=== PATIENT | male | born 1995 | race American Indian/Alaskan Native ===

== ENCOUNTER 2021-02-26 10:16 | Emergency (ER) | payer MEDICAID, SELFPAY ==
[2021-02-26 10:37] VITALS: BP 157/97; PULSE 88; RESP 18; TEMP 37; O2SAT 97; BMI 26.6
--- NOTE | 2021-02-26 11:53 | ED.PSYCH ---
HPI - Psych General Chief Complaint: ETOH/Substance Use <Isha Reid NP - Last Filed: 02/26/21 17:36> Stated Complaint: DETOX <Isha Reid NP - Last Filed: 02/26/21 17:36> Time Seen by Provider: 02/26/21 11:38 <Isha Reid NP - Last Filed: 02/26/21 17:36> Source: patient <Isha Reid NP - Last Filed: 02/26/21 17:36> Mode of arrival: ambulatory <BEV Moreno Last Filed: 02/26/21 17:36> Limitations: no limitations <BEV Moreno Last Filed: 02/26/21 17:36> History of Present Illness HPI Narrative: 26-year-old male here with complaints of depression. Patient tells me 2 days ago his . He told me he made a promise to her that if she passed he would stop using drugs. He has been using heroin daily for more than 3 years. He started to wean himself off of heroin last week and is currently on 73 mg of methadone daily. His last doses morning. He denies any suicidal thoughts but does admit to depression. Tells me he has history of depression and bipolar disease but has been off all his medications for more than 3 months. He denies any additional substance use. No physical complaints <BEV Moreno Last Filed: 02/26/21 17:36> Related Data Home Medications: Home Medications Medication Instructions Recorded Confirmed methadone 10 mg tablet 70 mg PO DAILY 02/26/21 02/27/21 <Isha Reid NP - Last Filed: 02/26/21 17:36> Allergies/Adverse Reactions: Allergies Allergy/AdvReac Type Severity Reaction Status Date / Time From [facility] Allergy Unknown UNKNOWN Uncoded 01/15/20 16:16 <BEV Moreno Last Filed: 02/26/21 17:36> Review of Systems Review of Systems: Yes all other systems are reviewed and are negative <BEV Moreno Last Filed: 02/26/21 17:36> Constitutional: Constitutional: Reports no additional constitutional complaints, Denies body ache(s), Denies chills, Denies fever(s), Denies headache(s) and Denies weakness <Isha Reid BONING ROOM WORKER - Last Filed: 02/26/21 17:36> Eyes: Eyes: Reports no additional eye complaints and Denies change in vision <Isha Reid BONING ROOM WORKER - Last Filed: 02/26/21 17:36> ENT: Reports system reviewed and no additional complaints, except as documented, Denies dizziness, Denies headache(s), Denies nasal congestion, Denies nasal discharge and Denies neck pain <Isha Reid BONING ROOM WORKER - Last Filed: 02/26/21 17:36> Cardiovascular: Cardiovascular: Reports no additional cardiovascular complaints, Denies chest pain, Denies leg edema and Denies dyspnea <Isha Reid BONING ROOM WORKER - Last Filed: 02/26/21 17:36> Respiratory: Respiratory: Reports no additional respiratory complaints, Denies cough and Denies dyspnea <Isha Reid BONING ROOM WORKER - Last Filed: 02/26/21 17:36> Gastrointestinal: Gastrointestinal: Reports no additional gastrointestinal complaints, Denies abdominal pain, Denies diarrhea, Denies nausea and Denies vomiting <Isha Reid BONING ROOM WORKER - Last Filed: 02/26/21 17:36> Genitourinary: Genitourinary: Denies urinary incontinence <Isha Reid BONING ROOM WORKER - Last Filed: 02/26/21 17:36> Musculoskeletal: Musculoskeletal: Reports no additional musculoskeletal complaints, Denies back pain, Denies arthralgias, Denies joint swelling, Denies neck pain, Denies numbness and Denies tingling <Isha Reid BONING ROOM WORKER - Last Filed: 02/26/21 17:36> Integumentary/Breasts: Skin/Breast: Reports system reviewed and no additional complaints, except as docu and Denies rash <Isha Reid BONING ROOM WORKER - Last Filed: 02/26/21 17:36> Neurologic: Reports system reviewed and no additional complaints, except as documented, Denies Abnormal speech present, Denies dizziness, Denies headache(s), Denies numbness, Denies tingling and Denies weakness <Isha Reid NP - Last Filed: 02/26/21 17:36> Psychiatric: Psychiatric: Denies anxiety, Reports depression, Denies homicidal ideation and Denies suicidal ideation <Isha Reid NP - Last Filed: 02/26/21 17:36> [facility] Past Medical History Attestation statement: The following information was validated with the patient. <Isha Reid NP - Last Filed: 02/26/21 17:36> Source: old records reviewed and nursing notes reviewed <Isha Reid NP - Last Filed: 02/26/21 17:36> Medical History: Medical History Substance abuse <Isha Reid NP - Last Filed: 02/26/21 17:36> Social History Social History: Social History Advance Directives: No Advance Directives Information Provided: Yes Healthcare Proxy: No Guardian: No <Isha Reid NP - Last Filed: 02/26/21 17:36> Physical Exam Vital Signs: Vital Signs: Last Vital Signs Temp 98.5 F 02/26/21 14:14 Pulse 85 02/27/21 07:54 Resp 17 02/27/21 07:54 BP 134/90 H 02/27/21 07:54 Pulse Ox 97 02/27/21 05:37 Body Mass Index 26.6 <Isha Reid NP - Last Filed: 02/26/21 17:36> Vital Signs: Last Vital Signs Temp 98.5 F 02/26/21 14:14 Pulse 85 02/27/21 07:54 Resp 17 02/27/21 07:54 BP 134/90 H 02/27/21 07:54 Pulse Ox 97 02/27/21 05:37 Body Mass Index 26.6 <Dev Salcedo MD - Last Filed: 02/27/21 10:02> Const: General: cooperative, healthy appearing, comfortable and no acute distress <Isha Reid NP - Last Filed: 02/26/21 17:36> Orientation/consciousness: patient oriented x3 <Isha Reid NP - Last Filed: 02/26/21 17:36> Limitations: no limitations <Isha Reid NP - Last Filed: 02/26/21 17:36> HENMT: Head: Yes normal to inspection <Isha Reid NP - Last Filed: 02/26/21 17:36> Ears: hearing grossly normal bilaterally <Isha Reid NP - Last Filed: 02/26/21 17:36> General nose exam: Normal external nose present <Isha Reid NP - Last Filed: 02/26/21 17:36> Face and sinus: Yes normal facial exam <Isha Reid NP - Last Filed: 02/26/21 17:36> Mouth: Normal oral and palatal mucosa present <Isha Reid NP - Last Filed: 02/26/21 17:36> Throat: Yes posterior oropharynx normal <Isha Reid NP - Last Filed: 02/26/21 17:36> Eyes: General: appearance normal, both eyes and all related structures <Isha Reid NP - Last Filed: 02/26/21 17:36> Pupils: Equal, round and reactive pupils present <Isha Reid NP - Last Filed: 02/26/21 17:36> Neck: Neck: Yes normal visual inspection <Isha Reid NP - Last Filed: 02/26/21 17:36> Chest: Chest palpation & inspection: normal inspection of the chest <Isha Reid NP - Last Filed: 02/26/21 17:36> Resp: Effort & Inspection: normal respiratory effort <Isha Reid NP - Last Filed: 02/26/21 17:36> Auscultation: clear to auscultation bilaterally <Isha Reid NP - Last Filed: 02/26/21 17:36> Cardio: Rate: regular rate <Isha Reid NP - Last Filed: 02/26/21 17:36> Rhythm: regular rhythm <Isha Reid NP - Last Filed: 02/26/21 17:36> Peripheral pulses: Peripheral pulses 2+ throughout <Isha Reid NP - Last Filed: 02/26/21 17:36> GI: Inspection: Yes normal to inspection <Isha Reid NP - Last Filed: 02/26/21 17:36> Palpation (GI): Soft to palpation and nontender <Isha Reid NP - Last Filed: 02/26/21 17:36> Auscultation: normal bowel sounds <Isha Reid NP - Last Filed: 02/26/21 17:36> Back/Spine/Pelvis: Thoracic/Lumbar Spine: thoracic and lumbar spine normal to inspection <Isha Reid NP - Last Filed: 02/26/21 17:36> Skin: General skin exam: no rashes or lesions noted <Isha Reid NP - Last Filed: 02/26/21 17:36> Neuro: General: patient oriented x3, no focal motor deficits and normal sensation to monofilament <Isha Reid NP - Last Filed: 02/26/21 17:36> Cranial nerves: Yes CN's II-XII intact bilaterally and Yes Equal, round and reactive pupils present <Isha Reid NP - Last Filed: 02/26/21 17:36> Cognition (Neuro): normal cognition <Isha Reid NP - Last Filed: 02/26/21 17:36> Speech: No Abnormal speech present <Isha Reid NP - Last Filed: 02/26/21 17:36> Gait exam (Neuro): Normal gait present <Isha Reid NP - Last Filed: 02/26/21 17:36> Motor exam (neuro): 5/5 motor strength present throughout <Isha Reid NP - Last Filed: 02/26/21 17:36> Extrem: General: Yes normal to inspection <Isha Reid NP - Last Filed: 02/26/21 17:36> Course Course Course Narrative: 26-year-old male with history of bipolar disease, depression, substance abuse here with complaints of feeling depressed seeking help. Patient denies SI. Recent loss of his . He is currently on methadone and feels like this is helping but he is concerned that he may relapse, he is unclear why he is here. He tells me he would like to address his mental health but also be placed in a program to help with his sobriety. 1730-Seen by care team. Plan for eats bed search. gymnastics coach or instructor involve <Isha Reid NP - Last Filed: 02/26/21 17:36> Reevaluation(s) Reevaluation #1: physician observation continued, methadone 70 confirmed by nurse, supposedly has a bed at 9am for pickup <Dev Salcedo MD - Last Filed: 02/27/21 10:02> Time: 07:22 <Dev Salcedo MD - Last Filed: 02/27/21 10:02> Reevaluation #2: end of physician observation, patient being transferred to a psych facility <Dev Salcedo MD - Last Filed: 02/27/21 10:02> Time: 10:02 <Dev Salcedo MD - Last Filed: 02/27/21 10:02> MDM - Psych Medical Records Attestation: I reviewed the patient's medical records. <Isha Reid NP - Last Filed: 02/26/21 17:36> Lab Data Attestation: I reviewed the patient's lab results. <Isha Reid NP - Last Filed: 02/26/21 17:36> Labs: Lab Results 02/26/21 02/26/21 Range/Units 11:57 11:57 Urine Opiates Screen POSITIVE H (Not Detect) Urine Fentanyl Screen POSITIVE H (Not Detect) Ur Barbiturates Screen Not Detected (Not Detect) Ur Phencyclidine Scrn Not Detected (Not Detect) Ur Amphetamines Screen Not Detected (Not Detect) U Benzodiazepines Scrn Not Detected (Not Detect) Urine Cocaine Screen POSITIVE H (Not Detect) U Marijuana (THC) Screen POSITIVE H (Not Detect) COVID-19 (COBY) Negative (Negative) COVID-19 Clin Com See Note <Isha Reid NP - Last Filed: 02/26/21 17:36> Lab Results 02/26/21 02/26/21 Range/Units 11:57 11:57 Urine Opiates Screen POSITIVE H (Not Detect) Urine Fentanyl Screen POSITIVE H (Not Detect) Ur Barbiturates Screen Not Detected (Not Detect) Ur Phencyclidine Scrn Not Detected (Not Detect) Ur Amphetamines Screen Not Detected (Not Detect) U Benzodiazepines Scrn Not Detected (Not Detect) Urine Cocaine Screen POSITIVE H (Not Detect) U Marijuana (THC) Screen POSITIVE H (Not Detect) COVID-19 (COBY) Negative (Negative) COVID-19 Clin Com See Note <Dev Salcedo MD - Last Filed: 02/27/21 10:02> Discharge Plan Discharge Clinical Impression: Depression, Cocaine use, Opiate use <Isha Reid NP - Last Filed: 02/26/21 17:36> Patient Disposition: Xfer Psychiatric Hosp <Isha Reid NP - Last Filed: 02/26/21 17:36> Prescriptions: No Action methadone 10 mg Tablet 70 mg PO DAILY RF: 0 <Isha Reid NP - Last Filed: 02/26/21 17:36>
[2021-02-26 12:21] LABS: COVID-19 Test Negative (Negative)
[2021-02-26 12:29] LABS: Amphetamine Screen Urine Not Detected (Not Detect); Barbiturates, Urine Not Detected (Not Detect); Benzodiazepines Screen Urine Not Detected (Not Detect); Cannabinoid Screen Urine POSITIVE (Not Detect); Cocaine Screen Urine POSITIVE (Not Detect); Fentanyl, urine POSITIVE (Not Detect); Opiate Screen Urine POSITIVE (Not Detect); Phencyclidine Screen Urine Not Detected (Not Detect)
--- NOTE | 2021-02-26 13:33 | MHC.CARE ---
Pt is a 26 y/o, , Armenian speaking, male who is previously unknown to the CARE Team.? Today, pt self-presented to the [facility] with complaints of depression.? Patient stated that his 2 days ago and he made a promise to her that he would stop using drugs.? He has been a daily heroin user for approximately 3 years.? In the past week he has begun to wean himself off heroin with the help of methadone.? He states he has come to this facility seeking help with his heroin addiction.? Pt has been medically cleared and is being assessed by the CARE Team to screen for crisis prior to Recovery team seeing him. Pt has history of depression and bipolar d/o and has been off all his medications for more than 3 months.? He has one prior attempt at suicide approximately 5 years ago in which he attempted to complete suicide via hanging.? He describes this as a traumatic incident that he has no desire to repeat. Pt is alert and oriented x4 and is seen in his bed in the main Emergency Department of [facility].? He is dressed in hospital attire and appears his stated age.? His eye contact is within normal limits as is his speech.? He describes his mood as sad and depressed telling CARE Team that he had to take his off life support a few days ago.? His affect is congruent with his mood.? He denies AVH, HI, , and SI.? He does state that he has been having thoughts of self harm, but has no intent to act upon them as he had found his last attempt at completing suicide traumatic.? He cites that he had made a promise to his that he would get clean, and this is a major determining factor in his staying safe.? His insight, memory, concentration, and impulse control do not appear compromised.? He does not appear delusional nor does he appear to be experiencing symptoms of psychosis. Due to this patient being off his medication for 3 months, a past significant attempt at completing suicide, and his experiencing thoughts of suicide CARE Team recommends a full crisis assessment be conducted.? ED will refer pt to [facility].? CARE Team will see the pt if [facility] is unable to respond.? Recovery Team and AYLEEN charge have been advised.
[2021-02-26 14:14] VITALS: BP 148/90; PULSE 61; RESP 14; TEMP 36.9; O2SAT 98
--- NOTE | 2021-02-26 14:23 | PC.NURSE ---
pt awaiting [facility]/CARE team eval. he is cooperative. changed into attire.
--- NOTE | 2021-02-26 15:46 | PC.NURSE ---
pt to be seen by CARE team
--- NOTE | 2021-02-26 17:04 | MHC.RECOVSUP ---
? Reason for consult:Recovery support o?? Current location ED6? o?? Identified substance use concern ?Heroine ?? Withdrawal ?? Seeking ATS (detox) ?? Support ? Intervention: o?? ATS bed search started/completed/in process o?? Community resources provided o?? Harm reduction discussion ? Plan: o?? Bed search in progress to o?? Follow up tomorrow? o?? Patient awaiting crisis evaluation o?? Patient to follow up with [facility] after discharge ? Additional information: ?Pt. is here for detox Pt. has been depressed for a couple days.Lost his to a overdose.Spoke to with Care team about his situation. Care team will seek a dual diagnosis program for Pt.
--- NOTE | 2021-02-26 17:34 | MHC.RECOVSUP ---
Recovery Support note: Patient is a 26 year old Luxembourger speaking male who present to [facility] reporting depression and seeking treatment for his substance use. Patient was evaluated by the CARE Team. CARE Team recommends EATS level of care for this patient. This film writer conducted an EATS bedsearch and faxed patient information to [facility] (phone [phone], fax: [phone]) for review. CARE Team will be contacted when patient information has been reviewed. Discussed case with CARE Team.
[2021-02-26 20:21] VITALS: BP 148/78; PULSE 54; RESP 18; O2SAT 99
--- NOTE | 2021-02-26 23:47 | PC.NURSE ---
Patient in bed calm and quiet, asymptomatic withdrawal, denied at this time but agreed to notify staff for any signs of withdrawal, contracted for the safety, sitter ay bedside, patient reported he is on methadone 70 mg daily from [facility], patient assured it will be taken care of in the morning, VSS, will continue to monitor.
[2021-02-27 05:30] VITALS: PULSE 67
[2021-02-27 05:37] VITALS: BP 164/108; PULSE 62; RESP 16; O2SAT 97
[2021-02-27] MEDS: LORazepam 1 MG TABLET PO (05:50)
--- NOTE | 2021-02-27 06:15 | PC.NURSE ---
Patient scored 9 on COWS, provider notified/ordered Ativan 1 mg/administered as ordered/pending effect. Methadone 70 mg daily dose verified through [facility],. med rec updated/faxed to pharmacy, pending EMAR update, patient disposition is discharge to [facility] in [place] via ambulance, transfer documents all ready, ambulance will be picked up at 0900, patient made aware, will continue to monitor.
--- NOTE | 2021-02-27 07:16 | PC.NURSE ---
Report recieved from Angelo RN, pt currently sleeping, plan for transfer to [facility] later this morning.
[2021-02-27 07:54] VITALS: BP 134/90; PULSE 85; RESP 17
[2021-02-27] MEDS: methADONE HCl 20 MG/2 ML ORAL.CONC 70 MG PO (08:00)
--- NOTE | 2021-02-27 08:18 | MHC.RECOVSUP ---
Recovery Support note: Last dose letter faxed to [facility] and also provided to patient.
== END 2021-02-27 10:00 ==
PROVIDERS: Nurse Practitioner Family; Emergency Provider Emergency Medicine
DX: F33.1 Major depressive disorder, recurrent, moderate (principal); F11.10 Opioid abuse, uncomplicated; F14.10 Cocaine abuse, uncomplicated; Z20.822 Contact with and (suspected) exposure to COVID-19; Z79.899 Other long term (current) drug therapy; Z71.51 Drug abuse counseling and surveillance of drug abuser
CPT/HCPCS: 36415; 80307; 87635; 99285

== ENCOUNTER 2021-03-19 14:35 | Emergency (ER) | payer MEDICAID, SELFPAY ==
[2021-03-19 14:43] VITALS: BP 164/86; PULSE 107; RESP 18; TEMP 37.3; O2SAT 96; BMI 25.8
--- NOTE | 2021-03-19 16:14 | PC.NURSE ---
t/w interviewed patient, reports he just was released from a dual detox and mental health program yesterday. patient recently had and is a methadone maintenance patient he reports at [facility] last dosed today.,patient has not been vaccinated lives w mom SI w no plan
--- NOTE | 2021-03-19 17:03 | ED.PSYCH ---
HPI - Psych General Chief Complaint: Psychiatric Symptoms <ELMER Paulino - Last Filed: 03/19/21 20:11> Stated Complaint: crisis & seeking detox <ELMER Paulino - Last Filed: 03/19/21 20:11> Time Seen by Provider: 03/19/21 16:57 <ELMER Paulino Last Filed: 03/19/21 20:11> Source: patient <ELMER Paulino Last Filed: 03/19/21 20:11> Mode of arrival: ambulatory <ELMER Paulino Last Filed: 03/19/21 20:11> Limitations: no limitations <ELMER Paulino Last Filed: 03/19/21 20:11> History of Present Illness HPI Narrative: 26-year-old male past medical history significant for major depressive disorder presents to the emerge department with worsening depression x1 day. He states he was discharged from the [facility] in [place] a dual programs yesterday. He states that since he got discharged he feels as though his suicidal thoughts are coming back in his depression has been worsening. He states that his 2 weeks ago, and he promised her that if she ever dies he would become sober. He states he lives at home with his grandmother. He admits to cocaine and heroin use, he last used today, he snorts both of these drugs. He is also a current daily smoker, he smokes 2 packs per day and has been smoking for 3 years. He tells me he is a recovering alcoholic and has been clean from alcohol for 8 years. He tells me that this moment he is not suicidal however, he has intermittent suicidal ideation without a plan. He tells me that he had a suicide attempt 4 years ago where he tried to hang himself, but he was found by his . He reports no visual auditory or tactile hallucinations. He denies any medication changes. He states he feels as though he needs to go back into a facility. He has no medical complaints at this time. He denies fevers, chills, nausea, vomiting, diarrhea, chest pain, shortness of breath, cough. He also denies recent sick contacts. <ELMER Paulino Last Filed: 03/19/21 20:11> MD complaint: suicidal ideation, feels depressed and substance abuse <ELMER Paulino - Last Filed: 03/19/21 20:11> Onset (ago): day(s) (1) <ELMER Paulino - Last Filed: 03/19/21 20:11> Duration: constant <ELMER Paulino - Last Filed: 03/19/21 20:11> History of same: Yes <ELMER Paulino - Last Filed: 03/19/21 20:11> Relieving factors: none <ELMER Paulino - Last Filed: 03/19/21 20:11> Exacerbating factors: none <ELMER Paulino - Last Filed: 03/19/21 20:11> Context: recent drug abuse and significant life stressor ( 2 weeks ago ) <ELMER Paulino - Last Filed: 03/19/21 20:11> Associated psychiatric symptoms: depression and suicidal ideation <ELMER Paulino - Last Filed: 03/19/21 20:11> Associated symptoms: denies other symptoms <ELMER Paulino - Last Filed: 03/19/21 20:11> Treatments prior to arrival: none <ELMER Paulino - Last Filed: 03/19/21 20:11> If self harm: admits thoughts of self harm (intermittent thoughts of SI, not currently SI ) <ELMER Paulino - Last Filed: 03/19/21 20:11> Related Data Home Medications: Home Medications Medication Instructions Recorded Confirmed methadone 10 mg tablet 70 mg PO DAILY 02/26/21 02/27/21 albuterol sulfate 90 mcg/actuation 1 inh INHALATION QID 03/19/21 03/19/21 aerosol inhaler (ProAir HFA) diphenhydramine HCl 50 mg capsule 1 cap PO BEDTIME 03/19/21 03/19/21 (Banophen) fluoxetine 20 mg capsule 1 cap PO DAILY 03/19/21 03/19/21 melatonin 3 mg tablet 3 mg PO BEDTIME 03/19/21 03/19/21 <ELMER Paulino - Last Filed: 03/19/21 20:11> Allergies/Adverse Reactions: Allergies Allergy/AdvReac Type Severity Reaction Status Date / Time From [facility] Allergy Unknown UNKNOWN Uncoded 01/15/20 16:16 <ELMER Paulino - Last Filed: 03/19/21 20:11> Review of Systems Review of Systems: Constitutional : No Fever, No Chills ENT/Mouth : No Ear Pain, No Nasal Congestion, No sore throat Eyes: No Eye Pain, No Swelling, No Redness Cardiovascular : No Chest Pain, No SOB Respiratory : No Cough, No Sputum, No Dyspnea Gastrointestinal : No Nausea, No Vomiting, No Diarrhea, No Hematochezia, No Melena Genitourinary : No Dysuria, No Urinary Frequency, No Hematuria Musculoskeletal : No Myalgias Skin : No Skin Lesions, No rash Neuro : No Weakness, No Numbness, No Paresthesias, No Dizziness, No Headache Psych : No Anxiety, positive Depression, positive SI/HI All other systems reviewed and are negative <ELMER Paulino - Last Filed: 03/19/21 20:11> PMF Past Medical History Attestation statement: The following information was validated with the patient. <ELMER Paulino - Last Filed: 03/19/21 20:11> Source: old records reviewed and nursing notes reviewed <ELMER Paulino Last Filed: 03/19/21 20:11> Medical History: Medical History Substance abuse <ELMER Paulino - Last Filed: 03/19/21 20:11> Social History Social History: Social History Advance Directives: No Advance Directives Information Provided: No Healthcare Proxy: No Guardian: No <ELMER Paulino Last Filed: 03/19/21 20:11> Physical Exam Vital Signs: Vital Signs: Last Vital Signs Temp 97.7 F 03/19/21 17:41 Pulse 73 03/19/21 17:41 Resp 18 03/19/21 17:41 BP 130/63 03/19/21 17:41 Pulse Ox 96 03/19/21 17:41 Body Mass Index 25.8 Upon physical exam vitals noted to be significant for hypertension, tachycardia. <ELMER Paulino - Last Filed: 03/19/21 20:11> Vital Signs: Last Vital Signs Temp 97.7 F 03/19/21 17:41 Pulse 73 03/19/21 17:41 Resp 18 03/19/21 17:41 BP 130/63 03/19/21 17:41 Pulse Ox 96 03/19/21 17:41 Body Mass Index 25.8 <ELMER Sarmiento - Last Filed: 03/19/21 21:02> Vital Signs: Last Vital Signs Temp 97.7 F 03/19/21 17:41 Pulse 73 03/19/21 17:41 Resp 18 03/19/21 17:41 BP 130/63 03/19/21 17:41 Pulse Ox 96 03/19/21 17:41 Body Mass Index 25.8 <Kwesi Ochoa MD - Last Filed: 03/19/21 22:07> Appearance: Alert.? Oriented X3.? No acute distress.?Patient appears anxious, nervous, and withdrawn. Head: Normocephalic, atraumatic, no step-offs or deformities Eyes: Pupils equal, round and reactive to light.?EOMI no nystagmus ENT: Pharynx normal.? Neck: Normal inspection.? Neck supple.? CVS: Normal heart rate and rhythm.? Pulses normal.? Respiratory: No respiratory distress.? Breath sounds normal.? Abdomen: Soft and nontender.? Skin: Skin warm and dry.? Normal skin color.? Normal skin turgor.?No track combs, No self inflicted wounds Extremities: No lower extremity edema.? No calf ttp. 5/5 strength to bilateral upper and lower extremities Back: No midline tenderness, no C-spine tenderness, full range of motion, no CVA tenderness bilaterally Neuro: Oriented X 3.? No motor deficit.? No sensory deficit. CN 2-12 intact <ELMER Paulino - Last Filed: 03/19/21 20:11> Course Course Course Narrative: patient seen and examined - agree wtih plan <ELMER Sarmiento - Last Filed: 03/19/21 21:02> Reevaluation(s) Reevaluation #1: CBC shows no signs of infection, no anemia. Chemistry shows no acute electrolyte abnormalities, transaminases are noted to be elevated in a 2-1 ratio, likely secondary to previous alcohol abuse. Patient is COVID negative. Patient's urinary tox screen positive for opiates, fentanyl, cocaine and marijuana. At this time patient's vital signs have normalized. At this time 1903 patient will be placed in physician observation to allow more time for N to evaluate the patient, for possible inpatient admission. At the time that observation was started vital signs were stable. Patient is calm cooperative, in no acute distress. RRR, lungs clear, no focal neuro deficits. <ELMER Paulino - Last Filed: 03/19/21 20:11> Time: 19:03 <ELMER Paulino - Last Filed: 03/19/21 20:11> MDM - Psych MDM Narrative Medical decision making narrative: [id number] 26-year-old male past medical history significant for major depressive disorder, and suicidal ideation with previous attempt last 1 was 4 years ago when patient tried to hang himself presenting to the emergency department with worsening depression, and intermittent thoughts of suicidal ideation without a plan x1 day. Patient was discharged yesterday from the [facility] in [place]. Patient reports a significant life stressor, 2 weeks ago. Patient admits to cocaine, marijuana, heroin use. Patient is a current daily smoker 2 packs per day. Denies alcohol use. Would like to get help. Denies visual, auditory and tactile hallucinations at this time. Upon physical examination patient appears well-groomed, in no acute distress, he appears a bit anxious, and withdrawn. Lungs are clear to auscultation. S1-S2 appreciated free of murmurs. Abdomen soft nontender nondistended. Pupils equal round reactive to light bilaterally. Extraocular movements intact free of nystagmus. Head is normocephalic, atraumatic no step-offs or deformities. 5/5 strength upper and lower extremities. No self-inflicted wounds noted. Cranial nerves 2-12 intact. No focal neuro deficits. Plan at this time is to obtain basic labs, EtOH, drug tox, BPH on consult. Due to patient's suicidal ideation he will be on close observation, with safety checks every 15 minutes. <ELMER Paulino - Last Filed: 03/19/21 20:11> Lab Data Result diagrams: : 03/19/21 17:51 03/19/21 17:51 <ELMER Paulino - Last Filed: 03/19/21 20:11> Labs: Lab Results 03/19/21 03/19/21 03/19/21 Range/Units 17:24 17:24 17:51 WBC 8.3 (4.8-10.8) X10*3/uL RBC 5.03 (4.60-5.80) X10*6/uL Hgb 14.2 (14.0-18.0) g/dl Hct 45.3 (42.0-52.0) % MCV 90.1 (80.0-98.0) fL MCH 28.2 (27.0-33.0) pg MCHC 31.3 (31.0-36.0) g/dl RDW 11.8 (11.0-16.0) % Plt Count 288 (160-400) X10*3/uL MPV 9.6 (9.4-12.4) fL Immature Gran % (Auto) 0.1 (0.0-0.4) % Neut % (Auto) 48.6 (45-73) % Lymph % (Auto) 39.0 (20-40) % Moore % (Auto) 8.8 (2-11) % Eos % (Auto) 3.1 (0-4) % Baso % (Auto) 0.4 (0-2) % Lymph # (Auto) 3.2 (1.2-4.9) X10*3/uL Moore # (Auto) 0.7 (0.1-1.2) X10*3/uL Eos # (Auto) 0.3 (0.0-0.4) X10*3/uL Baso # (Auto) 0.0 (0.0-0.2) X10*3/uL Abs Immat Gran (auto) 0.01 (0.00-0.03) X10*3/uL Absolute Neuts (auto) 4.0 (2.0-8.3) x10*3/uL Absolute Nucleated RBC 0.000 (0.0-0.012) X10*3/uL Nucleated RBC % (auto) 0.0 (0.0-0.2) /100WBC Sodium (135-145) mmol/L Potassium (3.3-5.1) mmol/L Chloride (96-108) mmol/L Carbon Dioxide (22-29) mmol/L Anion Gap (12-20) BUN (9-16) mg/dL Creatinine (0.5-1.4) mg/dL Estim Creat Clear Calc Estimated GFR Random Glucose (60-115) mg/dL Calcium (8.4-10.2) mg/dL Total Bilirubin (0.0-1.0) mg/dL AST (5-37) U/L ALT (0-40) U/L Alkaline Phosphatase (39-117) U/L Total Protein (6.5-8.0) g/dL Albumin (3.5-5.0) g/dL Urine Opiates Screen POSITIVE H (Not Detect) Urine Fentanyl Screen POSITIVE H (Not Detect) Ur Barbiturates Screen Not Detected (Not Detect) Ur Phencyclidine Scrn Not Detected (Not Detect) Ur Amphetamines Screen Not Detected (Not Detect) U Benzodiazepines Scrn Not Detected (Not Detect) Urine Cocaine Screen POSITIVE H (Not Detect) U Marijuana (THC) Screen POSITIVE H (Not Detect) Ethyl Alcohol mg/dL COVID-19 ([facility]) Negative (Negative) COVID-19 Clin Com See Note 03/19/21 03/19/21 Range/Units 17:51 17:51 WBC (4.8-10.8) X10*3/uL RBC (4.60-5.80) X10*6/uL Hgb (14.0-18.0) g/dl Hct (42.0-52.0) % MCV (80.0-98.0) fL MCH (27.0-33.0) pg MCHC (31.0-36.0) g/dl RDW (11.0-16.0) % Plt Count (160-400) X10*3/uL MPV (9.4-12.4) fL Immature Gran % (Auto) (0.0-0.4) % Neut % (Auto) (45-73) % Lymph % (Auto) (20-40) % Moore % (Auto) (2-11) % Eos % (Auto) (0-4) % Baso % (Auto) (0-2) % Lymph # (Auto) (1.2-4.9) X10*3/uL Moore # (Auto) (0.1-1.2) X10*3/uL Eos # (Auto) (0.0-0.4) X10*3/uL Baso # (Auto) (0.0-0.2) X10*3/uL Abs Immat Gran (auto) (0.00-0.03) X10*3/uL Absolute Neuts (auto) (2.0-8.3) x10*3/uL Absolute Nucleated RBC (0.0-0.012) X10*3/uL Nucleated RBC % (auto) (0.0-0.2) /100WBC Sodium 142 (135-145) mmol/L Potassium 3.7 (3.3-5.1) mmol/L Chloride 104 (96-108) mmol/L Carbon Dioxide 29 (22-29) mmol/L Anion Gap 13 (12-20) BUN 7 L (9-16) mg/dL Creatinine 0.94 (0.5-1.4) mg/dL Estim Creat Clear Calc 106.5 Estimated GFR > 60 Random Glucose 121 H (60-115) mg/dL Calcium 9.4 (8.4-10.2) mg/dL Total Bilirubin 0.7 (0.0-1.0) mg/dL AST 50 H (5-37) U/L ALT 131 H (0-40) U/L Alkaline Phosphatase 76 (39-117) U/L Total Protein 6.8 (6.5-8.0) g/dL Albumin 4.4 (3.5-5.0) g/dL Urine Opiates Screen (Not Detect) Urine Fentanyl Screen (Not Detect) Ur Barbiturates Screen (Not Detect) Ur Phencyclidine Scrn (Not Detect) Ur Amphetamines Screen (Not Detect) U Benzodiazepines Scrn (Not Detect) Urine Cocaine Screen (Not Detect) U Marijuana (THC) Screen (Not Detect) Ethyl Alcohol < 10 mg/dL COVID-19 ([facility]) (Negative) COVID-19 Clin Com <Susanita Baker, PA - Last Filed: 03/19/21 20:11> Lab Results 03/19/21 03/19/21 03/19/21 Range/Units 17:24 17:24 17:51 WBC 8.3 (4.8-10.8) X10*3/uL RBC 5.03 (4.60-5.80) X10*6/uL Hgb 14.2 (14.0-18.0) g/dl Hct 45.3 (42.0-52.0) % MCV 90.1 (80.0-98.0) fL MCH 28.2 (27.0-33.0) pg MCHC 31.3 (31.0-36.0) g/dl RDW 11.8 (11.0-16.0) % Plt Count 288 (160-400) X10*3/uL MPV 9.6 (9.4-12.4) fL Immature Gran % (Auto) 0.1 (0.0-0.4) % Neut % (Auto) 48.6 (45-73) % Lymph % (Auto) 39.0 (20-40) % Moore % (Auto) 8.8 (2-11) % Eos % (Auto) 3.1 (0-4) % Baso % (Auto) 0.4 (0-2) % Lymph # (Auto) 3.2 (1.2-4.9) X10*3/uL Moore # (Auto) 0.7 (0.1-1.2) X10*3/uL Eos # (Auto) 0.3 (0.0-0.4) X10*3/uL Baso # (Auto) 0.0 (0.0-0.2) X10*3/uL Abs Immat Gran (auto) 0.01 (0.00-0.03) X10*3/uL Absolute Neuts (auto) 4.0 (2.0-8.3) x10*3/uL Absolute Nucleated RBC 0.000 (0.0-0.012) X10*3/uL Nucleated RBC % (auto) 0.0 (0.0-0.2) /100WBC Sodium (135-145) mmol/L Potassium (3.3-5.1) mmol/L Chloride (96-108) mmol/L Carbon Dioxide (22-29) mmol/L Anion Gap (12-20) BUN (9-16) mg/dL Creatinine (0.5-1.4) mg/dL Estim Creat Clear Calc Estimated GFR Random Glucose (60-115) mg/dL Calcium (8.4-10.2) mg/dL Total Bilirubin (0.0-1.0) mg/dL AST (5-37) U/L ALT (0-40) U/L Alkaline Phosphatase (39-117) U/L Total Protein (6.5-8.0) g/dL Albumin (3.5-5.0) g/dL Urine Opiates Screen POSITIVE H (Not Detect) Urine Fentanyl Screen POSITIVE H (Not Detect) Ur Barbiturates Screen Not Detected (Not Detect) Ur Phencyclidine Scrn Not Detected (Not Detect) Ur Amphetamines Screen Not Detected (Not Detect) U Benzodiazepines Scrn Not Detected (Not Detect) Urine Cocaine Screen POSITIVE H (Not Detect) U Marijuana (THC) Screen POSITIVE H (Not Detect) Ethyl Alcohol mg/dL COVID-19 ([facility]BY) Negative (Negative) COVID-19 Clin Com See Note 03/19/21 03/19/21 Range/Units 17:51 17:51 WBC (4.8-10.8) X10*3/uL RBC (4.60-5.80) X10*6/uL Hgb (14.0-18.0) g/dl Hct (42.0-52.0) % MCV (80.0-98.0) fL MCH (27.0-33.0) pg MCHC (31.0-36.0) g/dl RDW (11.0-16.0) % Plt Count (160-400) X10*3/uL MPV (9.4-12.4) fL Immature Gran % (Auto) (0.0-0.4) % Neut % (Auto) (45-73) % Lymph % (Auto) (20-40) % Moore % (Auto) (2-11) % Eos % (Auto) (0-4) % Baso % (Auto) (0-2) % Lymph # (Auto) (1.2-4.9) X10*3/uL Moore # (Auto) (0.1-1.2) X10*3/uL Eos # (Auto) (0.0-0.4) X10*3/uL Baso # (Auto) (0.0-0.2) X10*3/uL Abs Immat Gran (auto) (0.00-0.03) X10*3/uL Absolute Neuts (auto) (2.0-8.3) x10*3/uL Absolute Nucleated RBC (0.0-0.012) X10*3/uL Nucleated RBC % (auto) (0.0-0.2) /100WBC Sodium 142 (135-145) mmol/L Potassium 3.7 (3.3-5.1) mmol/L Chloride 104 (96-108) mmol/L Carbon Dioxide 29 (22-29) mmol/L Anion Gap 13 (12-20) BUN 7 L (9-16) mg/dL Creatinine 0.94 (0.5-1.4) mg/dL Estim Creat Clear Calc 106.5 Estimated GFR > 60 Random Glucose 121 H (60-115) mg/dL Calcium 9.4 (8.4-10.2) mg/dL Total Bilirubin 0.7 (0.0-1.0) mg/dL AST 50 H (5-37) U/L ALT 131 H (0-40) U/L Alkaline Phosphatase 76 (39-117) U/L Total Protein 6.8 (6.5-8.0) g/dL Albumin 4.4 (3.5-5.0) g/dL Urine Opiates Screen (Not Detect) Urine Fentanyl Screen (Not Detect) Ur Barbiturates Screen (Not Detect) Ur Phencyclidine Scrn (Not Detect) Ur Amphetamines Screen (Not Detect) U Benzodiazepines Scrn (Not Detect) Urine Cocaine Screen (Not Detect) U Marijuana (THC) Screen (Not Detect) Ethyl Alcohol < 10 mg/dL COVID-19 ([facility]) (Negative) COVID-19 Clin Com <ELMER Sarmiento - Last Filed: 03/19/21 21:02> Lab Results 03/19/21 03/19/21 03/19/21 Range/Units 17:24 17:24 17:51 WBC 8.3 (4.8-10.8) X10*3/uL RBC 5.03 (4.60-5.80) X10*6/uL Hgb 14.2 (14.0-18.0) g/dl Hct 45.3 (42.0-52.0) % MCV 90.1 (80.0-98.0) fL MCH 28.2 (27.0-33.0) pg MCHC 31.3 (31.0-36.0) g/dl RDW 11.8 (11.0-16.0) % Plt Count 288 (160-400) X10*3/uL MPV 9.6 (9.4-12.4) fL Immature Gran % (Auto) 0.1 (0.0-0.4) % Neut % (Auto) 48.6 (45-73) % Lymph % (Auto) 39.0 (20-40) % Moore % (Auto) 8.8 (2-11) % Eos % (Auto) 3.1 (0-4) % Baso % (Auto) 0.4 (0-2) % Lymph # (Auto) 3.2 (1.2-4.9) X10*3/uL Moore # (Auto) 0.7 (0.1-1.2) X10*3/uL Eos # (Auto) 0.3 (0.0-0.4) X10*3/uL Baso # (Auto) 0.0 (0.0-0.2) X10*3/uL Abs Immat Gran (auto) 0.01 (0.00-0.03) X10*3/uL Absolute Neuts (auto) 4.0 (2.0-8.3) x10*3/uL Absolute Nucleated RBC 0.000 (0.0-0.012) X10*3/uL Nucleated RBC % (auto) 0.0 (0.0-0.2) /100WBC Sodium (135-145) mmol/L Potassium (3.3-5.1) mmol/L Chloride (96-108) mmol/L Carbon Dioxide (22-29) mmol/L Anion Gap (12-20) BUN (9-16) mg/dL Creatinine (0.5-1.4) mg/dL Estim Creat Clear Calc Estimated GFR Random Glucose (60-115) mg/dL Calcium (8.4-10.2) mg/dL Total Bilirubin (0.0-1.0) mg/dL AST (5-37) U/L ALT (0-40) U/L Alkaline Phosphatase (39-117) U/L Total Protein (6.5-8.0) g/dL Albumin (3.5-5.0) g/dL Urine Opiates Screen POSITIVE H (Not Detect) Urine Fentanyl Screen POSITIVE H (Not Detect) Ur Barbiturates Screen Not Detected (Not Detect) Ur Phencyclidine Scrn Not Detected (Not Detect) Ur Amphetamines Screen Not Detected (Not Detect) U Benzodiazepines Scrn Not Detected (Not Detect) Urine Cocaine Screen POSITIVE H (Not Detect) U Marijuana (THC) Screen POSITIVE H (Not Detect) Ethyl Alcohol mg/dL COVID-19 ([facility]BY) Negative (Negative) COVID-19 Clin Com See Note 03/19/21 03/19/21 Range/Units 17:51 17:51 WBC (4.8-10.8) X10*3/uL RBC (4.60-5.80) X10*6/uL Hgb (14.0-18.0) g/dl Hct (42.0-52.0) % MCV (80.0-98.0) fL MCH (27.0-33.0) pg MCHC (31.0-36.0) g/dl RDW (11.0-16.0) % Plt Count (160-400) X10*3/uL MPV (9.4-12.4) fL Immature Gran % (Auto) (0.0-0.4) % Neut % (Auto) (45-73) % Lymph % (Auto) (20-40) % Moore % (Auto) (2-11) % Eos % (Auto) (0-4) % Baso % (Auto) (0-2) % Lymph # (Auto) (1.2-4.9) X10*3/uL Moore # (Auto) (0.1-1.2) X10*3/uL Eos # (Auto) (0.0-0.4) X10*3/uL Baso # (Auto) (0.0-0.2) X10*3/uL Abs Immat Gran (auto) (0.00-0.03) X10*3/uL Absolute Neuts (auto) (2.0-8.3) x10*3/uL Absolute Nucleated RBC (0.0-0.012) X10*3/uL Nucleated RBC % (auto) (0.0-0.2) /100WBC Sodium 142 (135-145) mmol/L Potassium 3.7 (3.3-5.1) mmol/L Chloride 104 (96-108) mmol/L Carbon Dioxide 29 (22-29) mmol/L Anion Gap 13 (12-20) BUN 7 L (9-16) mg/dL Creatinine 0.94 (0.5-1.4) mg/dL Estim Creat Clear Calc 106.5 Estimated GFR > 60 Random Glucose 121 H (60-115) mg/dL Calcium 9.4 (8.4-10.2) mg/dL Total Bilirubin 0.7 (0.0-1.0) mg/dL AST 50 H (5-37) U/L ALT 131 H (0-40) U/L Alkaline Phosphatase 76 (39-117) U/L Total Protein 6.8 (6.5-8.0) g/dL Albumin 4.4 (3.5-5.0) g/dL Urine Opiates Screen (Not Detect) Urine Fentanyl Screen (Not Detect) Ur Barbiturates Screen (Not Detect) Ur Phencyclidine Scrn (Not Detect) Ur Amphetamines Screen (Not Detect) U Benzodiazepines Scrn (Not Detect) Urine Cocaine Screen (Not Detect) U Marijuana (THC) Screen (Not Detect) Ethyl Alcohol < 10 mg/dL COVID-19 ([facility]) (Negative) COVID-19 Clin Com <Kwesi Ochoa MD - Last Filed: 03/19/21 22:07> Critical Care Time Critical Care Time Critical Care Time: No <ELMER Paulino - Last Filed: 03/19/21 20:11> Discharge Plan Discharge Clinical Impression: Depression, Suicidal ideation <ELMER Paulino - Last Filed: 03/19/21 20:11> Patient Disposition: Still a Patient <ELMER Paulino - Last Filed: 11/20/21 20:11> Prescriptions: No Action diphenhydramine HCl [Banophen] 50 mg capsule 1 cap PO BEDTIME RF: 0 melatonin 3 mg tablet 3 mg PO BEDTIME RF: 0 albuterol sulfate [ProAir HFA] 90 mcg/actuation HFA aerosol inhaler 1 inh inhalation QID RF: 0 fluoxetine 20 mg capsule 1 cap PO DAILY RF: 0 methadone 10 mg Tablet 70 mg PO DAILY RF: 0 <ELMER Paulino - Last Filed: 03/19/21 20:11>
[2021-03-19 17:41] VITALS: BP 130/63; PULSE 73; RESP 18; TEMP 36.5; O2SAT 96
[2021-03-19 17:43] LABS: Amphetamine Screen Urine Not Detected (Not Detect); Barbiturates, Urine Not Detected (Not Detect); Benzodiazepines Screen Urine Not Detected (Not Detect); Cannabinoid Screen Urine POSITIVE (Not Detect); Cocaine Screen Urine POSITIVE (Not Detect); Fentanyl, urine POSITIVE (Not Detect); Opiate Screen Urine POSITIVE (Not Detect); Phencyclidine Screen Urine Not Detected (Not Detect)
[2021-03-19 17:48] LABS: COVID-19 Test Negative (Negative)
[2021-03-19 17:55] LABS: MANUAL DIFF FLAG NO
[2021-03-19 17:57] LABS: Basophils Percent Auto 0.4 % (0-2); Eosinophils Absolute Auto 0.3 X10*3/uL (0.0-0.4); Eosinophils Percent Auto 3.1 % (0-4); Hematocrit 45.3 % (42.0-52.0); Hemoglobin 14.2 g/dl (14.0-18.0); Imm Gran Abs Auto 0.01 X10*3/uL (0.00-0.03); Imm Gran Pct Auto 0.1 % (0.0-0.4); Lymphocytes Absolute Auto 3.2 X10*3/uL (1.2-4.9); Mean Corpuscular HGB Conc 31.3 g/dl (31.0-36.0); Mean Corpuscular Hemoglobin 28.2 pg (27.0-33.0); Mean Corpuscular Volume 90.1 fL (80.0-98.0); Mean Platelet Volume 9.6 fL (9.4-12.4); Monocytes Absolute Auto 0.7 X10*3/uL (0.1-1.2); Monocytes Percent Auto 8.8 % (2-11); Neutrophils Percent Auto 48.6 % (45-73); Platelet Count 288 X10*3/uL (160-400); Red Blood Count 5.03 X10*6/uL (4.60-5.80); Red Cell Distribution Width 11.8 % (11.0-16.0); White Blood Count 8.3 X10*3/uL (4.8-10.8)
[2021-03-19 18:14] LABS: Ethanol < 10 mg/dL
[2021-03-19 18:23] LABS: Alanine Aminotransferase 131 U/L (0-40); Albumin Level 4.4 g/dL (3.5-5.0); Alkaline Phosphatase 76 U/L (39-117); Anion Gap 13 (12-20); Aspartate Amino Transferase 50 U/L (5-37); Bilirubin Total 0.7 mg/dL (0.0-1.0); Blood Urea Nitrogen 7 mg/dL (9-16); Calcium 9.4 mg/dL (8.4-10.2); Carbon Dioxide 29 mmol/L (22-29); Chloride 104 mmol/L (96-108); Creatinine Clr Calc Pharmacy 106.5; Estimated Glomerular Filt Rate > 60; Glucose Random 121 mg/dL (60-115); Potassium 3.7 mmol/L (3.3-5.1); Sodium 142 mmol/L (135-145); Total Protein 6.8 g/dL (6.5-8.0)
--- NOTE | 2021-03-19 21:11 | MHC.CARE ---
JENNIFER unable to send a clinician this evening to evaluate pt. CARE team assumed responsibility of care. This assembly instructions writer met with pt for assessment, disposition is for inpt dual diagnosis admission, LE PAYNE is in agreement with plan of care. Pt is agreeable for admission. Sect 12a signed by this assembly instructions writer and placed in pt's chart for safety and containment and pending facility transfer.
--- NOTE | 2021-03-20 05:39 | PC.NURSE ---
Patient slept through the night, no distress observed/reported, disposition per care team is section 12 inpatient bed search, behavior appropriate, will continue to monitor.
[2021-03-20 05:54] VITALS: BP 120/66; PULSE 50; RESP 18; TEMP 36.1; O2SAT 98
--- NOTE | 2021-03-20 06:13 | PC.NURSE ---
Methadone dose verified/med rec updated/copy faxed to pharmacy/pending providers approval
--- NOTE | 2021-03-20 07:25 | PC.NURSE ---
patient appears to remain asleep at present, respirations are even and unlabored, patient appears in no distress
--- NOTE | 2021-03-20 09:00 | MHC.RECOVSUP ---
Recovery Support note: This customs entry writer conducted a dual diagnosis bedsearch for patient. Juan reports no beds at this time. Message left for [facility] intake team and this customs entry writer awaits a response. [facility] reports no beds however planned discharged for tomorrow on the voluntary unit. Patient information faxed for review.
--- NOTE | 2021-03-20 10:45 | MHC.RECOVSUP ---
Recovery Support note: Patient has been accepted to [facility] dual diagnosis unit for 03/21/21. Address: [address] [place] [address] Admission time scheduled for 1300 on 03/21/21 and patient can go by ambulance on a section 12 or by private car. CARE Team will obtain authorization.
[2021-03-20] MEDS: methADONE HCl 20 MG/2 ML ORAL.CONC 70 MG PO (13:20)
[2021-03-21 00:49] VITALS: BP 135/90; PULSE 57; RESP 17; TEMP 36.3; O2SAT 98
--- NOTE | 2021-03-21 05:22 | PC.NURSE ---
Patient slept through the night, no distress observed/reported, behavior quiet and isolated, patient is accepted to [facility] with ETA 1300, will continue to monitor.
--- NOTE | 2021-03-21 07:42 | PC.NURSE ---
patient appears to remain asleep at present respriations are even and unlabored, patient appears in no distress
[2021-03-21] MEDS: methADONE HCl 20 MG/2 ML ORAL.CONC 70 MG PO (10:23)
== END 2021-03-21 11:05 ==
PROVIDERS: Physician Assistant; Emergency Provider Emergency Medicine
DX: F33.9 Major depressive disorder, recurrent, unspecified (principal); R45.851 Suicidal ideations; F11.20 Opioid dependence, uncomplicated; F17.200 Nicotine dependence, unspecified, uncomplicated; Z91.51 Personal history of suicidal behavior; Z20.822 Contact with and (suspected) exposure to COVID-19
CPT/HCPCS: 36415; 80053; 80307; 82077; 85025; 87635; 99285

== ENCOUNTER 2021-04-13 20:47 | Emergency (ER) | payer MEDICAID, SELFPAY ==
[2021-04-13 21:16] VITALS: BP 167/67; PULSE 86; RESP 18; TEMP 36.6; O2SAT 97; BMI 25.8
== END 2021-04-14 02:27 | disposition left against medical advice (07) ==
PROVIDERS: Emergency Provider Emergency Medicine
DX: F14.90 Cocaine use, unspecified, uncomplicated (principal); F11.90 Opioid use, unspecified, uncomplicated
CPT/HCPCS: 99281; 99282

== ENCOUNTER 2021-04-18 18:33 | Emergency (ER) | payer MEDICAID, SELFPAY ==
[2021-04-18 19:21] VITALS: BP 152/88; PULSE 89; RESP 18; TEMP 36.8; O2SAT 97; BMI 27.4
--- NOTE | 2021-04-18 19:46 | ED.PSYCH ---
HPI - Psych General Chief Complaint: ETOH/Substance Use Stated Complaint: looking for help for detox Time Seen by Provider: 04/18/21 19:33 Source: patient Mode of arrival: ambulatory Limitations: no limitations History of Present Illness HPI Narrative: 26-year-old male past medical history significant for major depressive disorder presents to the emerge department with worsening depression and seeking detox from opiates and cocaine x2 day. Patient tells me that he is really been struggling since his a few months ago. He tells me that he is also homeless at this time, and he has been having a tough time finding places to sleep. He reports increasing anxiety and depression. He tells me that he has been using heroin and cocaine often, the last time he used was around noon today. He tells me that he snorts both of these. He is a current daily smoker and smokes about half a pack per day. He tells me he has not used alcohol in over 8 years. He denies suicidal ideation and homicidal ideation. He denies visual, auditory and tactile hallucinations. He denies any medical complaints at this time. MD complaint: feels depressed and anxiety Onset (ago): day(s) (2) Duration: constant History of same: Yes Relieving factors: none Exacerbating factors: none Context: recent drug abuse (cocaine and heroin ) and significant life stressor ( a few months ago ) Associated psychiatric symptoms: depression Associated symptoms: denies other symptoms Treatments prior to arrival: none Related Data Home Medications Medication Instructions Recorded Confirmed albuterol sulfate 90 mcg/actuation 1 inh INHALATION QID 03/19/21 04/18/21 aerosol inhaler (ProAir HFA) fluoxetine 20 mg capsule 1 cap PO DAILY 03/19/21 04/18/21 melatonin 3 mg tablet 3 mg PO BEDTIME 03/19/21 04/18/21 trazodone 50 mg tablet 1 tab PO BEDTIME 04/18/21 04/18/21 Allergies Allergy/AdvReac Type Severity Reaction Status Date / Time From [facility] Allergy Unknown UNKNOWN Uncoded 01/15/20 16:16 Review of Systems Review of Systems: Constitutional : No Fever, No Chills ENT/Mouth : No sore throat, No Rhinorrhea Eyes: No Eye Pain, No Swelling, No Redness Cardiovascular : No Chest Pain, No SOB Respiratory : No Cough, No Sputum Gastrointestinal : No Nausea, No Vomiting, No Diarrhea, No abdominal Pain Genitourinary : No Dysuria, No Hematuria Musculoskeletal : No joint pain, No Myalgias, No Joint Swelling Skin : No Skin Lesions, No rash Neuro : No Weakness, No Numbness Psych : + Anxiety, + Depression, No SI/HI/AH/VH Heme/Lymph: No Bruising, No Bleeding Endocrine : No Polyuria, No Polydipsia All other systems reviewed and are negative Yes all other systems are reviewed and are negative [facility] Past Medical History Attestation statement: The following information was validated with the patient. Source: old records reviewed and nursing notes reviewed Medical History Substance abuse Social History Social History Advance Directives: No Advance Directives Information Provided: No Physical Exam Vital Signs: Vital Signs: Last Vital Signs Temp 98.2 F 04/18/21 19:21 Pulse 89 04/18/21 19:21 Resp 18 04/18/21 19:21 BP 152/88 H 04/18/21 19:21 Pulse Ox 97 04/18/21 19:21 BMI result Body Mass Index 27.4 VSS noted to be slightly hypertensive likely secondary to anxiety Appearance: Alert.? Oriented X3.? No acute distress.?Mild anxiety noted Head: Normocephalic, atraumatic, no step-offs or deformities Eyes: Pupils equal, round and reactive to light.? ENT: Pharynx normal.? Neck: Normal inspection.? Neck supple.? CVS: Normal heart rate and rhythm.? Pulses normal.? Respiratory: No respiratory distress.? Breath sounds normal.? Abdomen: Soft and nontender.? Skin: Skin warm and dry.? Normal skin color.? Normal skin turgor.? Extremities: No lower extremity edema.? 5/5 strength to bilateral upper and lower extremities Back: No midline tenderness, no C-spine tenderness, full range of motion, no CVA tenderness bilaterally Neuro: Oriented X 3.? No motor deficit.? No sensory deficit. CN 2-12 intact Course Reevaluation(s) Reevaluation #1: [facility] team spoke to patient and has found placement at [facility] in [place]. Will wait for COVID test and WOOD. Then will medically clear patient. Time: 19:59 Reevaluation #2: COVID negative, positive for opiates, fentanyl, cocaine, marijuana. Comfortable with DC to [facility] in [place]. Time: 20:18 MDM - Psych MDM Narrative Medical decision making narrative: 1953 26-year-old male past medical history significant for major depression, presents to the emergency department with a few days of worsening depression, he is requesting detox from cocaine and heroin. Patient has been taking all psych meds. Denies visual, auditory and tactile hallucinations. Denies suicidal ideation homicidal ideation. Upon reviewing patient's chart it appears as though he has had multiple visits for something similar. He has been placed in multiple dual programs, and has had multiple inpatient psych admissions. Physical examination benign, patient noted to be slightly anxious, slightly hypertensive likely secondary to anxiety. Lungs are clear, regular rate and rhythm. Abdomen soft nontender nondistended. No focal neuro deficits. Cranial nerves 2-12 intact. Plan at this time is to obtain urine tox, COVID test. 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 Medical Records Attestation: I reviewed the patient's medical records. Lab Data Attestation: I reviewed the patient's lab results. Labs: Lab Results 04/18/21 04/18/21 Range/Units 19:41 19:41 Urine Opiates Screen POSITIVE H (Not Detect) Urine Fentanyl Screen POSITIVE H (Not Detect) Ur Barbiturates Screen Not Detected (Not Detect) Ur Phencyclidine Scrn Not Detected (Not Detect) Ur Amphetamines Screen Not Detected (Not Detect) U Benzodiazepines Scrn Not Detected (Not Detect) Urine Cocaine Screen POSITIVE H (Not Detect) U Marijuana (THC) Screen POSITIVE H (Not Detect) COVID-19 (COBY) Negative (Negative) COVID-19 Clin Com See Note Critical Care Time Critical Care Time Critical Care Time: No Discharge Plan Discharge Clinical Impression: Depression, Anxiety Patient Disposition: Xfer Other Transfer Details: Transfer to [facility] in [place] Instructions: Depression (ED), Anxiety (ED) Additional Instructions: Take your medications as prescribed. If you were prescribed antibiotics today, it is important that you take your medication to their entirety, do not skip any doses, do not finish them early. Follow-up with your primary care provider this week. Return to the emergency department with new or worsening symptoms. In case of emergency call 911 Prescriptions: No Action melatonin 3 mg tablet 3 mg PO BEDTIME RF: 0 albuterol sulfate [ProAir HFA] 90 mcg/actuation HFA aerosol inhaler 1 inh inhalation QID RF: 0 fluoxetine 20 mg capsule 1 cap PO DAILY RF: 0 trazodone 50 mg tablet 1 tab PO BEDTIME RF: 0 Referrals: Physician,None [Primary Care Provider] - 2 days
--- NOTE | 2021-04-18 19:57 | MHC.RECOVSUP ---
? Reason for consult:Detox o?? Current location ?[facility] o?? Identified substance use concern ?Heroin /Cocaine ?? Withdrawal ?? Seeking ATS (detox) ?? Support ? Intervention: o?? ATS bed search started/completed/in process o?? Community resources provided o?? Harm reduction discussion ? Plan: o?? Bed search in progress to [facility] o?? Patient awaiting crisis evaluation o?? Patient to follow up with [facility] after discharge ? Additional information: Met with Pt. Pt. is seeking a bed for detox Was able to get a bed in [facility] Pt. will be discharge after he is medically clear.?
[2021-04-18 20:03] LABS: COVID-19 Test Negative (Negative)
[2021-04-18 20:13] LABS: Amphetamine Screen Urine Not Detected (Not Detect); Barbiturates, Urine Not Detected (Not Detect); Benzodiazepines Screen Urine Not Detected (Not Detect); Cannabinoid Screen Urine POSITIVE (Not Detect); Cocaine Screen Urine POSITIVE (Not Detect); Fentanyl, urine POSITIVE (Not Detect); Opiate Screen Urine POSITIVE (Not Detect); Phencyclidine Screen Urine Not Detected (Not Detect)
--- NOTE | 2021-04-18 20:13 | PHA.MEDREC ---
Pharmacy Consult ? Medication Reconciliation Pharmacy has completed the medication reconciliation.
== END 2021-04-18 20:34 | disposition home or self-care (01) ==
PROVIDERS: Emergency Provider Emergency Medicine
DX: F32.9 Major depressive disorder, single episode, unspecified (principal); F41.9 Anxiety disorder, unspecified; Z20.822 Contact with and (suspected) exposure to COVID-19; F14.10 Cocaine abuse, uncomplicated; F11.10 Opioid abuse, uncomplicated; Z72.89 Other problems related to lifestyle; Z63.4 Disappearance and death of family member; Z59.00 Homelessness unspecified; F17.200 Nicotine dependence, unspecified, uncomplicated
CPT/HCPCS: 36415; 80307; 87635; 99283; 99284

== ENCOUNTER 2021-05-05 14:51 | Emergency (ER) | payer MEDICAID, SELFPAY ==
--- NOTE | ~2021-05-05 | XR_ITS ---
EXAMINATION: XR LUMBOSACRAL SPINE CLINICAL INFORMATION: Lower back pain. COMPARISON: None TECHNIQUE: Three views of the lumbosacral spine. FINDINGS: The vertebral bodies and posterior elements are normal. The disc spaces are preserved and the vertebral alignment is normal. The paraspinal soft tissues are normal. XR/XR lumbar spine 2-3V IMPRESSION: Unremarkable examination.
[2021-05-05 15:42] VITALS: BP 139/82; PULSE 79; RESP 18; TEMP 36.9; O2SAT 98; BMI 29.2
--- NOTE | 2021-05-05 17:28 | ED.BACK ---
HPI - Back Pain/Injury General Chief Complaint: Back Pain/Injury Stated Complaint: back/ knee pain headache Time Seen by Provider: 05/05/21 16:38 Source: patient Mode of arrival: ambulatory Limitations: no limitations History of Present Illness HPI Narrative: 26-year-old male presents with 6 days of lower back pain, bilateral knee pain, and headache. He is 14 days sober, did not endorse IV drug use, stated that he smoked and snorted. He denied fevers, chills, and any other concerning symptoms. MD elicited complaint: back pain Onset (ago): day(s) Timing: constant Severity: severe Pain scale (0-10): 10 Similar Symptoms Previously: Yes Quality: aching and throbbing Location: lumbar spine Radiation: none Exacerbating factors: movement Relieving factors: none Context: unknown Associated symptoms: other (Headache) Treatments prior to arrival: cold therapy, heat therapy and acetaminophen Work related injury: No Related Data Home Medications Medication Instructions Recorded Confirmed albuterol sulfate 90 mcg/actuation 1 inh INHALATION QID 03/19/21 04/18/21 aerosol inhaler (ProAir HFA) fluoxetine 20 mg capsule 1 cap PO DAILY 03/19/21 04/18/21 melatonin 3 mg tablet 3 mg PO BEDTIME 03/19/21 04/18/21 trazodone 50 mg tablet 1 tab PO BEDTIME 04/18/21 04/18/21 Allergies Allergy/AdvReac Type Severity Reaction Status Date / Time From [facility] Allergy Unknown UNKNOWN Uncoded 05/05/21 15:42 Review of Systems Review of Systems: Constitutional: No Fever, No Chills ENT/Mouth: No Ear Pain, No Hoarseness, No sore throat Eyes: No Eye Pain, No Swelling, No Redness, No Foreign Body Cardiovascular: No Chest Pain, No SOB Respiratory: No Cough, No Dyspnea Gastrointestinal: No Nausea, No Vomiting, No Diarrhea, No abdominal Pain Genitourinary: No Dysuria, No Hematuria Musculoskeletal: positive low back and bilateral knee pain, No Myalgias, No Joint Swelling Skin: No Skin lacerations, No rash Neuro: No Weakness, No Numbness, No Paresthesias, No Loss of Consciousness, No Dizziness, positive Headache Psych: No Anxiety/Panic, No Depression Heme/Lymph: no easy bruising, no Lymphadenopathy Endocrine: No Polyuria, No Polydipsia Yes all other systems are reviewed and are negative [facility] Past Medical History Attestation statement: The following information was validated with the patient. Source: old records reviewed Medical History Substance abuse Social History Social History Advance Directives: No Advance Directives Information Provided: No Physical Exam Vital Signs: Vital Signs: Last Vital Signs Temp 98.4 F 05/05/21 15:42 Pulse 79 05/05/21 15:42 Resp 18 05/05/21 15:42 BP 139/82 05/05/21 15:42 Pulse Ox 98 05/05/21 15:42 BMI result Body Mass Index 29.2 Appearance: Alert. Oriented X3. No acute distress. Eyes: Pupils equal, round and reactive to light. EOMI. Sclera nonicteric. ENT: Pharynx normal. Moist mucous membranes. No cervical lymphadenopathy. Neck: Normal inspection. Neck supple. No nuchal rigidity. No vertebral tenderness or step-offs noted. CVS: Normal heart rate and rhythm. Pulses normal. Respiratory: No respiratory distress. Breath sounds normal. Abdomen: Soft and nontender. No CVA tenderness. Skin: Skin warm and dry. Normal skin color. Normal skin turgor. Extremities: No lower extremity edema. Bilateral latissimus dorsi tenderness to palpation. Gait well-balanced well coordinated. Neuro: No motor deficit. No sensory deficit. Cranial nerves 2-12 intact. Course Course Course Narrative: 26-year-old male presents with 10/10 lower back pain, bilateral knee pain, and headache for approximately 6 days. Is 14 days sober from heroin and cocaine. No history of IV drug use. Physical exam indicates tenderness to latissimus dorsi bilaterally, no evidence of cauda equina. Patient has not described any fevers, chills, chest pain or pressure, palpitations, difficulty breathing, shortness of breath, pain on inspiration, no nuchal rigidity, no indication of meningitis or sepsis at this time. Vital signs are stable and within normal limits, afebrile, alert oriented x4. 6:59 p.m. blood and chemistry lab values are unremarkable. Patient is positive for COVID-19. Lumbar x-ray is unremarkable. Plan of care to discharge home with supportive measures for COVID-19. Patient verbalized understanding of and agrees to care discharge MDM - Back Pain/Injury MDM Narrative Medical decision making narrative: Viral syndrome, COVID-19 Differential Diagnosis Differential diagnosis: Likely lumbar radiculopathy, sciatica and strain of lumbar region Medical Records Attestation: I reviewed the patient's medical records. Lab Data Attestation: I reviewed the patient's lab results. Result diagrams: 05/05/21 18:16 05/05/21 18:16 Labs: Lab Results 05/05/21 05/05/21 05/05/21 Range/Units 18:16 18:16 18:16 WBC 5.3 (4.8-10.8) X10*3/uL RBC 4.87 (4.60-5.80) X10*6/uL Hgb 13.8 L (14.0-18.0) g/dl Hct 43.0 (42.0-52.0) % MCV 88.3 (80.0-98.0) fL MCH 28.3 (27.0-33.0) pg MCHC 32.1 (31.0-36.0) g/dl RDW 11.9 (11.0-16.0) % Plt Count 268 (160-400) X10*3/uL MPV 9.9 (9.4-12.4) fL Immature Gran % (Auto) 0.4 (0.0-0.4) % Neut % (Auto) 38.5 L (45-73) % Lymph % (Auto) 42.1 H (20-40) % Lawrence % (Auto) 17.8 H (2-11) % Eos % (Auto) 0.8 (0-4) % Baso % (Auto) 0.4 (0-2) % Lymph # (Auto) 2.2 (1.2-4.9) X10*3/uL Lawrence # (Auto) 0.9 (0.1-1.2) X10*3/uL Eos # (Auto) 0.0 (0.0-0.4) X10*3/uL Baso # (Auto) 0.0 (0.0-0.2) X10*3/uL Abs Immat Gran (auto) 0.02 (0.00-0.03) X10*3/uL Absolute Neuts (auto) 2.0 (2.0-8.3) x10*3/uL Absolute Nucleated RBC 0.000 (0.0-0.012) X10*3/uL Nucleated RBC % (auto) 0.0 (0.0-0.2) /100WBC Sodium 143 (135-145) mmol/L Potassium 4.2 (3.3-5.1) mmol/L Chloride 108 (96-108) mmol/L Carbon Dioxide 27 (22-29) mmol/L Anion Gap 12 (12-20) BUN 11 (9-16) mg/dL Creatinine 0.79 (0.5-1.4) mg/dL Estim Creat Clear Calc 131.8 Estimated GFR > 60 Random Glucose 109 (60-115) mg/dL Calcium 8.9 (8.4-10.2) mg/dL Urine Color Urine Appearance Urine pH (5.0-8.0) Ur Specific [place] (1.005-1.025) Urine Protein (NEG-TRACE) MG/DL Urine Glucose (UA) (NEG) MG/DL Urine Ketones (NEG) MG/DL Urine Blood (NEG) Urine Nitrite (NEG) Ur Leukocyte Esterase (NEG) Urine RBC (0) /HPF Urine WBC (0-4) /HPF Ur Squamous Epith Cells /LPF Urine Bacteria /LPF COVID-19 (COBY) Positive A (Negative) COVID-19 Clin Com See Note 05/05/21 Range/Units 18:56 WBC (4.8-10.8) X10*3/uL RBC (4.60-5.80) X10*6/uL Hgb (14.0-18.0) g/dl Hct (42.0-52.0) % MCV (80.0-98.0) fL MCH (27.0-33.0) pg MCHC (31.0-36.0) g/dl RDW (11.0-16.0) % Plt Count (160-400) X10*3/uL MPV (9.4-12.4) fL Immature Gran % (Auto) (0.0-0.4) % Neut % (Auto) (45-73) % Lymph % (Auto) (20-40) % Lawrence % (Auto) (2-11) % Eos % (Auto) (0-4) % Baso % (Auto) (0-2) % Lymph # (Auto) (1.2-4.9) X10*3/uL Lawrence # (Auto) (0.1-1.2) X10*3/uL Eos # (Auto) (0.0-0.4) X10*3/uL Baso # (Auto) (0.0-0.2) X10*3/uL Abs Immat Gran (auto) (0.00-0.03) X10*3/uL Absolute Neuts (auto) (2.0-8.3) x10*3/uL Absolute Nucleated RBC (0.0-0.012) X10*3/uL Nucleated RBC % (auto) (0.0-0.2) /100WBC Sodium (135-145) mmol/L Potassium (3.3-5.1) mmol/L Chloride (96-108) mmol/L Carbon Dioxide (22-29) mmol/L Anion Gap (12-20) BUN (9-16) mg/dL Creatinine (0.5-1.4) mg/dL Estim Creat Clear Calc Estimated GFR Random Glucose (60-115) mg/dL Calcium (8.4-10.2) mg/dL Urine Color YELLOW Urine Appearance CLEAR Urine pH 5.5 (5.0-8.0) Ur Specific [place] >= 1.030 H (1.005-1.025) Urine Protein TRACE (NEG-TRACE) MG/DL Urine Glucose (UA) NEG (NEG) MG/DL Urine Ketones NEG (NEG) MG/DL Urine Blood TRACE (NEG) Urine Nitrite NEG (NEG) Ur Leukocyte Esterase NEG (NEG) Urine RBC 0-2 (0) /HPF Urine WBC 0 (0-4) /HPF Ur Squamous Epith Cells TRACE /LPF Urine Bacteria NONE /LPF COVID-19 (COBY) (Negative) COVID-19 Clin Com Imaging Data Lumbar spine x-ray: Attestation: I personally reviewed and interpreted this imaging study as follows: Radiologist's impression: EXAMINATION: XR LUMBOSACRAL SPINE CLINICAL INFORMATION: Lower back pain. COMPARISON: None TECHNIQUE: Three views of the lumbosacral spine. FINDINGS: The vertebral bodies and posterior elements are normal. The disc spaces are preserved and the vertebral alignment is normal. The paraspinal soft tissues are normal. XR/XR lumbar spine 2-3V IMPRESSION: Unremarkable examination. Discharge Plan Discharge Clinical Impression: COVID-19, Myalgia Back pain Qualifiers: Back pain location: low back pain Chronicity: unspecified Back pain laterality: bilateral Sciatica presence: without sciatica Qualified Code(s): M54.50 - Low back pain, unspecified Patient Disposition: Home, Self-Care Instructions: Covid-19 Viral Syndrome and Novel Coronavirus (ED) Hey/Ath, Acute Low Back Pain (ED), Musculoskeletal Pain (ED), COVID-19 (Coronavirus Disease 2019) (ED) Additional Instructions: You evaluated for multiple complaints. You tested positive for COVID-19. Please obtain social isolation for state and Federal guidelines. Alternate Tylenol 650 mg every 6 hours and Motrin 600 mg every 6 hours as needed for pain and management. Please write down what time you take these medications to prevent accidental overdose. Drink plenty of fluids. Urinalysis is negative for bacteria or blood. Follow-up with primary care physician as needed. Thank you for choosing this emergency department for evaluation. Please follow-up with primary care physician as needed. Return to the emergency department for any new, concerning, or worsening symptoms. Prescriptions: No Action melatonin 3 mg tablet 3 mg PO BEDTIME RF: 0 albuterol sulfate [ProAir HFA] 90 mcg/actuation HFA aerosol inhaler 1 inh inhalation QID RF: 0 fluoxetine 20 mg capsule 1 cap PO DAILY RF: 0 trazodone 50 mg tablet 1 tab PO BEDTIME RF: 0 Stand Alone Forms: Work/School Release Interventions: ED Discharge Assessment Last Done: 05/05/21 19:34 Discharge Date/Time: 05/05/21 19:36
[2021-05-05 18:29] LABS: MANUAL DIFF FLAG NO
[2021-05-05 18:35] LABS: Basophils Percent Auto 0.4 % (0-2); Eosinophils Percent Auto 0.8 % (0-4); Hemoglobin 13.8 g/dl (14.0-18.0); Imm Gran Abs Auto 0.02 X10*3/uL (0.00-0.03); Imm Gran Pct Auto 0.4 % (0.0-0.4); Lymphocytes Absolute Auto 2.2 X10*3/uL (1.2-4.9); Lymphocytes Percent Auto 42.1 % (20-40); Mean Corpuscular HGB Conc 32.1 g/dl (31.0-36.0); Mean Corpuscular Hemoglobin 28.3 pg (27.0-33.0); Mean Corpuscular Volume 88.3 fL (80.0-98.0); Mean Platelet Volume 9.9 fL (9.4-12.4); Monocytes Absolute Auto 0.9 X10*3/uL (0.1-1.2); Monocytes Percent Auto 17.8 % (2-11); Neutrophils Percent Auto 38.5 % (45-73); Platelet Count 268 X10*3/uL (160-400); Red Blood Count 4.87 X10*6/uL (4.60-5.80); Red Cell Distribution Width 11.9 % (11.0-16.0); White Blood Count 5.3 X10*3/uL (4.8-10.8)
[2021-05-05 18:45] LABS: COVID-19 Test Positive (Negative)
[2021-05-05 18:48] LABS: Anion Gap 12 (12-20); Blood Urea Nitrogen 11 mg/dL (9-16); Calcium 8.9 mg/dL (8.4-10.2); Carbon Dioxide 27 mmol/L (22-29); Chloride 108 mmol/L (96-108); Creatinine Clr Calc Pharmacy 131.8; Estimated Glomerular Filt Rate > 60; Glucose Random 109 mg/dL (60-115); Potassium 4.2 mmol/L (3.3-5.1); Sodium 143 mmol/L (135-145)
[2021-05-05 19:06] LABS: Appearance Urine CLEAR; Color Urine YELLOW; Glucose Urine UA NEG (NEG); Leukocyte Esterase Urine NEG (NEG); Nitrite Urine NEG (NEG); PH 5.5 (5.0-8.0); Specific Gravity - Urine >= 1.030 (1.005-1.025); UACC Culture Trigger NO; Urine Blood TRACE (NEG); Urine Ketones NEG (NEG); Urine Protein TRACE MG/DL (NEG-TRACE)
[2021-05-05] MEDS: Ketorolac Tromethamine 60 MG/2 ML VIAL IM (19:27)
[2021-05-05 19:34] LABS: RBC Urine 0-2 /HPF (0); Squamous Epithelial Cell Urine TRACE /LPF; WBC Urine 0 /HPF (0-4)
== END 2021-05-05 19:36 | disposition home or self-care (01) ==
PROVIDERS: Nurse Practitioner Family; Emergency Provider Emergency Medicine
DX: U07.1 COVID-19 (principal); M54.42 Lumbago with sciatica, left side; M54.41 Lumbago with sciatica, right side; F19.10 Other psychoactive substance abuse, uncomplicated
CPT/HCPCS: 72100; 80048; 81001; 85025; 87635; 96372; 99284; J1885

== ENCOUNTER 2021-05-20 13:19 | Emergency (ER) | payer MEDICAID, SELFPAY ==
[2021-05-20 13:20] VITALS: BP 145/75; PULSE 104; RESP 18; TEMP 37.1; O2SAT 100
[2021-05-20 13:46] LABS: MANUAL DIFF FLAG NO
[2021-05-20 13:49] LABS: Basophils Percent Auto 0.3 % (0-2); Eosinophils Absolute Auto 0.1 X10*3/uL (0.0-0.4); Eosinophils Percent Auto 0.7 % (0-4); Hematocrit 49.7 % (42.0-52.0); Imm Gran Abs Auto 0.02 X10*3/uL (0.00-0.03); Imm Gran Pct Auto 0.2 % (0.0-0.4); Lymphocytes Percent Auto 34.8 % (20-40); Mean Corpuscular HGB Conc 32.2 g/dl (31.0-36.0); Mean Platelet Volume 10.6 fL (9.4-12.4); Monocytes Percent Auto 8.5 % (2-11); Neutrophils Absolute Auto 6.3 x10*3/uL (2.0-8.3); Neutrophils Percent Auto 55.5 % (45-73); Platelet Count 258 X10*3/uL (160-400); Red Blood Count 5.52 X10*6/uL (4.60-5.80); Red Cell Distribution Width 13.4 % (11.0-16.0); White Blood Count 11.4 X10*3/uL (4.8-10.8)
[2021-05-20 14:01] LABS: Ethanol 198 mg/dL
[2021-05-20 14:02] LABS: COVID-19 Test Negative (Negative)
[2021-05-20 14:05] LABS: Alanine Aminotransferase 566 U/L (0-40); Albumin Level 4.7 g/dL (3.5-5.0); Alkaline Phosphatase 96 U/L (39-117); Anion Gap 18 (12-20); Aspartate Amino Transferase 68 U/L (5-37); Bilirubin Total 0.9 mg/dL (0.0-1.0); Blood Urea Nitrogen 10 mg/dL (9-16); Calcium 9.5 mg/dL (8.4-10.2); Carbon Dioxide 20 mmol/L (22-29); Chloride 109 mmol/L (96-108); Creatinine Clr Calc Pharmacy 140.7; Estimated Glomerular Filt Rate > 60; Glucose Random 118 mg/dL (60-115); Potassium 3.9 mmol/L (3.3-5.1); Sodium 143 mmol/L (135-145); Total Protein 8.2 g/dL (6.5-8.0)
--- NOTE | 2021-05-20 14:09 | PC.NURSE ---
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
--- NOTE | 2021-05-20 14:12 | ED_ITS ---
HPI - Psych General Chief Complaint: Psychiatric Symptoms Stated Complaint: crisis Time Seen by Provider: 05/20/21 13:48 Source: patient Mode of arrival: ambulatory Limitations: no limitations History of Present Illness HPI Narrative: 26-year-old male with a history of heroin abuse now sober times 35 days, active alcohol abuse who presents to the ER with increased alcohol intake in the setting of worsening depression due to the of his 2 months ago. He reports his from an overdose and he has been having a really hard time managing. He went to detox and has been cold turkey sober from opiates for 35 days. Over the last 2 weeks he has been increasing his alcohol intake, been drinking large amounts object annulus every single day. He reports he was at a hospital in [place] recently and when he did have alcohol he started having the shakes and not feeling well. He denies admission for alcohol withdrawal. He denies history of alcohol withdrawal seizures. He was in the process of getting a therapist but does not have one. He reports a history of suicide attempt 4 years ago by hanging and does not know how he survived. He has no specific plan but reports having increased suicidal thoughts the last couple of weeks. MD complaint: suicidal ideation and feels depressed Onset (ago): week(s) (1) Duration: constant and getting worse Relieving factors: none Exacerbating factors: alcohol Context: recent alcohol abuse Associated psychiatric symptoms: depression and suicidal ideation Associated symptoms: denies other symptoms Treatments prior to arrival: none If self harm: admits thoughts of self harm Related Data Home Medications Medication Instructions Recorded Confirmed albuterol sulfate 90 mcg/actuation 1 inh INHALATION QID 03/19/21 04/18/21 aerosol inhaler (ProAir HFA) fluoxetine 20 mg capsule 1 cap PO DAILY 03/19/21 04/18/21 melatonin 3 mg tablet 3 mg PO BEDTIME 03/19/21 04/18/21 trazodone 50 mg tablet 1 tab PO BEDTIME 04/18/21 04/18/21 Allergies Allergy/AdvReac Type Severity Reaction Status Date / Time From [facility] Allergy Unknown UNKNOWN Uncoded 05/05/21 15:42 Review of Systems Review of Systems: Constitutional: No Fever, No Chills ENT/Mouth: No sore throat, No Rhinorrhea Cardiovascular: No Chest Pain, No SOB Respiratory: No Cough, No Sputum, No Wheezing, No dyspnea Gastrointestinal: + Nausea, No Vomiting, No Diarrhea, No abdominal Pain, No Hematochezia, No Melena Genitourinary: No Dysuria, No Urinary Frequency, No Hematuria Musculoskeletal: No joint pain, No Myalgias Skin: No Skin Lesions, No rash Neuro: No Weakness, No Numbness, No Dizziness, + Headache Psych: No Anxiety/Panic, + Depression, SI, No AH, No AH, No VH. Heme/Lymph: No Bruising PMFSH Past Medical History Medical History Substance abuse Social History Social History Advance Directives: No Advance Directives Information Provided: No Physical Exam Vital Signs: Vital Signs: Last Vital Signs Temp 98.7 F 05/20/21 13:20 Pulse 104 H 05/20/21 13:20 Resp 18 05/20/21 13:20 BP 145/75 H 05/20/21 13:20 Pulse Ox 100 05/20/21 13:20 BMI result Body Mass Index 30.0 Appearance: Alert. Oriented X3. No acute distress. Eyes: Pupils equal, round and reactive to light. ENT: Pharynx normal. Neck: Normal inspection. Neck supple. CVS: Normal heart rate and rhythm. Pulses normal. Respiratory: No respiratory distress. Breath sounds normal. Abdomen: Soft and nontender. +BS x4 Skin: Skin warm and dry. Normal skin color. Normal skin turgor. No rashes. Extremities: No lower extremity edema. No evidence of track combs. Neuro: Oriented X 3. No motor deficit. No sensory deficit. Slightly delay in speech with very minimal slurred speech. Nonfocal. Smells of alcohol. Course Course Course Narrative: 26-year-old male with a history of opiate use disorder (used to snort heroin), now 35 days sober who presents to the ER with increased ETOH abuse and increased depression and suicidal thoughts. Recently lost his . Appears intoxicated but he is calm, cooperative and forthcoming. He wants to get help. Emil get ETOH level, basic labs and monitor closely in the behavioral pod. Will have N evaluate him once sober. Reevaluation(s) Reevaluation #1: ETOH level 198. LFTs are elevated AST 68, ALT 566 with normal bilirubin and ALP. He has had elevated LFTs in the past but not this high. Likely ETOH contributing to mild alcoholic hepatitis. He also has history of hepatitis C. No RUQ tenderness on exam. No need for imaging at this time. Will place patient into physician observation at this time. Physician observation started at 2:22pm. Patient placed in physician observation because patient is awaiting sober evaluation by [facility] for the possible need of inpatient psych admission. At the time observation was started patient's vital signs were stable. Patient is alert and oriented. Neuro exam is non-focal. CV: RRR and lungs are clear. Will continue to monitor. [facility] - Psych Lab Data Result diagrams: 05/20/21 13:38 05/20/21 13:38 Labs: Lab Results 05/20/21 05/20/21 05/20/21 Range/Units 13:38 13:38 13:38 WBC 11.4 H (4.8-10.8) X10*3/uL RBC 5.52 (4.60-5.80) X10*6/uL Hgb 16.0 (14.0-18.0) g/dl Hct 49.7 (42.0-52.0) % MCV 90.0 (80.0-98.0) fL MCH 29.0 (27.0-33.0) pg MCHC 32.2 (31.0-36.0) g/dl RDW 13.4 (11.0-16.0) % Plt Count 258 (160-400) X10*3/uL MPV 10.6 (9.4-12.4) fL Immature Gran % (Auto) 0.2 (0.0-0.4) % Neut % (Auto) 55.5 (45-73) % Lymph % (Auto) 34.8 (20-40) % [place] % (Auto) 8.5 (2-11) % Eos % (Auto) 0.7 (0-4) % Baso % (Auto) 0.3 (0-2) % Lymph # (Auto) 4.0 (1.2-4.9) X10*3/uL [place] # (Auto) 1.0 (0.1-1.2) X10*3/uL Eos # (Auto) 0.1 (0.0-0.4) X10*3/uL Baso # (Auto) 0.0 (0.0-0.2) X10*3/uL Abs Immat Gran (auto) 0.02 (0.00-0.03) X10*3/uL Absolute Neuts (auto) 6.3 (2.0-8.3) x10*3/uL Absolute Nucleated RBC 0.000 (0.0-0.012) X10*3/uL Nucleated RBC % (auto) 0.0 (0.0-0.2) /100WBC Sodium 143 (135-145) mmol/L Potassium 3.9 (3.3-5.1) mmol/L Chloride 109 H (96-108) mmol/L Carbon Dioxide 20 L (22-29) mmol/L Anion Gap 18 (12-20) BUN 10 (9-16) mg/dL Creatinine 0.75 (0.5-1.4) mg/dL Estim Creat Clear Calc 140.7 Estimated GFR > 60 Random Glucose 118 H (60-115) mg/dL Calcium 9.5 D (8.4-10.2) mg/dL Total Bilirubin 0.9 (0.0-1.0) mg/dL AST 68 H (5-37) U/L ALT 566 H (0-40) U/L Alkaline Phosphatase 96 D (39-117) U/L Total Protein 8.2 H D (6.5-8.0) g/dL Albumin 4.7 (3.5-5.0) g/dL Ethyl Alcohol mg/dL COVID-19 (COBY) Negative (Negative) COVID-19 Clin Com See Note 05/20/21 Range/Units 13:38 WBC (4.8-10.8) X10*3/uL RBC (4.60-5.80) X10*6/uL Hgb (14.0-18.0) g/dl Hct (42.0-52.0) % MCV (80.0-98.0) fL MCH (27.0-33.0) pg MCHC (31.0-36.0) g/dl RDW (11.0-16.0) % Plt Count (160-400) X10*3/uL MPV (9.4-12.4) fL Immature Gran % (Auto) (0.0-0.4) % Neut % (Auto) (45-73) % Lymph % (Auto) (20-40) % [place] % (Auto) (2-11) % Eos % (Auto) (0-4) % Baso % (Auto) (0-2) % Lymph # (Auto) (1.2-4.9) X10*3/uL [place] # (Auto) (0.1-1.2) X10*3/uL Eos # (Auto) (0.0-0.4) X10*3/uL Baso # (Auto) (0.0-0.2) X10*3/uL Abs Immat Gran (auto) (0.00-0.03) X10*3/uL Absolute Neuts (auto) (2.0-8.3) x10*3/uL Absolute Nucleated RBC (0.0-0.012) X10*3/uL Nucleated RBC % (auto) (0.0-0.2) /100WBC Sodium (135-145) mmol/L Potassium (3.3-5.1) mmol/L Chloride (96-108) mmol/L Carbon Dioxide (22-29) mmol/L Anion Gap (12-20) BUN (9-16) mg/dL Creatinine (0.5-1.4) mg/dL Estim Creat Clear Calc Estimated GFR Random Glucose (60-115) mg/dL Calcium (8.4-10.2) mg/dL Total Bilirubin (0.0-1.0) mg/dL AST (5-37) U/L ALT (0-40) U/L Alkaline Phosphatase (39-117) U/L Total Protein (6.5-8.0) g/dL Albumin (3.5-5.0) g/dL Ethyl Alcohol 198 mg/dL COVID-19 (COBY) (Negative) COVID-19 Clin Com Discharge Plan Discharge Clinical Impression: Suicidal ideation Alcohol intoxication Qualifiers: Complication of substance-induced condition: uncomplicated Qualified Code(s): F10.920 - Alcohol use, unspecified with intoxication, uncomplicated Depression Qualifiers: Depression Type: unspecified Qualified Code(s): F32.A - Depression, unspecified Patient Disposition: Still a Patient Prescriptions: No Action melatonin 3 mg tablet 3 mg PO BEDTIME RF: 0 albuterol sulfate [ProAir HFA] 90 mcg/actuation HFA aerosol inhaler 1 inh inhalation QID RF: 0 fluoxetine 20 mg capsule 1 cap PO DAILY RF: 0 trazodone 50 mg tablet 1 tab PO BEDTIME RF: 0
--- NOTE | 2021-05-20 17:23 | PC.NURSE ---
Patient alert and oriented x 4 able to ambulate independently is aware of plan to be evaluated by n. N referral sent.
--- NOTE | 2021-05-20 18:23 | PC.NURSE ---
Patient being evaluated by N at this time
[2021-05-20 19:54] VITALS: BP 164/83; PULSE 106; RESP 20; TEMP 37; O2SAT 96
[2021-05-20] MEDS: LORazepam 1 MG TABLET 2 MG PO (20:20)
--- NOTE | 2021-05-20 22:17 | PC.NURSE ---
Patient scored 13 on CIWA @ 2109, provider notified/administered Ativan 2 mg w/ + effect. [facility]N assessed the patient disposition is voluntary inpatient bed search, will continue to monitor.
[2021-05-21 04:39] VITALS: BP 136/75; PULSE 85; RESP 17; TEMP 37.1; O2SAT 100
[2021-05-21] MEDS: LORazepam 1 MG TABLET 2 MG PO (07:14)
--- NOTE | 2021-05-21 07:16 | PC.NURSE ---
Patient slept through the night, no distress observed/reported, medication compliant, behavior appropriate, disposition per [facility] voluntary inpatient bed search, CIWA score was 9 at 0716, Ativan 2 mg administered, pending effect, VSS, will continue to monitor.
[2021-05-21 08:44] LABS: Amphetamine Screen Urine Not Detected (Not Detect); Barbiturates, Urine Not Detected (Not Detect); Benzodiazepines Screen Urine Not Detected (Not Detect); Cannabinoid Screen Urine POSITIVE (Not Detect); Cocaine Screen Urine Not Detected (Not Detect); Fentanyl, urine POSITIVE (Not Detect); Opiate Screen Urine Not Detected (Not Detect); Phencyclidine Screen Urine Not Detected (Not Detect)
[2021-05-21 09:52] VITALS: BP 140/88; PULSE 80; TEMP 37.1; O2SAT 98
--- NOTE | 2021-05-21 09:59 | MHC.RECOVSUP ---
Recovery Support note: Patient is a 26 year old Moroccan speaking male who presented to [facility] ED due to vague SI and alcohol use. Patient is known to this movie writer from previous consultations. Discussed recovery supports with patient. Patient reports he has supports through apps and meetings on his phone. Discussed in person meetings and [facility]. Patient accepted information on this resource. Patient reports he was previously on methadone however stopped cold turkey and reports he hasn't used opiates since. Informed patient that he had fentanyl in his system and discussed the risk of overdose with fentanyl. Patient understood and reports he believes the fentanyl was in his cannabis that he bought off the street. Encouraged patient to avoid buying drugs off the street and patient acknowledged, stating he would only be buying cannabis at dispensaries. Discussed AA and provided patient with a copy of [facility].
--- NOTE | 2021-05-21 10:01 | MHC.CARE ---
CARE Team spoke with [facility] toilet and laundry soap supervisor Chely- she reported he frequently presents with substance use then subsequently request to leave. Pt is voluntary and appropriate to be discharged. Pt continues to deny current SI/HI/VH/AH. Pt verbalizes safety and understanding how to utilize N crisis. CARE Team discussed with ELMER Mendoza who is agreement with plan. Pt is placed on alert with [facility].
== END 2021-05-21 10:29 | disposition home or self-care (01) ==
PROVIDERS: Physician Assistant; Emergency Provider Emergency Medicine Emergency Medical Services
DX: F10.120 Alcohol abuse with intoxication, uncomplicated (principal); Y90.6 Blood alcohol level of 120-199 mg/100 ml; F32.A Depression, unspecified; R45.851 Suicidal ideations; Z20.822 Contact with and (suspected) exposure to COVID-19; F12.90 Cannabis use, unspecified, uncomplicated; Z72.89 Other problems related to lifestyle; Z63.4 Disappearance and death of family member; B19.20 Unspecified viral hepatitis C without hepatic coma; Z79.899 Other long term (current) drug therapy
CPT/HCPCS: 80053; 80307; 82077; 85025; 87635; 99284; 99285

== ENCOUNTER 2021-10-13 14:25 | Outpatient (REF) | payer MEDICAID, SELFPAY ==
[2021-10-13 15:08] LABS: COVID-19 Test Negative (Negative)
== END 2021-10-13 14:26 | disposition home or self-care (01) ==
LOC: HO.LAB 14:25
PROVIDERS: Visit Provider Internal Medicine
DX: Z20.822 Contact with and (suspected) exposure to COVID-19 (principal)
CPT/HCPCS: 87635; C9803

== ENCOUNTER 2022-06-10 10:46 | Emergency (ER) | payer MEDICAID, SELFPAY ==
--- NOTE | ~2022-06-10 | CT_ITS ---
EXAMINATION: CT FACIAL BONES WITHOUT CONTRAST CLINICAL INFORMATION: Right eye injury. Wood splinter went into right eye. Bleeding from eye. COMPARISON: None TECHNIQUE: CT of the orbit was performed without contrast. Multiplanar reformats were rendered and reviewed. This CT examination was performed using dose optimization techniques as appropriate, variously including the following: *Automated exposure control *Adjustment of mA and/or kV according to patient size (this includes techniques or standardized protocols for targeted exams where dose is matched to indication/reason for exam; i.e. extremities or head) *Use of iterative reconstruction technique DLP: 344 mGy-cm FINDINGS: There is no preseptal soft tissue swelling. The globes appear normal. No definite foreign body is seen. The globe volumes appear preserved and symmetric. The lacrimal glands are normal in size. No proptosis. The extraocular muscles are normal in appearance and symmetric bilaterally. No intraorbital mass or hematoma. There is no reticulation or infiltration of the retrobulbar fat. The optic nerve sheath complexes are normal and symmetric bilaterally. There is no fracture. The superior ophthalmic veins are normal in size. The cavernous sinuses demonstrate normal and symmetric enhancement. There is mild paranasal sinus mucosal thickening without fluid levels. The imaged intracranial contents appear normal. There is periapical disease about the left second maxillary molar. Caries are also noted in the dentition. CT/CT facial bones wo IV con IMPRESSION: 1. No acute abnormality identified. Specifically, no evidence of orbital foreign body. The globes appear normal. 2. Incidentally noted periapical disease about the left second maxillary molar. Caries are also noted in the dentition.
[2022-06-10 11:26] VITALS: BP 149/89; PULSE 69; RESP 18; TEMP 36.4; O2SAT 97; BMI 27.4
--- NOTE | 2022-06-10 11:27 | ED.EYEPROB ---
HPI - Eye Problem General Chief complaint: Eye Problems <ELMER Morales - Last Filed: 06/10/22 11:31> Stated complaint: hit in eye with a nail <ELMER Morales Last Filed: 06/10/22 11:31> Time Seen by Provider: 06/10/22 11:32 <ELMER Morales - Last Filed: 06/10/22 11:31> Source: patient <ELMER Sullivan Last Filed: 06/10/22 19:11> Mode of arrival: ambulatory <ELMER Sullivan Last Filed: 06/10/22 19:11> Limitations: no limitations <ELMER Sullivan Last Filed: 06/10/22 19:11> History of Present Illness HPI Narrative: Patient is a 27 year old assigned male at with no reported medical history presenting to the emergency department today with a right eye injury. Patient states that he bent over and accidentally hit his face on a board that had a nail in it. Patient states that the nail hit his eye but didn't stick in his eye. Patient is unsure of his last tetanus shot. Patient states that he can no longer see out of his right peripheral vision field and the rest of his vision is blurry. Patient states that he can't look down and it is painful to look any other direction. Patient states that he had blood coming from his eye on his hands. Patient denies any dizziness, lightheadedness, abdominal pain, nausea, vomiting, fever, chills, blurry vision, double vision, loss of vision, chest pain, difficulty breathing, shortness of breath, back pain, night sweats, pain with urination, increased urinary frequency, increased urinary urgency, blood in his urine or stool, syncope or a near syncopal episode, bowel incontinence, bladder incontinence, bowel retention, bladder retention, or any other complaints at this time. <ELMER Sullivan Last Filed: 06/10/22 19:11> MD chief complaint: eye pain, eye redness and eye injury <ELMER Sullivan Last Filed: 06/10/22 19:11> Onset (ago): day(s) (1) <ELMER Sullivan Last Filed: 06/10/22 19:11> Onset description: sudden <ELMER Sullivan - Last Filed: 06/10/22 19:11> Duration: constant <ELMER Sullivan - Last Filed: 06/10/22 19:11> Location: right eye <ELMER Sullivan - Last Filed: 06/10/22 19:11> Eye Symptoms: redness, pain, discharge, decreased vision and blurry vision <ELMER Sullivan - Last Filed: 06/10/22 19:11> Place: work <ELMER Sullivan - Last Filed: 06/10/22 19:11> Mechanism: direct trauma <ELMER Sullivan - Last Filed: 06/10/22 19:11> Severity: severe <ELMER Sullivan - Last Filed: 06/10/22 19:11> If Pain, Quality: sharp <ELMER Sullivan - Last Filed: 06/10/22 19:11> Associated symptoms: none <ELMER Sullivan - Last Filed: 06/10/22 19:11> Treatments Prior to Arrival: none <ELMER Sullivan - Last Filed: 06/10/22 19:11> Related Data Patient tetanus UTD: No <ELMER Sullivan - Last Filed: 06/10/22 19:11> Home medications: Home Medications Medication Instructions Recorded Confirmed fluoxetine 20 mg capsule 1 cap PO DAILY 05/20/21 05/20/21 trazodone 50 mg tablet 1 tab PO BEDTIME 05/20/21 05/20/21 <ELMER Morales - Last Filed: 06/10/22 11:31> Allergies/adverse reactions: Allergies Allergy/AdvReac Type Severity Reaction Status Date / Time From [facility] Allergy Unknown UNKNOWN Uncoded 05/05/21 15:42 <ELMER Morales - Last Filed: 06/10/22 11:31> Review of Systems Constitutional: Constitutional: Reports no additional constitutional complaints, Denies chills, Denies fever(s) and Denies night sweats <ELMER Sullivan - Last Filed: 06/10/22 19:11> Eyes: Eyes: Reports blurry vision, Reports change in vision, Reports eye discharge, Reports loss of vision and Reports eye pain <ELMER Sullivan - Last Filed: 06/10/22 19:11> ENT: Denies dizziness <ELMER Sullivan - Last Filed: 06/10/22 19:11> Cardiovascular: Cardiovascular: Reports no additional cardiovascular complaints, Denies chest pain, Denies lightheadedness, Denies Loss of Consciousness and Denies dyspnea <ELMER Sullivan Last Filed: 06/10/22 19:11> Respiratory: Respiratory: Reports no additional respiratory complaints and Denies dyspnea <ELMER Sullivan - Last Filed: 06/10/22 19:11> Gastrointestinal: Gastrointestinal: Reports no additional gastrointestinal complaints, Denies abdominal pain, Denies melena, Denies hematochezia, Denies change in bowel habits and Denies change in stool character <ELMER Sullivan Last Filed: 06/10/22 19:11> Genitourinary: Genitourinary: Reports no additional male genitourinary complaints, Denies hematuria, Denies oliguria, Denies difficulty urinating, Denies dysuria, Denies urinary frequency, Denies urinary hesitancy, Denies urinary incontinence and Denies urinary urgency <ELMER Sullivan Last Filed: 06/10/22 19:11> Musculoskeletal: Musculoskeletal: Reports no additional musculoskeletal complaints, Denies numbness and Denies tingling <ELMER Sullivan Last Filed: 06/10/22 19:11> Neurologic: Denies dizziness, Reports loss of vision, Denies numbness and Denies tingling <ELMER Sullivan Last Filed: 06/10/22 19:11> Psychiatric: Psychiatric: Reports no additional psychiatric complaints <ELMER Sullivan Last Filed: 06/10/22 19:11> Endocrine: Endocrine: Reports no additional endocrine complaints <ELMER Sullivan - Last Filed: 06/10/22 19:11> Hematologic/Lymphatic: Hematologic/Lymphatic: Reports no additional hematologic/lymphatic complaints <ELMER Sullivan Last Filed: 06/10/22 19:11> Allergic/Immunologic: Allergic/Immunologic: Reports no additional allergic/immunologic complaints <ELMER Sullivan Last Filed: 06/10/22 19:11> PMFSH Past Medical History Attestation statement: The following information was validated with the patient. <ELMER Sullivan - Last Filed: 06/10/22 19:11> Source: old records reviewed and nursing notes reviewed <ELMER Sullivan - Last Filed: 06/10/22 19:11> Medical History: Medical History Substance abuse <ELMER Morales - Last Filed: 06/10/22 11:31> Social History Social History: Social History Advance Directives: No Advance Directives Information Provided: No <ELMER Morales - Last Filed: 06/10/22 11:31> Physical Exam Vital Signs: Vital Signs: Last Vital Signs Temp 97.6 F 06/10/22 11:26 Pulse 69 06/10/22 11:26 Resp 18 06/10/22 11:26 BP 149/89 H 06/10/22 11:26 Pulse Ox 97 06/10/22 11:26 O2 Del Method 06/10/22 11:26 BMI result Body Mass Index 27.4 <ELMER Morales - Last Filed: 06/10/22 11:31> Vital Signs: Last Vital Signs Temp 97.6 F 06/10/22 11:26 Pulse 69 06/10/22 11:26 Resp 18 06/10/22 11:26 BP 149/89 H 06/10/22 11:26 Pulse Ox 97 06/10/22 11:26 O2 Del Method 06/10/22 11:26 BMI result Body Mass Index 27.4 <ELMER Sullivan - Last Filed: 06/10/22 19:11> Const: General: cooperative, no acute distress, alert and awake <ELMER Sullivan - Last Filed: 06/10/22 19:11> Nutritional Appearance: well nourished <ELMER Sullivan - Last Filed: 06/10/22 19:11> Orientation/consciousness: patient oriented x3 <ELMER Sullivan - Last Filed: 06/10/22 19:11> Limitations: no limitations <ELMER Sullivan - Last Filed: 06/10/22 19:11> HEENT: Head: Yes normal to inspection and Yes atraumatic <Mckayla Borges [facility] Last Filed: 06/10/22 19:11> Ears: hearing grossly normal bilaterally and external ears normal <Mckayla Borges [facility] Last Filed: 06/10/22 19:11> General nose exam: Normal external nose present, no nasal discharge noted and no epistaxis <Mckayla Borges [facility] Last Filed: 06/10/22 19:11> Face and sinus: Yes normal facial exam, No abrasion and No laceration <Mckayla Borges [facility] Last Filed: 06/10/22 19:11> Mouth: Normal oral and palatal mucosa present, no drooling and no muffled voice <Mckayla Borges [place] - Last Filed: 06/10/22 19:11> Eyes: Periorbital: periorbital findings normal <Mckayla Borges [facility] Last Filed: 06/10/22 19:11> Eyelids: Yes eyelids normal <Mckayla Borges [facility] Last Filed: 06/10/22 19:11> Sclerae: scleral abnormal right hemorrhage and scleral injection other (inferior) <Mckayla Borges [facility] Last Filed: 06/10/22 19:11> Corneas: corneas abnormal on the right other (erythema) <Mckayla Borges [place] - Last Filed: 06/10/22 19:11> Pupils: Equal, round and reactive pupils present <Mckayla Borges [facility] Last Filed: 06/10/22 19:11> EOM: EOM abnormal (pain with EOM, unable to look downward) <Mckayla Borges [place] - Last Filed: 06/10/22 19:11> Neck: Neck: Yes normal visual inspection, Yes full ROM and Yes no lymphadenopathy <Mckayla Borges [facility] Last Filed: 06/10/22 19:11> Chest: Chest palpation & inspection: normal inspection of the chest <ELMER Sullivan Last Filed: 06/10/22 19:11> Resp: Effort & Inspection: normal respiratory effort and able to speak in complete sentences <Mckayla Borges [facility] Last Filed: 06/10/22 19:11> Cardio: Rate: regular rate <Mckayla Borges [place] - Last Filed: 06/10/22 19:11> Rhythm: regular rhythm <Mckayla Borges PA - Last Filed: 06/10/22 19:11> GI: Inspection: Yes normal to inspection <Mckayla WilsonELMER faustin - Last Filed: 06/10/22 19:11> Neuro: General: patient oriented x3 and moves all extremities <Mckayla Borges PA - Last Filed: 06/10/22 19:11> Cranial nerves: Yes Equal, round and reactive pupils present <Mckayla Wilsonramin PA - Last Filed: 06/10/22 19:11> Cognition (Neuro): normal cognition <Mckayla Wilsonramin PA - Last Filed: 06/10/22 19:11> Motor exam (neuro): 5/5 motor strength present throughout <Mckayla Wilsonramin PA - Last Filed: 06/10/22 19:11> Sensory Exam: Normal double simultaneous stimulation for sensation <Mckayla Wilsonramin PA - Last Filed: 06/10/22 19:11> Coordination: [id number] test normal <Mckaylatrenton Wilsonramin PA - Last Filed: 06/10/22 19:11> Extrem: General: Yes normal to inspection, Yes full ROM and Yes capillary refill normal <Mckayla Wilsonramin PA - Last Filed: 06/10/22 19:11> Psych: Appearance: grossly normal <Mckayla WilsonELMER faustin - Last Filed: 06/10/22 19:11> Mental Status: mental status grossly normal <Mckayla WilsonELMER faustin - Last Filed: 06/10/22 19:11> Affect: normal affect <Mckayla BorgesELMER faustin - Last Filed: 06/10/22 19:11> Attitude: cooperative <Mckaylatrenton Wilsonramin PA - Last Filed: 06/10/22 19:11> Thought process: Normal thought process present <ELMER Sullivan - Last Filed: 06/10/22 19:11> Thought content: Normal thought content present <Mckayla ELMER Borges - Last Filed: 06/10/22 19:11> Insight: Good insight present (Psych) <Mckayla ELMER Borges - Last Filed: 06/10/22 19:11> Course Course Course Narrative: DANIKA-11:30am 27yoM presenting to the ER with complaints of right eye injury/blurry vision since yesterday after he was helping a friend now doing some work and he bent over and his safety glasses came off and a nail that was sticking out of some wood poked him in the eye. The nail did not get stuck in the eye. Since then he has been having this pain and blurry vision. He reports he is unsure if he is up-to-date on tetanus. Plan: Patient sent to Emergency minor care and I ordered a tetanus, fluorescein strip and tetracaine along with ketorolac drops <ELMER Morales - Last Filed: 06/10/22 11:31> Consultations Consultation #1: Spoke to [facility] ED Attending Dr. Arango who agreed to transfer. Recommended placing eye patch over the right eye and getting the patient his first dose of a fluroquinolone antibiotic. <ELMER Sullivan - Last Filed: 06/10/22 19:11> Time: 12:37 <ELMER Sullivan - Last Filed: 06/10/22 19:11> Medications Administered Discontinued Medications Generic Name Dose Route Start Last Admin Trade Name Freq PRN Reason Stop Dose Admin Diphtheria/Tetanus/Acell Pertussis 0.5 ml 06/10/22 11:29 06/10/22 13:01 Diphth,Pertus(Acell),Tet Adult 0.5 Ml Syringe IM 06/10/22 11:30 0.5 ml .ONCE ONE Administration Levofloxacin 750 mg 06/10/22 12:47 06/10/22 13:00 Levofloxacin 750 Mg Tablet PO 06/10/22 12:48 750 mg ONCE ONE Administration <ELMER Morales - Last Filed: 06/10/22 11:31> Medications Administered Discontinued Medications Generic Name Dose Route Start Last Admin Trade Name Freq PRN Reason Stop Dose Admin Diphtheria/Tetanus/Acell Pertussis 0.5 ml 06/10/22 11:29 06/10/22 13:01 Diphth,Pertus(Acell),Tet Adult 0.5 Ml Syringe IM 06/10/22 11:30 0.5 ml .ONCE ONE Administration Levofloxacin 750 mg 06/10/22 12:47 06/10/22 13:00 Levofloxacin 750 Mg Tablet PO 06/10/22 12:48 750 mg ONCE ONE Administration <ELMER Sullivan - Last Filed: 06/10/22 19:11> Medical Decision Making Medical Decision Making [facility] Narrative: Patient is a 27 year old assigned male at with no reported medical history presenting to the emergency department today with right eye pain. Patient's physical exam showed significant irritation of the right eye with decreased inferior EOM and painful remaining EOMs, as well as loss of right peripheral vision and blurry central vision. Additionally, bed side ultrasound of the right eye was concerning for possible right globe rupture. Patient's blood work showed elevated LFTs which seem to be chronic for the patient. Patient's facial CT showed no acute process. I explained my physical exam findings as well as all test results to the patient and the patient's mother. I answered all questions asked by the patient and the patient's mother. My attending physician examined the patient and recommended transfer to a trauma facility with ophthalmology. I called and spoke to [facility] who agreed to an ED to ED transfer. Patient and his mother verbalized agreement and understanding with this treatment plan and transfer. Patient was given an oral dose of levofloxacin prior to transfer. Patient's clinical presentation was most consistent with rupture globe vs. traumatic iritis and not sepsis. <ELMER Sullivan - Last Filed: 06/10/22 19:11> Differential Diagnosis Differential Diagnoses: The differential diagnosis associated with the presentation includes <ELMER Sullivan - Last Filed: 06/10/22 19:11> rupture right globe, traumatic iritis of the right eye <ELMER Sullivan - Last Filed: 06/10/22 19:11> Consult Healthcare Provider Management of the patient was discussed with: Admissions Specialist (spoke to the [facility] ED attending physician who agreed to transfer. ) <ELMER Sullivan - Last Filed: 06/10/22 19:11> Lab Data [facility] Lab Attestation statement: I reviewed the patient's lab results. <ELMER Sullivan - Last Filed: 06/10/22 19:11> Result Diagrams: 06/10/22 12:25 06/10/22 12:25 <ELMER Morales - Last Filed: 06/10/22 11:31> Labs: Lab Results 06/10/22 06/10/22 Range/Units 12:25 12:25 WBC 10.0 (4.8-10.8) X10*3/uL RBC 5.21 (4.60-5.80) X10*6/uL Hgb 15.3 (14.0-18.0) g/dl Hct 46.6 (42.0-52.0) % MCV 89.4 (80.0-98.0) fL MCH 29.4 (27.0-33.0) pg MCHC 32.8 (31.0-36.0) g/dl RDW 11.9 (11.0-16.0) % Plt Count 274 (160-400) X10*3/uL MPV 10.0 (9.4-12.4) fL Immature Gran % (Auto) 0.2 (0.0-0.4) % Neut % (Auto) 64.5 (45-73) % Lymph % (Auto) 23.9 (20-40) % Wilkes % (Auto) 8.7 (2-11) % Eos % (Auto) 2.4 (0-4) % Baso % (Auto) 0.3 (0-2) % Lymph # (Auto) 2.4 (1.2-4.9) X10*3/uL Wilkes # (Auto) 0.9 (0.1-1.2) X10*3/uL Eos # (Auto) 0.2 (0.0-0.4) X10*3/uL Baso # (Auto) 0.0 (0.0-0.2) X10*3/uL Abs Immat Gran (auto) 0.02 (0.00-0.03) X10*3/uL Absolute Neuts (auto) 6.5 (2.0-8.3) x10*3/uL Absolute Nucleated RBC 0.000 (0.0-0.012) X10*3/uL Nucleated RBC % (auto) 0.0 (0.0-0.2) /100WBC Sodium 140 (135-145) mmol/L Potassium 4.4 (3.3-5.1) mmol/L Chloride 106 (96-108) mmol/L Carbon Dioxide 25 (22-29) mmol/L Anion Gap 13 (12-20) BUN 11 (9-16) mg/dL Creatinine 0.75 (0.5-1.4) mg/dL Estim Creat Clear Calc 133.8 Estimated GFR > 60 Random Glucose 93 (60-115) mg/dL Calcium 9.4 (8.4-10.2) mg/dL Total Bilirubin 2.0 H (0.0-1.0) mg/dL AST 616 H (5-37) U/L ALT 455 H (0-40) U/L Alkaline Phosphatase 106 (39-117) U/L Total Protein 7.4 (6.5-8.0) g/dL Albumin 4.7 (3.5-5.0) g/dL <ELMER Morales - Last Filed: 06/10/22 11:31> Lab Results 06/10/22 06/10/22 Range/Units 12:25 12:25 WBC 10.0 (4.8-10.8) X10*3/uL RBC 5.21 (4.60-5.80) X10*6/uL Hgb 15.3 (14.0-18.0) g/dl Hct 46.6 (42.0-52.0) % MCV 89.4 (80.0-98.0) fL MCH 29.4 (27.0-33.0) pg MCHC 32.8 (31.0-36.0) g/dl RDW 11.9 (11.0-16.0) % Plt Count 274 (160-400) X10*3/uL MPV 10.0 (9.4-12.4) fL Immature Gran % (Auto) 0.2 (0.0-0.4) % Neut % (Auto) 64.5 (45-73) % Lymph % (Auto) 23.9 (20-40) % Wilkes % (Auto) 8.7 (2-11) % Eos % (Auto) 2.4 (0-4) % Baso % (Auto) 0.3 (0-2) % Lymph # (Auto) 2.4 (1.2-4.9) X10*3/uL Wilkes # (Auto) 0.9 (0.1-1.2) X10*3/uL Eos # (Auto) 0.2 (0.0-0.4) X10*3/uL Baso # (Auto) 0.0 (0.0-0.2) X10*3/uL Abs Immat Gran (auto) 0.02 (0.00-0.03) X10*3/uL Absolute Neuts (auto) 6.5 (2.0-8.3) x10*3/uL Absolute Nucleated RBC 0.000 (0.0-0.012) X10*3/uL Nucleated RBC % (auto) 0.0 (0.0-0.2) /100WBC Sodium 140 (135-145) mmol/L Potassium 4.4 (3.3-5.1) mmol/L Chloride 106 (96-108) mmol/L Carbon Dioxide 25 (22-29) mmol/L Anion Gap 13 (12-20) BUN 11 (9-16) mg/dL Creatinine 0.75 (0.5-1.4) mg/dL Estim Creat Clear Calc 133.8 Estimated GFR > 60 Random Glucose 93 (60-115) mg/dL Calcium 9.4 (8.4-10.2) mg/dL Total Bilirubin 2.0 H (0.0-1.0) mg/dL AST 616 H (5-37) U/L ALT 455 H (0-40) U/L Alkaline Phosphatase 106 (39-117) U/L Total Protein 7.4 (6.5-8.0) g/dL Albumin 4.7 (3.5-5.0) g/dL <ELMER Sullivan - Last Filed: 06/10/22 19:11> Radiology Impression Radiologist Impression: My interpretation is in agreement with the radiologist's impression of this imaging study. EXAMINATION: CT FACIAL BONES WITHOUT CONTRAST CLINICAL INFORMATION: Right eye injury. Wood splinter went into right eye. Bleeding from eye. ? COMPARISON: None? TECHNIQUE: CT of the orbit was performed without contrast. Multiplanar reformats were rendered and reviewed.? This CT examination was performed using dose optimization techniques as appropriate, variously including the following: *Automated exposure control *Adjustment of mA and/or kV according to patient size (this includes techniques or standardized protocols for targeted exams where dose is matched to indication/reason for exam; i.e. extremities or head) *Use of iterative reconstruction technique DLP: 344 mGy-cm FINDINGS: There is no preseptal soft tissue swelling. The globes appear normal. No definite foreign body is seen. The globe volumes appear preserved and symmetric. The lacrimal glands are normal in size. No proptosis. The extraocular muscles are normal in appearance and symmetric bilaterally. No intraorbital mass or hematoma. There is no reticulation or infiltration of the retrobulbar fat. The optic nerve sheath complexes are normal and symmetric bilaterally. There is no fracture. The superior ophthalmic veins are normal in size. The cavernous sinuses demonstrate normal and symmetric enhancement. There is mild paranasal sinus mucosal thickening without fluid levels. The imaged intracranial contents appear normal. There is periapical disease about the left second maxillary molar. Caries are also noted in the dentition. CT/CT facial bones wo IV con IMPRESSION: 1.? No acute abnormality identified. Specifically, no evidence of orbital foreign body. The globes appear normal. 2.? Incidentally noted periapical disease about the left second maxillary molar. Caries are also noted in the dentition. Dictated By: GENESIS SHEARER MD Signed By: Electronically signed by GENESIS SHEARER MD 06/10/22 1290 <ELMER Sullivan - Last Filed: 06/10/22 19:11> Independent Historian Clinical information obtained from an independent historian. History obtained from or confirmed by: Parent (patient's mother) <ELMER Sullivan - Last Filed: 06/10/22 19:11> Critical Care Time Critical Care Time Critical Care Time: Yes <ELMER Sullivan - Last Filed: 06/10/22 19:11> Total Critical Care Time: 35 <ELMER Sullivan - Last Filed: 06/10/22 19:11> Attestation: I spent 35 minutes of Critical Care Time with this patient. This does not include time spent on separately reported billable procedures. <ELMER Sullivan - Last Filed: 06/10/22 19:11> Discharge Plan Discharge Clinical Impression: Rupture of globe, Iritis <ELMER Morales - Last Filed: 06/10/22 11:31> [facility] <ELMER Morales - Last Filed: 06/10/22 11:31> Transfer Details: [facility] ED. <ELMER Morales - Last Filed: 06/10/22 11:31> [facility] ED. <ELMER Sullivan - Last Filed: 06/10/22 19:11> Prescriptions: No Action trazodone 50 mg tablet 1 tab PO BEDTIME fluoxetine 20 mg capsule 1 cap PO DAILY <ELMER Morales - Last Filed: 06/10/22 11:31> Interventions: Acute Care Transfer Worksheet (ED) Last Done: 06/10/22 13:38 <ELMER Morales - Last Filed: 06/10/22 11:31> Discharge Date/Time: 06/10/22 13:40 <ELMER Morales - Last Filed: 06/10/22 11:31> Print Language: Polish <ELMER Morales - Last Filed: 06/10/22 11:31>
[2022-06-10 12:31] LABS: Basophils Percent Auto 0.3 % (0-2); Eosinophils Absolute Auto 0.2 X10*3/uL (0.0-0.4); Eosinophils Percent Auto 2.4 % (0-4); Hematocrit 46.6 % (42.0-52.0); Hemoglobin 15.3 g/dl (14.0-18.0); Imm Gran Abs Auto 0.02 X10*3/uL (0.00-0.03); Imm Gran Pct Auto 0.2 % (0.0-0.4); Lymphocytes Absolute Auto 2.4 X10*3/uL (1.2-4.9); Lymphocytes Percent Auto 23.9 % (20-40); MANUAL DIFF FLAG NO; Mean Corpuscular HGB Conc 32.8 g/dl (31.0-36.0); Mean Corpuscular Hemoglobin 29.4 pg (27.0-33.0); Mean Corpuscular Volume 89.4 fL (80.0-98.0); Monocytes Absolute Auto 0.9 X10*3/uL (0.1-1.2); Monocytes Percent Auto 8.7 % (2-11); Neutrophils Absolute Auto 6.5 x10*3/uL (2.0-8.3); Neutrophils Percent Auto 64.5 % (45-73); Platelet Count 274 X10*3/uL (160-400); Red Blood Count 5.21 X10*6/uL (4.60-5.80); Red Cell Distribution Width 11.9 % (11.0-16.0)
[2022-06-10 12:45] LABS: Alanine Aminotransferase 455 U/L (0-40); Albumin Level 4.7 g/dL (3.5-5.0); Alkaline Phosphatase 106 U/L (39-117); Anion Gap 13 (12-20); Aspartate Amino Transferase 616 U/L (5-37); Blood Urea Nitrogen 11 mg/dL (9-16); Calcium 9.4 mg/dL (8.4-10.2); Carbon Dioxide 25 mmol/L (22-29); Chloride 106 mmol/L (96-108); Creatinine Clr Calc Pharmacy 133.8; Estimated Glomerular Filt Rate > 60; Glucose Random 93 mg/dL (60-115); Potassium 4.4 mmol/L (3.3-5.1); Sodium 140 mmol/L (135-145); Total Protein 7.4 g/dL (6.5-8.0)
[2022-06-10] MEDS: levoFLOXacin 750 MG TABLET PO (13:00)
[2022-06-10] MEDS: Diphth,Pertus(ACell),Tet Adult 0.5 ML SYRINGE IM (13:01)
--- NOTE | 2022-06-10 13:33 | PC.NURSE ---
nurse to nurse report called in to [facility] ED, RN joel pt transferrred via gab[facility] BLS, pt alert oriened, right eye protected with eye patch for safety
== END 2022-06-10 13:40 | disposition short-term general hospital (02) ==
PROVIDERS: Physician Assistant Medical; Emergency Provider Student in an Organized Health Care Education/Training Program
DX: S05.31XA Ocular laceration without prolapse or loss of intraocular tissue, right eye, initial encounter (principal); W20.8XXA Other cause of strike by thrown, projected or falling object, initial encounter; H20.9 Unspecified iridocyclitis; Y93.9 Activity, unspecified; Y92.9 Unspecified place or not applicable; Y99.9 Unspecified external cause status
CPT/HCPCS: 36415; 70486; 80053; 85025; 90471; 90715; 99284; 99285

== ENCOUNTER 2022-10-02 08:48 | Emergency (ER) | payer MEDICAID, SELFPAY ==
--- NOTE | ~2022-10-02 | XR_ITS ---
EXAMINATION: XR FINGER, LEFT CLINICAL INFORMATION: Pain in the left ring finger COMPARISON: None available. TECHNIQUE: 4 views of the left fourth finger is a single view of the left hand. FINDINGS: The bones and soft tissues are normal. No fracture. Alignment is anatomic. Joint spaces are maintained. XR/XR finger LT min 2V IMPRESSION: Normal finger radiographs.
[2022-10-02 08:54] VITALS: BP 136/80; PULSE 55; RESP 16; TEMP 36.4; O2SAT 98; BMI 28.4
--- OUTSIDE RECORDS SUMMARY | 2022-10-02 09:46 | XMS_ITS | Continuity of Care Document ---
Author Name Unknown Organization [facility] ter Address [address] [place] [address]- Care Team Providers Care Education Program Coordinator Name Role Phone Mallory EVANS, David Jacobsen Primary Care Physician Encounter [facility] [place] Date(s): 10/31/21 - 10/31/[address] [address]- Encounter Diagnosis Altered mental state(Final) - 10/31/21 Alcohol intoxication(Final) - 10/31/21 Discharge Disposition: A-D/C Home Attending Physician: Aristeo Nickerson MD Admitting Physician: Aristeo Nickerson MD Referring Physician: Not on Staff, Referring MD Allergies, Adverse Reactions, Alerts Substance Reaction Severity Status Wellbutrin Active Concerta Active Medications Augmentin 875 mg-125 mg oral tablet 1 tablet, By Mouth, Every 12 hours, # 20 tablet, 0 Refills, Maintenance, 03/29/16 14:03:00, Tablet Start Date: 03/29/16 Stop Date: 04/08/16 Status: Ordered cetirizine 10 mg oral tablet 1 tablet = 10 mg, By Mouth, Daily, PRN allergy symptoms, # 14 tablet, 0 Refills, Maintenance, 08/01/21 15:49:00 EDT, Tablet, [id number], Partial fill upon patient request if the prescription is for a schedule II opioid drug., 164, cm, 05/20/21... Start Date: 08/01/21 Status: Ordered [place] 0.65% nasal spray 2 sprays, Nares, Both, 4 times a day, # 1 each, 0 Refills, Maintenance, 08/01/21 15:49:00 EDT, [id number], Partial fill upon patient request if the prescription is for a schedule II opioid drug., 2 sprays Nares, Both 4 times a day, 164, cm, 01... Start Date: 08/01/21 Status: Ordered traZODone 50 mg oral tablet 1 tablet = 50 mg, By Mouth, Daily at bedtime, PRN Insomnia, # 30 tablet, 0 Refills, Maintenance, 04/21/15 7:58:02, Tablet, 1 tablet By Mouth Daily at bedtime,PRN:Insomnia Start Date: 04/21/15 Status: Ordered Problem List Condition Effective Dates Status Health Status Inform ant alcohol syndrome(Confirmed) Active Vital Signs Most recent to oldest [Reference Range]: 1 2 3 Oxygen Saturation [94-100 %] 98 % (10/31/21 2:45 PM) 95 % (10/31/21 11:09 AM) 95 % (10/31/21:22 AM) Pulse Rate [55-90 bpm] 78 bpm (10/31/21 2:45 PM) 72 bpm (10/31/21 11:09 AM) 79 bpm (10/31/21 9:22 AM) Blood Pressure [90-138/55-84 mm Hg] 115/61mm Hg (10/31/21 11:09 AM) 132/67mm Hg (10/31/21 9:22 AM) Respiratory Rate [16-30 br/min] 18 br/min (10/31/21 2:45 PM) 12 br/min *L* (10/31/21 11:09 AM) 16 br/min (10/31/21 9:22 AM) Temperature [96.8-100.4 DegF] 97.6 DegF (10/31/21 2:45 PM) 97.5 DegF (10/31/21 9:22 AM) Mode of Delivery (Oxygen) Room air (10/31/21 2:45 PM) Room air (10/31/21 11:09 AM) Room air (10/31/21 9:22 AM) Blood pressure sites Arm, left (10/31/21 11:09 AM) Arm, right (10/31/21 9:22 AM) Temperature Route Oral (10/31/21 2:45 PM) Oral (10/31/21 9:22 AM)
--- OUTSIDE RECORDS SUMMARY | 2022-10-02 09:46 | XMS_ITS | Continuity of Care Document ---
Author Name Unknown Organization [facility] ter Address [address] [place] [address]- Care Team Providers Care Cigarette Roller Name Role Phone Mallory EVANS, David Jacobsen Primary Care Physician [phone] Encounter [facility] [place] Date(s): 10/16/21 - 10/16/[address] [address]- Encounter Diagnosis Alcohol intoxication(Final) - 10/16/21 Discharge Disposition: A-D/C Home Attending Physician: Tavon Martinez MD Admitting Physician: Tavon Martinez MD Referring Physician: Not on Staff, Referring [...] cm, 05/20/21... Start Date: 08/01/21 Status: Ordered [place] 0.65% nasal spray 2 sprays, Nares, Both, 4 times a day, # 1 each, 0 Refills, Maintenance, 08/01/21 15:49:00 EDT, [id number], Partial fill upon patient request if the prescription is for a schedule II opioid drug., 2 sprays Nares, Both 4 times a day, 164, cm, ... Start Date: 08/01/21 Status: Ordered traZODone 50 mg oral tablet 1 tablet = 50 mg, By Mouth, Daily at bedtime, PRN Insomnia, # 30 tablet, 0 Refills, Maintenance, 04/21/15 7:58:02, Tablet, 1 tablet By Mouth Daily at bedtime,PRN:Insomnia Start Date: 04/21/15 Status: Ordered Problem List Condition Effective Dates Status Health Status Inform ant alcohol syndrome(Confirmed) Active Results Radiology Reports * Exam Date Time Procedure Performing Provider Status 10/16/21 6:29 AM Wrist Comp Min 3 Views Left Jana Pittman; Auth (Verified) Notes: (Wrist Comp Min 3 Views Left) Reason For Exam: with Pain;Trauma RESULT: Wrist Comp Min 3 Views Left Left wrist 4 views INDICATION small laceration to left wrist. COMPARISON: None. FINDINGS: No fracture or dislocation. No arthritic change. Normal carpal configuration. Intact radial and ulnar styloid processes. Normal soft tissues. IMPRESSION: Normal. WSN: [id number] Ordering Physician: Lisa Danielle Dictated By: Kwabena Canchola MD Dictated Date/Time: 10/16/21 8:31 am Reviewed By: Kwabena Canchola MD Signed By: Kwabena Canchola MD Signed Date/Time: 10/16/21 8:31 am Transcribed By: AMALIA Transcribed Date/Time: 10/16/21 8:31 am * Exam Date Time Procedure Performing Provider Status 10/16/21 6:29 AM Chest Portable Jana Pittman; Auth (Verified) Notes: (Chest Portable) Reason For Exam: Pain;Other: RESULT: Chest Portable Chest Portable INDICATION: Pain; Clinical Question(s): Other:; Fracture, pneumothorax, pulmonary contusion COMPARISON: 04/13/2015 FINDINGS: LINES AND TUBES: None. LUNGS AND PLEURA: Clear lungs. Normal pulmonary vascularity. No pleural effusion. No pneumothorax. HEART, MEDIASTINUM AND MELISSA: Heart is normal in size. Normal upper mediastinal and hilar contour. BONES AND SOFT TISSUES: Normal. IMPRESSION: Normal. WSN: [id number] Ordering Physician: Lisa Danielle Dictated By: Kwabena Canchola MD Dictated Date/Time: 10/16/21 8:31 am Reviewed By: Kwabena Canchola MD Signed By: Kwabena Canchola MD Signed Date/Time: 10/16/21 8:31 am Transcribed By: AMALIA Transcribed Date/Time: 10/16/21 8:29 am Vital Signs Most recent to oldest [Reference Range]: 1 2 Oxygen Saturation [94-100 %] 98 % (10/16/21 6:11 AM) 97 % (10/16/21 3:03 AM) Pulse Rate [55-90 bpm] 59 bpm (10/16/21 6:11 AM) 76 bpm (10/16/21 3:03 AM) Blood Pressure [90-138/55-84 mm Hg] 122/ 67mm Hg (10/16/21 6:11 AM) 128/82mm Hg (10/16/21 3:03 AM) Respiratory Rate [16-30 br/min] 20 br/mi n (10/16/21 6:11 AM) Temperature [96.8-100.4 DegF] 97.5 DegF (10/16/21 6:11 AM) 98.7 DegF (10/16/21 3:03 AM) Mode of Delivery (Oxygen) Room air (10/16/21 6:11 AM) Room air (10/16/21 3:03 AM) Temperature Route Oral (10/16/21 6:11 AM) Oral (10/16/21 3:03 AM)
--- OUTSIDE RECORDS SUMMARY | 2022-10-02 09:46 | XMS_ITS | Continuity of Care Document ---
Author Name Unknown Organization [facility] ter Address [address] [place] [address]- Care Team Providers Care Rn Home Health Name Role Phone Mallory EVANS, David Jacobsen Primary Care Physician Encounter [facility] [place] Date(s): 05/19/21 - 05/20/[address] [address]- Discharge Disposition: A-D/C Home Attending Physician: Carlo Vicente MD Admitting Physician: Carlo Vicente MD Referring Physician: Not on Staff, Referring MD Allergies, Adverse Reactions, Alerts Substance Reaction Severity Status Wellbutrin Active Concerta Active Medications Augmentin 875 mg-125 mg oral tablet 1 tablet, By Mouth, Every 12 hours, # 20 tablet, 0 Refills, Maintenance, 03/29/16 14:03:00, Tablet Start Date: 03/29/16 Stop Date: 04/08/16 Status: Ordered traZODone 50 mg oral tablet [...] to oldest [Reference Range]: 1 2 3 Height 164 cm (05/20/21 6:36 AM) 164 cm (05/19/21 7:13 PM) Weight 74 kg (05/20/21 6:36 AM) 74 kg (05/19/21 7:13 PM) Oxygen Saturation [94-100 %] 100 % (05/20/21 6:36 AM) 98 % (05/19/21 7:13 PM) 99 % (05/19/21 7:08 PM) Pulse Rate [55-90 bpm] 101 bpm *H* (05/20/21 6:36 AM) 106 bpm *H* (05/19/21 7:13 PM) 82 bpm (05/19/21 7:08 PM) Body Mass Index [18.5-24.99] 27.51 *H* (05/20/21 6:36 AM) Blood Pressure [90-138/55-84 mm Hg] 130/84mm Hg (05/20/21 6:36 AM) 139/89mm Hg *H* (05/19/21 7:13 PM) Respiratory Rate [16-30 br/min] 16 br/min (05/20/21 6:36 AM) 18 br/min (05/19/21 7:13 PM) Temperature [96.8-100.4 DegF] 98.3 DegF (05/20/21 6:36 AM) 98.5 DegF (05/19/21 7:13 PM) Mode of Delivery (Oxygen) Room air (05/20/21 6:36 AM) Room air (05/19/21 7:13 PM) Room air (05/19/21 7:08 PM) Blood pressure sites Arm, right (05/20/21 6:36 AM) Arm, left (05/19/21 7:13 PM) Temperature Route Oral (05/20/21 6:36 AM) Oral (05/19/21 7:13 PM) Dry Weight 74 kg (05/20/21 6:36 AM) 74 kg (05/19/21 7:13 PM)
--- OUTSIDE RECORDS SUMMARY | 2022-10-02 09:46 | XMS_ITS | Continuity of Care Document ---
Author Name Unknown Organization [facility] ter Address [address] [place] [address]- Care Team Providers Care It Program Manager Name Role Phone Not on Staff, PCP Primary Care Physician Unavail able [place] [facility] Date(s): 06/10/22 - 06/10/[address] [address]- Encounter Diagnosis Traumatic iritis(Final) - 06/10/22 Discharge Disposition: A-D/C Home Attending Physician: Santino Saleem MD Admitting Physician: Santino Saleem MD Referring Physician: Not on Staff, Referring [...] cm, 05/20/21... Start Date: 08/01/21 Status: Ordered [place] 0.65% nasal spray 2 sprays, Nares, Both, 4 times a day, # 1 each, 0 Refills, Maintenance, 08/01/21 15:49:00 EDT, [id number], Partial fill upon patient request if the prescription is for a schedule II opioid drug., 2 sprays Nares, Both 4 times a day, 164, cm, ... Start Date: 08/01/21 Status: Ordered Tobradex 0.1%-0.3% suspension 1 drops, Eye, Right, 4 times a day, for 10 days, # 10 mL, 0 Refills, Acute 06/20/22 15:23:00 EST, 06/10/22 15:23:00 EST, Ophth Suspension, [id number], Partial fill upon patient request if theprescription is for a schedule II opioid drug., 1 d... Start Date: 06/10/22 Stop Date: 06/20/22 Status: Ordered traZODone 50 mg oral tablet 1 tablet = 50 mg, By Mouth, Daily at bedtime, PRN Insomnia, # 30 tablet, 0 Refills, Maintenance, 04/21/15 7:58:02, Tablet, 1 tablet By Mouth Daily at bedtime,PRN:Insomnia Start Date: 04/21/15 Status: Ordered Problem List Condition Confirmation Course Effective Dates Status Health St atus Informant alcohol syndrome Confirmed Active Vital Signs Most recent to oldest [Reference Range]: 1 Height 163 cm (06/10/22 2:20 PM) Weight 77.2 kg (06/10/22 2:20 PM) Oxygen Saturation [94-100 %] 97 % (06/10/22 2:20 PM) Pulse Rate [55-90 bpm] 65 bpm (06/10/22 2:20 PM) Blood Pressure [90-138/55-84 mm Hg] 148/ 78mm Hg *H* (06/10/22 2:20 PM) Respiratory Rate [16-30 br/min] 16 br/mi n (06/10/22 2:20 PM) Temperature [96.8-100.4 DegF] 98.6 DegF (06/10/22 2:20 PM) Mode of Delivery (Oxygen) Room air (06/10/22 2:20 PM) Temperature Route Oral (06/10/22 2:20 PM) Dry Weight 77.2 kg (06/10/22 2:20 PM) Note * Dev Nieves DO: PERFORM Event Display: Patient Education Leaflets Authored Date: [id number] Iritis ?? [id number] Iritis The iris is the colored part of the eye that controls the size of the pupil. Iritis is an inflammation of the iris. It can be caused by injury to the eye or disease elsewhere in the body. Diseases linked to iritis include Lyme disease, inflammatory bowel disease, and rheumatoid arthritis. Often, nocause is found. Iritis usually develops suddenly in one eye. Symptoms include redness, pain in the eye or brow area, sensitivity to light, and blurred vision. Iritis is treated with eye drops to dilate the pupil and reduce pain. This will cause your vision to be blurred from a few hours up to a week, depending on the medicine used. Steroid drops??are also prescribed to reduce pain from inflammation. Iritis from eye injury usually resolves in 1 to 2 weeks. Iritis from other causes may take several weeks to months to resolve. Home care ??? Use eye drops as prescribed. ??? Wear sunglasses to decrease light sensitivity and discomfort. ??? If your eye is dilated or if you have been given an eye patch, your driving ability will be affected. Don't drive until the blurred vision wears off and you no longer need an eye patch. ??? You may use acetaminophen or ibuprofen to control pain, unless another medicine was prescribed. Talk with your healthcare provider before taking these medicines if you have chronic liver or kidneydisease, or if you have ever had a stomach ulcer or digestive bleeding. ?? Follow-up care Follow up with your healthcare provider, or as advised. ?? When to get medical advice Contact your healthcare provider right away if any of the following occur: ??? Symptoms don???t start to improve after 1 week ??? Iritis from eye injury causes symptoms for more than 2 weeks ??? Painincreases ??? You lose some or all of your vision ?? Last Reviewed Date: 2022 ?? [id number] The [employer]. All rights reserved. This information is not intended as a substitute for professional medical care. Always follow your healthcare professional's instructions. ?? Patient Care team information Care Team Personnel Name: Not on Staff, PCP Position: [facility] Physician (General Medicine) Member Role: PCP Name: Issac Sanchez RN Position: [facility] ED RN W/OE and Tasks Member Role: Patient Care Provider Name: Santino Saleem MD Position: [facility] ED Medicine MD Member Role: Admitting Physician Address: Address: [address] [place] [address] Department of Emergency Medicine [address] Name: Dev Nieves DO Position: [facility] Resident Member Role: ED Resident Address: Address: [address] [place] [address] [place], [place] [address] Name: Israel Guerra Position: [facility] ED TA [facility] Member Role: Patient Care Provider Care Team Related Persons Name: YULIYA NEWMAN Address: home [address] [place] [address] Name: YULIYA HOLLINGSWORTH Address: home [address] [place] [address]
--- OUTSIDE RECORDS SUMMARY | 2022-10-02 09:46 | XMS_ITS | Continuity of Care Document ---
Author Name Unknown Organization [facility] Address [address] [place] [address]- Care Team Providers Care Railroad Brake Repairer Name Role Phone Mallory EVANS, David Jacobsen Primary Care Physician Encounter [facility] [place] Date(s): 08/01/21 - 08/31/21 [facility] [address] [place] [address]- Attending Physician: Catalino Staton Admitting Physician: Admtr, Pa8 Referring Physician: Admtr, Ar8 Allergies, Adverse Reactions, Alerts Substance Reaction Severity [...] cm, 05/20/21... Start Date: 08/01/21 Status: Ordered [place] 0.65% nasal spray 2 sprays, Nares, Both, [...]
--- OUTSIDE RECORDS SUMMARY | 2022-10-02 09:46 | XMS_ITS | Continuity of Care Document ---
Author Name Unknown Organization [facility] Address [address] [place] [address]- Care Team Providers Care Physician Credentialing Specialist Name Role Phone David Tejada MD Primary Care Physician Encounter [facility] [place] Date(s): 08/01/21 - 08/08/21 [facility] [address] [place] [address]- Encounter Diagnosis Viral URI with cough(Discharge Diagnosis) - 08/01/21 Attending Physician: Anton Chase DO Referring Physician: David Tejada MD Allergies, Adverse Reactions, Alerts Substance Reaction [...] cm, 05/20/21... Start Date: 08/01/21 Status: Ordered [place] 0.65% nasal spray 2 sprays, Nares, Both, [...] Health Status Inform ant alcohol syndrome(Confirmed) Active Diagnosis Diagnosis Type Effective Dates Health Status Cl inical Service Informant Viral URI with cough Discharge Diagnosis 08/01/21
--- OUTSIDE RECORDS SUMMARY | 2022-10-02 09:46 | XMS_ITS | Continuity of Care Document ---
Author Name Unknown Organization [facility] ter Address [address] [place] [id number] Care Team Providers Care Soaker Helper Name Role Phone Not on Staff, PCP Primary Care Physician Unavail able [place] [facility] [place] 07[place]07[place]22 - 07/08/[address] [address]- Discharge Disposition: A-D/C Home Attending Physician: Bouchra Mercer MD Admitting Physician: Bouchra Mercer MD Referring Physician: Not on Staff, Referring MD Allergies, Adverse Reactions, Alerts Substance Reaction Severity Status Wellbutrin Active Concerta Active Immunizations Not Given Vaccine Date Status Refusal Reason tetanus/diphtheria/pertussis, acel(Tdap) 07/08/22 Not Given Patient Refuses Medications Augmentin 875 mg-125 mg oral tablet [...] cm, 05/20/21... Start Date: 08/01/21 Status: Ordered [place] 0.65% nasal spray 2 sprays, Nares, Both, 4 times a day, # 1 each, 0 Refills, Maintenance, 08/01/21 15:49:00 EDT, [id number], Partial fill upon patient request if the prescription is for a schedule II opioid drug., 2 sprays Nares, Both 4 times a day, 164, cm, 01... Start Date: 08/01/21 Status: Ordered oxyCODONE 5 mg oral tablet 5 mg, Tablet, By Mouth, Once, STAT, 07/08/22 6:26:00 EST, Stop date 07/08/22 6:26:00 EST Start Date: 07/08/22 Stop Date: 07/08/22 Status: Completed traZODone 50 mg oral tablet 1 tablet = 50 mg, By Mouth, Daily at bedtime, PRN Insomnia, # 30 tablet, 0 Refills, Maintenance, 04/21/15 7:58:02, Tablet, 1 tablet By Mouth Daily at bedtime,PRN:Insomnia Start Date: 04/21/15 Status: Ordered Problem List Condition Confirmation Course Effective Dates Status Health St atus Informant alcohol syndrome Confirmed Active Results Radiology Reports * Exam Date Time Procedure Performing Provider Status 07/08/22 1:58 AM Finger Thumb Left Hand Marisa Smith; Auth (Verified) Notes: (Finger Thumb Left Hand) Reason For Exam: Trauma RESULT: Finger Thumb Left Hand Finger Thumb Left Hand, 3 views Hx of Present Illness: etoh; Reason: Trauma; Clinical Question(s): Fracture COMPARISON: 10/16/2021 FINDINGS: No fractures or bone lesions. No arthritic changes. Normal soft tissues. IMPRESSION: Normal. WSN: [id number] Ordering Physician: Armando Ríos Dictated By: Jud Eastman MD Dictated Date/Time: 07/08/22 4:57 am Reviewed By: Jud Eastman MD Signed By: Jud Eastman MD Signed Date/Time: 07/08/22 4:57 am Transcribed By: AMALIA Transcribed Date/Time: 07/08/22 4:56 am * Exam Date Time Procedure Performing Provider Status 07/08/22 1:58 AM Hand Min 3 Views Left Marisa Smith Auth (Verified) Notes: (Hand Min 3 Views Left) Reason For Exam: Trauma RESULT: Hand Min 3 Views Left Hand Min 3 Views Left, 3 views Hx of Present Illness: etoh; Reason: Trauma; Clinical Question(s): Fracture COMPARISON: 10/16/2021. FINDINGS: No fractures or bone lesions. No arthritic changes. Normal soft tissues. IMPRESSION: Normal. WSN: [id number] Ordering Physician: Armando Ríos Dictated By: Jud Eastman MD Dictated Date/Time: 07/08/22 4:55 am Reviewed By: Jud Eastman MD Signed By: Jud Eastman MD Signed Date/Time: 07/08/22 4:55 am Transcribed By: AMALIA Transcribed Date/Time: 07/08/22 4:54 am * Exam Date Time Procedure Performing Provider Status 07/08/22 1:[address] Abd/Pelvis W/ IV Contrast Only Lucia Arreola; Auth (Verified) Notes: (CT Abd/Pelvis W/ IV Contrast Only) Reason For Exam: LLQ abdominal pain;Other: RESULT: CT Abd/Pelvis W/ IV Contrast Only CT Chest W/ Contrast, CT Abd/Pelvis W/ IV Contrast Only INDICATION: ETOH, trauma. Clinical Question(s): Clav fx, Tspine TTP TECHNIQUE: Helical CT scan of the chest, abdomen, and pelvis with IV contrast, formatted in 3 planes. 100 cc of Omnipaque 300 was administered intravenously. This study was performed without oral contrast. Weight-based protocol was performed using automatic exposure control. CTDIvol Body: 11.10 mGy, DLP Body: 784 mGy*cm. COMPARISON: None. FINDINGS: Telephone Exchange Operator view findings, lines and tubes: None. Trachea and airways: Patent without evidence of tracheal or endobronchial lesion. Lungs and pleura: 2 mm micronodule in the right upper lobe (205:33), not requiring follow-up in this patient's age group. No effusion or pneumothorax. Mediastinum and melina: Trace amount soft tissue density in the anterior upper mediastinum with interspersed fat consistent with residual thymic tissue. No mediastinal or hilar lymphadenopathy. No esophageal abnormality. Partially imaged thyroid is unremarkable. Heart: Heart is normal in size. No pericardial effusion. Aorta: No aortic aneurysm. Pulmonary arteries: Normal caliber. No evidence of pulmonary embolism on this study performed without angiographic technique. Chest wall soft tissues: No acute abnormality. Diaphragm: Intact. Liver: Mild hepatomegaly measuring 17.5 cm mid clavicular line. Gallbladder: No CT evidence of gallbladder pathology. Bile ducts: No biliary ductal dilation. Spleen: Normal in size. Pancreas: No suspicious lesion or ductal dilatation. Adrenal glands: No nodule. Kidneys and ureters: No hydronephrosis, stone, or suspicious lesion. Bladder: No wall thickening or surrounding stranding. Reproductive organs: Unremarkable. Stomach, small bowel, and large bowel: Normal caliber stomach and bowel loops. No surrounding inflammatory changes. Redundant sigmoid colon. Moderate stool burden. Appendix: No evidence of acute appendicitis. Peritoneum and retroperitoneum: No ascites or pneumoperitoneum. No omental or mesenteric lesions. Lymph nodes: No enlarged lymph nodes. Blood vessels: No vascular calcifications or aneurysm. No evidence of venous thrombosis. Abdominal and pelvic wall soft tissues: No acute abnormality. Bones: Age-indeterminate nondisplaced sacral fracture at the level of S4. Age indeterminate nondisplaced fracture of the left anterior second and third ribs at the costochondral junction. IMPRESSION: Age-indeterminate nondisplaced sacral fracture at the level of S4. Age-indeterminate nondisplaced left anterior second and third rib fractures at the costochondral junctions. Correlate with focal tenderness at those locations. No soft tissue injury. Mild hepatomegaly. I have personally reviewed the images and I agree with this report. WSN: [id number] Ordering Physician: Armando Ríos Dictated By: Breanna Moreau DO Dictated Date/Time: 07/08/22 6:00 am Reviewed By: Maribel Contreras MD Signed By: Maribel Contreras MD Signed Date/Time: 07/08/22 6:05 am Transcribed By: AMALIA Transcribed Date/Time: 07/08/22 2:52 am * Exam Date Time Procedure Performing Provider Status 07/08/22 1:[address] Chest W/ Contrast Lucia Tran ; [place] (Verified) Notes: (CT Chest W/ Contrast) Reason For Exam: Pulmonary Lesion;Other: RESULT: CT Chest W/ Contrast CT Chest W/ Contrast, CT Abd/Pelvis W/ IV Contrast Only INDICATION: ETOH, trauma. Clinical Question(s): Clav fx, Tspine TTP TECHNIQUE: Helical CT scan of the chest, abdomen, and pelvis with IV contrast, formatted in 3 planes. 100 cc of Omnipaque 300 was administered intravenously. This study was performed without oral contrast. Weight-based protocol was performed using automatic exposure control. CTDIvol Body: 11.10 mGy, DLP Body: 784 mGy*cm. COMPARISON: None. FINDINGS: Telephone Exchange Operator view findings, lines and tubes: None. Trachea and airways: Patent without evidence of tracheal or endobronchial lesion. Lungs and pleura: 2 mm micronodule in the right upper lobe (205:33), not requiring follow-up in this patient's age group. No effusion or pneumothorax. Mediastinum and melina: Trace amount soft tissue density in the anterior upper mediastinum with interspersed fat consistent with residual thymic tissue. No mediastinal or hilar lymphadenopathy. No esophageal abnormality. Partially imaged thyroid is unremarkable. Heart: Heart is normal in size. No pericardial effusion. Aorta: No aortic aneurysm. Pulmonary arteries: Normal caliber. No evidence of pulmonary embolism on this study performed without angiographic technique. Chest wall soft tissues: No acute abnormality. Diaphragm: Intact. Liver: Mild hepatomegaly measuring 17.5 cm mid clavicular line. Gallbladder: No CT evidence of gallbladder pathology. Bile ducts: No biliary ductal dilation. Spleen: Normal in size. Pancreas: No suspicious lesion or ductal dilatation. Adrenal glands: No nodule. Kidneys and ureters: No hydronephrosis, stone, or suspicious lesion. Bladder: No wall thickening or surrounding stranding. Reproductive organs: Unremarkable. Stomach, small bowel, and large bowel: Normal caliber stomach and bowel loops. No surrounding inflammatory changes. Redundant sigmoid colon. Moderate stool burden. Appendix: No evidence of acute appendicitis. Peritoneum and retroperitoneum: No ascites or pneumoperitoneum. No omental or mesenteric lesions. Lymph nodes: No enlarged lymph nodes. Blood vessels: No vascular calcifications or aneurysm. No evidence of venous thrombosis. Abdominal and pelvic wall soft tissues: No acute abnormality. Bones: Age-indeterminate nondisplaced sacral fracture at the level of S4. Age indeterminate nondisplaced fracture of the left anterior second and third ribs at the costochondral junction. IMPRESSION: Age-indeterminate nondisplaced sacral fracture at the level of S4. Age-indeterminate nondisplaced left anterior second and third rib fractures at the costochondral junctions. Correlate with focal tenderness at those locations. No soft tissue injury. Mild hepatomegaly. I have personally reviewed the images and I agree with this report. WSN: [id number] Ordering Physician: Armando Ríos Dictated By: Breanna Moreau DO Dictated Date/Time: 07/08/22 6:00 am Reviewed By: Maribel Contreras MD Signed By: Maribel Contreras MD Signed Date/Time: 07/08/22 6:05 am Transcribed By: AMALIA Transcribed Date/Time: 07/08/22 2:52 am * Exam Date Time Procedure Performing Provider Status 07/08/22 1:[address] Maxilloface W/O Contrast Lucia Tran; [place] (Verified) Notes: (CT Maxilloface W/O Contrast) Reason For Exam: Fracture;Trauma RESULT: CT Maxilloface W/O Contrast CT Head/Brain W/O Contrast, CT Cervical Spine W/O Contrast, CT Maxilloface W/O Contrast INDICATION: ETOH; Trauma; Clinical Question(s): Subarachnoid Hemorrhage. TECHNIQUE: Incremental CT without contrast through the head was formatted in axial and coronal plane. Spiral CT without contrast through the cervical spine was formatted in [address] without contrast through the maxillofacial head was reformatted in 3 planes with additional thin reformats. Weight-based protocol using automatic tube modulation was performed to optimize scan parameters. CTDIvol Body: 13.40 mGy, DLP Body: 366 mGy*cm. CTDIvol Head: 40.20 mGy, DLP Head: 671 mGy*cm. COMPARISON: Multiple priors, including CT head 10/31/[address] cervical spine 04/12/2015. FINDINGS: BRAIN and EXTRA-AXIAL SPACES: No parenchymal hemorrhage, midline shift or mass effect. Hernandez-white matter differentiation is well preserved. No acute infarct. Negative insular ribbon and hyperdense vessel signs. Ventricles, sulci and basilar cisterns are normal. No white matter lesions. No subarachnoid hemorrhage, subdural or epidural collections. Unchanged probable small left paracentral arachnoid cyst in the posterior fossae versus prominent CSF space. CALVARIUM, SKULL BASE AND SOFT TISSUES: No fractures or suspicious bony lesions. Mild mucosal thickening of the ethmoid and moderate mucosal thickening of the maxillary sinuses. Mastoid air cells are clear. MAXILLOFACE: Periorbital soft tissues: Soft tissue contusion of the right lateral and inferior periorbital soft tissue. Soft tissue edema along the left lateral temporal region. Orbital soft tissues: Normal. No hemorrhage or ocular injury. Orbital tran: No fracture. Nasal bones: No fracture. Frontal processes of maxilla: No fracture. Nasal Septum: No fracture. Anterior nasal spine: Intact. Maxillary bones: Mild irregularity of the left lateral posterior sinus wall at the location of a vascular channel (201:177). Alveolus: No fracture or avulsed teeth. Zygomatic arches: Comminuted, mildly displaced left zygomatic arch fracture. Right zygomatic arch is intact. Pterygoid plates: Intact bilaterally. Mandible: The portions included on the exam are normal. No fracture or dislocation. CERVICAL SPINE: No fracture. No acute osseous abnormalities. Normal alignment. Normal craniocervical junction and C1-C2 relationship. No locked or perched facet. Preserved vertebral body heights and intervertebral disc spaces. OTHER BONES: No acute abnormality. CERVICAL SOFT TISSUES AND LUNG APICES: Clear lung apices. Normal thyroid gland. IMPRESSION: 1. No evidence of acute intracranial abnormality. 2. Comminuted, mildly displaced left zygomatic arch fracture. 3. Questionable nondisplaced left lateral maxillary sinus wall fracture versus artifact. 4. Bilateral facial soft tissue contusion. 5. No acute fracture or subluxation of the cervical spine. I have personally reviewed the images and I agree with this report. WSN: [id number] Ordering Physician: Armando Ríos Dictated By: Breanna Moreau DO Dictated Date/Time: 07/08/22 4:46 am Reviewed By: Maribel Contreras MD Signed By: Maribel Contreras MD Signed Date/Time: 07/08/22 4:51 am Transcribed By: AMALIA Transcribed Date/Time: 07/08/22 2:35 am * Exam Date Time Procedure Performing Provider Status 07/08/22 1:[address] Cervical Spine W/O Contrast Lucia Tran; [place] (Verified) Notes: (CT Cervical Spine W/O Contrast) Reason For Exam: Neck trauma, dangerous injury mechanism;Trauma RESULT: CT Cervical Spine W/O Contrast CT Head/Brain W/O Contrast, CT Cervical Spine W/O Contrast, CT Maxilloface W/O Contrast INDICATION: ETOH; Trauma; Clinical Question(s): Subarachnoid Hemorrhage. TECHNIQUE: Incremental CT without contrast through the head was formatted in axial and coronal plane. Spiral CT without contrast through the cervical spine was formatted in [address] without contrast through the maxillofacial head was reformatted in 3 planes with additional thin reformats. Weight-based protocol using automatic tube modulation was performed to optimize scan parameters. CTDIvol Body: 13.40 mGy, DLP Body: 366 mGy*cm. CTDIvol Head: 40.20 mGy, DLP Head: 671 mGy*cm. COMPARISON: Multiple priors, including CT head 10/31/[address] cervical spine 04/12/2015. FINDINGS: BRAIN and EXTRA-AXIAL SPACES: No parenchymal hemorrhage, midline shift or mass effect. Hernandez-white matter differentiation is well preserved. No acute infarct. Negative insular ribbon and hyperdense vessel signs. Ventricles, sulci and basilar cisterns are normal. No white matter lesions. No subarachnoid hemorrhage, subdural or epidural collections. Unchanged probable small left paracentral arachnoid cyst in the posterior fossae versus prominent CSF space. CALVARIUM, SKULL BASE AND SOFT TISSUES: No fractures or suspicious bony lesions. Mild mucosal thickening of the ethmoid and moderate mucosal thickening of the maxillary sinuses. Mastoid air cells are clear. MAXILLOFACE: Periorbital soft tissues: Soft tissue contusion of the right lateral and inferior periorbital soft tissue. Soft tissue edema along the left lateral temporal region. Orbital soft tissues: Normal. No hemorrhage or ocular injury. Orbital tran: No fracture. Nasal bones: No fracture. Frontal processes of maxilla: No fracture. Nasal Septum: No fracture. Anterior nasal spine: Intact. Maxillary bones: Mild irregularity of the left lateral posterior sinus wall at the location of a vascular channel (201:177). Alveolus: No fracture or avulsed teeth. Zygomatic arches: Comminuted, mildly displaced left zygomatic arch fracture. Right zygomatic arch is intact. Pterygoid plates: Intact bilaterally. Mandible: The portions included on the exam are normal. No fracture or dislocation. CERVICAL SPINE: No fracture. No acute osseous abnormalities. Normal alignment. Normal craniocervical junction and C1-C2 relationship. No locked or perched facet. Preserved vertebral body heights and intervertebral disc spaces. OTHER BONES: No acute abnormality. CERVICAL SOFT TISSUES AND LUNG APICES: Clear lung apices. Normal thyroid gland. IMPRESSION: 1. No evidence of acute intracranial abnormality. 2. Comminuted, mildly displaced left zygomatic arch fracture. 3. Questionable nondisplaced left lateral maxillary sinus wall fracture versus artifact. 4. Bilateral facial soft tissue contusion. 5. No acute fracture or subluxation of the cervical spine. I have personally reviewed the images and I agree with this report. WSN: [id number] Ordering Physician: Armando Ríos Dictated By: Moreau DO, Breanna P Dictated Date/Time: 07/08/22 4:46 am Reviewed By: Maribel Contreras MD Signed By: Maribel Contreras MD Signed Date/Time: 07/08/22 4:51 am Transcribed By: AMALIA Transcribed Date/Time: 07/08/22 2:35 am * Exam Date Time Procedure Performing Provider Status 07/08/22 1:[address] Head/Brain W/O Contrast Karime Tran Z; Auth (Verified) Notes: (CT Head/Brain W/O Contrast) Reason For Exam: Trauma RESULT: CT Head/Brain W/O Contrast CT Head/Brain W/O Contrast, CT Cervical Spine W/O Contrast, CT Maxilloface W/O Contrast INDICATION: ETOH; Trauma; Clinical Question(s): Subarachnoid Hemorrhage. TECHNIQUE: Incremental CT without contrast through the head was formatted in axial and coronal plane. Spiral CT without contrast through the cervical spine was formatted in [address] without contrast through the maxillofacial head was reformatted in 3 planes with additional thin reformats. Weight-based protocol using automatic tube modulation was performed to optimize scan parameters. CTDIvol Body: 13.40 mGy, DLP Body: 366 mGy*cm. CTDIvol Head: 40.20 mGy, DLP Head: 671 mGy*cm. COMPARISON: Multiple priors, including CT head 10/31/[address] cervical spine 04/12/2015. FINDINGS: BRAIN and EXTRA-AXIAL SPACES: No parenchymal hemorrhage, midline shift or mass effect. Hernandez-white matter differentiation is well preserved. No acute infarct. Negative insular ribbon and hyperdense vessel signs. Ventricles, sulci and basilar cisterns are normal. No white matter lesions. No subarachnoid hemorrhage, subdural or epidural collections. Unchanged probable small left paracentral arachnoid cyst in the posterior fossae versus prominent CSF space. CALVARIUM, SKULL BASE AND SOFT TISSUES: No fractures or suspicious bony lesions. Mild mucosal thickening of the ethmoid and moderate mucosal thickening of the maxillary sinuses. Mastoid air cells are clear. MAXILLOFACE: Periorbital soft tissues: Soft tissue contusion of the right lateral and inferior periorbital soft tissue. Soft tissue edema along the left lateral temporal region. Orbital soft tissues: Normal. No hemorrhage or ocular injury. Orbital tran: No fracture. Nasal bones: No fracture. Frontal processes of maxilla: No fracture. Nasal Septum: No fracture. Anterior nasal spine: Intact. Maxillary bones: Mild irregularity of the left lateral posterior sinus wall at the location of a vascular channel (201:177). Alveolus: No fracture or avulsed teeth. Zygomatic arches: Comminuted, mildly displaced left zygomatic arch fracture. Right zygomatic arch is intact. Pterygoid plates: Intact bilaterally. Mandible: The portions included on the exam are normal. No fracture or dislocation. CERVICAL SPINE: No fracture. No acute osseous abnormalities. Normal alignment. Normal craniocervical junction and C1-C2 relationship. No locked or perched facet. Preserved vertebral body heights and intervertebral disc spaces. OTHER BONES: No acute abnormality. CERVICAL SOFT TISSUES AND LUNG APICES: Clear lung apices. Normal thyroid gland. IMPRESSION: 1. No evidence of acute intracranial abnormality. 2. Comminuted, mildly displaced left zygomatic arch fracture. 3. Questionable nondisplaced left lateral maxillary sinus wall fracture versus artifact. 4. Bilateral facial soft tissue contusion. 5. No acute fracture or subluxation of the cervical spine. I have personally reviewed the images and I agree with this report. WSN: [id number] Ordering Physician: Armando Ríos Dictated By: Breanna Moreau DO Dictated Date/Time: 07/08/22 4:46 am Reviewed By: Maribel Contreras MD Signed By: Maribel Contreras MD Signed Date/Time: 07/08/22 4:51 am Transcribed By: AMALIA Transcribed Date/Time: 07/08/22 2:35 am Vital Signs Most recent to oldest [Reference Range]: 1 2 3 Oxygen Saturation [94-100 %] 99 % (07/08/22 9:23 AM) 98 % (07/08/22 7:43 AM) 98 % (07/08/22 6:19 AM) Pulse Rate [55-90 bpm] 72 bpm (07/08/22 9:23 AM) 74 bpm (07/08/22 7:43 AM) 75 bpm (07/08/22 6:19 AM) Blood Pressure [90-138/55-84 mm Hg] 128/76mm Hg (07/08/22 9:23 AM) 131/77mm Hg (07/08/22 7:43 AM) 144/56mm Hg *H* (07/08/22 6:19 AM) Respiratory Rate [16-30 br/min] 18 br/min (07/08/22 9:23 AM) 18 br/min (07/08/22 7:43 AM) 18 br/min (07/08/22 6:32 AM) Temperature [96.8-100.4 DegF] 99.0 DegF (07/08/22 9:23 AM) 99.9 DegF (07/08/22 7:43 AM) 97.5 DegF (07/07/22 11:29 PM) Mode of Delivery (Oxygen) Room air (07/08/22 9:23 AM) Room air (07/08/22 7:43 AM) Room air (07/07/22 11:29 PM) Blood pressure sites Arm, right (07/08/22 9:23 AM) Arm, left (07/07/22 11:29 PM) Temperature Route Oral (07/08/22 9:23 AM) Oral (07/08/22 7:43 AM) Oral (07/07/22 11:29 PM) CT Maxillofacial region WO contrast * [facility] , CIS S: TRANSCRIBE Ben EVANS, Maribel M: VERIFY Lizzeth HUDSON, Breanna P: SIGN Event Display: Result: Authored Date: [id number] CT Head/Brain W/O Contrast, CT Cervical Spine W/O Contrast, CT Maxilloface W/O Contrast INDICATION: ETOH; Trauma; Clinical Question(s): Subarachnoid Hemorrhage. TECHNIQUE: Incremental CT without contrast through the head was formatted in axial and coronal plane. Spiral CT without contrast through the cervical spine was formatted in [address] without contrast through the maxillofacial head was reformatted in 3 planes with additional thin reformats. Weight-based protocol using automatic tube modulation was performed to optimize scan parameters. CTDIvol Body: 13.40 mGy, DLP Body: 366 mGy*cm. CTDIvol Head: 40.20 mGy, DLP Head: 671 mGy*cm. COMPARISON: Multiple priors, including CT head 10/31/[address] cervical spine 04/12/2015. FINDINGS: BRAIN and EXTRA-AXIAL SPACES: No parenchymal hemorrhage, midline shift or mass effect. Hernandez-white matter differentiation is well preserved. No acute infarct. Negative insular ribbon and hyperdense vessel signs. Ventricles, sulci and basilar cisterns are normal. No white matter lesions. No subarachnoid hemorrhage, subdural or epidural collections. Unchanged probable small left paracentral arachnoid cyst in the posterior fossae versus prominent CSF space. CALVARIUM, SKULL BASE AND SOFT TISSUES: No fractures or suspicious bony lesions. Mild mucosal thickening of the ethmoid and moderate mucosal thickening of the maxillary sinuses. Mastoid air cells are clear. MAXILLOFACE: Periorbital soft tissues: Soft tissue contusion of the right lateral and inferior periorbital soft tissue. Soft tissue edema along the left lateral temporal region. Orbital soft tissues: Normal. No hemorrhage or ocular injury. Orbital tran: No fracture. Nasal bones: No fracture. Frontal processes of maxilla: No fracture. Nasal Septum: No fracture. Anterior nasal spine: Intact. Maxillary bones: Mild irregularity of the left lateral posterior sinus wall at the location of a vascular channel (201:177). Alveolus: No fracture or avulsed teeth. Zygomatic arches: Comminuted, mildly displaced left zygomatic arch fracture. Right zygomatic arch is intact. Pterygoid plates: Intact bilaterally. Mandible: The portions included on the exam are normal. No fracture or dislocation. CERVICAL SPINE: No fracture. No acute osseous abnormalities. Normal alignment. Normal craniocervical junction and C1-C2 relationship. No locked or perched facet. Preserved vertebral body heights and intervertebral disc spaces. OTHER BONES: No acute abnormality. CERVICAL SOFT TISSUES AND LUNG APICES: Clear lung apices. Normal thyroid gland. IMPRESSION: 1. No evidence of acute intracranial abnormality. 2. Comminuted, mildly displaced left zygomatic arch fracture. 3. Questionable nondisplaced left lateral maxillary sinus wall fracture versus artifact. 4. Bilateral facial soft tissue contusion. 5. No acute fracture or subluxation of the cervical spine. I have personally reviewed the images and I agree with this report. WSN: [id number] Ordering Physician: Armando Ríos Dictated By: Breanna Moreau DO Dictated Date/Time: 07/08/22 4:46 am Reviewed By: Maribel Contreras MD Signed By: Maribel Contreras MD Signed Date/Time: 07/08/22 4:51 am Transcribed By: AMALIA Transcribed Date/Time: 07/08/22 2:[address] Cervical spine WO contrast * [facility]SPowerscribe , CIS S: Maribel Mijares MD M: VERIFY Breanna Moreau DO P: SIGN Event Display: Result: Authored Date: [id number] CT Head/Brain W/O Contrast, CT Cervical Spine W/O Contrast, CT Maxilloface W/O Contrast INDICATION: ETOH; Trauma; Clinical Question(s): Subarachnoid Hemorrhage. TECHNIQUE: Incremental CT without contrast through the head was formatted in axial and coronal plane. Spiral CT without contrast through the cervical spine was formatted in [address] without contrast through the maxillofacial head was reformatted in 3 planes with additional thin reformats. Weight-based protocol using automatic tube modulation was performed to optimize scan parameters. CTDIvol Body: 13.40 mGy, DLP Body: 366 mGy*cm. CTDIvol Head: 40.20 mGy, DLP Head: 671 mGy*cm. COMPARISON: Multiple priors, including CT head 10/31/[address] cervical spine 04/12/2015. FINDINGS: BRAIN and EXTRA-AXIAL SPACES: No parenchymal hemorrhage, midline shift or mass effect. Hernandez-white matter differentiation is well preserved. No acute infarct. Negative insular ribbon and hyperdense vessel signs. Ventricles, sulci and basilar cisterns are normal. No white matter lesions. No subarachnoid hemorrhage, subdural or epidural collections. Unchanged probable small left paracentral arachnoid cyst in the posterior fossae versus prominent CSF space. CALVARIUM, SKULL BASE AND SOFT TISSUES: No fractures or suspicious bony lesions. Mild mucosal thickening of the ethmoid and moderate mucosal thickening of the maxillary sinuses. Mastoid air cells are clear. MAXILLOFACE: Periorbital soft tissues: Soft tissue contusion of the right lateral and inferior periorbital soft tissue. Soft tissue edema along the left lateral temporal region. Orbital soft tissues: Normal. No hemorrhage or ocular injury. Orbital tran: No fracture. Nasal bones: No fracture. Frontal processes of maxilla: No fracture. Nasal Septum: No fracture. Anterior nasal spine: Intact. Maxillary bones: Mild irregularity of the left lateral posterior sinus wall at the location of a vascular channel (201:177). Alveolus: No fracture or avulsed teeth. Zygomatic arches: Comminuted, mildly displaced left zygomatic arch fracture. Right zygomatic arch is intact. Pterygoid plates: Intact bilaterally. Mandible: The portions included on the exam are normal. No fracture or dislocation. CERVICAL SPINE: No fracture. No acute osseous abnormalities. Normal alignment. Normal craniocervical junction and C1-C2 relationship. No locked or perched facet. Preserved vertebral body heights and intervertebral disc spaces. OTHER BONES: No acute abnormality. CERVICAL SOFT TISSUES AND LUNG APICES: Clear lung apices. Normal thyroid gland. IMPRESSION: 1. No evidence of acute intracranial abnormality. 2. Comminuted, mildly displaced left zygomatic arch fracture. 3. Questionable nondisplaced left lateral maxillary sinus wall fracture versus artifact. 4. Bilateral facial soft tissue contusion. 5. No acute fracture or subluxation of the cervical spine. I have personally reviewed the images and I agree with this report. WSN: [id number] Ordering Physician: Armando Ríos Dictated By: Breanna Moreau DO Dictated Date/Time: 07/08/22 4:46 am Reviewed By: Maribel Contreras MD Signed By: Maribel Contreras MD Signed Date/Time: 07/08/22 4:51 am Transcribed By: AMALIA Transcribed Date/Time: 07/08/22 2:[address] Head WO contrast * [facility] , CIS S: TRANSCRIBE Maribel Contreras MD: VERIFY Breanna Moreau DO: SIGN Event Display: Result: Authored Date: [id number] CT Head/Brain W/O Contrast, CT Cervical Spine W/O Contrast, CT Maxilloface W/O Contrast INDICATION: ETOH; Trauma; Clinical Question(s): Subarachnoid Hemorrhage. TECHNIQUE: Incremental CT without contrast through the head was formatted in axial and coronal plane. Spiral CT without contrast through the cervical spine was formatted in [address] without contrast through the maxillofacial head was reformatted in 3 planes with additional thin reformats. Weight-based protocol using automatic tube modulation was performed to optimize scan parameters. CTDIvol Body: 13.40 mGy, DLP Body: 366 mGy*cm. CTDIvol Head: 40.20 mGy, DLP Head: 671 mGy*cm. COMPARISON: Multiple priors, including CT head 10/31/[address] cervical spine 04/12/2015. FINDINGS: BRAIN and EXTRA-AXIAL SPACES: No parenchymal hemorrhage, midline shift or mass effect. Hernandez-white matter differentiation is well preserved. No acute infarct. Negative insular ribbon and hyperdense vessel signs. Ventricles, sulci and basilar cisterns are normal. No white matter lesions. No subarachnoid hemorrhage, subdural or epidural collections. Unchanged probable small left paracentral arachnoid cyst in the posterior fossae versus prominent CSF space. CALVARIUM, SKULL BASE AND SOFT TISSUES: No fractures or suspicious bony lesions. Mild mucosal thickening of the ethmoid and moderate mucosal thickening of the maxillary sinuses. Mastoid air cells are clear. MAXILLOFACE: Periorbital soft tissues: Soft tissue contusion of the right lateral and inferior periorbital soft tissue. Soft tissue edema along the left lateral temporal region. Orbital soft tissues: Normal. No hemorrhage or ocular injury. Orbital tran: No fracture. Nasal bones: No fracture. Frontal processes of maxilla: No fracture. Nasal Septum: No fracture. Anterior nasal spine: Intact. Maxillary bones: Mild irregularity of the left lateral posterior sinus wall at the location of a vascular channel (201:177). Alveolus: No fracture or avulsed teeth. Zygomatic arches: Comminuted, mildly displaced left zygomatic arch fracture. Right zygomatic arch is intact. Pterygoid plates: Intact bilaterally. Mandible: The portions included on the exam are normal. No fracture or dislocation. CERVICAL SPINE: No fracture. No acute osseous abnormalities. Normal alignment. Normal craniocervical junction and C1-C2 relationship. No locked or perched facet. Preserved vertebral body heights and intervertebral disc spaces. OTHER BONES: No acute abnormality. CERVICAL SOFT TISSUES AND LUNG APICES: Clear lung apices. Normal thyroid gland. IMPRESSION: 1. No evidence of acute intracranial abnormality. 2. Comminuted, mildly displaced left zygomatic arch fracture. 3. Questionable nondisplaced left lateral maxillary sinus wall fracture versus artifact. 4. Bilateral facial soft tissue contusion. 5. No acute fracture or subluxation of the cervical spine. I have personally reviewed the images and I agree with this report. WSN: [id number] Ordering Physician: Armando Ríos Dictated By: Breanna Moreau DO Dictated Date/Time: 07/08/22 4:46 am Reviewed By: Maribel Contreras MD Signed By: Maribel Contreras MD Signed Date/Time: 07/08/22 4:51 am Transcribed By: AMALIA Transcribed Date/Time: 07/08/22 2:35 am XR Hand - left GE 3 Views * BOUCHRA Sanders S: TRANSCRIBE Jud Eastman MD: VERIFY Event Display: Result: Authored Date: [id number] Hand Min 3 Views Left, 3 views Hx of Present Illness: etoh; Reason: Trauma; Clinical Question(s): Fracture COMPARISON: 10/16/2021. FINDINGS: No fractures or bone lesions. No arthritic changes. Normal soft tissues. IMPRESSION: Normal. WSN: [id number] Ordering Physician: Armando Ríos Dictated By: Jud Eastman MD Dictated Date/Time: 07/08/22 4:55 am Reviewed By: Jud Eastman MD Signed By: Jud Eastman MD Signed Date/Time: 07/08/22 4:55 am Transcribed By: AMALIA Transcribed Date/Time: 07/08/22 4:54 am Note * BOUCHRA Sanders S: TRANSCRIJud Salazar MD: VERIFY Event Display: Result: Authored Date: [id number] Finger Thumb Left Hand, 3 views Hx of Present Illness: etoh; Reason: Trauma; Clinical Question(s): Fracture COMPARISON: 10/16/2021 FINDINGS: No fractures or bone lesions. No arthritic changes. Normal soft tissues. IMPRESSION: Normal. WSN: [id number] Ordering Physician: Armando Ríos Dictated By: Jud Eastman MD Dictated Date/Time: 07/08/22 4:57 am Reviewed By: Jud Eastman MD Signed By: Jud Eastman MD Signed Date/Time: 07/08/22 4:57 am Transcribed By: AMALIA Transcribed Date/Time: 07/08/22 4:[address] Abdomen and Pelvis W contrast IV * BOUCHRA Sanders S: TRANSCRIMaribel Flores MD M: VERIFY Breanna Moreau DO P: SIGN Event Display: Result: Authored Date: [id number] CT Chest W/ Contrast, CT Abd/Pelvis W/ IV Contrast Only INDICATION: ETOH, trauma. Clinical Question(s): Clav fx, Tspine TTP TECHNIQUE: Helical CT scan of the chest, abdomen, and pelvis with IV contrast, formatted in 3 planes. 100 cc of Omnipaque 300 was administered intravenously. This study was performed without oral contrast. Weight-based protocol was performed using automatic exposure control. CTDIvol Body: 11.10 mGy, DLP Body: 784 mGy*cm. COMPARISON: None. FINDINGS: Telephone Exchange Operator view findings, lines and tubes: None. Trachea and airways: Patent without evidence of tracheal or endobronchial lesion. Lungs and pleura: 2 mm micronodule in the right upper lobe (205:33), not requiring follow-up in this patient's age group. No effusion or pneumothorax. Mediastinum and melina: Trace amount soft tissue density in the anterior upper mediastinum with interspersed fat consistent with residual thymic tissue. No mediastinal or hilar lymphadenopathy. No esophageal abnormality. Partially imaged thyroid is unremarkable. Heart: Heart is normal in size. No pericardial effusion. Aorta: No aortic aneurysm. Pulmonary arteries: Normal caliber. No evidence of pulmonary embolism on this study performed without angiographic technique. Chest wall soft tissues: No acute abnormality. Diaphragm: Intact. Liver: Mild hepatomegaly measuring 17.5 cm mid clavicular line. Gallbladder: No CT evidence of gallbladder pathology. Bile ducts: No biliary ductal dilation. Spleen: Normal in size. Pancreas: No suspicious lesion or ductal dilatation. Adrenal glands: No nodule. Kidneys and ureters: No hydronephrosis, stone, or suspicious lesion. Bladder: No wall thickening or surrounding stranding. Reproductive organs: Unremarkable. Stomach, small bowel, and large bowel: Normal caliber stomach and bowel loops. No surrounding inflammatory changes. Redundant sigmoid colon. Moderate stool burden. Appendix: No evidence of acute appendicitis. Peritoneum and retroperitoneum: No ascites or pneumoperitoneum. No omental or mesenteric lesions. Lymph nodes: No enlarged lymph nodes. Blood vessels: No vascular calcifications or aneurysm. No evidence of venous thrombosis. Abdominal and pelvic wall soft tissues: No acute abnormality. Bones: Age-indeterminate nondisplaced sacral fracture at the level of S4. Age indeterminate nondisplaced fracture of the left anterior second and third ribs at the costochondral junction. IMPRESSION: Age-indeterminate nondisplaced sacral fracture at the level of S4. Age-indeterminate nondisplaced left anterior second and third rib fractures at the costochondral junctions. Correlate with focal tenderness at those locations. No soft tissue injury. Mild hepatomegaly. I have personally reviewed the images and I agree with this report. WSN: [id number] Ordering Physician: Armando Ríos Dictated By: Breanna Moreau DO Dictated Date/Time: 07/08/22 6:00 am Reviewed By: Maribel Contreras MD Signed By: Maribel Contreras MD Signed Date/Time: 07/08/22 6:05 am Transcribed By: AMALIA Transcribed Date/Time: 07/08/22 2:[address] Chest W contrast IV * [facility] , CIS S: TRANSCRIBE Maribel Contreras MD: VERIFY Breanna Moreau DO: SIGN Event Display: Result: Authored Date: [id number] CT Chest W/ Contrast, CT Abd/Pelvis W/ IV Contrast Only INDICATION: ETOH, trauma. Clinical Question(s): Clav fx, Tspine TTP TECHNIQUE: Helical CT scan of the chest, abdomen, and pelvis with IV contrast, formatted in 3 planes. 100 cc of Omnipaque 300 was administered intravenously. This study was performed without oral contrast. Weight-based protocol was performed using automatic exposure control. CTDIvol Body: 11.10 mGy, DLP Body: 784 mGy*cm. COMPARISON: None. FINDINGS: Telephone Exchange Operator view findings, lines and tubes: None. Trachea and airways: Patent without evidence of tracheal or endobronchial lesion. Lungs and pleura: 2 mm micronodule in the right upper lobe (205:33), not requiring follow-up in this patient's age group. No effusion or pneumothorax. Mediastinum and melina: Trace amount soft tissue density in the anterior upper mediastinum with interspersed fat consistent with residual thymic tissue. No mediastinal or hilar lymphadenopathy. No esophageal abnormality. Partially imaged thyroid is unremarkable. Heart: Heart is normal in size. No pericardial effusion. Aorta: No aortic aneurysm. Pulmonary arteries: Normal caliber. No evidence of pulmonary embolism on this study performed without angiographic technique. Chest wall soft tissues: No acute abnormality. Diaphragm: Intact. Liver: Mild hepatomegaly measuring 17.5 cm mid clavicular line. Gallbladder: No CT evidence of gallbladder pathology. Bile ducts: No biliary ductal dilation. Spleen: Normal in size. Pancreas: No suspicious lesion or ductal dilatation. Adrenal glands: No nodule. Kidneys and ureters: No hydronephrosis, stone, or suspicious lesion. Bladder: No wall thickening or surrounding stranding. Reproductive organs: Unremarkable. Stomach, small bowel, and large bowel: Normal caliber stomach and bowel loops. No surrounding inflammatory changes. Redundant sigmoid colon. Moderate stool burden. Appendix: No evidence of acute appendicitis. Peritoneum and retroperitoneum: No ascites or pneumoperitoneum. No omental or mesenteric lesions. Lymph nodes: No enlarged lymph nodes. Blood vessels: No vascular calcifications or aneurysm. No evidence of venous thrombosis. Abdominal and pelvic wall soft tissues: No acute abnormality. Bones: Age-indeterminate nondisplaced sacral fracture at the level of S4. Age indeterminate nondisplaced fracture of the left anterior second and third ribs at the costochondral junction. IMPRESSION: Age-indeterminate nondisplaced sacral fracture at the level of S4. Age-indeterminate nondisplaced left anterior second and third rib fractures at the costochondral junctions. Correlate with focal tenderness at those locations. No soft tissue injury. Mild hepatomegaly. I have personally reviewed the images and I agree with this report. WSN: [id number] Ordering Physician: Armando Ríos Dictated By: Breanna Moreau DO Dictated Date/Time: 07/08/22 6:00 am Reviewed By: Maribel Contreras MD Signed By: Maribel Contreras MD Signed Date/Time: 07/08/22 6:05 am Transcribed By: AMALIA Transcribed Date/Time: 07/08/22 2:52 am Patient Care team information Care Team Personnel Name: Not on Staff, PCP Position: [facility] Physician (General Medicine) Member Role: PCP Name: Becca Triplett RN Position: [facility] ED RN W/OE and Tasks Member Role: Patient Care Provider Name: Armando Ríos MD Position: [facility] Resident Member Role: ED Resident Address: Address: [address] [place] [address] Name: Carol Tristan Position: [facility] ED TA [facility] Member Role: Patient Care Provider Name: Bouchra Mercer MD Position: [facility] ED Medicine MD Member Role: ED Attending Physician Address: Address: [address] [place] [address] Care Team Related Persons Name: YULIYA NEWMAN Address: home [address] [place] [id number] Name: YULIYA HOLLINGSWORTH Address: [address] [place] [address]
--- NOTE | 2022-10-02 10:08 | ED.EXTPRO ---
HPI - Extremity Problem General Chief complaint: Extremity Injury, Upper Stated complaint: l ring finger inj Time Seen by Provider: 10/02/22 09:25 Source: patient Mode of arrival: ambulatory Limitations: no limitations History of Present Illness HPI Narrative: 27-year-old male who is ambidextrous presents to the ER with complaints of left hand pain over the 4th digit which began after hitting it with a hammer yesterday while working on a house. Patient denies any associated numbness, tingling of the extremity. He denies any redness, warmth, fevers or chills. Related Data Home Medications Medication Instructions Recorded Confirmed fluoxetine 20 mg capsule 1 cap PO DAILY 05/20/21 05/20/21 trazodone 50 mg tablet 1 tab PO BEDTIME 05/20/21 05/20/21 Allergies Allergy/AdvReac Type Severity Reaction Status Date / [facility] Allergy Unknown UNKNOWN Uncoded 05/05/21 15:42 Review of Systems Review of Systems: Yes all other systems are reviewed and are negative Constitutional: Constitutional: Reports no additional constitutional complaints, Denies body ache(s), Denies chills, Denies fever(s), Denies headache(s) and Denies weakness Eyes: Eyes: Reports no additional eye complaints and Denies change in vision ENT: Reports system reviewed and no additional complaints, except as documented, Denies dizziness, Denies headache(s), Denies nasal congestion, Denies nasal discharge and Denies neck pain Cardiovascular: Cardiovascular: Reports no additional cardiovascular complaints, Denies chest pain, Denies leg edema and Denies dyspnea Respiratory: Respiratory: Reports no additional respiratory complaints, Denies cough and Denies dyspnea Gastrointestinal: Gastrointestinal: Reports no additional gastrointestinal complaints, Denies abdominal pain, Denies diarrhea, Denies nausea and Denies vomiting Genitourinary: Genitourinary: Denies urinary incontinence Musculoskeletal: Musculoskeletal: Reports no additional musculoskeletal complaints, Denies back pain, Reports arthralgias, Reports joint swelling, Denies limited range of motion, Denies neck pain, Denies numbness and Denies tingling Integumentary/Breasts: Skin/Breast: Reports system reviewed and no additional complaints, except as docu and Denies rash Neurologic: Reports system reviewed and no additional complaints, except as documented, Denies Abnormal speech present, Denies dizziness, Denies headache(s), Denies numbness, Denies tingling and Denies weakness PMFSH Past Medical History Attestation statement: The following information was validated with the patient. Source: old records reviewed and nursing notes reviewed Medical History Substance abuse Social History Social History Alcohol intake: never Smoked in Last 30 Days: Yes Use of substances other than those prescribed or required for medical reasons: No Advance Directives: No Advance Directives Information Provided: Yes Physical Exam Vital Signs: Vital Signs: Last Vital Signs Temp 97.5 F 10/02/22 08:54 Pulse 55 10/02/22 08:54 Resp 16 10/02/22 08:54 BP 136/80 10/02/22 08:54 Pulse Ox 98 10/02/22 08:54 O2 Del Method Room Air 10/02/22 08:54 BMI result Body Mass Index 28.4 Const: General: cooperative, healthy appearing, comfortable and no acute distress Orientation/consciousness: patient oriented x3 Limitations: no limitations HEENT: Head: Yes normal to inspection Ears: hearing grossly normal bilaterally General nose exam: Normal external nose present Face and sinus: Yes normal facial exam Mouth: Normal oral and palatal mucosa present Throat: Yes posterior oropharynx normal Eyes: General: appearance normal, both eyes and all related structures Pupils: Equal, round and reactive pupils present Neck: Neck: Yes normal visual inspection Chest: Chest palpation & inspection: normal inspection of the chest Resp: Effort & Inspection: normal respiratory effort Auscultation: clear to auscultation bilaterally Cardio: Rate: regular rate Rhythm: regular rhythm Peripheral pulses: Peripheral pulses 2+ throughout GI: Inspection: Yes normal to inspection Palpation (GI): Soft to palpation and nontender Auscultation: normal bowel sounds Back/Spine/Pelvis: Thoracic/Lumbar Spine: thoracic and lumbar spine normal to inspection Skin: General skin exam: no rashes or lesions noted Neuro: General: patient oriented x3, no focal motor deficits and normal sensation to monofilament Cranial nerves: Yes Equal, round and reactive pupils present Cognition (Neuro): normal cognition Speech: No Abnormal speech present Gait exam (Neuro): Normal gait present Motor exam (neuro): 5/5 motor strength present throughout Extrem: Other: There is some mild swelling noted over the left 4th digit at the proximal phalanx. there is no ecchymosis, redness or warmth noted. There is full range of motion of the digit. sensation intact distally. Course Course Course Narrative: x-ray show no acute fracture. Likely contusion. Recommend rice. Reviewed worrisome signs and symptoms of when to return to the emergency room. Comfortable plan for discharge home. Medical Decision Making Medical Decision Making MDM Narrative: 27-year-old male who is ambidextrous who presents to the ER with complaints of left 4th digit pain and swelling which began after crush injury yesterday. Patient with some swelling and tenderness over the left 4th digit proximal phalanx. full range of motion will check x-rays Differential Diagnosis Differential Diagnoses: The differential diagnosis associated with the presentation includes contusion, fracture low concern for vascular injury, tendon injury Independent Interpretation I performed an independent interpretation of an: Plain X-Ray Interpretation: I independently reviewed the x-ray and agree with radiologist's report Radiology Impression Discussion of test interpretation with radiology: I have reviewed the radiologist's reading. Radiologist Impression: [place] [id number] XRay Report Signed Patient: Capo Sprague MR#: [id number] : 1995 Acct:[id number] Age/Sex: 27 / M ADM Date: 10/02/22 Loc: .ED Attending Dr: Ordering Physician: Ray Pineda MD Date of Service: 10/02/22 Procedure(s): XR finger LT min 2V Accession Number(s): [id number] cc: Ray Pinead MD~ EXAMINATION: XR FINGER, LEFT CLINICAL INFORMATION: Pain in the left ring finger? COMPARISON: None available.? TECHNIQUE: 4 views of the left fourth finger is a single view of the left hand. FINDINGS: The bones and soft tissues are normal. No fracture. Alignment is anatomic. Joint spaces are maintained.? XR/XR finger LT min 2V IMPRESSION: Normal finger radiographs. ? Discharge Plan Discharge Clinical Impression: Contusion of finger of left hand Patient Disposition: Home, Self-Care Instructions: Contusion in Adults (ED) Additional Instructions: your x-rays do not show any fracture Rest the hand for the next 2 days Apply ice as needed Take Motrin or Tylenol for pain as needed Prescriptions: No Action trazodone 50 mg tablet 1 tab PO BEDTIME fluoxetine 20 mg capsule 1 cap PO DAILY Referrals: [facility] [Primary Care Provider] - 1 week (for persistent symptoms ) Stand Alone Forms: Work/School Release
== END 2022-10-02 10:19 | disposition home or self-care (01) ==
PROVIDERS: Emergency Provider Emergency Medicine
DX: S60.042A Contusion of left ring finger without damage to nail, initial encounter (principal); W22.8XXA Striking against or struck by other objects, initial encounter; Y93.E9 Activity, other interior property and clothing maintenance; Y92.019 Unspecified place in single-family (private) house as the place of occurrence of the external cause; Y99.9 Unspecified external cause status
CPT/HCPCS: 73140; 99283

== ENCOUNTER 2022-11-06 10:20 | Emergency (ER) | payer MEDICAID, SELFPAY ==
--- NOTE | 2022-11-06 10:57 | ED.GENADULT ---
HPI - General Adult General Chief complaint: Skin/Abscess/Foreign Body Time Seen by Provider: 11/06/22 10:56 Source: patient and family (mother) Mode of arrival: ambulatory Limitations: no limitations History of Present Illness HPI narrative: Patient is a 27 year old assigned male at with no reported medical history presenting to the emergency department today with a rash to his arms and legs. Patient states that he ripped out some old insulation and now has a rash to his arms and legs. Patient denies any dizziness, lightheadedness, abdominal pain, nausea, vomiting, fever, chills, blurry vision, double vision, loss of vision, chest pain, difficulty breathing, shortness of breath, back pain, night sweats, pain with urination, increased urinary frequency, increased urinary urgency, blood in his urine or stool, syncope or a near syncopal episode, recent trauma or falls, bowel incontinence, bladder incontinence, bowel retention, bladder retention, or any other complaints at this time. Onset (ago): day(s) (3) Location: left, right, upper extremity and lower extremity Severity: mild Severity scale (1-10): 3 Relieving factors: none Exacerbating factors: none Associated symptoms: rash Treatments prior to arrival: none Related Data Home Medications Medication Instructions Recorded Confirmed fluoxetine 20 mg capsule 1 cap PO DAILY 05/20/21 05/20/21 trazodone 50 mg tablet 1 tab PO BEDTIME 05/20/21 05/20/21 Previous Rx's Medication Instructions Recorded prednisone 20 mg tablet 20 mg PO DAILY 7 days #7 tabs 11/06/22 Allergies Allergy/AdvReac Type Severity Reaction Status Date / Time bupropion [From Wellbutrin] Allergy Unknown Verified 11/06/22 11:00 From [facility] Allergy Unknown UNKNOWN Uncoded 05/05/21 15:42 Review of Systems Constitutional: Constitutional: Reports no additional constitutional complaints, Denies chills, Denies fever(s) and Denies night sweats Eyes: Eyes: Reports no additional eye complaints, Denies blurry vision, Denies change in vision, Denies diplopia, Denies eye discharge, Denies loss of vision and Denies eye pain ENT: Denies dizziness Cardiovascular: Cardiovascular: Reports no additional cardiovascular complaints, Denies chest pain, Denies lightheadedness, Denies Loss of Consciousness and Denies dyspnea Respiratory: Respiratory: Reports no additional respiratory complaints and Denies dyspnea Gastrointestinal: Gastrointestinal: Reports no additional gastrointestinal complaints, Denies abdominal pain, Denies melena, Denies hematochezia, Denies change in bowel habits and Denies change in stool character Genitourinary: Genitourinary: Reports no additional male genitourinary complaints, Denies hematuria, Denies oliguria, Denies difficulty urinating, Denies dysuria, Denies urinary frequency, Denies urinary hesitancy, Denies urinary incontinence and Denies urinary urgency Musculoskeletal: Musculoskeletal: Reports no additional musculoskeletal complaints, Denies numbness and Denies tingling Integumentary/Breasts: Comments: rash to the bilateral upper and lower extremities Neurologic: Denies dizziness, Denies loss of vision, Denies numbness and Denies tingling Psychiatric: Psychiatric: Reports no additional psychiatric complaints Endocrine: Endocrine: Reports no additional endocrine complaints Hematologic/Lymphatic: Hematologic/Lymphatic: Reports no additional hematologic/lymphatic complaints Allergic/Immunologic: Allergic/Immunologic: Reports no additional allergic/immunologic complaints PMFSH Past Medical History Attestation statement: The following information was validated with the patient. (all information validated with the patient's mother) Source: old records reviewed, obtained from family (patient's mother provided additional history and confirmed the history provided by the patient) and nursing notes reviewed Medical History Substance abuse Social History Social History Alcohol intake: never Advance Directives: No Advance Directives Information Provided: Yes Physical Exam ED Vital Signs: Vital Signs - 24 hr 11/06/22 11:00 Temperature 98.4 F Pulse Rate 52 Respiratory Rate 18 Blood Pressure 135/69 Pulse Oximetry 100 Oxygen Delivery Method Room Air BMI result Body Mass Index 27.0 Const General: cooperative, no acute distress, alert and awake Nutritional Appearance: well nourished Orientation/consciousness: patient oriented x3 Limitations: no limitations HENMT Head: Yes normal to inspection and Yes atraumatic Ears: hearing grossly normal bilaterally and external ears normal General nose exam: Normal external nose present, no nasal discharge noted and no epistaxis Face and sinus: Yes normal facial exam, No abrasion and No laceration Mouth: Normal oral and palatal mucosa present, no drooling and no muffled voice Eyes General: appearance normal, both eyes and all related structures Periorbital: periorbital findings normal Eyelids: Yes eyelids normal Conjunctivae: conjunctivae normal Pupils: Equal, round and reactive pupils present EOM: EOMs intact bilaterally Neck Neck: Yes normal visual inspection, Yes full ROM and Yes no lymphadenopathy Chest Chest palpation & inspection: normal inspection of the chest Resp Effort & Inspection: normal respiratory effort and able to speak in complete sentences GI Inspection: Yes normal to inspection Neuro General: patient oriented x3 and moves all extremities Cranial nerves: Yes Equal, round and reactive pupils present Cognition (Neuro): normal cognition Motor exam (neuro): 5/5 motor strength present throughout Sensory Exam: Normal double simultaneous stimulation for sensation Coordination: [id number] test normal Extrem Other: small erythematous rash to the bilateral upper and lower extremities - consistent with contact dermatitis General: Yes full ROM and Yes capillary refill normal Psych Appearance: grossly normal Mental Status: mental status grossly normal Affect: normal affect Attitude: cooperative Thought process: Normal thought process present Thought content: Normal thought content present Insight: Good insight present (Psych) Medical Decision Making Medical Decision Making MDM Narrative: Patient is a 27 year old assigned male at with no reported medical history presenting to the emergency department today with a rash to his bilateral upper and lower extremities. Patient's physical exam was as noted in the physical exam portion of this chart. I explained my physical exam findings to the patient and the patient's mother. I answered all questions asked by the patient and the patient's mother. I stressed the importance of the patient taking his medication as prescribed. I stressed the importance of the patient following up with his primary care provider. I stressed the importance of the patient returning to the emergency department immediately if his symptoms were to worsen or if he were to develop any dizziness, shortness of breath, difficulty breathing, chest pain, blurry vision, loss of vision, nausea, vomiting, abdominal pain, fever, chills, back pain, or any other complaints. Patient and the patient's mother verbalized agreement and understanding with this treatment plan and discharge. Differential Diagnosis Differential Diagnoses: The differential diagnosis associated with the presentation includes Contact dermatitis Rash Independent Historian Clinical information obtained from an independent historian. History obtained from or confirmed by: Parent (patient's mother provided additional history and confirmed the history provided by the patient) Prescription Management I considered prescription management with: Other (patient prescribed prednisone) Discharge Plan Discharge Clinical Impression: Dermatitis Patient Disposition: Home, Self-Care Instructions: Dermatitis (ED) Additional Instructions: Continue taking OTC Benadryl. Follow up with your primary care provider. Return to the emergency department immediately if your symptoms worsen or if you develop any dizziness, shortness of breath, difficulty breathing, chest pain, blurry vision, loss of vision, nausea, vomiting, abdominal pain, fever, chills, back pain, or any other complaints. Prescriptions: New prednisone 20 mg tablet 20 mg PO DAILY 7 Days Qty: 7 0RF No Action trazodone 50 mg tablet 1 tab PO BEDTIME fluoxetine 20 mg capsule 1 cap PO DAILY Referrals: [facility] – [place] Family [facility] [Provider Group] (Call to establish and follow up with a primary care provider. If you already have a primary care provider, please follow up with them.) [facility] – [place] [facility], [facility] [Provider Group] (Call to establish and follow up with a primary care provider. If you already have a primary care provider, please follow up with them.) [facility] – [place] Primary [facility] [Provider Group] (Call to establish and follow up with a primary care provider. If you already have a primary care provider, please follow up with them.) Stand Alone Forms: Work/School Release Interventions: ED Discharge Assessment Last Done: 11/06/22 11:06 Discharge Date/Time: 11/06/22 11:07 Print Language: Turkmen
[2022-11-06 11:00] VITALS: BP 135/69; PULSE 52; RESP 18; TEMP 36.9; O2SAT 100; BMI 27.0
== END 2022-11-06 11:07 | disposition home or self-care (01) ==
PROVIDERS: Emergency Provider Emergency Medicine
DX: L30.9 Dermatitis, unspecified (principal); Z79.899 Other long term (current) drug therapy
CPT/HCPCS: 99282; 99283

== ENCOUNTER 2022-12-14 09:23 | Emergency (ER) | payer MEDICAID, SELFPAY ==
--- NOTE | ~2022-12-14 | XR_ITS ---
EXAMINATION: XR HAND, LEFT CLINICAL INFORMATION: Left fourth and fifth digit injury. COMPARISON: None available. TECHNIQUE: PA, lateral, and oblique views of the left hand. An indicator arrow points to the distal aspect of the fifth digit. FINDINGS: The bones and soft tissues are normal. No fracture. Alignment is anatomic. Joint spaces are maintained. No erosions or soft tissue calcifications. No radiopaque foreign body. XR/XR hand LT min 3V IMPRESSION: Unremarkable left hand. Specifically, the fourth and fifth digits appear intact.
[2022-12-14 10:18] VITALS: BP 148/88; PULSE 51; RESP 20; TEMP 36.8; O2SAT 97; BMI 27.3
[2022-12-14 13:41] VITALS: BP 182/88; PULSE 48; TEMP 36.2; O2SAT 97
--- NOTE | 2022-12-14 13:44 | ED.GENADULT ---
HPI - General Adult General Chief complaint: General Medical Stated complaint: rash Time Seen by Provider: 12/14/22 13:09 Source: patient Mode of arrival: ambulatory Limitations: no limitations History of Present Illness HPI narrative: Patient is 19-year-old male presenting with a rash and injury to the left hand. Patient explains he was rock climbing one week ago when he fell on a turk that he believes was poison harsha and injured his left hand secondary to the fall. Rash is red, itchy and has spread from his right wrist to his legs, back of neck and right side of face ear his eye. Patient explains that the left hand injury is to the 4th and 5th fingers. He states his fingers are swollen and painful to move. Related Data Home Medications Medication Instructions Recorded Confirmed fluoxetine 20 mg capsule 1 cap PO DAILY 05/20/21 05/20/21 trazodone 50 mg tablet 1 tab PO BEDTIME 05/20/21 05/20/21 Previous Rx's Medication Instructions Recorded prednisone 20 mg tablet 20 mg PO DAILY 7 days #7 tabs 11/06/22 naproxen 500 mg tablet 500 mg PO BID PRN pain #14 tabs 12/14/22 prednisone 20 mg tablet 60 mg PO DAILY 5 days #15 tabs 12/14/22 Allergies Allergy/AdvReac Type Severity Reaction Status Date / Time bupropion [From Wellbutrin] Allergy Unknown Verified 11/06/22 11:00 From [facility] Allergy Unknown UNKNOWN Uncoded 05/05/21 15:42 Review of Systems Review of Systems: Constitutional : No Weight loss, No Fever, No Chills, No Fatigue, No Malaise ENT/Mouth : No sore throat, No Rhinorrhea Eyes: +blurry vision that comes and goes that has been ongoing since before the injury, No Eye Pain, No Swelling, No Redness, no diplopia Cardiovascular : No Chest Pain, No SOB, No Dyspnea on Exertion, No Orthopnea, No Edema, No Palpitations Respiratory : No Cough, No Sputum, No Wheezing Gastrointestinal : No Nausea, No Vomiting, No Diarrhea, No Constipation, No abdominal Pain, No Hematochezia, No Melena Genitourinary : No Dysuria, No Urinary Frequency, No Hematuria, Musculoskeletal : +Joint pain and swelling of the left third and fourth fingers, No Myalgias, Skin : No Skin Lesions, + rash of wrist, legs, back of neck and face Neuro : No Weakness, No Numbness, No Dizziness, +mild headache sometimes at night Psych : No Anxiety/Panic, No Depression All other systems reviewed and are negative Yes all other systems are reviewed and are negative [facility] Past Medical History Attestation statement: The following information was validated with the patient. Source: old records reviewed and nursing notes reviewed Medical History Substance abuse Social History Social History Alcohol intake: never Advance Directives: No Physical Exam ED Vital Signs: Vital Signs - 24 hr 12/14/22 10:18 12/14/22 13:41 Temperature 98.2 F 97.2 F Pulse Rate 51 48 L Respiratory Rate 20 Blood Pressure 148/88 H 182/88 H Pulse Oximetry 97 97 Oxygen Delivery Method Room Air Room Air BMI result Body Mass Index 27.3 VSS Appearance: Alert.? Oriented X3.? No acute distress.? Head: Normocephalic, atraumatic, no step-offs or deformities Eyes: Pupils equal, round and reactive to light.?Extraocular movements intact and without pain. Visual acuity intact and patient is able to clearly read the computer. ENT: Pharynx normal.? Neck: Normal inspection.? Neck supple.? CVS: Normal heart rate and rhythm.? Pulses normal.? Respiratory: No respiratory distress.? Breath sounds normal.? Skin: Erythematous vesicular rash with excoriations noted on the right wrist, legsb/l, back of neck and right side of race near the eye. Skin warm and dry.? Normal skin turgor.? Extremities: Edema and tenderness of the left third and fourth figers. Flexion of the fingers limited due to pain. No lower extremity edema.? No calf ttp. 5/5 strength to bilateral upper and lower extremities2+ radial pulses equal bilateral. Capillary refill less than 2 seconds to bilateral upper extremity digits. No wrist drop. Neuro: Oriented X 3.? No motor deficit.? No sensory deficit. CN 2-12 intact Course Reevaluation(s) Reevaluation #1: Xray of left hand unremarkable. Educated patient on diagnosis and treatment plan, answered all question, patient verbalizes understanding. At this time patient will be discharged home, advised to return with new or worsening symptoms. Educated on worrisome signs and symptoms and when to return. At this time I feel comfortable discharge home. Time: 14:35 Medical Decision Making Medical Decision Making MDM Narrative: 27 year old male presenting with pain and swelling of the left 3rd and 4th fingers and a rash after a rock climbing fall onto a turk. Exam significant for pain and edema of the left third and fourth fingers, limited flexion due to pain. Rash is erythematous and vesciular with excoriations on the right wrist, legs, back of neck and right side of face. Visual acuity intact. Fingers injury is likely soft tissue injury vs muscle sprain/strain. Unlikely fracture due to negative XR. No signs of NV compromise, threat to limb. Rash is likely plant contact dermatitis. Unlikely allergic dermatitis, cellulitis, erysipelas, necrotizing infection, TEN/SJS Plan: Finger injury- naproxen Rash- Prednisone Differential Diagnosis Differential Diagnoses: The differential diagnosis associated with the presentation includes Fingers injury is likely soft tissue injury vs muscle sprain/strain. Unlikely fracture due to negative XR. No signs of NV compromise, threat to limb. Rash is likely plant contact dermatitis. Unlikely allergic dermatitis, cellulitis, erysipelas, necrotizing infection, TEN/SJS Admission/Observation Consideration of admission/observation: Escalation of care including admission/observation considered Not indicated. Independent Interpretation I performed an independent interpretation of an: Plain X-Ray Interpretation: No acute abnormalities or fractures. Radiology Impression Discussion of test interpretation with radiology: I have reviewed the radiologist's reading. Radiologist Impression: FINDINGS: The bones and soft tissues are normal. No fracture. Alignment is anatomic. Joint spaces are maintained. No erosions or soft tissue calcifications. No radiopaque foreign body. XR/XR hand LT min 3V IMPRESSION: Unremarkable left hand. Specifically, the fourth and fifth digits appear intact. Prescription Management I considered prescription management with: Other Naproxen for finger pain. Prednisone for poison harsha. Core Measures AMI core measures followed: Yes Measure exclusions: not indicated Critical Care Time Critical Care Time Critical Care Time: No Discharge Plan Discharge Clinical Impression: Contact dermatitis due to plant, Sprain of finger of left hand Patient Disposition: Home, Self-Care Instructions: Contact Dermatitis (DC), Cold Compress or Soak (ED) Additional Instructions: Take your medications as prescribed. If you were prescribed antibiotics today, it is important that you take your medication to their entirety, do not skip any doses, do not finish them early. Follow-up with your primary care provider this week. Return to the emergency department with new or worsening symptoms. Such as fevers, chills, chest pain, shortness of breath, nausea, vomiting, dizziness, headache, vision changes, lethargy In case of emergency call 911 Prescriptions: New naproxen 500 mg tablet 500 mg PO BID PRN (Reason: pain) Qty: 14 0RF Rx Instructions: Take with food prednisone 20 mg tablet 60 mg PO DAILY 5 Days Qty: 15 0RF No Action trazodone 50 mg tablet 1 tab PO BEDTIME fluoxetine 20 mg capsule 1 cap PO DAILY prednisone 20 mg tablet 20 mg PO DAILY 7 Days Qty: 7 0RF Referrals: Physician,None [Primary Care Provider] - 2 days Stand Alone Forms: Work/School Release Interventions: ED Discharge Assessment Last Done: 12/14/22 14:12 Discharge Date/Time: 12/14/22 14:12
== END 2022-12-14 14:12 | disposition home or self-care (01) ==
PROVIDERS: Emergency Provider Emergency Medicine
DX: L25.5 Unspecified contact dermatitis due to plants, except food (principal); R21 Rash and other nonspecific skin eruption; S63.615A Unspecified sprain of left ring finger, initial encounter; S63.617A Unspecified sprain of left little finger, initial encounter; W17.89XA Other fall from one level to another, initial encounter; Y93.31 Activity, mountain climbing, rock climbing and wall climbing; Y92.9 Unspecified place or not applicable; Y99.9 Unspecified external cause status
CPT/HCPCS: 73130; 99283

== ENCOUNTER 2022-12-31 11:22 | Emergency (ER) | payer MEDICAID, SELFPAY ==
--- NOTE | ~2022-12-31 | XR_ITS ---
EXAMINATION: XR CHEST CLINICAL INFORMATION: Cough COMPARISON: None available. TECHNIQUE: Frontal view of the chest was obtained. FINDINGS: Slight bronchial thickening which can be seen in setting of infectious/inflammatory etiology. No pneumothorax. Trachea is midline. Cardiac mediastinal silhouette is not enlarged. No large pleural effusion. Osseous structures are intact. Soft tissues are unremarkable. XR/XR chest 1V IMPRESSION: Slight bronchial thickening which can be seen in setting of infectious/inflammatory etiology.
[2022-12-31 11:30] VITALS: BP 154/90; PULSE 81; RESP 16; TEMP 37.2; O2SAT 96; BMI 26.6
--- NOTE | 2022-12-31 12:51 | ED_ITS ---
HPI - General Adult General Chief complaint: Headache Stated complaint: migraine Time Seen by Provider: 12/31/22 12:02 Source: patient Mode of arrival: ambulatory Limitations: no limitations History of Present Illness HPI narrative: Patient presents with one week of right sided headache. Patient reports that for one week he has had a right sided headache with associated sensitivity to light and sound. He is also reporting a stuffy nose and cough with clear sputum. He also states that he had chills for a few days last week. Patient has tried Tylenol with no relief. Patient reports that his sibling had a mild illness a week ago and so did his grandfather about two weeks ago. Patient denies CP, sob, nausea, vomiting, vision changes, dizziness. Related Data Home Medications Medication Instructions Recorded Confirmed fluoxetine 20 mg capsule 1 cap PO DAILY 05/20/21 05/20/21 trazodone 50 mg tablet 1 tab PO BEDTIME 05/20/21 05/20/21 Previous Rx's Medication Instructions Recorded prednisone 20 mg tablet 20 mg PO DAILY 7 days #7 tabs 11/06/22 naproxen 500 mg tablet 500 mg PO BID PRN pain #14 tabs 12/14/22 prednisone 20 mg tablet 60 mg PO DAILY 5 days #15 tabs 12/14/22 albuterol sulfate 90 mcg/actuation 2 inh inhalation Q4-6H PRN 12/31/22 breath activated powder inhaler shortness of breath or wheezing #1 ea azithromycin 250 mg tablet See Rx Instructions PO .COMPLEX #6 12/31/22 tabs prednisone 20 mg tablet 20 mg PO DAILY 5 days #5 tabs 12/31/22 Allergies Allergy/AdvReac Type Severity Reaction Status Date / Time bupropion [From Wellbutrin] Allergy Unknown Verified 11/06/22 11:00 From [facility] Allergy Unknown UNKNOWN Uncoded 05/05/21 15:42 Review of Systems Review of Systems: Constitutional : No Weight loss, No Fever, No Chills, + Fatigue, + Malaise ENT/Mouth : No sore throat, No Rhinorrhea, +congestion Eyes: No Eye Pain, No Swelling, No Redness Cardiovascular : No Chest Pain, No SOB, No Dyspnea on Exertion, No Orthopnea, No Edema, No Palpitations Respiratory : + Cough, + Sputum, No Wheezing Gastrointestinal : No Nausea, No Vomiting, No Diarrhea, No Constipation, No abdominal Pain, No Hematochezia, No Melena Genitourinary : No Dysuria, No Urinary Frequency, No Hematuria, Musculoskeletal : No joint pain, No Myalgias, No Joint Swelling Skin : No Skin Lesions, No rash Neuro : No Weakness, No Numbness, No Dizziness, + Headache Psych : No Anxiety/Panic, No Depression All other systems reviewed and are negative Yes all other systems are reviewed and are negative [facility], [facility] Past Medical History Attestation statement: The following information was validated with the patient. Source: old records reviewed and nursing notes reviewed Medical History Substance abuse Social History Social History Alcohol intake: never Smoked in Last 30 Days: Yes Use of substances other than those prescribed or required for medical reasons: No Advance Directives: No Advance Directives Information Provided: No Physical Exam ED Vital Signs: Vital Signs - 24 hr 12/31/22 11:30 12/31/22 13:17 Temperature 98.9 F 98.9 F Pulse Rate 81 69 Respiratory Rate 16 16 Blood Pressure 154/90 H 157/81 H Pulse Oximetry 96 96 Oxygen Delivery Method Room Air Room Air BMI result Body Mass Index 26.6 VSS Appearance: Alert.? Oriented X3.? No acute distress.? Head: Normocephalic, atraumatic, no step-offs or deformities Eyes: Pupils equal, round and reactive to light.? ENT: Pharynx normal.??External ears normal, TMs normal bilaterally and EAC's normal. No pain with manipulation of external ears bilaterally. No mastoid tenderness. Neck: Normal inspection.? Neck supple.? CVS: Normal heart rate and rhythm.? Pulses normal.? Respiratory: No respiratory distress.? Breath sounds normal.? Abdomen: Soft and nontender.? Skin: Skin warm and dry.? Normal skin color.? Normal skin turgor.? Extremities: No lower extremity edema.? No calf ttp. 5/5 strength to bilateral upper and lower extremities Neuro: Oriented X 3.? No motor deficit.? No sensory deficit. CN 2-12 intact Course Reevaluation(s) Reevaluation #1: CBC within normal limits. Chemistry unremarkable. Patient's transaminases chronically elevated in the 2-1 fashion with elevated total bilirubin likely secondary to a chronic alcohol abuse. Flu/COVID/RSV negative. Patient feeling better after Toradol. Will give Reglan and Benadryl as patient still has a little bit of a headache. I suspect this is a viral respiratory infection patient's x-ray showing slight bronchial thickening which can be seen in the s etting infection/inflammatory etiology. Will treat with a Z-Chandler, prednisone an inhaler peer Educated patient on diagnosis and treatment plan, answered all question, patient verbalizes understanding. At this time patient will be discharged home, advised to return with new or worsening symptoms. Educated on worrisome signs and symptoms and when to return. At this time I feel comfortable discharge home. Time: 14:24 Medications Administered Discontinued Medications Generic Name Dose Route Start Last Admin Trade Name Freq PRN Reason Stop Dose Admin Ketorolac Tromethamine 30 mg 12/31/22 12:50 12/31/22 13:33 Ketorolac Tromethamine 15 Mg/Ml Vial IM 12/31/22 12:51 30 mg ONCE ONE Administration Medical Decision Making Medical Decision Making [facility] Narrative: 12:57 27 year old male presenting with one week of right sided headache, stuffy nose and cough Exam benign. No meningial signs This is likely viral illness vs complex migraine vs dehydration. Unlikely stroke, posterior stroke, intracranial hemorrhage as NIH stroke scale is 0. Unlikely sinusitis or orbital cellulitis. No signs of meningitis or encephalitis. Plan: labs, imaging, Differential Diagnosis Differential Diagnoses: The differential diagnosis associated with the presentation includes This is likely viral illness vs complex migraine vs dehydration. Unlikely stroke, posterior stroke, intracranial hemorrhage as NIH stroke scale is 0. U nlikely sinusitis or orbital cellulitis. No signs of meningitis or encephalitis. Admission/Observation Consideration of admission/observation: Escalation of care including admission/observation considered Not indicated. Lab Data [facility] Lab Attestation statement: I reviewed the patient's lab results. 12/31/22 13:16 12/31/22 13:16 Labs: Lab Results 12/31/22 12/31/22 12/31/22 Range/Units 13:16 13:16 13:16 WBC 9.5 (4.8-10.8) X10*3/uL RBC 5.25 (4.60-5.80) X10*6/uL Hgb 15.7 (14.0-18.0) g/dl Hct 47.5 (42.0-52.0) % MCV 90.5 (80.0-98.0) fL MCH 29.9 (27.0-33.0) pg MCHC 33.1 (31.0-36.0) g/dl RDW 11.7 (11.0-16.0) % Plt Count 262 (160-400) X10*3/uL MPV 9.6 (9.4-12.4) fL Immature Gran % (Auto) 0.3 (0.0-0.4) % Neut % (Auto) 69.8 (45-73) % Lymph % (Auto) 19.1 L (20-40) % Leake % (Auto) 8.3 (2-11) % Eos % (Auto) 2.2 (0-4) % Baso % (Auto) 0.3 (0-2) % Lymph # (Auto) 1.8 (1.2-4.9) X10*3/uL Leake # (Auto) 0.8 (0.1-1.2) X10*3/uL Eos # (Auto) 0.2 (0.0-0.4) X10*3/uL Baso # (Auto) 0.0 (0.0-0.2) X10*3/uL Abs Immat Gran (auto) 0.03 (0.00-0.03) X10*3/uL Absolute Neuts (auto) 6.7 (2.0-8.3) x10*3/uL Absolute Nucleated RBC 0.000 (0.0-0.012) X10*3/uL Nucleated RBC % (auto) 0.0 (0.0-0.2) /100WBC Sodium 140 (135-145) mmol/L Potassium 4.2 (3.3-5.1) mmol/L Chloride 104 (96-108) mmol/L Carbon Dioxide 27 (22-29) mmol/L Anion Gap 13 (12-20) BUN 11 (9-16) mg/dL Creatinine 0.84 (0.5-1.4) mg/dL Estim Creat Clear Calc 118.1 Estimated GFR > 60 Random Glucose 88 (60-115) mg/dL Calcium 10.2 D (8.4-10.2) mg/dL Total Bilirubin 1.2 H (0.0-1.0) mg/dL AST 118 H (5-37) U/L ALT 296 H (0-40) U/L Alkaline Phosphatase 90 (39-117) U/L Total Protein 8.1 H (6.5-8.0) g/dL Albumin 4.7 (3.5-5.0) g/dL Influenza Type A (PCR) NEGATIVE (Negative) Influenza Type B (PCR) NEGATIVE (Negative) RSV RNA Qual (PCR) NEGATIVE (Negative) SARS-CoV-2 RNA (RT-PCR) NEGATIVE (Negative) Independent Interpretation I performed an independent interpretation of an: Plain X-Ray (XR/XR chest 1V IMPRESSION: Slight bronchial thickening which can be seen in setting of infectious/inflammatory etiology.) Radiology Impression Discussion of test interpretation with radiology: I have reviewed the radiologist's reading. External Record Review External record reviewed: Inpatient record, Office record, Outpatient record, Prior outpatient labs, Prior outpatient radiology, Primary care record and Outside ED record Prescription Management I considered prescription management with: Pain Medication Core Measures AMI core measures followed: Yes Measure exclusions: not indicated Discharge Plan Discharge Clinical Impression: Upper respiratory infection, Headache Patient Disposition: Still a Patient Instructions: Upper Respiratory Infection (DC), Acute Headache (ED) Additional Instructions: Take your medications as prescribed. If you were prescribed antibiotics today, it is important that you take your medication to their entirety, do not skip any doses, do not finish them early. Follow-up with your primary care provider this week. Return to the emergency department with new or worsening symptoms. Such as fe vers, chills, chest pain, shortness of breath, nausea, vomiting, dizziness, headache, vision changes, lethargy In case of emergency call 911 Prescriptions: New azithromycin 250 mg tablet See Rx Instructions .ROUTE .COMPLEX Qty: 6 0RF Rx Instructions: For 250 mg dose pack: take 500 mg today (day 1), then 250 mg for 4 days (days 2-5) prednisone 20 mg tablet 20 mg PO DAILY 5 Days Qty: 5 0RF albuterol sulfate 90 mcg/actuation aerosol powdr breath activated 2 inh inhalation Q4-6H PRN (Reason: shortness of breath or wheezing) Qty: 1 0RF No Action trazodone 50 mg tablet 1 tab PO BEDTIME fluoxetine 20 mg capsule 1 cap PO DAILY prednisone 20 mg tablet 20 mg PO DAILY 7 Days Qty: 7 0RF naproxen 500 mg tablet 500 mg PO BID PRN (Reason: pain) Qty: 14 0RF Rx Instructions: Take with food prednisone 20 mg tablet 60 mg PO DAILY 5 Days Qty: 15 0RF Referrals: Physician,Unknown J [Primary Care Provider] - 2 days Stand Alone Forms: Work/School Release
[2022-12-31 13:17] VITALS: BP 157/81; PULSE 69; RESP 16; TEMP 37.2; O2SAT 96
[2022-12-31 13:23] LABS: MANUAL DIFF FLAG NO
[2022-12-31 13:24] LABS: Basophils Percent Auto 0.3 % (0-2); Eosinophils Absolute Auto 0.2 X10*3/uL (0.0-0.4); Eosinophils Percent Auto 2.2 % (0-4); Hematocrit 47.5 % (42.0-52.0); Hemoglobin 15.7 g/dl (14.0-18.0); Imm Gran Abs Auto 0.03 X10*3/uL (0.00-0.03); Imm Gran Pct Auto 0.3 % (0.0-0.4); Lymphocytes Absolute Auto 1.8 X10*3/uL (1.2-4.9); Lymphocytes Percent Auto 19.1 % (20-40); Mean Corpuscular HGB Conc 33.1 g/dl (31.0-36.0); Mean Corpuscular Hemoglobin 29.9 pg (27.0-33.0); Mean Corpuscular Volume 90.5 fL (80.0-98.0); Mean Platelet Volume 9.6 fL (9.4-12.4); Monocytes Absolute Auto 0.8 X10*3/uL (0.1-1.2); Monocytes Percent Auto 8.3 % (2-11); Neutrophils Absolute Auto 6.7 x10*3/uL (2.0-8.3); Neutrophils Percent Auto 69.8 % (45-73); Platelet Count 262 X10*3/uL (160-400); Red Blood Count 5.25 X10*6/uL (4.60-5.80); Red Cell Distribution Width 11.7 % (11.0-16.0); White Blood Count 9.5 X10*3/uL (4.8-10.8)
[2022-12-31] MEDS: Ketorolac Tromethamine 15 MG/ML VIAL 30 MG IM (13:33)
[2022-12-31 13:50] LABS: Alanine Aminotransferase 296 U/L (0-40); Albumin Level 4.7 g/dL (3.5-5.0); Alkaline Phosphatase 90 U/L (39-117); Anion Gap 13 (12-20); Aspartate Amino Transferase 118 U/L (5-37); Bilirubin Total 1.2 mg/dL (0.0-1.0); Blood Urea Nitrogen 11 mg/dL (9-16); Calcium 10.2 mg/dL (8.4-10.2); Carbon Dioxide 27 mmol/L (22-29); Chloride 104 mmol/L (96-108); Creatinine Clr Calc Pharmacy 118.1; Estimated Glomerular Filt Rate > 60; Glucose Random 88 mg/dL (60-115); Potassium 4.2 mmol/L (3.3-5.1); Sodium 140 mmol/L (135-145); Total Protein 8.1 g/dL (6.5-8.0)
[2022-12-31 14:00] LABS: Influenza A PCR NEGATIVE (Negative); Influenza B PCR NEGATIVE (Negative); Resp Syncy Virus RNA Qual PCR NEGATIVE (Negative); SARS COV2 PCR INHOUSE NEGATIVE (Negative)
[2022-12-31 14:51] VITALS: BP 132/69; PULSE 62; RESP 20; TEMP 37.1; O2SAT 95
[2022-12-31] MEDS: Acetaminophen 325 MG TABLET 650 MG PO (15:17)
--- NOTE | 2022-12-31 15:21 | PC.NURSE ---
Patient given Tylenol at discharge for his headache. Patient is alert and oriented, no s/s of distress noted.
== END 2022-12-31 15:22 | disposition home or self-care (01) ==
PROVIDERS: Physician Assistant; Emergency Provider Emergency Medicine
DX: J06.9 Acute upper respiratory infection, unspecified (principal); R51.9 Headache, unspecified; R05.9 Cough, unspecified; Z20.822 Contact with and (suspected) exposure to COVID-19; Z20.828 Contact with and (suspected) exposure to other viral communicable diseases; Z79.899 Other long term (current) drug therapy
CPT/HCPCS: 0241U; 36415; 71045; 80053; 85025; 96372; 96374; 96375; 99284; J1885

== ENCOUNTER 2023-02-06 09:01 | Inpatient (IN) | payer MEDICAID, SELFPAY ==
[2023-02-06] VITALS (10 sets, daily range): BP systolic 149–188; BP diastolic 82–103; PULSE 50–74; RESP 16–18; TEMP 36.2–37.4; O2SAT 96–100; BMI 25.8; BMI 33.4
--- NOTE | 2023-02-06 10:11 | ED_ITS ---
HPI - Extremity Injury (Lower) General Chief Complaint: Extremity Injury, Lower Stated Complaint: R leg injury Time Seen by Provider: 02/06/23 10:01 Source: patient, RN notes reviewed and old records reviewed Mode of arrival: wheelchair Limitations: no limitations History of Present Illness HPI Narrative: 28 year old male with no significant pmhx presenting to the ED today with right hip, thigh, and knee pain s/p fall from approximately 12 ft height this morning at 0200 while at work. 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 Denies head strike or LOC. Not on AC. States he has been unable to stand or bear weight on the RLE since fall. Reports worsening right thigh/ hip pain that is increased with movement. 02/06 pain. Denies taking pain medications prior to arrival. Denies fever, chills, headache, chest pain, SOB, abd pain, N/V, LLE pain/swelling, tingling/ weakness/ numbness to LE. Endorses smoking tobacco and marijuana. Denies other ilicit drug use. Denies etoh consumption. Related Data Home Medications Medication Instructions Recorded Confirmed No Known Home Meds 02/06/23 02/06/23 Allergies Allergy/AdvReac Type Severity Reaction Status Date / Time bupropion [From Wellbutrin] Allergy Unknown Verified 11/06/22 11:00 From [facility] Allergy Unknown UNKNOWN Uncoded 05/05/21 15:42 Review of Systems 2 Review of Systems: Constitutional: No fever, chills, fatigue, night sweats, weight changes ENT/Mouth: No ear pain, hearing loss, nasal congestion, sinus pain, rhinorrhea, sore throat Eyes: No eye pain, swelling, redness, vision changes, discharge Cardio: No chest pain, palpitations, [place], orthopnea, peripheral edema Pulm: No SOB, cough, sputum, wheezing, dyspnea, hemoptysis GI: No nausea, vomiting, hematemesis, abdominal pain, diarrhea, constipation, hematochezia, melena : No irregular bleeding, dysuria, frequency, urgency, hesitancy, hematuria, flank pain MSK: No back pain, neck pain, + RLE pain/ swelling Skin: No lesions, rashes, +ecchymosis Neuro: No weakness, numbness, paresthesias, LOC, dizziness, headache All other systems reviewed and are negative. [facility] Past Medical History Attestation statement: The following information was validated with the patient. Source: old records reviewed and nursing notes reviewed Medical History Substance abuse Social History Social History Household Members: None Housing: Apartment Do you presently have visiting nurse or other home services: No Alcohol intake: never Patient Tobacco Use Status: Current someday Tobacco user Tobacco use type: Cigarette e-Cigarette/Vaping Use: Never Used Substance Use Type: Marijuana Physical Exam 2 Vital Signs: Vital Signs: Last Vital Signs Temp 97.3 F 02/07/23 07:38 Pulse 58 02/07/23 07:38 Resp 19 02/07/23 10:26 BP 125/83 02/07/23 07:38 Pulse Ox 96 02/07/23 07:38 O2 Del Method Room Air 02/07/23 07:38 O2 Flow Rate 2 02/07/23 04:00 BMI result Body Mass Index 25.8 Vital signs stable. Const: Other: Patient in obvious discomfort sitting in wheelchair, some difficulty getting from the wheelchair to the bed with inability to bear weight on RLE. General: cooperative, alert and awake Nutritional Appearance: average body habitus Orientation/consciousness: patient oriented x3 Limitations: n o limitations HEENT: Head: Yes normal to inspection, Yes No palpable skull fracture present, Yes normocephalic, Yes atraumatic, No Voss's sign, No raccoon eyes and No periorbital ecchymosis Ears: hearing grossly normal bilaterally, TM's normal bilaterally and EAC's normal General nose exam: Normal external nose present and Normal septum present Face and sinus: Yes normal facial exam Mouth: N ormal oral and palatal mucosa present Eyes: Other: + EOMs intact b/l wtihout intrapment General: appearance normal, both eyes and all related structures C onjunctivae: conjunctivae normal Sclerae: sclerae normal Corneas: corneas normal Pupils: Equal, round and reactive pupils present Neck: Neck: Yes normal visual inspection, Yes full ROM, Yes trachea midline and Yes no JVD Chest: Chest palpation & inspection: normal inspection of the chest, normal palpation of entire chest wall, no crepitus and no tenderness Resp: Effort & Inspection: normal respiratory effort, able to speak in complete sentences, no respiratory distress, no segmental paradox chest wall movement and symmetric chest movement Auscultation: clear to auscultation bilaterally, no crackles, no rales, no rhonchi, no wheezes and lung sounds not diminished Cardio: Rate: regular rate Rhythm: regular rhythm Heart sounds: S1 normal heart sound present and S2 normal heart sound present Peripheral pulses: Peripheral pulses 2+ throughout GI: Other: Abdomen soft, nontender to palpation, non distended, no rebound tenderness or guarding. Inspection: Yes normal to inspection and No abdominal wall ecchymosis Back/Spine/Pelvis: Other: No midline spinous tenderness. No paraspinal muscle tenderness. No step off deformity. Pelvis stable. Back: No ecchymosis and No Hernandez-Nascimento sign present Cervical Spine: No collar present Pelvis: no pain with anterior-posterior compression and no pain with lateral compression Skin: Other: + Refer to photo below + 5x10 cm area of ecchymosis noted to ri ght lateral thigh without palpable fluctuance. + Skin warm. No pallor or cyanosis of th e RLE Neuro: General: patient oriented x3, gait normal and moves all extremities Cranial nerves: Yes CN's II-XII intact bilaterally and Yes Equal, round and reactive pupils present Extrem: Other: + Refer to photo below + Right thigh globally firm/ tense and t frances to palpation of the anterior, medial, and posterior aspects without palpable deformity. + Unable to bend the right knee secondar y to pain. Full ROM of right foot/ toes. + Sensation intact to light touch throug hout + 2+ patellar, DP/PT pulses bilaterally + Capillary refill <2 seconds throughout Course Course Course Narrative: 1158-- CBC with mild leukocytosis to 11.1 without left shift. Chemistry with elevated liver enzymes which appears to be patient's baseline when compared to priors. Total serum CK elevated to 517 > I do not suspect rhabdo at this time however will give IVF. Patient receiving IV morphine for pain. > Xrays of pelvis and right hip/fever without acute fracture or dislocation. Awaiting official read for CT abd/pelvis and right femur. > Discussed case with orthopedic ELMER Zimmer who will come to the ED to evaluate patient. 1231-- CT abdomen pelvis unremarkable. No intra-abdominal bleeding. CT right femur without acute fracture or dislocation however notable for mild heterogeneous the throughout the vastus intermedius muscle which appears prominently hypodense with soft tissue stranding along the anterior and medial aspect of the muscle. ? normal variation vs diffuse osseous contusion and possible intramuscular hematoma formation. They also note mild lateral SQ stranding without organized fluid collection or enhancing soft tissue lesion. > Darian Zimmer ortho is at bedside evaluating patient and aware of CT results > Dr. Quiros will be down to evaluate patient 1350-- On re-evaluation, patient requesting more pain medication > 4mg morphine IV ordered. > Awaiting ortho eval 1430-- After evaluating the patient, Dr. Quiros will admit patient to orthopedic surgery for intramuscular hematoma and concern for developing compartment syndrome with plan for fasciotomy later today. Darian Montanause to put in admission orders. Medications Administered Generic Name Dose Route Start Last Admin Trade Name Freq PRN Reason Stop Dose Admin Acetaminophen 650 mg 02/06/23 14:31 02/07/23 07:46 Acetaminophen 325 Mg Tablet PO 650 mg Q6H PRN Administration Pain, Mild (Pain Scale 1-3) Celecoxib 200 mg 02/06/23 21:00 02/07/23 07:46 Celecoxib 200 Mg Capsule PO 200 mg BID MAURICIO Administration Docusate Sodium 100 mg 02/06/23 21:00 02/07/23 07:46 Docusate Sodium 100 Mg Capsule PO 100 mg BID MAURICIO Administration Hydromorphone HCl 0.25 mg 02/06/23 14:31 02/07/23 10:26 Hydromorphone Hcl 0.5 Mg/0.5 Ml Syringe IVPUSH 0.25 mg Q4H PRN Administration Pain, Severe (Pain Scale 7-10) Protocol Lactated Ringer's 1,000 mls @ 100 mls/hr 02/06/23 14:45 02/07/23 07:47 Lr IVCONT 100 mls/hr .Q10H MAURICIO Administration Nicotine 21 mg 02/06/23 20:00 02/07/23 07:45 Nicotine 21 Mg Patch.Td24 TRANSDERMA 21 mg DAILY MAURICIO Administration Oxycodone HCl 5 mg 02/06/23 14:31 02/07/23 07:47 Oxycodone Hcl Immed Release 5 Mg Tablet PO 5 mg Q4H PRN Administration Pain, Moderate(Pain Scale 4-6) Oxycodone HCl 10 mg 02/06/23 21:00 02/07/23 07:46 Oxycodone Hcl Er 10 Mg Tab.Er.12h PO 10 mg BID MAURICIO Administration Sodium Chloride 3 ml 02/06/23 16:00 02/07/23 07:09 0.9 % Sodium Chloride Flush 3 Ml Syringe IVFLUSH Not Given QSHIFT MAURICIO Discontinued Medications Generic Name Dose Route Start Last Admin Trade Name Freq PRN Reason Stop Dose Admin Sodium Chloride 1,000 mls @ 999 mls/hr 02/06/23 12:00 02/06/23 15:20 Ns IV 02/06/23 13:00 Infused .Q1H1M MAURICIO Infusion Acetaminophen 1,000 mg in 100 mls @ 400 mls/hr 02/06/23 18:08 02/06/23 18:50 Ofirmev IV 02/06/23 18:22 Infused ONCE ONE Infusion Influenza Virus Vaccine 0.5 ml 02/06/23 20:24 02/06/23 20:38 Flu Vacc [id number](6mos Up)/Pf 0.5 Ml Syringe IM 02/06/23 20:25 0.5 ml .ONCE ONE Administration Iohexol 85 ml 02/06/23 11:43 02/06/23 11:45 Iohexol 350 Mg/Ml 100 Ml Infus..Btl IV 02/06/23 11:44 85 ml ONCE ONE Administration Morphine Sulfate 4 mg 02/06/23 10:23 02/06/23 10:37 Morphine Sulfate 4 Mg/Ml Cartridge IVPUSH 02/06/23 10:24 4 mg ONCE ONE Administration Protocol Morphine Sulfate 4 mg 02/06/23 13:19 02/06/23 13:44 Morphine Sulfate 4 Mg/Ml Cartridge IVPUSH 02/06/23 13:20 4 mg ONCE ONE Administration Protocol Ondansetron HCl 4 mg 02/06/23 10:32 02/06/23 10:35 Ondansetron Hcl 4 Mg/2 Ml Vial IVPUSH 02/06/23 10:33 4 mg ONCE ONE Administration Ondansetron HCl 4 mg 02/06/23 18:08 02/06/23 22:25 Ondansetron Hcl 4 Mg/2 Ml Vial IVPUSH 4 mg ONCE PRN Administration Nausea and Vomiting Medical Decision Making Medical Decision Making [facility] Narrative: 28 year old make with no significant pmhx presenting to the ED today with right hip, thigh, and knee pain s/p fall from approximately 12 ft height this morning at 0200 while at work. VSS. Right thigh globally firm/ tense and tender to palpation of the anterior, medial, and posterior aspects without palpable deformity. Unable to bend the right knee secondary to pain. Full ROM of right foot/ toes. Sensation intact to light touch throughout. 2+ patellar, DP/PT pulses b/l. Capillary refill <2 seconds throughout. No midline spinous tenderness or step off deformity. Exam non focal. Clinical concern for contusion vs fracture vs msk sprain/ strain vs dislocation. Concern for hematoma vs early compartment syndrome. Low suspcision for rhabdo. I do not suspect concussion or intracranial bleed and do not feel that a CT head/brain/c spine is warranted at this time. Low suspicion for rib fracture, flail chest, pneumothorax, hemothorax, cardiac tamponade, pleural or pericardial effusion as cardiac and pulm exam unremarkable. Concern for intrabdominal pathology and will obtain ct abd/pelvis with IV contrast. Plan at this time is basic labs, imaging, pain control, and otrho consult. Case discussed with my attending physician Dr. Leung who also evaluated patient and agrees with plan. Differential Diagnosis Differential Diagnoses: The differential diagnosis associated with the presentation includes As above. Admission/Observation Consideration of admission/observation: Escalation of care including admission/observation considered Patient admitted to orthopedic team for facsiotomy. Consult Healthcare Provider Management of the patient was discussed with: [facility] (Orthopedic surgery - Darian Gardiner and Dr. Quiros ) Lab Data [facility] Lab Attestation statement: I reviewed the patient's lab results. As above. 02/07/23 06:14 02/07/23 06:14 Labs: Lab Results 02/06/23 Range/Units 11:08 WBC 11.1 H (4.8-10.8) X10*3/uL RBC 4.94 (4.60-5.80) X10*6/uL Hgb 14.4 (14.0-18.0) g/dl Hct 45.0 (42.0-52.0) % MCV 91.1 (80.0-98.0) fL MCH 29.1 (27.0-33.0) pg MCHC 32.0 (31.0-36.0) g/dl RDW 11.9 (11.0-16.0) % Plt Count 253 (160-400) X10*3/uL MPV 10.3 (9.4-12.4) fL Immature Gran % (Auto) 0.3 (0.0-0.4) % Neut % (Auto) 67.7 (45-73) % Lymph % (Auto) 20.2 (20-40) % Barry % (Auto) 10.8 (2-11) % Eos % (Auto) 0.7 (0-4) % Baso % (Auto) 0.3 (0-2) % Lymph # (Auto) 2.3 (1.2-4.9) X10*3/uL Barry # (Auto) 1.2 (0.1-1.2) X10*3/uL Eos # (Auto) 0.1 (0.0-0.4) X10*3/uL Baso # (Auto) 0.0 (0.0-0.2) X10*3/uL Abs Immat Gran (auto) 0.03 (0.00-0.03) X10*3/uL Absolute Neuts (auto) 7.5 (2.0-8.3) x10*3/uL Absolute Nucleated RBC 0.000 (0.0-0.012) X10*3/uL Nucleated RBC % (auto) 0.0 (0.0-0.2) /100WBC PT 11.6 (11.1-13.3) SEC INR 1.0 (0.9-1.1) Sodium 140 (135-145) mmol/L Potassium 3.8 (3.3-5.1) mmol/L Chloride 105 (96-108) mmol/L Carbon Dioxide 25 (22-29) mmol/L Anion Gap 14 (12-20) BUN 8 L (9-16) mg/dL Creatinine 0.75 (0.5-1.4) mg/dL Estim Creat Clear Calc 131.1 Estimated GFR > 60 Random Glucose 112 (60-115) mg/dL Calcium 9.3 D (8.4-10.2) mg/dL Magnesium 1.8 (1.6-2.6) mg/dL Total Bilirubin 1.7 H (0.0-1.0) mg/dL AST 114 H (5-37) U/L ALT 264 H (0-40) U/L Alkaline Phosphatase 75 (39-117) U/L Total Creatine Kinase 517 H (38-174) U/L Total Protein 7.7 (6.5-8.0) g/dL Albumin 4.7 (3.5-5.0) g/dL Independent Interpretation I performed an independent interpretation of an: Plain X-Ray and CT Scan Interpretation: XR pelvis without acute fracture, agree with radiologist's interpretation. XR right femur without acute fracture, agree with radiologist's interpretation. CT abd/pelvis without intra abdominal bleed, agree with radiologist's interpretation. CT right femur without fracture, agree with radiologist's interpretation. Radiology Impression Discussion of test interpretation with radiology: I have reviewed the radiologist's reading. Radiologist Impression: XR pelvis 1-2V IMPRESSION: 1. No acute fractures or subluxation. 2. Small joint effusion in the right knee. XR femur RT 2V IMPRESSION: 1. No acute fractures or subluxation. 2. Small joint effusion in the right knee. CT abdomen pelvis w IV con IMPRESSION: No acute intra-abdominal process seen. Mild constipation. Normal appendix Fleischner guidelines were followed. CT femur RT w IV con IMPRESSION: 1. No acute fracture or dislocation. 2. Mild heterogeneity throughout the vastus intermedialis muscle which appears slightly prominent and hypodense centrally. There is soft tissue stranding along the anterior and medial aspect of the muscle proximally. Findings could represent normal variation versus a diffuse osseous contusion and possible intramuscular hematoma formation. No abnormal enhancement or large, full-thickness tear/muscle retraction. Evaluation of the muscle somewhat limited on CT examination. 3. Mild lateral subcutaneous stranding without organized fluid collection or enhancing soft tissue lesion. External Record Review External record reviewed: Inpatient record Prescription Management I considered prescription management with: Pain Medication and Other (antiemetic) Critical Care Time Critical Care Time Critical Care Time: Yes Total Critical Care Time: 60 Attestation: Critical care time in the amount of 60 minutes has been provided to the patient in terms of direct patient care, frequent reevaluation, consultation with orthopedic surgery, review and interpretation of medical data and results, and management of potentially life-threatening conditions. This is all outside of any medical procedures. Discharge Plan Discharge Clinical Impression: Traumatic compartment syndrome of lower extremity Patient Disposition: Admitted As Inpatient Interventions: Admission Worksheet (ED) Last Done: 02/06/23 15:55 Discharge Date/Time: 02/06/23 15:30
--- NOTE | 2023-02-06 14:31 | PM.HPOR ---
History of Present Illness History of Present Illness Date of Service: 02/06/23 Chief complaint: R leg injury Narrative: Capo Sprague is a 28 year old male who fell 12-15 ft and landed on his right thigh. He complains of pain and is being medicated with iv morphine. He denies numbness and tingling. PMFSH Past Medical History Medical History Substance abuse Social History Social History Alcohol intake: never Smoked in Last 30 Days: Yes Use of substances other than those prescribed or required for medical reasons: Yes Substance Use Type: Marijuana Substance Use Frequency: Daily Substance Use Frequency Other:: PM FOR SLEEP Advance Directives: No Advance Directives Information Provided: No Meds Allergies Allergy/AdvReac Type Severity Reaction Status Date / Time bupropion [From Wellbutrin] Allergy Unknown Verified 11/06/22 11:00 From [facility] Allergy Unknown UNKNOWN Uncoded 05/05/21 15:42 Home Medications Medication Instructions Recorded Confirmed Last Taken Type fluoxetine 20 mg capsule 1 cap PO DAILY 05/20/21 05/20/21 Unknown History trazodone 50 mg tablet 1 tab PO BEDTIME 05/20/21 05/20/21 Unknown History Physical Exam Vital Signs: Vital Signs: Last Vital Signs Temp 97.5 F 02/06/23 12:31 Pulse 60 02/06/23 12:31 Resp 16 02/06/23 12:31 BP 156/98 H 02/06/23 12:31 Pulse Ox 96 02/06/23 12:31 O2 Del Method Room Air 02/06/23 12:31 BMI result Body Mass Index 25.8 Extrem: Other: Tense and full anterior compartment of right thigh Results Labs 02/06/23 11:08 02/06/23 11:08 Labs: Abnormal lab results 02/06/23 Range/Units 11:08 WBC 11.1 H (4.8-10.8) X10*3/uL BUN 8 L (9-16) mg/dL Total Bilirubin 1.7 H (0.0-1.0) mg/dL AST 114 H (5-37) U/L ALT 264 H (0-40) U/L Total Creatine Kinase 517 H (38-174) U/L H & H 02/06/23 Range/Units 11:08 Hgb 14.4 (14.0-18.0) g/dl Hct 45.0 (42.0-52.0) % Coagulation 02/06/23 Range/Units 11:08 INR 1.0 (0.9-1.1) All other labs normal. Assessment and Plan (1) Compartment syndrome of lower extremity, traumatic: Status: Acute Healthy M with right thigh comparment syndrome. His thigh is tense and i cannot move his knee without severe pain. He has intact distal pulse and silt but I recommend emergent fasciotomy.I explained this to him and he expressed understanding I discussed the risks benefits and alternatives including but not limited to the risk of pain, infection, stiffness, need for further surgery as well as potential medical complications such as blood clots, pulmonary embolism and cardiac complications. Time Spent With Patient Time: Total time managing care of this patient today ____ minutes. Quality Stroke Does the patient have a stroke diagnosis?: No VTE Prior VTE?: No VTE Risk Level:: Surgical - low VTE Device Contraindication: Procedure Contraindicated VTE Drug Contraindication: Treatment Not Indicated Procedures Date of Service Date of Service: 02/06/23
--- NOTE | 2023-02-06 14:41 | PHA.MEDREC ---
Pharmacy Consult ? Medication Reconciliation Pharmacy has completed the medication reconciliation. Patient reports no medications at home
--- NOTE | 2023-02-06 15:18 | PC.NURSE ---
RN-RN report given to PACU, per RN ok to hold on starting LR - will initiate in PACU w preferred tubing.
--- NOTE | 2023-02-06 16:40 | HO.ANESPROP2 ---
[facility] Active Problems Active Problems: All Active Problems (Updated 02/06/23 @ 14:33 by Caleb Quiros MD) Compartment syndrome of lower extremity, traumatic (Acute) COVID-19 (Acute) Past Medical History Medical History Substance abuse Functional capacity: independent ambulation Social History Social History Alcohol intake: never Patient Tobacco Use Status: Current everyday Tobacco user Smoked in Last 30 Days: Yes Use of substances other than those prescribed or required for medical reasons: Yes Substance Use Type: Marijuana Substance Use Frequency: Daily Substance Use Frequency Other:: PM FOR SLEEP Advance Directives: No Advance Directives Information Provided: No Nutrition Risks: No Nutritional Risk Meds Allergies Allergy/AdvReac Type Severity Reaction Status Date / Time bupropion [From Wellbutrin] Allergy Unknown Verified 11/06/22 11:00 From [facility] Allergy Unknown UNKNOWN Uncoded 05/05/21 15:42 Active Medications: Current Medications Acetaminophen (Acetaminophen 325 Mg Tablet) 650 mg PO Q6H PRN PRN Reason: Pain, Mild (Pain Scale 1-3) Celecoxib (Celecoxib 200 Mg Capsule) 200 mg PO BID MAURICIO Docusate Sodium (Docusate Sodium 100 Mg Capsule) 100 mg PO BID MAURICIO Hydromorphone HCl (Hydromorphone Hcl 0.5 Mg/0.5 Ml Syringe) 0.25 mg IVPUSH Q4H PRN; Protocol PRN Reason: Pain, Severe (Pain Scale 7-10) Lactated Ringer's (Lr) 1,000 mls @ 100 mls/hr IVCONT .Q10H MAURICIO Oxycodone HCl (Oxycodone Hcl Immed Release 5 Mg Tablet) 5 mg PO Q4H PRN PRN Reason: Pain, Moderate(Pain Scale 4-6) Oxycodone HCl (Oxycodone Hcl Er 10 Mg Tab.Er.12h) 10 mg PO BID MAURICIO Sodium Chloride (0.9 % Sodium Chloride Flush 3 Ml Syringe) 3 ml IVFLUSH QSHIFT MAURICIO Home Medications Medication Instructions Recorded Confirmed Last Taken Type No Known Home Meds 02/06/23 02/06/23 Unknown History Exam Exam Date and Time: February 06, 2023 1640 Height,Weight and Vital Signs: Height 5 ft 6 in Weight 72.575 kg Last Vital Signs Temp 98.3 F 02/06/23 15:46 Pulse 53 02/06/23 15:46 Resp 16 02/06/23 15:46 BP 163/90 H 02/06/23 15:46 Pulse Ox 98 02/06/23 15:46 O2 Del Method Room Air 02/06/23 15:46 Pertinent Lab Results Pertinent Lab Results: Laboratory Tests 02/06/23 11:08 WBC 11.1 H RBC 4.94 Hgb 14.4 Hct 45.0 MCV 91.1 MCH 29.1 MCHC 32.0 RDW 11.9 Plt Count 253 MPV 10.3 Immature Gran % (Auto) 0.3 Neut % (Auto) 67.7 Lymph % (Auto) 20.2 [place] % (Auto) 10.8 Eos % (Auto) 0.7 Baso % (Auto) 0.3 Lymph # (Auto) 2.3 [place] # (Auto) 1.2 Eos # (Auto) 0.1 Baso # (Auto) 0.0 Abs Immat Gran (auto) 0.03 Absolute Neuts (auto) 7.5 Absolute Nucleated RBC 0.000 Nucleated RBC % (auto) 0.0 PT 11.6 INR 1.0 Sodium 140 Potassium 3.8 Chloride 105 Carbon Dioxide 25 Anion Gap 14 BUN 8 L Creatinine 0.75 Estim Creat Clear Calc 131.1 Estimated GFR > 60 Random Glucose 112 Calcium 9.3 D Magnesium 1.8 Total Bilirubin 1.7 H AST 114 H ALT 264 H Alkaline Phosphatase 75 Total Creatine Kinase 517 H Total Protein 7.7 Albumin 4.7 Airway Mallampati Class: II TM Dist: >3cm Neck ROM: Full Heart: RRR Lungs: CTA Assessment and Plan Final Anesthetic Review ASA Class: II and Emergency Final Preanesthetic Review: Meds/Allgs Chart Reviewed, Consent Obtained/Reviewed and Anes Risks/Benef Reviewed Patient Risk: Low Procedure Risk: Low Anesthetic Plan Anesthetic Plan: GA Disposition: Standard PACU
--- NOTE | 2023-02-06 17:48 | PM.OP ---
Brief Operative Note Date of Service: 02/06/23 Pre-op diagnosis: Compartmenrt syndrome right thigh Procedure: fasciotomy right thigh Surgeon: Caleb Quiros MD Anesthesia: GLMA Was an Photographic Editor used for this Procedure?: Yes Photographic Editor: Ruben Gardiner Estimated blood loss (mL): 150 IV fluids (mL): 1,000 Pathology: none sent Condition: stable Disposition: PACU
[2023-02-07] VITALS (13 sets, daily range): BP systolic 116–160; BP diastolic 63–88; PULSE 54–70; RESP 14–19; TEMP 36–37.3; O2SAT 93–100; BMI 33.4
[2023-02-07 06:49] LABS: Anion Gap 14 (12-20); Blood Urea Nitrogen 8 mg/dL (9-16); Calcium 8.9 mg/dL (8.4-10.2); Carbon Dioxide 23 mmol/L (22-29); Chloride 103 mmol/L (96-108); Creatinine Clr Calc Pharmacy 160.2; Estimated Glomerular Filt Rate > 60; Glucose Fasting 128 mg/dL (60-99); Potassium 4.2 mmol/L (3.3-5.1); Sodium 136 mmol/L (135-145)
--- NOTE | 2023-02-07 07:50 | PM.PNORT ---
Subjective Subjective Date of Service: 02/07/23 Interval history: POD1 s/p right thigh fasciotomy Patient is resting in bed comfortably No overnight events Pain is managed No additional complaints Physical Exam Vital Signs: Vital Signs: Last Vital Signs Temp 97.3 F 02/07/23 07:38 Pulse 58 02/07/23 07:38 Resp 16 02/07/23 07:38 BP 125/83 02/07/23 07:38 Pulse Ox 96 02/07/23 07:38 O2 Del Method Room Air 02/07/23 07:38 O2 Flow Rate 2 02/07/23 04:00 BMI result Body Mass Index 33.4 Extrem: Other: Right thigh wound vac in place and functioning. Compartments soft. Able to dorsi/plantar flex. Procedures Date of Service Date of Service: 02/07/23 Progress Note: A&P Assessment and plan (1) Compartment syndrome of lower extremity, traumatic: Status: Acute Plan Remain NPO Plan to bring to OR later today for attempted closure Pain management as appropriate Time Spent With Patient Time: Total time managing care of this patient today ____ minutes. Quality Stroke Does the patient have a stroke diagnosis?: No VTE Prior VTE?: No VTE Risk Level:: Surgical - low VTE Device Contraindication: Procedure Contraindicated VTE Drug Contraindication: Treatment Not Indicated
--- NOTE | 2023-02-07 12:01 | HO.POSTANES ---
Post Anesthesia Evaluation Post Anesthesia Evaluation Date of Service: 02/07/23 Vital Signs: Vital Signs Temp Pulse Resp BP Pulse Ox O2 Del Method O2 Flow Rate 02/07/23 10:26 19 02/07/23 07:38 97.3 F 58 16 125/83 96 Room Air 02/07/23 04:00 96.8 F 54 16 124/78 97 Nasal Cannula 2 Anesthesia: General Mental Status: Awake Pain Control: Satisfactory Nausea/Vomiting: None Hydration: Adequate Anesthesia-Related Issues: No Anes. Related Issues
--- NOTE | 2023-02-07 13:17 | HO.ANESPROP2 ---
[facility] Active Problems Active Problems: All Active Problems (Updated 02/06/23 @ 19:09 by Mark Mario) Compartment syndrome of lower extremity, traumatic (Acute) COVID-19 (Acute) Past Medical History Medical History Substance abuse Functional capacity: independent ambulation Surgical History History of Problems with Anesthesia: No Social History Social History Household Members: None Housing: Apartment Do you presently have visiting nurse or other home services: No Alcohol intake: never Patient Tobacco Use Status: Current everyday Tobacco user Tobacco use type: Cigarette Cigarettes Per Day: 2 e-Cigarette/Vaping Use: Never Used Substance Use Type: Marijuana Meds Allergies Allergy/AdvReac Type Severity Reaction Status Date / Time bupropion [From Wellbutrin] Allergy Unknown Verified 11/06/22 11:00 From [facility] Allergy Unknown UNKNOWN Uncoded 05/05/21 15:42 Active Medications: Current Medications Acetaminophen (Acetaminophen 325 Mg Tablet) 650 mg PO Q6H PRN PRN Reason: Pain, Mild (Pain Scale 1-3) Last Admin: 02/07/23 07:46 Dose: 650 mg Celecoxib (Celecoxib 200 Mg Capsule) 200 mg PO BID [facility] Last Admin: 02/07/23 07:46 Dose: 200 mg Docusate Sodium (Docusate Sodium 100 Mg Capsule) 100 mg PO BID [facility] Last Admin: 02/07/23 07:46 Dose: 100 mg Fentanyl (Fentanyl Citrate/Pf 100 Mcg/2 Ml Vial) 25 mcg IVPUSH Q5M PRN; Protocol PRN Reason: Pain, Moderate(Pain Scale 4-6) Hydromorphone HCl (Hydromorphone Hcl 0.5 Mg/0.5 Ml Syringe) 0.25 mg IVPUSH Q4H PRN; Protocol PRN Reason: Pain, Severe (Pain Scale 7-10) Last Admin: 02/07/23 10:26 Dose: 0.25 mg Lactated Ringer's (Lr) 1,000 mls @ 100 mls/hr IVCONT .Q10H [facility] Last Admin: 02/07/23 07:47 Dose: 100 mls/hr Nicotine (Nicotine 21 Mg Patch.Td24) 21 mg TRANSDERMA DAILY [facility] Last Admin: 02/07/23 07:45 Dose: 21 mg Oxycodone HCl (Oxycodone Hcl Immed Release 5 Mg Tablet) 5 mg PO Q4H PRN PRN Reason: Pain, Moderate(Pain Scale 4-6) Last Admin: 02/07/23 07:47 Dose: 5 mg Oxycodone HCl (Oxycodone Hcl Er 10 Mg Tab.Er.12h) 10 mg PO BID [facility] Last Admin: 02/07/23 07:46 Dose: 10 mg Sodium Chloride (0.9 % Sodium Chloride Flush 3 Ml Syringe) 3 ml IVFLUSH QSHIFT [facility] Last Admin: 02/07/23 07:09 Dose: Not Given Home Medications Medication Instructions Recorded Confirmed Last Taken Type No Known Home Meds 02/06/23 02/06/23 Unknown History Exam Exam Date and Time: February 07, [id number] Height,Weight and Vital Signs: Height 5 ft 6 in Weight 94 kg Last Vital Signs Temp 97.3 F 02/07/23 07:38 Pulse 58 02/07/23 07:38 Resp 19 02/07/23 10:26 BP 125/83 02/07/23 07:38 Pulse Ox 96 02/07/23 07:38 O2 Del Method Room Air 02/07/23 07:38 O2 Flow Rate 2 02/07/23 04:00 Pertinent Lab Results Pertinent Lab Results: Laboratory Tests 02/06/23 02/06/23 02/07/23 11:08 22:43 06:14 WBC 11.1 H 12.9 H RBC 4.94 4.56 L Hgb 14.4 13.6 L Hct 45.0 41.2 L MCV 91.1 90.4 MCH 29.1 29.8 MCHC 32.0 33.0 RDW 11.9 11.7 Plt Count 253 218 MPV 10.3 10.3 Immature Gran % (Auto) 0.3 0.3 Neut % (Auto) 67.7 83.8 H Lymph % (Auto) 20.2 8.5 L [place] % (Auto) 10.8 7.1 Eos % (Auto) 0.7 0.2 Baso % (Auto) 0.3 0.1 Lymph # (Auto) 2.3 1.1 L [place] # (Auto) 1.2 0.9 Eos # (Auto) 0.1 0.0 Baso # (Auto) 0.0 0.0 Abs Immat Gran (auto) 0.03 0.04 H Absolute Neuts (auto) 7.5 10.8 H Absolute Nucleated RBC 0.000 0.000 Nucleated RBC % (auto) 0.0 0.0 PT 11.6 INR 1.0 Sodium 140 136 Potassium 3.8 4.2 Chloride 105 103 Carbon Dioxide 25 23 Anion Gap 14 14 BUN 8 L 8 L Creatinine 0.75 0.73 Estim Creat Clear Calc 131.1 160.2 Estimated GFR > 60 > 60 Random Glucose 112 Fasting Glucose 128 H Calcium 9.3 D 8.9 Magnesium 1.8 Total Bilirubin 1.7 H AST 114 H ALT 264 H Alkaline Phosphatase 75 Total Creatine Kinase 517 H Total Protein 7.7 Albumin 4.7 Urine Opiates Screen POSITIVE H Urine Fentanyl Screen POSITIVE H Ur Barbiturates Screen Not Detected Ur Phencyclidine Scrn Not Detected Ur Amphetamines Screen Not Detected U Benzodiazepines Scrn POSITIVE H Urine Cocaine Screen POSITIVE H U Marijuana (THC) Screen POSITIVE H Airway Mallampati Class: II TM Dist: >3cm Neck ROM: Full Loose/Missing/Broken Teeth: No Heart: RRR Lungs: CTA Assessment and Plan Assessment Anesthesia Assessment: Anesthesia Plan Discussed and Chart Reviewed Final Anesthetic Review History of Problems with Anesthesia: No NPO: Yes ASA Class: II Final Preanesthetic Review: Meds/Allgs Chart Reviewed, Consent Obtained/Reviewed and Anes Risks/Benef Reviewed Patient Risk: Low Procedure Risk: Low Anesthetic Plan Anesthetic Plan: GA Disposition: Standard PACU
--- NOTE | 2023-02-07 15:09 | PM.OP ---
Brief Operative Note Date of Service: 02/07/23 Pre-op diagnosis: Compartment syndrome right thigh Post-op diagnosis: same Procedure: Irrigation and debridement and delayed primary closure right thigh. (Incision length 20cm) Implants: none Surgeon: Caleb Quiros MD Anesthesia: GETA Was an Dot Net Architect used for this Procedure?: Yes Dot Net Architect: Clare Mendoza Estimated blood loss (mL): 50 IV fluids (mL): 1,000 Pathology: none sent Condition: stable Disposition: PACU
[2023-02-07] MEDS: HYDROmorphone HCl 0.5 MG/0.5 ML SYRINGE 0.25 MG IVPUSH (16:32)
[2023-02-07] MEDS: Celecoxib 200 MG CAPSULE PO (18:32)
[2023-02-07] MEDS: Acetaminophen 325 MG TABLET 650 MG PO (18:32)
[2023-02-07] MEDS: oxyCODONE HCl Immed Release 5 MG TABLET PO ×2 (18:33→22:33)
[2023-02-07] MEDS: oxyCODONE HCl ER 10 MG TAB.ER.12H PO (18:33)
[2023-02-07] MEDS: Docusate Sodium 100 MG CAPSULE PO (18:33)
[2023-02-08 02:54] VITALS: BP 110/58; PULSE 55; RESP 14; TEMP 36.1; O2SAT 97
[2023-02-08] MEDS: oxyCODONE HCl Immed Release 5 MG TABLET PO (02:54)
[2023-02-08 06:50] VITALS: BP 113/60; PULSE 53; RESP 16; TEMP 35.5; O2SAT 99
[2023-02-08 07:30] LABS: MANUAL DIFF FLAG NO
[2023-02-08 07:39] LABS: Basophils Percent Auto 0.4 % (0-2); Eosinophils Absolute Auto 0.1 X10*3/uL (0.0-0.4); Eosinophils Percent Auto 0.9 % (0-4); Hematocrit 37.1 % (42.0-52.0); Imm Gran Abs Auto 0.02 X10*3/uL (0.00-0.03); Imm Gran Pct Auto 0.2 % (0.0-0.4); Lymphocytes Absolute Auto 3.2 X10*3/uL (1.2-4.9); Lymphocytes Percent Auto 37.8 % (20-40); Mean Corpuscular HGB Conc 32.3 g/dl (31.0-36.0); Mean Corpuscular Hemoglobin 29.9 pg (27.0-33.0); Mean Corpuscular Volume 92.5 fL (80.0-98.0); Mean Platelet Volume 11.4 fL (9.4-12.4); Monocytes Absolute Auto 0.8 X10*3/uL (0.1-1.2); Monocytes Percent Auto 9.5 % (2-11); Neutrophils Absolute Auto 4.3 x10*3/uL (2.0-8.3); Neutrophils Percent Auto 51.2 % (45-73); Platelet Count 188 X10*3/uL (160-400); Red Blood Count 4.01 X10*6/uL (4.60-5.80); Red Cell Distribution Width 11.8 % (11.0-16.0); White Blood Count 8.4 X10*3/uL (4.8-10.8)
[2023-02-08 07:49] LABS: Anion Gap 13 (12-20); Blood Urea Nitrogen 10 mg/dL (9-16); Calcium 8.6 mg/dL (8.4-10.2); Carbon Dioxide 25 mmol/L (22-29); Chloride 106 mmol/L (96-108); Creatinine Clr Calc Pharmacy 151.9; Estimated Glomerular Filt Rate > 60; Glucose Fasting 107 mg/dL (60-99); Potassium 3.6 mmol/L (3.3-5.1); Sodium 140 mmol/L (135-145)
[2023-02-08] MEDS: Nicotine 21 MG PATCH.TD24 TRANSDERMA (07:55)
[2023-02-08] MEDS: Docusate Sodium 100 MG CAPSULE PO (07:56)
[2023-02-08] MEDS: Celecoxib 200 MG CAPSULE PO (07:57)
[2023-02-08] MEDS: oxyCODONE HCl ER 10 MG TAB.ER.12H PO (07:57)
[2023-02-08 09:11] VITALS: BP 113/60; PULSE 53; O2SAT 99
--- NOTE | 2023-02-08 09:23 | P.DS_ITS ---
DS: Providers Provider Date of Service: 02/08/23 Date of admission: 02/06/23 14:31 Primary care physician: None Physician DS: Diagnosis Discharge Diagnosis (1) Compartment syndrome of lower extremity, traumatic: Status: Acute DS: Summary Hospital Course Hospital Course: The patient underwent a right thigh fasciotomy after sustaining a traumatic injury at work on 02/06/23, he was transferred to PACU and then to the floor to recover. During their stay, their vitals were stable, afebrile at 96.9. Labs were unremarkable, H/H 12.0/37.1. He is WBAT with crutches The plan is to be discharged home with a f/u in our office in 2 weeks. Time Spent with Patient Time attestation: Total time managing care of this patient today ____ minutes. Discharge coordination time: Less than 30 minutes Quality: Safe Use of Opioids Does Pt have an Active Cancer Diagnosis on the Problem List?: No Quality: Stroke Does the patient have a stroke diagnosis?: No Physical Exam Vital Signs: Vital Signs: Last Vital Signs Temp 96 F L 02/08/23 06:50 Pulse 53 02/08/23 09:11 Resp 16 02/08/23 06:50 BP 113/60 02/08/23 09:11 Pulse Ox 99 02/08/23 09:11 O2 Del Method Room Air 02/08/23 06:50 O2 Flow Rate 2 02/07/23 15:50 BMI result Body Mass Index 33.4 Extrem: Other: Right thigh bandage clean, dry and intact. Compartments soft. Able to dorsi/plantar flex. DS: Data Data Completed and Pending Labs on day of discharge: Laboratory Results - last 24 hr 02/08/23 06:10 WBC 8.4 RBC 4.01 L Hgb 12.0 L Hct 37.1 L MCV 92.5 MCH 29.9 MCHC 32.3 RDW 11.8 Plt Count 188 MPV 11.4 Immature Gran % (Auto) 0.2 Neut % (Auto) 51.2 Lymph % (Auto) 37.8 [place] % (Auto) 9.5 Eos % (Auto) 0.9 Baso % (Auto) 0.4 Lymph # (Auto) 3.2 [place] # (Auto) 0.8 Eos # (Auto) 0.1 Baso # (Auto) 0.0 Abs Immat Gran (auto) 0.02 Absolute Neuts (auto) 4.3 Absolute Nucleated RBC 0.000 Nucleated RBC % (auto) 0.0 Sodium 140 Potassium 3.6 Chloride 106 Carbon Dioxide 25 Anion Gap 13 BUN 10 Creatinine 0.77 Estim Creat Clear Calc 151.9 Estimated GFR > 60 Fasting Glucose 107 H Calcium 8.6 Discharge Plan Discharge Anticipated Discharge Date/Time: 02/08/23 09:18 Patient Disposition: Home, Self-Care Discharge Diagnosis: s/p right thigh fasciotomy Referrals: Ruben Gardiner PA-C [Physician Loop Drier Operator] - 2 Weeks Physician,None [Primary Care Provider] - 1 Week Discharge Medications: New celecoxib 200 mg Capsule 200 mg PO BID 30 Days Qty: 60 0RF acetaminophen 325 mg Tablet 650 mg PO Q6H PRN (Reason: Pain, Mild (Pain Scale 1-3)) 30 Days Qty: 240 0RF docusate sodium 100 mg Capsule 100 mg PO BID 14 Days Qty: 28 0RF oxycodone 5 mg Tablet 5 mg PO Q4H PRN (Reason: Pain, Moderate(Pain Scale 4-6)) 7 Days Qty: 42 0RF Rx Instructions: Partial Fill upon patient request. Discharge Orders: Discharge Order (Routine); Ordered 02/08/23 Ordered By: Ruben Gardiner Diet: Regular diet Activity on Discharge: Use cane or walker Stand Alone Forms: Patient Portal Discharge page Care Plan Goals: Restore function of joint Health Concerns: none Plan of Treatment: Weight bearing as tolerated Work on ROM of the knee and straight leg raises If you develop worseing pain or swelling please contact orthopedic office or return to the ED Assessment: as above
--- NOTE | 2023-02-08 09:28 | MHC.CM.PN ---
Addendum entered by Toya Ayala 02/08/23 09:51: PATIENT IS DISCHARGED TO HOME SELF CARE. HIS GRANDMOTHER IS GOING TO PICK HIM UP THIS MORNING. Original Note: Patient S/P fall with Compartment syndrome. He went to the OR yesterday, 02/07/23 for compartment syndrome. He lives with a roomate. PMH Alcohol Syndrome ADD. Prior to fall patient was independent with care. He is ambulating in his room. His gait is steady. DP home self care. Patients grandmother will provide transport home.
--- NOTE | 2023-02-21 09:29 | P.OP_ITS ---
Operative Note Operative Note Date of Service: 02/06/23 Narrative: Date of Service: 02/06/23 Pre-op diagnosis: Compartment syndrome right thigh Procedure: fasciotomy right thigh Surgeon: Caleb Quiros MD Anesthesia: GLMA Was an Patient Relations Liaison used for this Procedure?: Yes Patient Relations Liaison: Ruben Gardiner Estimated blood loss (mL): 150 IV fluids (mL): 1,000 Pathology: none sent Condition: stable Disposition: PACU Procedure in detail: 28-year-old gentleman who sustained a fall and presented to the ED with a tense and swollen right thigh. Diagnosis of compartment syndrome was made and he was brought to the operating room to undergo fasciotomy. Time-out was called to identify proper site procedure proper surgeon IV antibiotics per weight were administered. I began by making a lateral incision from the proximal thigh distally toward the lateral femoral condyle. Once through skin the tensor fascia was identified and incised. There was out approaching of the quadriceps muscle. The muscle was at reactive to electrocautery and looked pink. I opened up the fascia proximally from about 10 cm distal to the greater trochanter down to the lateral femoral condyle. Is placed my hand medially and palpated the medial compartment but this was not tense at all on so no additional incision was made. The same applies for the posterior compartment. I then irrigated copiously and placed a wound VAC sponge over the thigh. Patient was extubated and brought to the recovery room stable condition. There were no known complications.
--- NOTE | 2023-02-21 09:34 | P.OP_ITS ---
Operative Note Operative Note Date of Service: 02/07/23 Narrative: Date of Service: 02/07/23 Pre-op diagnosis: Compartment syndrome right thigh Post-op diagnosis: same Procedure: Irrigation and debridement and delayed primary closure right thigh. (Incision length 20cm) Implants: none Surgeon: Caleb Quiros MD Anesthesia: GETA Was an Supervisor Cabinetmaker used for this Procedure?: Yes Supervisor Cabinetmaker: Clare Mendoza Estimated blood loss (mL): 50 IV fluids (mL): 1,000 Pathology: none sent Condition: stable Disposition: PACU Procedure in detail: Patient returned to the operative room the day after fasciotomy for closure. Time-out was called to identify proper site procedure proper surgeon IV antibiotics per weight were administered. Wound VAC was removed. The quadriceps muscle and tissue was healthy appearing and reactive to electrostimulation. I irrigated copiously and then closed the skin with nylon suture. The fascia, was left open. The length of the incision was approximately 20 cm. Patient tolerated the procedure well and after sterile dressings were applied he was extubated brought to recovery room stable condition. There were no known complications.
== END 2023-02-08 09:30 | disposition home or self-care (01) | DRG 317 ==
LOC: HO.ED 14:23 → HO.EDOVER 14:37 → HO.S3 17:40
PROVIDERS: Orthopaedic Surgery; Admitting Provider Physician Assistant; Emergency Provider Student in an Organized Health Care Education/Training Program; PCP Internal Medicine; Visit Provider Physician Assistant
PROC: 0KNQ0ZZ Release Right Upper Leg Muscle, Open Approach (ICD-10-PCS; principal; 2023-02-06 15:00)
PROC: 0JDL0ZZ Extraction of Right Upper Leg Subcutaneous Tissue and Fascia, Open Approach (ICD-10-PCS; principal; 2023-02-07 14:50)
DX: T79.A21A Traumatic compartment syndrome of right lower extremity, initial encounter (principal); F17.210 Nicotine dependence, cigarettes, uncomplicated; W17.89XA Other fall from one level to another, initial encounter; Y99.0 Civilian activity done for income or pay; Z23 Encounter for immunization; Z71.6 Tobacco abuse counseling
CPT/HCPCS: 36415; 72170; 73552; 73701; 74177; 80048; 80053; 80307; 82550; 83735; 85025; 85610; 90686; 97161; 99284; J0131; J0690; J1100; J1170; J2250; J2270; J2405; J3010; Q9967

== ENCOUNTER → 2023-02-06 14:31 | Outpatient (BNV) | payer MEDICAID, SELFPAY | PROVIDERS: Admitting Provider Physician Assistant; Emergency Provider Student in an Organized Health Care Education/Training Program; Visit Provider Orthopaedic Surgery | DX: T79.A21A Traumatic compartment syndrome of right lower extremity, initial encounter (principal) | CPT/HCPCS: 12005; 13160; 27025; 97605; 99024; 99213; 99232 ==

== ENCOUNTER 2023-02-21 09:44 | Emergency (ER) | payer MEDICAID, SELFPAY ==
[2023-02-21 10:35] VITALS: BP 145/81; PULSE 66; RESP 18; O2SAT 99; BMI 29.5
[2023-02-21 11:04] LABS: MANUAL DIFF FLAG NO
[2023-02-21 11:05] LABS: Basophils Percent Auto 0.5 % (0-2); Eosinophils Absolute Auto 0.3 X10*3/uL (0.0-0.4); Eosinophils Percent Auto 3.2 % (0-4); Hematocrit 47.4 % (42.0-52.0); Hemoglobin 14.8 g/dl (14.0-18.0); Imm Gran Abs Auto 0.02 X10*3/uL (0.00-0.03); Imm Gran Pct Auto 0.2 % (0.0-0.4); Lymphocytes Absolute Auto 1.9 X10*3/uL (1.2-4.9); Lymphocytes Percent Auto 22.9 % (20-40); Mean Corpuscular HGB Conc 31.2 g/dl (31.0-36.0); Mean Corpuscular Hemoglobin 29.4 pg (27.0-33.0); Mean Platelet Volume 9.4 fL (9.4-12.4); Monocytes Absolute Auto 0.7 X10*3/uL (0.1-1.2); Monocytes Percent Auto 7.9 % (2-11); Neutrophils Absolute Auto 5.5 x10*3/uL (2.0-8.3); Neutrophils Percent Auto 65.3 % (45-73); Platelet Count 362 X10*3/uL (160-400); Red Blood Count 5.04 X10*6/uL (4.60-5.80); Red Cell Distribution Width 12.7 % (11.0-16.0); White Blood Count 8.4 X10*3/uL (4.8-10.8)
[2023-02-21 11:15] LABS: Lactic Acid 1.3 mmol/L (0.5-2.0)
[2023-02-21 11:18] LABS: Anion Gap 12 (12-20); Blood Urea Nitrogen 8 mg/dL (9-16); C Reactive Protein 0.34 mg/dL (< or = 0.50); Calcium 9.9 mg/dL (8.4-10.2); Carbon Dioxide 26 mmol/L (22-29); Chloride 105 mmol/L (96-108); Creatinine Clr Calc Pharmacy 144.9; Estimated Glomerular Filt Rate > 60; Glucose Random 83 mg/dL (60-115); Potassium 4.3 mmol/L (3.3-5.1); Sodium 139 mmol/L (135-145)
[2023-02-21 11:45] LABS: Erythrocyte Sedimentation Rate 2 MM/HR (0-15)
== END 2023-02-21 17:44 | disposition left against medical advice (07) ==
PROVIDERS: Emergency Provider Emergency Medicine
DX: L03.115 Cellulitis of right lower limb (principal); M79.651 Pain in right thigh; M79.A21 Nontraumatic compartment syndrome of right lower extremity
CPT/HCPCS: 36415; 80048; 83605; 85025; 85652; 86140; 87040; 99282; 99283

== ENCOUNTER 2023-02-22 09:01 | Emergency (ER) | payer MEDICAID, SELFPAY ==
--- NOTE | ~2023-02-22 | US_ITS ---
EXAMINATION: US VENOUS ULTRASOUND WITH DOPPLER LOWER EXTREMITY, RIGHT CLINICAL INFORMATION: Right lower extremity pain. COMPARISON: None available. TECHNIQUE: Ultrasound of the deep veins is performed from the hip to the calf with compression sonography and color and pulse Doppler assessment. Spectral analysis with color-flow imaging is performed. FINDINGS: There is normal venous compression and respiratory variation and augmented flow. The visualized common femoral vein, superficial femoral vein, profunda femoral vein, popliteal vein, and the trifurcation region shows no evidence of deep venous thrombosis. If the patient's symptoms persist, followup ultrasound in 5 days 7 days might be of value to exclude proximal propagation from a non-visualized calf vein. US/US venous duplex LE RT IMPRESSION: No DVT demonstrated in the right lower extremity.
[2023-02-22 09:07] VITALS: BP 152/86; PULSE 60; RESP 16; TEMP 36.6; O2SAT 98; BMI 25.8
--- NOTE | 2023-02-22 09:10 | ED.WOUNDLAC ---
HPI - Wound/Laceration General Chief Complaint: Wound/Laceration Stated Complaint: infected stitches ? numbness in calf Time Seen by Provider: 02/22/23 09:10 Source: patient Mode of arrival: ambulatory Limitations: no limitations History of Present Illness HPI narrative: 28 year old male with pmhx of polysubstance abuse, etoh use, 2 weeks s/p fasciotomy of right thigh, presents to the ED today with concern for post-op infection. Reports erythema to his incision site along the lateral right thigh. Admits the incision has been oozing pus over the last two days, more prominently when he's in the shower. Additionally endorses numbness to his right calf onset yesterday. Denies calf pain or tenderness/ States he cannot feel his calf at all. Endorses new weakness to the RLE reporting difficulty picking the RLE up off of the bed, however ambulates without difficulty or assistive device. Admits he was supposed to follow-up with ortho this week however has not, stating he doesn't like doctors . Denies headache, dizziness, fever, chills, chest pain, SOB, N/V, or abdominal pain. Related Data Previous Rx's Medication Instructions Recorded acetaminophen 325 mg tablet 650 mg (2 x 325 mg) PO Q6H PRN 02/08/23 Pain, Mild (Pain Scale 1-3) 30 days #240 tabs celecoxib 200 mg capsule 200 mg PO BID 30 days #60 caps 02/08/23 docusate sodium 100 mg capsule 100 mg PO BID 14 days #28 caps 02/08/23 docusate sodium 100 mg capsule 100 mg PO DAILY PRN constipation 02/08/23 90 days #90 caps oxycodone 5 mg tablet 5 mg PO Q4H PRN Pain, 02/08/23 Moderate(Pain Scale 4-6) 7 days #42 tabs Allergies Allergy/AdvReac Type Severity Reaction Status Date / Time bupropion [From Wellbutrin] Allergy Unknown Verified 11/06/22 11:00 From [facility] Allergy Unknown UNKNOWN Uncoded 05/05/21 15:42 Review of Systems Review of Systems: Constitutional: No fever, chills, fatigue, night sweats, weight changes ENT/Mouth: No ear pain, hearing loss, nasal congestion, sinus pain, rhinorrhea, sore throat Eyes: No eye pain, swelling, redness, vision changes, discharge Cardio: No chest pain, palpitations, [place], orthopnea, peripheral edema Pulm: No SOB, cough, sputum, wheezing, dyspnea, hemoptysis GI: No nausea, vomiting, hematemesis, abdominal pain, diarrhea, constipation, hematochezia, melena : No irregular bleeding, dysuria, frequency, urgency, hesitancy, hematuria, flank pain MSK: No back pain, neck pain, joint pain, myalgias Skin: No lesions, rashes, + erythematous right thigh incision site Neuro: No weakness, + R calf numbness, No paresthesias, LOC, dizziness, headache All other systems reviewed and are negative. [facility] Past Medical History Attestation statement: The following information was validated with the patient. Source: old records reviewed and nursing notes reviewed Medical History Substance abuse Social History Social History Household Members: None Housing: Apartment Do you presently have visiting nurse or other home services: No Alcohol intake: never Patient Tobacco Use Status: Current everyday Tobacco user Tobacco use type: Cigarette Cigarettes Per Day: 2 e-Cigarette/Vaping Use: Never Used Substance Use Type: Marijuana Advance Directives: No service: No Physical Exam Vital Signs: Vital Signs: Last Vital Signs Temp 98 F 02/22/23 09:07 Pulse 60 02/22/23 09:07 Resp 16 02/22/23 09:07 BP 152/86 H 02/22/23 09:07 Pulse Ox 98 02/22/23 09:07 O2 Del Method Room Air 02/22/23 09:07 BMI result Body Mass Index 25.8 Vital signs stable, afebrile. Const: General: cooperative, healthy appearing, comfortable, no acute distress, alert and awake Nutritional Appearance: average body habitus Orientation/consciousness: patient oriented x3 Limitations: no limitations HEENT: Head: Yes normal to inspection Ears: hearing grossly normal bilaterally General nose exam: Normal external nose present Eyes: General: appearance normal, both eyes and all related structures Conjunctivae: conjunctivae normal Sclerae: sclerae normal Pupils: Equal, round and reactive pupils present EOM: EOMs intact bilaterally Neck: Neck: Yes no lymphadenopathy Resp: Effort & Inspection: normal respiratory effort, able to speak in complete sentences and no respiratory distress Auscultation: clear to auscultation bilaterally, no crackles, no rales, no rhonchi and no wheezes Cardio: Rate: regular rate Rhythm: regular rhythm Peripheral pulses: radial pulses present bilateral 2+, posterior tibial pulses present bilateral 2+ and dorsalis pedis present bilateral 2+ Back/Spine/Pelvis: Other: No midline spinous tenderness. No paraspinal muscle tenderness. No step off deformity. Skin: Other: + Refer to photos below. + Healing incision site measuring approximately 20 cm noted to anterolateral aspect of right thigh. Mild erythema surrounding site. No discharge. Dry, intact, sutures in place. Decreased sensation to light touch secondary to operation. No warmth or fluctuance noted to incision site. + Ecchymossis to right calf. No tenderness. Negative oscar sign b/l. 2+DP/PT pulses. Normal cap refill. General skin exam: no rashes or lesions noted Neuro: Other: Strength 3/5 to RLE, otherwise intact. Decreased sensation to light touch of RLE, otherwise intact. NV intact distally.? General: patient oriented x3, gait normal and moves all extremities Cranial nerves: Yes CN's II-XII intact bilaterally and Yes Equal, round and reactive pupils present Extrem: Other: Refer to photos below. General: Yes no clubbing, cyanosis or edema, Yes no calf tenderness and Yes Limp noted (slight) Course Course Course Narrative: 1020-- CBC without leukocytosis or anemia. Chemistry without acute electrolyte abnormalities requiring intervention. Patient is normotensive, not tachycardic not febrile. Sepsis is not suspected. > labs were obtained in triage yesterday however patient left prior to completing treatment. There was no leukocytosis and labs were within normal limits at that time as well. > discussed case with orthopedic ELMER Edmond who upon reviewing patient's chart/ photos of incision site does not feel that the incision site is infected and does not warrant antibiotics. States that patient should follow up with their office tomorrow for further evaluation/possible suture removal. > At this time I will order Doppler US of RLE to r/o DVT and plan for discharge home. 1208-- Venous US of RLE does not demonstrate acute clot. Patient's symptoms are consistent with normal post-op findings. No concern for infection at this time. He is ambulating with slight limp. I informed patient of the need to follow-up with Ortho tomorrow or Sunday. He tells me that he will call their office when he leaves the ED to make an appointment. Discussed strict return precautions. Advised patient to take Tylenol or ibuprofen as needed for pain or discomfort. All questions answered at this time. Patient is agreeable with disposition and stable for discharge. Medical Decision Making Medical Decision Making [facility] Narrative: 28 year old male with pmhx of polysubstance abuse, etoh use, 2 weeks s/p fasciotomy of right thigh, presents to the ED today with concern for post-op infection. VSS, afebrile, not tachycardic, normotensive. Patient is nontoxic appearing and in NAD. RRR. Lungs CTA b/l. Healing incision site measuring approximately 20 cm noted to anterolateral aspect of right thigh. Mild erythema surrounding site. No discharge. Dry, intact, sutures in place. Decreased sensation to light touch secondary to operation. No warmth or fluctuance noted to incision site. Ecchymossis to right calf. No tenderness. Negative oscar sign b/l. 2+DP/PT pulses. Normal cap refill. 3/5 strength noted to RLE. Ambulating with slight limp. Clinical concern for incision site infection vs normal incision healing. Concern for post-op DVT. Unlikely fracture or msk strain. Presentation not consistent with recurring compartment syndrome, NV compromise or threat to limb. No concern for sepsis. Plan at this time is to obtain basic labs and ortho consult. Differential Diagnosis Differential Diagnoses: The differential diagnosis associated with the presentation includes As above. Admission/Observation Not indicated Consult Healthcare Provider Management of the patient was discussed with: Manager Diesel (Ortho ELMER, Darian Gardiner) Lab Data [facility] Lab Attestation statement: I reviewed the patient's lab results. As above. 02/22/23 09:37 02/22/23 09:37 Labs: Lab Results 02/22/23 Range/Units 09:37 WBC 8.1 (4.8-10.8) X10*3/uL RBC 4.84 (4.60-5.80) X10*6/uL Hgb 14.4 (14.0-18.0) g/dl Hct 45.1 (42.0-52.0) % MCV 93.2 (80.0-98.0) fL MCH 29.8 (27.0-33.0) pg MCHC 31.9 (31.0-36.0) g/dl RDW 12.7 (11.0-16.0) % Plt Count 330 (160-400) X10*3/uL MPV 9.3 L (9.4-12.4) fL Immature Gran % (Auto) 0.2 (0.0-0.4) % Neut % (Auto) 62.3 (45-73) % Lymph % (Auto) 25.1 (20-40) % Carlisle % (Auto) 9.2 (2-11) % Eos % (Auto) 2.8 (0-4) % Baso % (Auto) 0.4 (0-2) % Lymph # (Auto) 2.0 (1.2-4.9) X10*3/uL Carl[place] # (Auto) 0.8 (0.1-1.2) X10*3/uL Eos # (Auto) 0.2 (0.0-0.4) X10*3/uL Baso # (Auto) 0.0 (0.0-0.2) X10*3/uL Abs Immat Gran (auto) 0.02 (0.00-0.03) X10*3/uL Absolute Neuts (auto) 5.1 (2.0-8.3) x10*3/uL Absolute Nucleated RBC 0.000 (0.0-0.012) X10*3/uL Nucleated RBC % (auto) 0.0 (0.0-0.2) /100WBC PT 11.9 (11.1-13.3) SEC INR 1.0 (0.9-1.1) Sodium 140 (135-145) mmol/L Potassium 4.3 (3.3-5.1) mmol/L Chloride 106 (96-108) mmol/L Carbon Dioxide 26 (22-29) mmol/L Anion Gap 12 (12-20) BUN 9 (9-16) mg/dL Creatinine 0.78 (0.5-1.4) mg/dL Estim Creat Clear Calc 126.1 Estimated GFR > 60 Random Glucose 97 (60-115) mg/dL Calcium 9.8 (8.4-10.2) mg/dL Magnesium 2.1 (1.6-2.6) mg/dL Total Bilirubin 1.9 H (0.0-1.0) mg/dL AST 82 H (5-37) U/L ALT 120 H (0-40) U/L Alkaline Phosphatase 63 (39-117) U/L Total Protein 8.0 (6.5-8.0) g/dL Albumin 4.6 (3.5-5.0) g/dL Independent Interpretation I performed an independent interpretation of an: Ultrasound Interpretation: Ultrasound of RLE without DVT, agree with radiologist's interpretation. Radiology Impression Discussion of test interpretation with radiology: I have reviewed the radiologist's reading. Radiologist Impression: US venous duplex LE RT IMPRESSION: No DVT demonstrated in the right lower extremity. External Record Review External record reviewed: Inpatient record, Office record and Outpatient record Prescription Management I considered prescription management with: Pain Medication Chronic Conditions Patient?s care impacted by: Other (Intramuscular hematoma) Social Determinants Patient?s care significantly limited by Social Determinants of Health including: Other Social Determinant of Health Critical Care Time Critical Care Time Critical Care Time: No Discharge Plan Discharge Clinical Impression: Encounter for postoperative wound check Patient Disposition: Home, Self-Care Instructions: Care For Your Stitches (ED) Additional Instructions: Your labs today were reassuring and do not show infection. Your ultrasound did not demonstrate clot. Your surgical site does not look infected. Your ortho team would like you to follow up with them tomorrow. Please call them to make an appointment. They will not call you. You may take Tylenol and ibuprofen as needed for pain or discomfort. Return to the ED if your sutures open, if you develop a fever, or if you begin having pain/swelling to the right leg/ calf. In the case of emergency, call 911. Prescriptions: No Action celecoxib 200 mg Capsule 200 mg PO BID 30 Days Qty: 60 0RF acetaminophen 325 mg Tablet 650 mg PO Q6H PRN (Reason: Pain, Mild (Pain Scale 1-3)) 30 Days Qty: 240 0RF docusate sodium 100 mg Capsule 100 mg PO BID 14 Days Qty: 28 0RF oxycodone 5 mg Tablet 5 mg PO Q4H PRN (Reason: Pain, Moderate(Pain Scale 4-6)) 7 Days Qty: 42 0RF Rx Instructions: Partial Fill upon patient request. docusate sodium 100 mg capsule 100 mg PO DAILY PRN (Reason: constipation) 90 Days Qty: 90 0RF Referrals: Caleb Quiros MD [Physician] - 1 day Physician,Unknown J [Primary Care Provider] - Stand Alone Forms: Work/School Release Interventions: ED Discharge Assessment Last Done: 02/22/23 12:26 Discharge Date/Time: 02/22/23 12:26
[2023-02-22 09:41] LABS: MANUAL DIFF FLAG NO
[2023-02-22 09:47] LABS: Basophils Percent Auto 0.4 % (0-2); Eosinophils Absolute Auto 0.2 X10*3/uL (0.0-0.4); Eosinophils Percent Auto 2.8 % (0-4); Hematocrit 45.1 % (42.0-52.0); Hemoglobin 14.4 g/dl (14.0-18.0); Imm Gran Abs Auto 0.02 X10*3/uL (0.00-0.03); Imm Gran Pct Auto 0.2 % (0.0-0.4); Lymphocytes Percent Auto 25.1 % (20-40); Mean Corpuscular HGB Conc 31.9 g/dl (31.0-36.0); Mean Corpuscular Hemoglobin 29.8 pg (27.0-33.0); Mean Corpuscular Volume 93.2 fL (80.0-98.0); Mean Platelet Volume 9.3 fL (9.4-12.4); Monocytes Absolute Auto 0.8 X10*3/uL (0.1-1.2); Monocytes Percent Auto 9.2 % (2-11); Neutrophils Absolute Auto 5.1 x10*3/uL (2.0-8.3); Neutrophils Percent Auto 62.3 % (45-73); Platelet Count 330 X10*3/uL (160-400); Red Blood Count 4.84 X10*6/uL (4.60-5.80); Red Cell Distribution Width 12.7 % (11.0-16.0); White Blood Count 8.1 X10*3/uL (4.8-10.8)
[2023-02-22 09:53] LABS: Prothrombin Time 11.9 SEC (11.1-13.3)
[2023-02-22 09:55] LABS: Alanine Aminotransferase 120 U/L (0-40); Albumin Level 4.6 g/dL (3.5-5.0); Alkaline Phosphatase 63 U/L (39-117); Anion Gap 12 (12-20); Aspartate Amino Transferase 82 U/L (5-37); Bilirubin Total 1.9 mg/dL (0.0-1.0); Blood Urea Nitrogen 9 mg/dL (9-16); Calcium 9.8 mg/dL (8.4-10.2); Carbon Dioxide 26 mmol/L (22-29); Chloride 106 mmol/L (96-108); Creatinine Clr Calc Pharmacy 126.1; Estimated Glomerular Filt Rate > 60; Glucose Random 97 mg/dL (60-115); Magnesium 2.1 mg/dL (1.6-2.6); Potassium 4.3 mmol/L (3.3-5.1); Sodium 140 mmol/L (135-145)
== END 2023-02-22 12:26 | disposition home or self-care (01) ==
PROVIDERS: Physician Assistant Medical; Emergency Provider Emergency Medicine
DX: R60.0 Localized edema (principal); Z48.00 Encounter for change or removal of nonsurgical wound dressing; Z79.899 Other long term (current) drug therapy; F17.210 Nicotine dependence, cigarettes, uncomplicated; Z71.6 Tobacco abuse counseling
CPT/HCPCS: 36415; 80053; 83735; 85025; 85610; 93971; 99283; 99284

== ENCOUNTER 2023-02-28 15:09 | Emergency (ER) | payer MEDICAID, SELFPAY ==
--- NOTE | ~2023-02-28 | CT_ITS ---
CT head/brain wo IV con CLINICAL INFORMATION: Reason for Exam head injury w/ LOC COMPARISON: No prior CT scan available for comparison. TECHNIQUE: Department standard protocol. This CT examination was performed using dose optimization techniques as appropriate, variously including the following: *Automated exposure control *Adjustment of mA and/or kV according to patient size (this includes techniques or standardized protocols for targeted exams where dose is matched to indication/reason for exam; i.e. extremities or head) *Use of iterative reconstruction technique DLP: 729 mGy-cm FINDINGS: CEREBRAL HEMISPHERES: There is no evidence of intra-axial or extra-axial mass, hemorrhage or acute infarct. BRAIN PARENCHYMA: Normal correa-white matter differentiation. SUBDURAL SPACE: No bleed. BASAL GANGLIA AND PINEAL GLAND: Unremarkable VENTRICLES: Symmetric and normal in size. CEREBELLUM AND BRAINSTEM: No space-occupying mass, hemorrhage or acute infarct. CEREBELLOPONTINE ANGLES: No lesion found. ORBITS: No intraorbital mass. VESSELS: Unremarkable SKULL BASE: Unremarkable INCLUDED SINUSES AT SKULL BASE: Clear SKULL AND SKIN: No fracture or bone lesion found. CT/CT head/brain wo IV con IMPRESSION: No CT evidence of intracranial space-occupying mass, bleed or infarct.
[2023-02-28 15:23] VITALS: BP 158/90; PULSE 74; RESP 16; TEMP 36.7; O2SAT 98; BMI 29.6
--- NOTE | 2023-02-28 15:24 | ED.HEATRA ---
HPI - Head Injury General Chief complaint: Head Injury Stated complaint: hit back of head/ feeling tired and delusional ? Time Seen by Provider: 02/28/23 18:52 Source: patient Mode of arrival: ambulatory Limitations: no limitations History of Present Illness HPI Narrative: 28-year-old male presents emergency room after hitting his head. He states he was treated with something and hit his head. He states he did lose conscious was out for an hour so. He states he still has a headache the posterior portion of the head He has not taken anything for the head. Patient was seen in triage and a CT was ordered. He denies having this problem past his history of concussions in his ears chills neck pain nausea vomiting or diarrhea. MD Complaint: head injury Related Data Previous Rx's Medication Instructions Recorded acetaminophen 325 mg tablet 650 mg (2 x 325 mg) PO Q6H PRN 02/08/23 Pain, Mild (Pain Scale 1-3) 30 days #240 tabs celecoxib 200 mg capsule 200 mg PO BID 30 days #60 caps 02/08/23 docusate sodium 100 mg capsule 100 mg PO BID 14 days #28 caps 02/08/23 docusate sodium 100 mg capsule 100 mg PO DAILY PRN constipation 02/08/23 90 days #90 caps oxycodone 5 mg tablet 5 mg PO Q4H PRN Pain, 02/08/23 Moderate(Pain Scale 4-6) 7 days #42 tabs Allergies Allergy/AdvReac Type Severity Reaction Status Date / Time bupropion [From Wellbutrin] Allergy Unknown Verified 11/06/22 11:00 From [facility] Allergy Unknown UNKNOWN Uncoded 05/05/21 15:42 Review of Systems Review of Systems: Review of systems: General: Patient denies any fever chills recent illness or falls Musculoskeletal: Denies back pain or body aches or other injuries HEENT: headache, no runny nose, or ear pain Respiratory: denies shortness of breath, cough Cardiovascular: no chest pain or palpitations : denies dysuria, frequency Abdomen: no nausea vomiting denies abdominal pain Extremities: no swelling, no pain Skin: no diaphoresis Yes all other systems are reviewed and are negative PMFSH Past Medical History Medical History Substance abuse Social History Social History Household Members: None Housing: Apartment Do you presently have visiting nurse or other home services: No Alcohol intake: never Patient Tobacco Use Status: Current everyday Tobacco user Tobacco use type: Cigarette Cigarettes Per Day: 2 e-Cigarette/Vaping Use: Never Used Substance Use Type: Marijuana Advance Directives: No Advance Directives Information Provided: No service: No Physical Exam Vital Signs: Vital Signs: Last Vital Signs Temp 98.8 F 02/28/23 19:12 Pulse 53 02/28/23 19:12 Resp 16 02/28/23 19:12 BP 136/71 02/28/23 19:12 Pulse Ox 98 02/28/23 19:12 O2 Del Method Room Air 02/28/23 19:12 BMI result Body Mass Index 29.6 Neurological exam: CN II- XII tested. Patient is alert and oriented to person place and time. Patient has no dysphagia or dysarthia, denies good vision in all four vision pandya no nystagmus on exam, good strength to upper and lower extremities with normal reflexes to brachioradialis, wrist, patella and achilles. Negative romberg, good finger to nose and heel to monreal. General: Well-appearing well-nourished in no signs of distress HEENT: Normocephalic atraumatic Neck: No signs of JVD, no masses no tenderness or lymphadenopathy Cardiovascular: Regular rate and rhythm Respiratory: Clear to auscultation bilaterally Abdomen: Soft nontender no masses Extremities: Normal pedal pulses no signs of edema Skin: Dry warm no rashes Back: No tenderness full ROM Course Course Course Narrative: RME - 28 yo male with history of recent compartment syndrome s/p fasciotomy on 02/06 who presents to the ER for evaluation of a posterior headache, nausea, feeling delusional after he hit the back of his head earlier this morning. Hit it on a table after bending down and then standing up quickly. Thinks he lost consciousness. Neurologically nonfocal in triage. Not on blood thinner Plan: CT head Medical Decision Making Differential Diagnosis Concussion intracranial hemorrhage Admission/Observation Consideration of admission/observation: Escalation of care including admission/observation considered Independent Interpretation I performed an independent interpretation of an: CT Scan Discharge Plan Discharge Clinical Impression: Closed head injury, Concussion with loss of consciousness Patient Disposition: Home, Self-Care Instructions: Head Injury (ED), Post Concussion Syndrome (ED), Concussion (ED) Additional Instructions: Your seen today in emergency room after head injury. You had a CT scan which was normal. I do think given concussion please take these the next Prescriptions: No Action celecoxib 200 mg Capsule 200 mg PO BID 30 Days Qty: 60 0RF acetaminophen 325 mg Tablet 650 mg PO Q6H PRN (Reason: Pain, Mild (Pain Scale 1-3)) 30 Days Qty: 240 0RF docusate sodium 100 mg Capsule 100 mg PO BID 14 Days Qty: 28 0RF oxycodone 5 mg Tablet 5 mg PO Q4H PRN (Reason: Pain, Moderate(Pain Scale 4-6)) 7 Days Qty: 42 0RF Rx Instructions: Partial Fill upon patient request. docusate sodium 100 mg capsule 100 mg PO DAILY PRN (Reason: constipation) 90 Days Qty: 90 0RF
[2023-02-28 19:12] VITALS: BP 136/71; PULSE 53; RESP 16; TEMP 37.1; O2SAT 98
[2023-02-28] MEDS: Acetaminophen 325 MG TABLET 650 MG PO (20:16)
[2023-02-28] MEDS: Ondansetron ODT 4 MG TAB.RAPDIS TRANSLINGU (20:16)
== END 2023-02-28 20:20 | disposition home or self-care (01) ==
PROVIDERS: Emergency Provider Student in an Organized Health Care Education/Training Program
DX: S06.0XAA Concussion with loss of consciousness status unknown, initial encounter (principal); W22.8XXA Striking against or struck by other objects, initial encounter; Y93.89 Activity, other specified; Y92.009 Unspecified place in unspecified non-institutional (private) residence as the place of occurrence of the external cause; Y99.9 Unspecified external cause status
CPT/HCPCS: 70450; 99283; 99284

== ENCOUNTER 2023-03-01 14:59 | Outpatient (AMB) | payer MEDICAID, SELFPAY ==
--- NOTE | 2023-03-01 15:01 | MHC.OFFVIS ---
Intake Vital Signs 03/01/23 15:02 Height 5 ft 6 in Weight 183 lb BMI 29.5 Intake Visit Reasons: PO-right thigh fasciotomy 02/06/23 with NE Intake Note: Capo is a 28 year old male who presents today for a post op appointment s/p right thigh fasciotomy 02/06/23 NE. Patient reports he is doing well but having a tugging sensation with movement. Allergies bupropion [From Wellbutrin] Allergy (Verified 03/01/23 15:03) Unknown From [facility] Allergy (Unknown, Uncoded 05/05/21 15:42) UNKNOWN HPI PO-right thigh fasciotomy 02/06/23 with NE HPI Details 28-year-old male who presents in the office today 3 weeks status post right thigh irrigation and debridement with delayed primary closure (incision length 20 cm), which was performed on 02/07/[address] Quiros. While in the office today the patient reports he is doing well. He does reports some tugging sensation with movement. [facility] Medical History Substance abuse Social History Household Members: None Housing: Apartment Do you presently have visiting nurse or other home services: No Alcohol intake: never Patient Tobacco Use Status: Current everyday Tobacco user Tobacco use type: Cigarette Cigarettes Per Day: 2 e-Cigarette/Vaping Use: Never Used Substance Use Type: Marijuana service: No Review of Systems Const All systems reviewed & are unremarkable except as noted in HPI and below Physical Exam Vital Signs: BMI result Body Mass Index 29.5 Const General: cooperative, healthy appearing and no acute distress Resp Effort & Inspection: normal respiratory effort and able to speak in complete sentences Cardio Rate: regular rate Peripheral pulses: Peripheral pulses 2+ throughout GI Palpation (GI): Soft to palpation Skin Lesions: no lesions Rashes: no rashes Extrem Other: Right thigh: Lateral incision site is clean, dry, and intact. Sutures intact. No signs of infection. NVI. Assessment & Plan Assessment & Plan (1) Compartment syndrome of lower extremity, traumatic: Code(s): T79.A29A - Traumatic compartment syndrome of unspecified lower extremity, initial encounter Qualifiers: Encounter type: subsequent encounter Laterality: right Qualified Code(s): T79.A21D - Traumatic compartment syndrome of right lower extremity, subsequent encounter Plan Mr. Sprague is a 28-year-old male who presents in the office today 3 weeks status post right thigh irrigation and debridement with delayed primary closure (incision length 20 cm), which was performed on 02/07/[address] Quiros. While in the office today the patient reports he is doing well. He does reports some tugging sensation with movement. Sutures were removed and steri-stripes were applied while in the office today. Follow up will be in 1 week for a wound check, or sooner if needed. Patient Instructions: Scribed for Clare Mendoza PA-C by Bridget Steven medical or surgical instrument maker, on 03/01/2023 at 3:02 pm, EST. Coding Level of Care Code Global (10272) Diagnoses Traumatic compartment syndrome of right lower extremity, subsequent encounter T79.A21D Encounter type: subsequent encounter Laterality: right
[2023-03-01 15:02] VITALS: BMI 29.5
== END 2023-03-01 15:34 | disposition home or self-care (01) ==
PROVIDERS: Visit Provider Physician Assistant
DX: T79.A21D Traumatic compartment syndrome of right lower extremity, subsequent encounter (principal)
CPT/HCPCS: 99024

== ENCOUNTER → 2023-03-01 14:59 | Outpatient (BNVA) | payer MEDICAID, SELFPAY | PROVIDERS: Visit Provider Physician Assistant ==

== ENCOUNTER 2023-03-08 10:47 | Outpatient (AMB) | payer MEDICAID, SELFPAY ==
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
== END 2023-03-08 10:58 | disposition home or self-care (01) ==
PROVIDERS: Visit Provider Physician Assistant
DX: T79.A21D Traumatic compartment syndrome of right lower extremity, subsequent encounter (principal)
CPT/HCPCS: 99024

== ENCOUNTER → 2023-03-08 10:47 | Outpatient (BNVA) | payer MEDICAID, SELFPAY | PROVIDERS: Visit Provider Physician Assistant ==

== ENCOUNTER 2023-04-01 12:14 | Emergency (ER) | payer MEDICAID, SELFPAY ==
[2023-04-01 12:30] VITALS: BP 105/60; PULSE 69; RESP 18; TEMP 36.6; O2SAT 97; BMI 29.5
--- NOTE | 2023-04-01 12:35 | ED_ITS ---
HPI - General Adult General Chief complaint: Upper Respiratory Symptoms Stated complaint: Vomiting blood/Diff breathing Time Seen by Provider: 04/01/23 15:19 Source: patient Mode of arrival: ambulatory Limitations: no limitations History of Present Illness HPI narrative: 28 yo male with no know medical history here with complaints of cough, wheezing, sneezing, congestion x 1 week. Last night he had an episode of emesis with blood streaks and again this morning. No abdominal pain. Has had intermittent diarrhea but no black or bloody stools. No recent travel or sick contact. Related Data Previous Rx's Medication Instructions Recorded acetaminophen 325 mg tablet 650 mg (2 x 325 mg) PO Q6H PRN 02/08/23 Pain, Mild (Pain Scale 1-3) 30 days #240 tabs celecoxib 200 mg capsule 200 mg PO BID 30 days #60 caps 02/08/23 docusate sodium 100 mg capsule 100 mg PO BID 14 days #28 caps 02/08/23 docusate sodium 100 mg capsule 100 mg PO DAILY PRN constipation 02/08/23 90 days #90 caps oxycodone 5 mg tablet 5 mg PO Q4H PRN Pain, 02/08/23 Moderate(Pain Scale 4-6) 7 days #42 tabs Allergies Allergy/AdvReac Type Severity Reaction Status Date / Time bupropion [From Wellbutrin] Allergy Unknown Verified 04/01/23 12:30 From [facility] Allergy Unknown UNKNOWN Uncoded 05/05/21 15:42 Review of Systems 2 Review of Systems: Yes all other systems are reviewed and are negative Constitutional: Constitutional: Reports no additional constitutional complaints, Denies body ache(s), Denies chills, Denies fever(s), Denies headache(s) and Denies weakness Eyes: Eyes: Reports no additional eye complaints and Denies change in vision ENT: Reports system reviewed and no additional complaints, except as documented, Denies dizziness, Denies headache(s), Reports nasal congestion, Reports nasal discharge and Denies neck pain Cardiovascular: Cardiovascular: Reports no additional cardiovascular complaints, Denies chest pain, Denies leg edema and Denies dyspnea Respiratory: Respiratory: Reports no additional respiratory complaints, Reports cough, Denies dyspnea and Reports wheezing Gastrointestinal: Gastrointestinal: Reports no additional gastrointestinal complaints, Denies abdominal pain, Denies melena, Denies hematochezia, Reports diarrhea, Denies nausea, Denies vomiting and Reports hematemesis Genitourinary: Genitourinary: Denies urinary incontinence Musculoskeletal: Musculoskeletal: Reports no additional musculoskeletal complaints, Denies back pain, Denies arthralgias, Denies joint swelling, Denies neck pain, Denies numbness and Denies tingling Integumentary/Breasts: Skin/Breast: Reports system reviewed and no additional complaints, except as docu and Denies rash Neurologic: Reports system reviewed and no additional complaints, except as documented, Denies Abnormal speech present, Denies dizziness, Denies headache(s), Denies numbness, Denies tingling and Denies weakness Allergic/Immunologic: Allergic/Immunologic: Reports wheezing PMFSH Past Medical History Attestation statement: The following information was validated with the patient. Source: old records reviewed and nursing notes reviewed Medical History Substance abuse Social History Social History Household Members: None Housing: Apartment Do you presently have visiting nurse or other home services: No Alcohol intake: never Patient Tobacco Use Status: Current everyday Tobacco user Tobacco use type: Cigarette Cigarettes Per Day: 2 e-Cigarette/Vaping Use: Never Used Substance Use Type: Marijuana Advance Directives: No Advance Directives Information Provided: No service: No Physical Exam ED Vital Signs: Vital Signs - 24 hr 04/01/23 12:30 Temperature 97.9 F Pulse Rate 69 Respiratory Rate 18 Blood Pressure 105/60 Pulse Oximetry 97 Oxygen Delivery Method Room Air BMI result Body Mass Index 29.5 Const General: cooperative, healthy appearing, comfortable and no acute distress Orientation/consciousness: patient oriented x3 Limitations: no limitations HENMT Head: Yes normal to inspection Ears: hearing grossly normal bilaterally and TM's normal bilaterally General nose exam: Normal external nose present Face and sinus: Yes normal facial exam Mouth: Normal oral and palatal mucosa present Throat: Yes posterior oropharynx normal, Yes tonsils normal and Yes uvula midline Eyes General: appearance normal, both eyes and all related structures Pupils: Equal, round and reactive pupils present Neck Neck: Yes normal visual inspection, Yes full ROM, Yes no lymphadenopathy and Yes no meningeal signs Chest Chest palpation & inspection: normal inspection of the chest Resp Effort & Inspection: normal respiratory effort Auscultation: wheezes Cardio Rate: regular rate Rhythm: regular rhythm Peripheral pulses: Peripheral pulses 2+ throughout GI Inspection: Yes normal to inspection Palpation (GI): Soft to palpation and nontender Auscultation: normal bowel sounds Back/Spine/Pelvis Thoracic/Lumbar Spine: thoracic and lumbar spine normal to inspection Skin General skin exam: no rashes or lesions noted Neuro General: patient oriented x3, no meningeal signs, no focal motor deficits and normal sensation to monofilament Cranial nerves: Yes Equal, round and reactive pupils present Cognition (Neuro): normal cognition Speech: No Abnormal speech present Gait exam (Neuro): Normal gait present Motor exam (neuro): 5/5 motor strength present throughout Extrem General: Yes normal to inspection Course Course Course Narrative: RME: 28 yold male presents to the ED for cough, diarrhea, bodyaches, and vomitting for a couple of day. Yesterday vomitting some specs of blood. Patient states no abdominal pain or rectal bleeding. labs and SARS ordered. NO vomitting blood today Reevaluation(s) Reevaluation #1: viral testing is negative. Labs are unremarkable. Abdomen soft and nonfocal. No active bleeding here in the emergency room. No episodes of, emesis. Patient tolerating p.o.. Plan for discharge home. Reviewed return precautions with the patient. Comfortable plan for discharge Medications Administered Discontinued Medications Generic Name Dose Route Start Last Admin Trade Name Borisq PRN Reason Stop Dose Admin Albuterol Sulfate 2 puff 04/01/23 15:39 04/01/23 16:02 Albuterol Sulfate 90 Mcg 8 Gm Inhaler INHALE 04/01/23 15:40 2 puff ONCE ONE Administration Ondansetron HCl 4 mg 04/01/23 15:46 04/01/23 15:51 Ondansetron Odt 4 Mg Tab.Rapdis TRANSLINGU 04/01/23 15:47 4 mg ONCE ONE Administration Medical Decision Making Medical Decision Making [facility] Narrative: 28 yo male with no know medical history here with complaints of cough, wheezing, sneezing, congestion x 1 week. Last night he had an episode of emesis with blood streaks and again this morning. No abdominal pain. Has had intermittent diarrhea but no black or bloody stools. No recent travel or sick contact. 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 Will obtain labs, viral testing, send occult stool. Give albuterol I, josselyn GORDON Differential Diagnosis Differential Diagnoses: The differential diagnosis associated with the presentation includes low concern for GIB viral syndrome influenza Admission/Observation Consideration of admission/observation: Escalation of care including admission/observation considered Stable hgb, negative occult stool with non focal abdomen. No episodes of hematemesis here, patient tolerating PO. Low concern for GIB. No need for admission for further management Lab Data MDM Lab Attestation statement: I reviewed the patient's lab results. 04/01/23 14:59 04/01/23 14:59 Labs: Lab Results 04/01/23 04/01/23 Range/Units 14:59 15:47 WBC 9.1 (4.8-10.8) X10*3/uL RBC 5.24 (4.60-5.80) X10*6/uL Hgb 15.5 (14.0-18.0) g/dl Hct 48.6 (42.0-52.0) % MCV 92.7 (80.0-98.0) fL MCH 29.6 (27.0-33.0) pg MCHC 31.9 (31.0-36.0) g/dl RDW 11.8 (11.0-16.0) % Plt Count 266 (160-400) X10*3/uL MPV 9.8 (9.4-12.4) fL Immature Gran % (Auto) 0.3 (0.0-0.4) % Neut % (Auto) 55.7 (45-73) % Lymph % (Auto) 28.0 (20-40) % [place] % (Auto) 11.1 H (2-11) % Eos % (Auto) 4.4 H (0-4) % Baso % (Auto) 0.5 (0-2) % Lymph # (Auto) 2.6 (1.2-4.9) X10*3/uL [place] # (Auto) 1.0 (0.1-1.2) X10*3/uL Eos # (Auto) 0.4 (0.0-0.4) X10*3/uL Baso # (Auto) 0.1 (0.0-0.2) X10*3/uL Abs Immat Gran (auto) 0.03 (0.00-0.03) X10*3/uL Absolute Neuts (auto) 5.1 (2.0-8.3) x10*3/uL Absolute Nucleated RBC 0.000 (0.0-0.012) X10*3/uL Nucleated RBC % (auto) 0.0 (0.0-0.2) /100WBC PT 11.1 (11.1-13.3) SEC INR 0.9 (0.9-1.1) APTT 31.5 (26.0-36.4) SEC Sodium 142 (135-145) mmol/L Potassium 4.1 (3.3-5.1) mmol/L Chloride 107 (96-108) mmol/L Carbon Dioxide 27 (22-29) mmol/L Anion Gap 12 (12-20) BUN 10 (9-16) mg/dL Creatinine 0.87 (0.5-1.4) mg/dL Estim Creat Clear Calc 126.5 Estimated GFR > 60 Random Glucose 82 (60-115) mg/dL Calcium 9.7 (8.4-10.2) mg/dL Total Bilirubin 1.1 H (0.0-1.0) mg/dL AST 34 (5-37) U/L ALT 59 H (0-40) U/L Alkaline Phosphatase 62 (39-117) U/L Total Protein 7.3 (6.5-8.0) g/dL Albumin 4.3 (3.5-5.0) g/dL Stool Occult Blood NEGATIVE (NEGATIVE) Influenza Type A (PCR) NEGATIVE (Negative) Influenza Type B (PCR) NEGATIVE (Negative) RSV RNA Qual (PCR) NEGATIVE (Negative) SARS-CoV-2 RNA (RT-PCR) NEGATIVE (Negative) Tests considered The following testing was considered but not selected: no hypoxia or tachypnea requiring CXR no focal abdominal pain, active bleeding to suggest need for CT GIB study Prescription Management I considered prescription management with: Antibiotic Discharge Plan Discharge Clinical Impression: Upper respiratory infection Patient Disposition: Home, Self-Care Instructions: Upper Respiratory Infection (ED) Additional Instructions: Testing for flu, covid, rsv are negative Lab work is normal Use the albuterol inhaler 2 puffs every fours hours as needed for cough or wheezing Prescriptions: No Action celecoxib 200 mg Capsule 200 mg PO BID 30 Days Qty: 60 0RF acetaminophen 325 mg Tablet 650 mg PO Q6H PRN (Reason: Pain, Mild (Pain Scale 1-3)) 30 Days Qty: 240 0RF docusate sodium 100 mg Capsule 100 mg PO BID 14 Days Qty: 28 0RF oxycodone 5 mg Tablet 5 mg PO Q4H PRN (Reason: Pain, Moderate(Pain Scale 4-6)) 7 Days Qty: 42 0RF Rx Instructions: Partial Fill upon patient request. docusate sodium 100 mg capsule 100 mg PO DAILY PRN (Reason: constipation) 90 Days Qty: 90 0RF Referrals: Physician,None [Primary Care Provider] - 1 week Interventions: ED Discharge Assessment Last Done: 04/01/23 16:36 Discharge Date/Time: 04/01/23 16:36
[2023-04-01 15:04] LABS: MANUAL DIFF FLAG NO
[2023-04-01 15:06] LABS: Basophils Absolute Auto 0.1 X10*3/uL (0.0-0.2); Basophils Percent Auto 0.5 % (0-2); Eosinophils Absolute Auto 0.4 X10*3/uL (0.0-0.4); Eosinophils Percent Auto 4.4 % (0-4); Hematocrit 48.6 % (42.0-52.0); Hemoglobin 15.5 g/dl (14.0-18.0); Imm Gran Abs Auto 0.03 X10*3/uL (0.00-0.03); Imm Gran Pct Auto 0.3 % (0.0-0.4); Lymphocytes Absolute Auto 2.6 X10*3/uL (1.2-4.9); Mean Corpuscular HGB Conc 31.9 g/dl (31.0-36.0); Mean Corpuscular Hemoglobin 29.6 pg (27.0-33.0); Mean Corpuscular Volume 92.7 fL (80.0-98.0); Mean Platelet Volume 9.8 fL (9.4-12.4); Monocytes Percent Auto 11.1 % (2-11); Neutrophils Absolute Auto 5.1 x10*3/uL (2.0-8.3); Neutrophils Percent Auto 55.7 % (45-73); Platelet Count 266 X10*3/uL (160-400); Red Blood Count 5.24 X10*6/uL (4.60-5.80); Red Cell Distribution Width 11.8 % (11.0-16.0); White Blood Count 9.1 X10*3/uL (4.8-10.8)
[2023-04-01 15:14] LABS: INTERNATIONAL NORM RATIO 0.9 (0.9-1.1); Prothrombin Time 11.1 SEC (11.1-13.3)
[2023-04-01 15:17] LABS: Partial Thromboplastin Time 31.5 SEC (26.0-36.4)
[2023-04-01 15:21] LABS: Alanine Aminotransferase 59 U/L (0-40); Albumin Level 4.3 g/dL (3.5-5.0); Alkaline Phosphatase 62 U/L (39-117); Anion Gap 12 (12-20); Aspartate Amino Transferase 34 U/L (5-37); Bilirubin Total 1.1 mg/dL (0.0-1.0); Blood Urea Nitrogen 10 mg/dL (9-16); Calcium 9.7 mg/dL (8.4-10.2); Carbon Dioxide 27 mmol/L (22-29); Chloride 107 mmol/L (96-108); Creatinine Clr Calc Pharmacy 126.5; Estimated Glomerular Filt Rate > 60; Glucose Random 82 mg/dL (60-115); Potassium 4.1 mmol/L (3.3-5.1); Sodium 142 mmol/L (135-145); Total Protein 7.3 g/dL (6.5-8.0)
[2023-04-01 15:48] LABS: Influenza A PCR NEGATIVE (Negative); Influenza B PCR NEGATIVE (Negative); Resp Syncy Virus RNA Qual PCR NEGATIVE (Negative); SARS COV2 PCR INHOUSE NEGATIVE (Negative)
[2023-04-01] MEDS: Ondansetron ODT 4 MG TAB.RAPDIS TRANSLINGU (15:51)
[2023-04-01 15:53] LABS: OBS Int Ctl Valid YES; OBS1 NEGATIVE (NEGATIVE)
[2023-04-01] MEDS: Albuterol Sulfate 90 MCG 8 GM INHALER 2 PUFF INHALE (16:02)
== END 2023-04-01 16:36 | disposition home or self-care (01) ==
PROVIDERS: Nurse Practitioner Family; Physician Assistant; Emergency Provider Emergency Medicine
DX: J06.9 Acute upper respiratory infection, unspecified (principal); R05.9 Cough, unspecified; R06.2 Wheezing; R09.89 Other specified symptoms and signs involving the circulatory and respiratory systems; R11.10 Vomiting, unspecified; Z20.822 Contact with and (suspected) exposure to COVID-19; Z20.828 Contact with and (suspected) exposure to other viral communicable diseases
CPT/HCPCS: 0241U; 80053; 82272; 85025; 85610; 85730; 99284

== ENCOUNTER 2023-07-02 08:53 | Emergency (ER) | payer MEDICAID, SELFPAY ==
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
[2023-07-02 09:25] VITALS: BP 143/63; PULSE 64; RESP 18; TEMP 36.6; O2SAT 98; BMI 29.0
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
== END 2023-07-02 11:53 | disposition home or self-care (01) ==
PROVIDERS: Emergency Provider Emergency Medicine
DX: S40.012A Contusion of left shoulder, initial encounter (principal); M79.644 Pain in right finger(s); V86.96XA Unspecified occupant of dirt bike or motor/cross bike injured in nontraffic accident, initial encounter; Y93.9 Activity, unspecified; Y92.9 Unspecified place or not applicable; Y99.9 Unspecified external cause status
CPT/HCPCS: 73030; 73130; 99282; 99283

== ENCOUNTER 2023-08-24 08:59 | Emergency (ER) | payer MEDICAID, SELFPAY ==
[2023-08-24 09:29] VITALS: BP 112/60; PULSE 60; RESP 16; TEMP 36.6; O2SAT 98; BMI 30.3
[2023-08-24] MEDS: Lidocaine HCl 1 % MPF 5 ML VIAL INFILTRATI (10:46)
--- NOTE | 2023-08-24 10:57 | ED.GENADULT ---
HPI - General Adult General Chief complaint: Ear Problems Stated complaint: abscess growing on ear?, cant hear, headaches Time Seen by Provider: 08/24/23 09:41 Source: patient Mode of arrival: ambulatory Limitations: no limitations History of Present Illness HPI narrative: 28-year-old male healthy presents to ED for right upper lobe ear swelling redness and mass. Patient states there was a pimple there he was playing with and then the swelling occurred. Patient denies any redness or pain behind the ear. Patient states no loss in hearing, fever, chills, any recent trauma. Patient denies any ear drainage Related Data Previous Rx's ?Medication ?Instructions ?Recorded acetaminophen 325 mg tablet 650 mg (2 x 325 mg) PO Q6H PRN 02/08/23 Pain, Mild (Pain Scale 1-3) 30 days #240 tabs celecoxib 200 mg capsule 200 mg PO BID 30 days #60 caps 02/08/23 docusate sodium 100 mg capsule 100 mg PO BID 14 days #28 caps 02/08/23 docusate sodium 100 mg capsule 100 mg PO DAILY PRN constipation 02/08/23 90 days #90 caps oxycodone 5 mg tablet 5 mg PO Q4H PRN Pain, 02/08/23 Moderate(Pain Scale 4-6) 7 days #42 tabs cephalexin 500 mg capsule 500 mg PO Q12H 7 days #14 caps 08/24/23 doxycycline hyclate 100 mg capsule 100 mg PO BID 7 days #14 caps 08/24/23 naproxen 500 mg tablet 500 mg PO BID PRN pain 7 days #14 08/24/23 tabs Allergies Allergy/AdvReac Type Severity Reaction Status Date / Time bupropion [From Wellbutrin] Allergy Unknown Verified 08/24/23 09:33 From [facility]ERTA Allergy Unknown UNKNOWN Uncoded 07/02/23 09:25 Review of Systems Review of Systems: upper earlobe pain Yes all other systems are reviewed and are negative PMFSH Past Medical History Medical History Substance abuse Social History Social History Household Members: None Housing: Apartment Do you presently have visiting nurse or other home services: No Alcohol intake: never Patient Tobacco Use Status: Current everyday Tobacco user Tobacco use type: Cigarette Cigarettes Per Day: 2 Smoked in Last 30 Days: Yes e-Cigarette/Vaping Use: Never Used Use of substances other than those prescribed or required for medical reasons: Yes Substance Use Type: Marijuana Substance Use Frequency: Daily Advance Directives: No Advance Directives Information Provided: Yes service: No Physical Exam ED Vital Signs: Vital Signs - 24 hr 08/24/23 09:29 Temperature 97.8 F Pulse Rate 60 Respiratory Rate 16 Blood Pressure 112/60 Pulse Oximetry 98 Oxygen Delivery Method Room Air BMI result Body Mass Index 30.3 Const General: cooperative, healthy appearing, comfortable, no acute distress, well developed, alert, awake and Physically active Orientation/consciousness: oriented to person, oriented to place, oriented to time and patient oriented x3 HENMT Other: Head: Yes normal to inspection, Yes No palpable skull fracture present, Yes normocephalic, Yes atraumatic and No abrasion Ears: hearing grossly normal bilaterally, external ears normal (Right upper lob mass, erythema), TM's normal bilaterally, TM normal on the right, TM normal on the left, EAC's normal, mastoids normal and no periauricular adenopathy Eyes General: appearance normal, both eyes and all related structures Neck Neck: Yes normal visual inspection, Yes full ROM, Yes no lymphadenopathy, Yes no meningeal signs, Yes trachea midline, Yes supple, No anterior neck swelling and No tender Chest Chest palpation & inspection: normal inspection of the chest and normal palpation of entire chest wall Resp Effort & Inspection: normal respiratory effort and able to speak in complete sentences Auscultation: clear to auscultation bilaterally Cardio Jugular venous distension: no JVD Heart sounds: S1 normal heart sound present and S2 normal heart sound present GI Inspection: Yes normal to inspection Palpation (GI): Soft to palpation, not firm, nontender, no guarding and not rigid General: No CVA tenderness and Yes no CVA tenderness Back/Spine/Pelvis Back: no CVA tenderness, No CVA tenderness and No back tenderness Skin General skin exam: no rashes or lesions noted, elasticity normal and turgor normal Neuro General: oriented to person, oriented to place, oriented to time, patient oriented x3, gait normal, tone normal, moves all extremities, Normal light touch and pain sensation, no meningeal signs, no focal motor deficits, CN's II-XI intact bilaterally and normal sensation to monofilament Extrem General: Yes normal to inspection and Yes full ROM Psych Appearance: grossly normal, well kempt and not disheveled Medications Administered Discontinued Medications Generic Name Dose Route Start Last Admin Trade Name Freq PRN Reason Stop Dose Admin Lidocaine HCl 5 ml 08/24/23 10:08 08/24/23 10:46 Lidocaine Hcl 1 % Mpf 5 Ml Vial INFILTRATI 08/24/23 10:09 5 ml ONCE ONE Administration Lidocaine HCl 5 ml 08/24/23 10:08 08/24/23 10:48 Lidocaine Hcl 1 % Mpf 5 Ml Vial INFILTRATI 08/24/23 10:09 Not Given ONCE ONE Medical Decision Making Medical Decision Making MDM Narrative: 28-year-old male presents to ED for right ear upper lobe abscess. Bedside ultrasound shows pus collection. Physical exam negative for signs of mastoiditis osteomyelitis. Area cleaned with Betadine iodine and sterile saline. Lidocaine 5 mL 1% ordered used for a row clear block. Incision made with 11 size blade yellow red discharge squeezed. Cleaned with sterile saline. Compression dressing placed. Patient up-to-date with tetanus Differential Diagnosis Differential Diagnoses: The differential diagnosis associated with the presentation includes ( Abscess) Independent Historian Clinical information obtained from an independent historian. History obtained from or confirmed by: Other ( patient) External Record Review External record reviewed: Other ( prior visits) Prescription Management I considered prescription management with: Antibiotic Discharge Plan Discharge Clinical Impression: Abscess Patient Disposition: Home, Self-Care Instructions: Abscess (ED) Additional Instructions: recommend follow-up with primary care provider. You will be discharged antibiotics. Return to the ED for reaccumulation of abscess, fever, chills, headache, nausea, vomiting, redness swelling behind right ear, ear discharge, loss of hearing, any other concerning symptoms. Recommend being compliant with compression dressing of ear. Return the ED in 2 days for wound check Prescriptions: New cephalexin 500 mg capsule 500 mg PO Q12H 7 Days Qty: 14 0RF doxycycline hyclate 100 mg capsule 100 mg PO BID 7 Days Qty: 14 0RF naproxen 500 mg tablet 500 mg PO BID PRN (Reason: pain) 7 Days Qty: 14 0RF No Action celecoxib 200 mg Capsule 200 mg PO BID 30 Days Qty: 60 0RF acetaminophen 325 mg Tablet 650 mg PO Q6H PRN (Reason: Pain, Mild (Pain Scale 1-3)) 30 Days Qty: 240 0RF docusate sodium 100 mg Capsule 100 mg PO BID 14 Days Qty: 28 0RF oxycodone 5 mg Tablet 5 mg PO Q4H PRN (Reason: Pain, Moderate(Pain Scale 4-6)) 7 Days Qty: 42 0RF Rx Instructions: Partial Fill upon patient request. docusate sodium 100 mg capsule 100 mg PO DAILY PRN (Reason: constipation) 90 Days Qty: 90 0RF Stand Alone Forms: Work/School Release Interventions: ED Discharge Assessment Last Done: 08/24/23 11:33 Discharge Date/Time: 08/24/23 11:34 Print Language: Setswana
--- NOTE | 2023-08-24 11:01 | PC.NURSE ---
DCD APPLIED TO R UPPER EAR LOBE. SMALL AMOUNT OF SANGUINEOUS DRAINAGE NOTED. PT REPORTS 0/10 PAIN AT THIS TIME.,
[2023-08-24 11:33] VITALS: BP 132/53; PULSE 53; RESP 18; TEMP 36.6; O2SAT 98
== END 2023-08-24 11:34 | disposition home or self-care (01) ==
PROVIDERS: Emergency Provider Student in an Organized Health Care Education/Training Program
DX: H60.01 Abscess of right external ear (principal)
CPT/HCPCS: 69000; 99284

== ENCOUNTER 2023-08-27 09:09 | Emergency (ER) | payer MEDICAID, SELFPAY ==
[2023-08-27 09:11] VITALS: BP 150/75; PULSE 63; RESP 16; TEMP 36.4; O2SAT 98; BMI 30.7
--- NOTE | 2023-08-27 09:25 | ED.GENADULT ---
HPI - General Adult General Chief complaint: Ear Problems Stated complaint: Wound check Time Seen by Provider: 08/27/23 09:25 Source: patient Mode of arrival: ambulatory Limitations: no limitations History of Present Illness HPI narrative: Patient is a 28-year-old male presenting to the emergency department with complaint of swelling to right auricle. He was seen in this ED on 08/23 for the same and had an I and D at that time. He was instructed to keep a compression dressing over his ear and was prescribed doxycycline and Keflex. He denies any additional drainage. Denies fevers. States that he has been wearing the compression dressings until today. MD complaint: Ear swelling Onset (ago): day(s) Treatments prior to arrival: other Related Data Previous Rx's ?Medication ?Instructions ?Recorded acetaminophen 325 mg tablet 650 mg (2 x 325 mg) PO Q6H PRN 02/08/23 Pain, Mild (Pain Scale 1-3) 30 days #240 tabs celecoxib 200 mg capsule 200 mg PO BID 30 days #60 caps 02/08/23 docusate sodium 100 mg capsule 100 mg PO BID 14 days #28 caps 02/08/23 docusate sodium 100 mg capsule 100 mg PO DAILY PRN constipation 02/08/23 90 days #90 caps oxycodone 5 mg tablet 5 mg PO Q4H PRN Pain, 02/08/23 Moderate(Pain Scale 4-6) 7 days #42 tabs cephalexin 500 mg capsule 500 mg PO Q12H 7 days #14 caps 08/24/23 doxycycline hyclate 100 mg capsule 100 mg PO BID 7 days #14 caps 08/24/23 naproxen 500 mg tablet 500 mg PO BID PRN pain 7 days #14 08/24/23 tabs levofloxacin 500 mg tablet 500 mg PO DAILY #7 tabs 08/27/23 Allergies Allergy/AdvReac Type Severity Reaction Status Date / Time bupropion [From Wellbutrin] Allergy Unknown Verified 08/27/23 09:14 From [facility] Allergy Unknown UNKNOWN Uncoded 07/02/23 09:25 Review of Systems Review of Systems: As per HPI. Yes all other systems are reviewed and are negative Constitutional: Constitutional: Reports as per HPI [facility] Past Medical History Medical History Substance abuse Social History Social History Household Members: None Housing: Apartment Do you presently have visiting nurse or other home services: No Alcohol intake: never Patient Tobacco Use Status: Current everyday Tobacco user Tobacco use type: Cigarette Cigarettes Per Day: 2 e-Cigarette/Vaping Use: Never Used Substance Use Type: Marijuana Advance Directives: No Advance Directives Information Provided: Yes Do you have a plan to hurt others: No Plan service: No Physical Exam ED Vital Signs: Vital Signs - 24 hr 08/27/23 09:11 Temperature 97.5 F Pulse Rate 63 Respiratory Rate 16 Blood Pressure 150/75 H Pulse Oximetry 98 Oxygen Delivery Method Room Air BMI result Body Mass Index 30.7 Vital signs have been reviewed and appear to be correct. Blood pressure elevated. Heart rate normal. Respiratory rate normal. Temperature normal. Oxygen saturation normal. Const General: cooperative, healthy appearing and no acute distress Orientation/consciousness: oriented to person, oriented to place, oriented to time and patient oriented x3 Limitations: no limitations HENMT Head: Yes normocephalic and Yes atraumatic Ears: external ears normal Outer ear/TM images: 1. Erythema, warmth, fluctuance, well-healed linear incision General nose exam: Normal external nose present Face and sinus: Yes face symmetric Mouth: oropharynx normal and moist mucous membranes Throat: Yes uvula midline Eyes Pupils: Equal, round and reactive pupils present Neck Neck: Yes normal visual inspection and Yes supple Resp Effort & Inspection: normal respiratory effort and able to speak in complete sentences Auscultation: clear to auscultation bilaterally Cardio Rate: regular rate Rhythm: regular rhythm Heart sounds: S1 normal heart sound present and S2 normal heart sound present GI Palpation (GI): Soft to palpation and nontender Auscultation: normoactive bowel sounds General: Yes no CVA tenderness Back/Spine/Pelvis Back: no CVA tenderness Skin General skin exam: elasticity normal and turgor normal Neuro General: oriented to person, oriented to place, oriented to time, patient oriented x3, moves all extremities, no focal motor deficits and CN's II-XI intact bilaterally Cranial nerves: Yes Equal, round and reactive pupils present Cognition (Neuro): normal cognition Extrem General: Yes full ROM, Yes no pedal edema and Yes no calf tenderness Psych Mental Status: mental status grossly normal Affect: normal affect Thought process: Normal thought process present Procedures Abscess I/D Site: other (ear (auricle)) Side (if applicable): right Sedation/analgesia: none Local Anesthetic: lidocaine 1% Amount of anesthesia used (mL): 2 Technique: needle aspiration Amount of fluid expressed (mL): 4 Sent for culture/gram staining?: No Irrigation: No Packing used?: none Medical Decision Making Medical Decision Making MDM Narrative: Patient is a 28-year-old male presenting to the emergency department with complaint of swelling to right auricle. On exam patient is awake, A+Ox3, VS WNL, afebrile, normal neurological exam without focal deficits, physical exam findings as above. Given reported symptoms and physical exam findings, initial differential includes abscess, cellulitis, auricular hematoma. Do not suspect mastoiditis, osteomyelitis. Abscess drained with needle aspiration as per procedure note. Patient arrived to the emergency department with no compression dressing in place. Discussed with patient the importance of continuing to wear a compression dressing to avoid recurrence of swelling. Patient also noted to be wearing ear buds in the emergency department. Advised patient that should not wear any thing in or on his right ear until symptoms have completely resolved. Will discontinue doxy and Keflex and start patient on levofloxacin to cover for Pseudomonas. Patient given strict instructions to discontinue doxy and Keflex and to complete the levofloxacin as prescribed. Return precautions discussed at bedside. Will refer patient to ENT for any ongoing symptoms. Patient verbalized understanding of and agreement with plan. Differential Diagnosis Differential Diagnoses: The differential diagnosis associated with the presentation includes As per MDM. External Record Review External record reviewed: Inpatient record, Office record and Outpatient record Prescription Management I considered prescription management with: Antibiotic Discharge Plan Discharge Clinical Impression: Abscess of right external ear Patient Disposition: Home, Self-Care Instructions: Abscess (ED), Abscess Follow-up (ED), Incision and Drainage (ED) Additional Instructions: You were evaluated in the emergency department today for swelling to your ear after an incision and drainage. Your ear was drained again today. It is extremely important that you continue to wear compression dressings for the next several days. You are being prescribed a new antibiotic called levofloxacin, please complete the full course as prescribed. STOP TAKING THE DOXYCYCLINE AND CEPHALEXIN. You are being referred to the ear, Nose, and Throat specialist for any ongoing symptoms. Please call their office to schedule an appointment if your symptoms do not improve. If you develop fever or other concerning symptoms return to the emergency department. Prescriptions: New levofloxacin 500 mg tablet 500 mg PO DAILY Qty: 7 0RF No Action cephalexin 500 mg capsule 500 mg PO Q12H 7 Days Qty: 14 0RF doxycycline hyclate 100 mg capsule 100 mg PO BID 7 Days Qty: 14 0RF naproxen 500 mg tablet 500 mg PO BID PRN (Reason: pain) 7 Days Qty: 14 0RF celecoxib 200 mg Capsule 200 mg PO BID 30 Days Qty: 60 0RF acetaminophen 325 mg Tablet 650 mg PO Q6H PRN (Reason: Pain, Mild (Pain Scale 1-3)) 30 Days Qty: 240 0RF docusate sodium 100 mg Capsule 100 mg PO BID 14 Days Qty: 28 0RF oxycodone 5 mg Tablet 5 mg PO Q4H PRN (Reason: Pain, Moderate(Pain Scale 4-6)) 7 Days Qty: 42 0RF Rx Instructions: Partial Fill upon patient request. docusate sodium 100 mg capsule 100 mg PO DAILY PRN (Reason: constipation) 90 Days Qty: 90 0RF Referrals: Conor Shaver [Physician] - Print Language: Maltese
[2023-08-27 10:00] VITALS: BP 136/65; PULSE 53; RESP 16; TEMP 36.7; O2SAT 97
[2023-08-27] MEDS: Lidocaine HCl 1 % MPF 5 ML VIAL INFILTRATI (10:16)
[2023-08-27 10:19] VITALS: BP 136/65; PULSE 53; RESP 16; TEMP 36.7; O2SAT 97
--- NOTE | 2023-08-27 10:19 | PC.NURSE ---
PT CLEARED FOR DISCHARGE, DISCHARGE INSTRUCTIONS REVIEWED W PT AND ALL QUESTIONS ANSWERED. PT DENIES PAIN, STEADY GAIT ON DISCHARGE. VSS.
== END 2023-08-27 10:19 | disposition home or self-care (01) ==
PROVIDERS: Emergency Provider Emergency Medicine
DX: H60.01 Abscess of right external ear (principal); Z48.00 Encounter for change or removal of nonsurgical wound dressing
CPT/HCPCS: 69000; 99283; 99284

== ENCOUNTER 2023-08-31 09:48 | Emergency (ER) | payer MEDICAID, SELFPAY ==
[2023-08-31 09:59] VITALS: BP 158/71; PULSE 71; RESP 18; TEMP 36.6; O2SAT 98; BMI 30.7
--- NOTE | 2023-08-31 12:14 | ED.GENADULT ---
HPI - General Adult General Chief complaint: Ear Problems Stated complaint: r ear needs draining Time Seen by Provider: 08/31/23 11:26 Source: patient Mode of arrival: ambulatory Limitations: no limitations History of Present Illness HPI narrative: 28 yold male presents to the ED for right upper earlobe swelling mass. This is patient's third visit with similiar symptoms. patient states he had compression bandage on only for three days and than took it off. NOw mass is swollen again. patient states no new trauma Related Data Previous Rx's ?Medication ?Instructions ?Recorded acetaminophen 325 mg tablet 650 mg (2 x 325 mg) PO Q6H PRN 02/08/23 Pain, Mild (Pain Scale 1-3) 30 days #240 tabs celecoxib 200 mg capsule 200 mg PO BID 30 days #60 caps 02/08/23 docusate sodium 100 mg capsule 100 mg PO BID 14 days #28 caps 02/08/23 docusate sodium 100 mg capsule 100 mg PO DAILY PRN constipation 02/08/23 90 days #90 caps oxycodone 5 mg tablet 5 mg PO Q4H PRN Pain, 02/08/23 Moderate(Pain Scale 4-6) 7 days #42 tabs cephalexin 500 mg capsule 500 mg PO Q12H 7 days #14 caps 08/24/23 doxycycline hyclate 100 mg capsule 100 mg PO BID 7 days #14 caps 08/24/23 naproxen 500 mg tablet 500 mg PO BID PRN pain 7 days #14 08/24/23 tabs levofloxacin 500 mg tablet 500 mg PO DAILY #7 tabs 08/27/23 Allergies Allergy/AdvReac Type Severity Reaction Status Date / Time bupropion [From Wellbutrin] Allergy Unknown Verified 08/31/23 10:03 From [facility] Allergy Unknown UNKNOWN Uncoded 08/31/23 10:03 Review of Systems Review of Systems: right ear upper lobe swelling Yes all other systems are reviewed and are negative PMFSH Past Medical History Medical History Substance abuse Social History Social History Household Members: None Housing: Apartment Do you presently have visiting nurse or other home services: No Alcohol intake: never Patient Tobacco Use Status: Current everyday Tobacco user Tobacco use type: Cigarette Cigarettes Per Day: 2 e-Cigarette/Vaping Use: Never Used Substance Use Type: Marijuana Advance Directives: No Advance Directives Information Provided: No service: No Physical Exam ED Vital Signs: Vital Signs - 24 hr 08/31/23 09:59 Temperature 98 F Pulse Rate 71 Respiratory Rate 18 Blood Pressure 158/71 H Pulse Oximetry 98 Oxygen Delivery Method Room Air BMI result Body Mass Index 30.7 Const Orientation/consciousness: oriented to person, oriented to place, oriented to time and patient oriented x3 HENMT Head: Yes normal to inspection, Yes No palpable skull fracture present, Yes normocephalic and Yes atraumatic Ears: TM's normal bilaterally, TM normal on the right, TM normal on the left, EAC's normal, mastoids normal and no periauricular adenopathy Outer ear/TM images: 1. swollen tender erythematous and fluctuant on palpation. Negative for any drainage. Negative ecchymosis. Eyes General: appearance normal, both eyes and all related structures Neck Neck: Yes normal visual inspection, Yes full ROM, Yes no lymphadenopathy, Yes no meningeal signs, Yes trachea midline, Yes supple, No anterior neck swelling and No tender Chest Chest palpation & inspection: normal inspection of the chest and normal palpation of entire chest wall Resp Effort & Inspection: normal respiratory effort and able to speak in complete sentences Auscultation: clear to auscultation bilaterally Cardio Jugular venous distension: no JVD Heart sounds: S1 normal heart sound present and S2 normal heart sound present GI Inspection: Yes normal to inspection Palpation (GI): Soft to palpation, not firm, nontender, no guarding and not rigid General: No CVA tenderness and Yes no CVA tenderness Back/Spine/Pelvis Back: no CVA tenderness, No CVA tenderness and No back tenderness Skin General skin exam: no rashes or lesions noted, elasticity normal and turgor normal Neuro General: oriented to person, oriented to place, oriented to time, patient oriented x3, gait normal, tone normal, moves all extremities, Normal light touch and pain sensation, no meningeal signs, no focal motor deficits, CN's II-XI intact bilaterally and normal sensation to monofilament Extrem General: Yes normal to inspection, Yes full ROM and Yes capillary refill normal Psych Appearance: grossly normal, well kempt and not disheveled Medications Administered Discontinued Medications Generic Name Dose Route Start Last Admin Trade Name Karine PRN Reason Stop Dose Admin Lidocaine HCl 5 ml 08/31/23 12:34 08/31/23 12:45 Lidocaine Hcl 2 % Mpf 5 Ml Vial INFILTRATI 08/31/23 12:35 5 ml ONCE ONE Administration Lidocaine HCl 5 ml 08/31/23 12:34 08/31/23 12:45 Lidocaine Hcl 2 % Mpf 5 Ml Vial INFILTRATI 08/31/23 12:35 5 ml ONCE ONE Administration Medical Decision Making Medical Decision Making MDM Narrative: 28-year-old male with right upper lip swollen recurrent abscess. Patient took off compression bandage to early. Patient denies any new trauma. Patient states compliant with antibiotic course. 1:10pm: auricular block was done using lidocaine 2% 6 mL. Area cleaned with Betadine iodine. Also claiming sterile saline. Size 11 blade used for small incision, slight yellow blood drainage. Mass no longer fluctuant in his flat. Patient feels relief. Patient placed in compression bandage. Patient informed to follow up with ENT and will be given information to follow up with ENT also at [facility]. Patient recommended to keep on compression bandage until follow-up. Not suspecting mastoiditis, osteomyelitis, brain infection. Patient explained worrisome signs Differential Diagnosis Differential Diagnoses: The differential diagnosis associated with the presentation includes ( Your upper lobe abscess.) Independent Historian Clinical information obtained from an independent historian. History obtained from or confirmed by: Other ( patient) External Record Review External record reviewed: Other ( prior visits) Prescription Management I considered prescription management with: Antibiotic Discharge Plan Discharge Clinical Impression: Abscess Patient Disposition: Home, Self-Care Instructions: Abscess (ED), Abscess Incision and Drainage (DC) Additional Instructions: keep on compression bandage until follow-up. Finish your Levaquin antibiotic regimen will prescribed on the . Return to the ED immediately for increased swelling, pain, fluctuance, discharge, foul odor, fever, chills, headache, swelling redness behind the ear, neck swelling, or any other concerning symptoms. contact our ENT specialist. Also follow-up with [facility] ENT, Dr. Jersey Amado of [facility] N[facility] [place] [phone] [place] [id number] for recurrent right ear upper lobe abscess. you may need cosmetic work to prevent cauliflower formation of right ear. Prescriptions: No Action cephalexin 500 mg capsule 500 mg PO Q12H 7 Days Qty: 14 0RF doxycycline hyclate 100 mg capsule 100 mg PO BID 7 Days Qty: 14 0RF naproxen 500 mg tablet 500 mg PO BID PRN (Reason: pain) 7 Days Qty: 14 0RF levofloxacin 500 mg tablet 500 mg PO DAILY Qty: 7 0RF celecoxib 200 mg Capsule 200 mg PO BID 30 Days Qty: 60 0RF acetaminophen 325 mg Tablet 650 mg PO Q6H PRN (Reason: Pain, Mild (Pain Scale 1-3)) 30 Days Qty: 240 0RF docusate sodium 100 mg Capsule 100 mg PO BID 14 Days Qty: 28 0RF oxycodone 5 mg Tablet 5 mg PO Q4H PRN (Reason: Pain, Moderate(Pain Scale 4-6)) 7 Days Qty: 42 0RF Rx Instructions: Partial Fill upon patient request. docusate sodium 100 mg capsule 100 mg PO DAILY PRN (Reason: constipation) 90 Days Qty: 90 0RF Referrals: Conor Shaver [Physician] - ( Recurrent right ear upper lobe abscess that was drained. Patient placed in compression bandage. Need re-evaluation to prevent re-collection and cauliflower in the future) Stand Alone Forms: Work/School Release Interventions: ED Discharge Assessment Last Done: 08/31/23 13:22 Discharge Date/Time: 08/31/23 13:23 Print Language: Faroese
[2023-08-31] MEDS: Lidocaine HCl 2 % MPF 5 ML VIAL INFILTRATI ×2 (12:45)
[2023-08-31 13:22] VITALS: BP 158/71; PULSE 71; RESP 18; TEMP 36.6; O2SAT 98
== END 2023-08-31 13:23 | disposition home or self-care (01) ==
PROVIDERS: Emergency Provider Emergency Medicine
DX: H60.01 Abscess of right external ear (principal)
CPT/HCPCS: 69000; 99282; 99284

== ENCOUNTER 2023-12-19 10:48 | Emergency (ER) | payer MEDICAID, SELFPAY ==
[2023-12-19 11:12] VITALS: BP 138/68; PULSE 50; RESP 16; TEMP 36.7; O2SAT 98; BMI 33.3
--- NOTE | 2023-12-19 11:13 | ED.GENADULT ---
HPI - General Adult General Stated complaint: back pain Related Data Previous Rx's ?Medication ?Instructions ?Recorded acetaminophen 325 mg tablet 650 mg (2 x 325 mg) PO Q6H PRN 02/08/23 Pain, Mild (Pain Scale 1-3) 30 days #240 tabs celecoxib 200 mg capsule 200 mg PO BID 30 days #60 caps 02/08/23 docusate sodium 100 mg capsule 100 mg PO BID 14 days #28 caps 02/08/23 docusate sodium 100 mg capsule 100 mg PO DAILY PRN constipation 02/08/23 90 days #90 caps oxycodone 5 mg tablet 5 mg PO Q4H PRN Pain, 02/08/23 Moderate(Pain Scale 4-6) 7 days #42 tabs cephalexin 500 mg capsule 500 mg PO Q12H 7 days #14 caps 08/24/23 doxycycline hyclate 100 mg capsule 100 mg PO BID 7 days #14 caps 08/24/23 naproxen 500 mg tablet 500 mg PO BID PRN pain 7 days #14 08/24/23 tabs levofloxacin 500 mg tablet 500 mg PO DAILY #7 tabs 08/27/23 Allergies Allergy/AdvReac Type Severity Reaction Status Date / Time bupropion [From Wellbutrin] Allergy Unknown Verified 12/19/23 11:16 From [facility] Allergy Unknown UNKNOWN Uncoded 08/31/23 10:03 [facility] Past Medical History Medical History Substance abuse Social History Social History Household Members: None Housing: Apartment Do you presently have visiting nurse or other home services: No Alcohol intake: never Patient Tobacco Use Status: Current everyday Tobacco user Tobacco use type: Cigarette Cigarettes Per Day: 2 e-Cigarette/Vaping Use: Never Used Substance Use Type: Marijuana service: No Course Course Course Narrative: RME, this is a rapid medical exam performed by Krishan Mansfield please refer to primary provider for complete H&P- patient presents to triage complaining of left lower back pain/flank pain since yesterday while working out at the gym. He also reports bright red blood per rectum on and off for at least a few weeks. He reports the bleeding has been worse since yesterday. He reports occasional abdominal pain. Plan for labs, will defer any potential imaging to primary provider Discharge Plan Discharge Prescriptions: No Action cephalexin 500 mg capsule 500 mg PO Q12H 7 Days Qty: 14 0RF doxycycline hyclate 100 mg capsule 100 mg PO BID 7 Days Qty: 14 0RF naproxen 500 mg tablet 500 mg PO BID PRN (Reason: pain) 7 Days Qty: 14 0RF levofloxacin 500 mg tablet 500 mg PO DAILY Qty: 7 0RF celecoxib 200 mg Capsule 200 mg PO BID 30 Days Qty: 60 0RF acetaminophen 325 mg Tablet 650 mg PO Q6H PRN (Reason: Pain, Mild (Pain Scale 1-3)) 30 Days Qty: 240 0RF docusate sodium 100 mg Capsule 100 mg PO BID 14 Days Qty: 28 0RF oxycodone 5 mg Tablet 5 mg PO Q4H PRN (Reason: Pain, Moderate(Pain Scale 4-6)) 7 Days Qty: 42 0RF Rx Instructions: Partial Fill upon patient request. docusate sodium 100 mg capsule 100 mg PO DAILY PRN (Reason: constipation) 90 Days Qty: 90 0RF Print Language: Greek
--- OUTSIDE RECORDS SUMMARY | 2023-12-19 11:31 | XMS_ITS | Continuity of Care Document ---
Author Organization [facility] ter Address [address] [place] [id number] Care Team Providers Care Airport Screener Name Role Phone Not on Staff, PCP Primary Care Physician Unavail able Encounter [facility] Date(s): 09/09/23 - 09/09/[address] [address]- Encounter Diagnosis Hematoma of right auricular region(Final) - 09/09/23 Discharge Disposition: A-D/C Home Attending Physician: Marysol Tripathi MD Admitting Physician: Marysol Tripathi MD Referring Physician: Not on Staff, Referring [...] cm, 05/20/21... Start Date: 08/01/21 Status: Ordered Pettis 0.65% nasal spray 2 sprays, Nares, Both, [...] recent to oldest [Reference Range]: 1 2 Height 168 cm (09/09/23 12:06 PM) Weight 84 kg (09/09/23 12:06 PM) Oxygen Saturation [94-100 %] 100 % (09/09/23 2:13 PM) 98 % (09/09/23 12:06 PM) Pulse Rate [55-90 bpm] 60 bpm (09/09/23 2:13 PM) 62 bpm (09/09/23 12:06 PM) Body Mass Index [18.5-24.99 kg/m2] 29.76 kg/m2 *H* (09/09/23 12:06 PM) Blood Pressure [90-138/55-84 mm Hg] 143/ 58mm Hg *H* (09/09/23 2:13 PM) 175/95mm Hg *H* (09/09/23 12:06 PM) Respiratory Rate [16-30 br/min] 20 br/mi n (09/09/23 2:13 PM) 18 br/min (09/09/23 12:06 PM) Temperature [96.8-100.4 DegF] 97.6 DegF (09/09/23 12:06 PM) Mode of Delivery (Oxygen) Room air (09/09/23 2:13 PM) Room air (09/09/23 12:06 PM) Blood pressure sites Arm, right (09/09/23 12:06 PM) Temperature Route Oral (09/09/23 12:06 PM) Dry Weight 84 kg (09/09/23 12:06 PM) Weight Obtained Via Patient/family state d (09/09/23 12:06 PM) Dry Weight Obtained Via Patient/family s tated (09/09/23 12:06 PM) Patient Care team information Care Team Personnel Name: Not on Staff, PCP Position: [facility] Physician (General Medicine) Member Role: PCP Care Team Related Persons Name: YULIYA NEWMAN Address: [address] [address] Name: YULIYA HOLLINGSWORTH Address: [address] [address]
[2023-12-19 11:34] LABS: MANUAL DIFF FLAG NO
[2023-12-19 11:37] LABS: Basophils Percent Auto 0.5 % (0-2); Eosinophils Absolute Auto 0.2 X10*3/uL (0.0-0.4); Eosinophils Percent Auto 3.1 % (0-4); Hematocrit 47.2 % (42.0-52.0); Hemoglobin 15.5 g/dl (14.0-18.0); Imm Gran Abs Auto 0.01 X10*3/uL (0.00-0.03); Imm Gran Pct Auto 0.2 % (0.0-0.4); Lymphocytes Absolute Auto 2.3 X10*3/uL (1.2-4.9); Lymphocytes Percent Auto 35.6 % (20-40); Mean Corpuscular HGB Conc 32.8 g/dl (31.0-36.0); Mean Corpuscular Hemoglobin 29.7 pg (27.0-33.0); Mean Corpuscular Volume 90.4 fL (80.0-98.0); Mean Platelet Volume 9.6 fL (9.4-12.4); Monocytes Absolute Auto 0.6 X10*3/uL (0.1-1.2); Neutrophils Absolute Auto 3.2 x10*3/uL (2.0-8.3); Neutrophils Percent Auto 50.6 % (45-73); Platelet Count 242 X10*3/uL (160-400); Red Blood Count 5.22 X10*6/uL (4.60-5.80); Red Cell Distribution Width 11.5 % (11.0-16.0); White Blood Count 6.4 X10*3/uL (4.8-10.8)
[2023-12-19 11:41] LABS: Prothrombin Time 12.5 SEC (11.1-13.3)
[2023-12-19 11:50] LABS: Anion Gap 9 (12-20); Blood Urea Nitrogen 14 mg/dL (9-16); Calcium 9.4 mg/dL (8.4-10.2); Carbon Dioxide 26 mmol/L (22-29); Chloride 109 mmol/L (96-108); Creatinine Clr Calc Pharmacy 138.8; Estimated Glomerular Filt Rate > 60; Glucose Random 93 mg/dL (60-115); Potassium 4.8 mmol/L (3.3-5.1); Sodium 139 mmol/L (135-145)
== END 2023-12-19 17:00 | disposition left against medical advice (07) ==
PROVIDERS: Physician Assistant; Emergency Provider Emergency Medicine
DX: M54.9 Dorsalgia, unspecified (principal); Z53.21 Procedure and treatment not carried out due to patient leaving prior to being seen by health care provider
CPT/HCPCS: 36415; 80048; 85025; 85610; 99281

== ENCOUNTER 2024-09-19 10:07 | Outpatient (AMB) | payer MEDICAID, SELFPAY ==
--- OUTSIDE RECORDS SUMMARY | 2024-09-19 10:21 | XMS_ITS ---
Author Organization [employer] Address [address] [facility] [address] [place] [address] Care Team Providers Care Protective Signal Installer Name Role Phone Christine May NP Primary Care Provider [phone] Ronnie Morales RN Unavailable [phone] CM Complex Status:Enrolled (Active) Start date:08/04/2024 Enrollment date:09/02/2024 Enrollment reason:ADT Feed Overview ADT- Pt admitted to [facility] 08/02[facility]24. Case Team Name Relationship Phone Ronnie Morales RN(Responsible Staff) Registered Nurse [phone] Continued Care and Services Coordination
[2024-09-19 10:25] VITALS: BP 118/66; PULSE 59; O2SAT 97; BMI 31.6
--- NOTE | 2024-09-19 10:25 | MHC.OFFVIS ---
Vital Signs 09/19/24 10:25 Height 5 ft 6 in Weight 196 lb BMI 31.6 BP 118/66 Blood Pressure Location Rt brachial Position Sitting Pulse 59 Pulse Source Pulse Oximeter Pulse Oximetry (%) 97 Oxygen Delivery Method Room Air Intake Visit Reasons: Lung Nodule Allergies bupropion [From Wellbutrin] Allergy (Verified 09/19/24 10:27) Unknown From [facility] Allergy (Unknown, Uncoded 09/19/24 10:27) UNKNOWN HPI HPI Lung Nodule: Details: Capo is a pleasant 29 year old male, current smoker with 60 pack year history, with underlying asthma since childhood. He was referred by PCP for pulmonary evaluation for management of asthma and incidental finding of pulmonary nodule. He was recently started on Symbicort 80mcg, with no use of albuterol MDI for worsening dyspnea, chest tightness and wheezing. Overall he reports resolution of symptoms however he reports using Symbicort 3 puffs BID, prior to exercise as he develops dyspnea with exertion, instead of albuterol MDI. He denies seasonal allergies. He denies any occupational exposure. Patient had incidental finding of bilateral pulmonary nodules <3mm on CT chest 04/2024 s/p fall. No prior abnormal imaging. He reports smoking 3 cigarettes per day, previously 6 packs per day for approximately 10 years. He reports strong family history of cancer, unsure if any lung cancer. He reports father with CPAP machine, otherwise no pertinent family history. Denies any personal/family history of autoimmune conditions. [facility] Medical History Substance abuse Social History (Updated 09/19/24 @ 10:27 by Miranda Casillas CMA) Household Members: None Housing: Apartment Do you presently have visiting nurse or other home services: No Alcohol intake: never Patient Tobacco Use Status: Current everyday Tobacco user Tobacco use type: Cigarette Cigarettes Per Day: 3 e-Cigarette/Vaping Use: Never Used Substance Use Type: Marijuana service: No Review of Systems Const Denies chills, Denies excessive sweating, Denies fever(s), Denies headache(s) and Denies night sweats Eyes Denies dry eyes, Denies irritation and Denies itchy eyes ENT Reports Normal hearing present, Denies headache(s), Denies nasal congestion, Denies nasal discharge, Denies post nasal drip and Denies sore throat Card Denies chest pain, Denies chest pain at rest, Denies chest pain with activity, Denies claudication, Denies leg edema, Denies orthopnea and Denies paroxysmal nocturnal dyspnea Resp Denies chest congestion, Denies excessive phlegm production, Denies pain on inspiration, Denies pain with cough, Denies stridor and Denies wheezing Musc Denies myalgias Neuro Reports Normal hearing present and Denies headache(s) Endo Denies excessive sweating Alex/Lymph Denies lymphadenopathy Aller/Immun Denies itchy eyes, Denies seasonal rhinorrhea and Denies wheezing Physical Exam Vital Signs: Last Vital Signs Pulse 59 09/19/24 10:25 BP 118/66 09/19/24 10:25 Pulse Ox 97 09/19/24 10:25 Oxygen Delivery Method Room Air 09/19/24 10:25 BMI result Body Mass Index 31.6 Const General: cooperative, healthy appearing, comfortable, no acute distress, well developed and alert Orientation/consciousness: patient oriented x3 Limitations: no limitations HEENT Head: Yes normal to inspection, Yes normocephalic and Yes atraumatic Ears: hearing grossly normal bilaterally and external ears normal Eyes General: appearance normal, both eyes and all related structures Eyelids: Yes eyelids normal Sclerae: sclerae normal EOM: EOMs intact bilaterally Neck Neck: Yes normal visual inspection and Yes no lymphadenopathy Lymphatic: no lymphadenopathy noted Chest Chest palpation & inspection: normal inspection of the chest Resp Effort & Inspection: normal respiratory effort, able to speak in complete sentences, no audible wheezes, no cough, no stridor, not tachypneic, no tripod positioning and no use of accessory muscles Auscultation: clear to auscultation bilaterally Cardio Jugular venous distension: no JVD Rate: regular rate Rhythm: regular rhythm Skin Other: warm, dry General skin exam: no rashes or lesions noted Neuro General: patient oriented x3 Cranial nerves: Yes Normal hearing present Cognition (Neuro): normal cognition Gait exam (Neuro): Normal gait present Extrem General: Yes normal to inspection, Yes capillary refill normal, Yes no clubbing, cyanosis or edema and Yes no pedal edema Psych Appearance: grossly normal and well kempt Speech and movement: Normal speech and movement present and Clear speech present Affect: normal affect Attitude: cooperative Thought process: Normal thought process present Thought content: Normal thought content present Insight: Good insight present (Psych) Judgement: Good judgement present (Psych) Assessment & Plan Assessment & Plan (1) Asthma: Code(s): J45.909 - Unspecified asthma, uncomplicated Category: Medical (2) Pulmonary nodule: Code(s): R91.1 - Solitary pulmonary nodule Category: Medical Plan Capo presents for pulmonary evaluation for known history asthma and incidental finding of bilateral pulmonary nodules <3mm on chest CT 04/2024. Will send for PFT to assess obstructive defect. Encouraged patient to use albuterol MDI prior to activity and take Symbicort 80 mcg as prescribed 2 inhalations BID. Discussed adverse effects of increased use of ANNALEE/LABA component. Consider increasing Symbicort to 160 mcg. Will repeat chest CT in one year to assess stability of nodules. All questions were answered and patient is in agreement of plan. Will follow up in 8-10 weeks or sooner if needed. Orders: Orders CT chest wo IV con 7 Months R91.8 - Other nonspecific abnormal finding of lung field PFT pulmonary function test Today J45.909 - Unspecified asthma, uncomplicated Coding Level of Care Code New Pt Level 4 (07052) Diagnoses Asthma J45.909 Pulmonary nodule R91.1
== END 2024-09-19 11:29 | disposition home or self-care (01) ==
LOC: HO.HPSW 10:07
PROVIDERS: PCP Nurse Practitioner; Referring Provider Nurse Practitioner; Visit Provider Nurse Practitioner Family
DX: J45.909 Unspecified asthma, uncomplicated (principal); R91.1 Solitary pulmonary nodule
CPT/HCPCS: 99204

== ENCOUNTER → 2024-09-19 10:07 | Outpatient (BNVA) | payer MEDICAID, SELFPAY | PROVIDERS: PCP Nurse Practitioner; Referring Provider Nurse Practitioner; Visit Provider Nurse Practitioner Family | DX: J45.909 Unspecified asthma, uncomplicated (principal); R91.1 Solitary pulmonary nodule; F17.210 Nicotine dependence, cigarettes, uncomplicated; Z79.899 Other long term (current) drug therapy | CPT/HCPCS: 99212 ==

== ENCOUNTER 2024-12-03 13:22 | Emergency (ER) | payer MEDICAID, SELFPAY ==
--- NOTE | ~2024-12-03 | US_ITS ---
EXAMINATION: US ABDOMEN LIMITED CLINICAL INFORMATION: Right upper quadrant pain. Status post cholecystectomy.. COMPARISON: None available. TECHNIQUE: Real-time imaging of the right upper quadrant abdominal viscera. FINDINGS: PANCREAS: Visualized body and the head of the pancreas is unremarkable. The tail is not seen. LIVER: The liver is normal in size. The liver contour is normal. Parenchymal echogenicity is normal. No focal hepatic lesion. There is no intrahepatic biliary duct dilatation seen. GALLBLADDER: The gallbladder has been surgically removed.. COMMON BILE DUCT: Normal in caliber measuring 0.3 cm in diameter. RIGHT KIDNEY: The right kidney appears unremarkable. FREE FLUID: None. US/US abdomen limited IMPRESSION: Gallbladder is not visualized as surgically removed. Visualized liver and CBD is unremarkable. Visual Visualized pancreas is grossly unremarkable. Electronically signed by: Baron Lerma MD 12/03/2024 04:20 PM EDT
[2024-12-03 13:27] VITALS: BP 176/88; PULSE 66; RESP 18; TEMP 36.1; O2SAT 98; BMI 32.3
--- NOTE | 2024-12-03 13:31 | ED.ABDPAIN ---
HPI - Abdominal Pain General Chief Complaint: Abdominal Pain Stated Complaint: Abd Pain, center abd, Gallbladder? Time Seen by Provider: 12/03/24 16:38 History of Present Illness ED Provider: Ricky Valentine MD HPI narrative: 29-year-old male with daily marijuana use, history of cholecystectomy about a year ago with epigastric pain nausea without vomiting. No GI bleeding in the past denies daily alcohol use. Says he felt better after going in the position and taking hot shower. No radiation to the back no chest pain difficulty breathing cough. No change in diet recently he is moving his bowels no diarrhea. No travel or antibiotics. Related Data Previous Rx's ?Medication ?Instructions ?Recorded celecoxib 200 mg capsule 200 mg PO BID 30 days #60 caps 02/08/23 metoclopramide HCl 10 mg tablet 10 mg PO Q6H PRN nausea and 12/03/24 (Reglan) vomiting #14 tabs pantoprazole 20 mg tablet,delayed 20 mg PO DAILY #14 tabs 12/03/24 release (Protonix) Allergies Allergy/AdvReac Type Severity Reaction Status Date / Time bupropion (From Wellbutrin) Allergy Unknown Verified 12/03/24 13:29 From [facility] Allergy Unknown UNKNOWN Uncoded 12/03/24 13:29 [facility] Past Medical History Medical History Substance abuse Social History Social History (Updated 09/19/24 @ 10:27 by Miranda Casillas CMA) Household Members: None Housing: Apartment Do you presently have visiting nurse or other home services: No Alcohol intake: never Patient Tobacco Use Status: Current everyday Tobacco user Tobacco use type: Cigarette Cigarettes Per Day: 3 Smoked in Last 30 Days: Yes e-Cigarette/Vaping Use: Never Used Use of substances other than those prescribed or required for medical reasons: No Substance Use Type: Marijuana Advance Directives: No Advance Directives Information Provided: Yes Do you have a plan to hurt others: No Plan service: No Physical Exam ED Exam Exam: EXAM: Gen: Alert, awake, well appearing, well hydrated. Head: Atraumatic Eyes: Anicteric, Normal conjunctiva. ENT: Moist mucosa, no pallor. ? Neck: Supple. Skin: ?No observable rash or bruising on exposed or examined skin Respiratory: Breathing comfortably, No distress.Clear to auscultation bilaterally, symmetric chest expansion, No wheeze, rales, ronchi. Cardiovascular: Regular rate and rhythm. No murmurs or rub. Well perfused periphery, warm extremities. No edema. ? Abdominal: Mild midepigastric tenderness. No right upper quadrant tenderness Soft, no objective distension. No palpable masses or obvious organomegaly. ?No guarding, no rebound tenderness or other peritoneal findings. : No flank tenderness. Neuro: Alert. Gross movement of all extremities intact. ? Psych: Calm. Cooperative. MSK: No grossly visible deformity. Vital signs: See flowsheet Vital Signs: Vital Signs - 24 hr 12/03/24 13:27 12/03/24 17:21 Temperature 97 F 97 F Pulse Rate 66 65 Respiratory Rate 18 18 Blood Pressure 176/88 H 132/78 Pulse Oximetry 98 99 Oxygen Delivery Method Room Air Room Air BMI result Body Mass Index 32.3 Course Course Course Narrative: This is a Rapid Medical Examination (RME) performed by Ivan Linda PA-C in triage. Full HPI, ROS, assessment and treatment plan per primary provider in the Main ED. Hx: 29 yo M 6 mo s/p cholecystectomy here for eval of epigastric abd pain since 0600. constant since onset 10/10 pain, nausea with one episode of vomiting. Plan: labs, UA - will defer imaging Medical Decision Making Medical Decision Making MDM Narrative: Medical Decision Makin-year-old male with history of cholecystectomy and daily marijuana use, but the documented asthma with no respiratory symptoms only midepigastric pain. Characteristics suggestive of PUD versus GERD/gastritis versus cannabis hyperemesis. No laboratory evidence of change or elevation in bilirubin which is chronic and mild transaminitis which is chronic. Reassuring ultrasound. No lipase elevation to suggest pancreatitis. Symptomatic relief with multimodal analgesia including topicals antacids Preliminary Favored Differential Diagnosis: [ ] among additional considered etiologies Testing Interpreted Independently: Not Applicable Radiology or Lab testing Results Reviewed: Not Applicable Consults: Not Applicable Independent Historians/External Chart Reviews: Not Applicable Social Determinants of Health Impacting MDM/Planning: Not Applicable Lab Data 12/03/24 13:41 12/03/24 13:41 Labs: Lab Results 12/03/24 Range/Units 13:41 WBC 11.5 H (4.8-10.8) X10*3/uL RBC 5.47 (4.60-5.80) X10*6/uL Hgb 15.5 (14.0-18.0) g/dl Hct 47.1 (42.0-52.0) % MCV 86.1 (80.0-98.0) fL MCH 28.3 (27.0-33.0) pg MCHC 32.9 (31.0-36.0) g/dl RDW 11.9 (11.0-16.0) % Plt Count 270 (160-400) X10*3/uL MPV 9.8 (9.4-12.4) fL Immature Gran % (Auto) 0.3 (0.0-0.4) % Neut % (Auto) 71.1 (45-73) % Lymph % (Auto) 19.9 L (20-40) % Teller % (Auto) 7.4 (2-11) % Eos % (Auto) 1.0 (0-4) % Baso % (Auto) 0.3 (0-2) % Lymph # (Auto) 2.3 (1.2-4.9) X10*3/uL Teller # (Auto) 0.9 (0.1-1.2) X10*3/uL Eos # (Auto) 0.1 (0.0-0.4) X10*3/uL Baso # (Auto) 0.0 (0.0-0.2) X10*3/uL Abs Immat Gran (auto) 0.04 H (0.00-0.03) X10*3/uL Absolute Neuts (auto) 8.2 (2.0-8.3) x10*3/uL Absolute Nucleated RBC 0.000 (0.0-0.012) X10*3/uL Nucleated RBC % (auto) 0.0 (0.0-0.2) /100WBC Sodium 137 (135-145) mmol/L Potassium 4.4 (3.3-5.1) mmol/L Chloride 105 (96-108) mmol/L Carbon Dioxide 27 (22-29) mmol/L Anion Gap 9 L (12-20) BUN 14 (9-16) mg/dL Creatinine 0.82 (0.5-1.4) mg/dL Estim Creat Clear Calc 138.9 Estimated GFR > 60 Random Glucose 116 H (60-115) mg/dL Calcium 9.2 (8.4-10.2) mg/dL Magnesium 2.0 (1.6-2.6) mg/dL Total Bilirubin 2.0 H (0.0-1.0) mg/dL Direct Bilirubin 0.6 H (0.0-0.5) mg/dL AST 92 H (5-37) U/L ALT 207 H (0-40) U/L Alkaline Phosphatase 66 (39-117) U/L Total Protein 7.7 (6.5-8.0) g/dL Albumin 5.1 H (3.5-5.0) g/dL Lipase 11 (8-78) U/L Medications Administered Discontinued Medications Generic Name Dose Route Start Last Admin Trade Name Freq PRN Reason Stop Dose Admin Acetaminophen 975 mg 12/03/24 16:40 12/03/24 16:54 Acetaminophen 325 Mg Tablet PO 12/03/24 16:41 975 mg ONCE ONE Administration Al Hydroxide/Mg Hydroxide 30 ml 12/03/24 16:40 12/03/24 16:54 Magnesium Hydrox/Alum Hydrox 30 Ml Oral.Susp PO 12/03/24 16:41 30 ml ONCE ONE Administration Famotidine 20 mg 12/03/24 16:40 12/03/24 16:54 Famotidine 20 Mg Tablet PO 12/03/24 16:41 20 mg ONCE ONE Administration Metoclopramide HCl 10 mg 12/03/24 16:40 12/03/24 16:54 Metoclopramide Hcl 10 Mg Tablet PO 12/03/24 16:41 10 mg ONCE ONE Administration Sucralfate 1 gm 12/03/24 16:40 12/03/24 16:54 Sucralfate Oral Suspension 1 Gm/10 Ml Oral.Susp PO 12/03/24 16:41 1 gm ONCE ONE Administration Discharge Plan Discharge Clinical Impression: Abdominal pain Patient Disposition: Home, Self-Care Instructions: Acute Abdominal Pain (ED) Additional Instructions: DISCHARGE DIAGNOSES: Abdominal pain midepigastric. Unclear cause possibly cannabis hyperemesis or inflammation or ulceration of the stomach. Definitive diagnosis not yet established HISTORY OF PRESENTATION: ?Mid upper abdominal pain with nausea no vomiting. Daily marijuana smoking. History of cholecystectomy EMERGENCY DEPARTMENT COURSE,TESTS, TREATMENTS: While in the ED today you had a reassuring ultrasound with retained biliary structures of the liver without abnormality. Labs reassuring and stable. DISCHARGE MEDICATIONS: ?Pain medications and nausea medications FOLLOW-UP: ?Call your primary or general physician soon as possible to discuss your symptoms, your ED visit and to discuss follow up plans Call primary doctor for follow up INSTRUCTIONS ?& RETURN PRECAUTIONS: If any symptoms change first call your primary physician, if it is after-hours your primary doctors office should have a provider guest relations agent you can speak with. If the symptoms are severe or very concerning to you then call 911 or return to the ED. Ricky Valentine MD Emergency Physician [facility] Prescriptions: New pantoprazole [Protonix] 20 mg tablet,delayed release (DR/EC) 20 mg PO DAILY Qty: 14 0RF metoclopramide HCl [Reglan] 10 mg tablet 10 mg PO Q6H PRN (Reason: nausea and vomiting) Qty: 14 0RF No Action celecoxib 200 mg Capsule 200 mg PO BID 30 Days Qty: 60 0RF Interventions: ED Discharge Assessment Last Done: 12/03/24 17:21 Discharge Date/Time: 12/03/24 17:21 Print Language: Hungarian
[2024-12-03 13:49] LABS: MANUAL DIFF FLAG NO
[2024-12-03 14:04] LABS: Hematocrit 47.1 % (42.0-52.0); Hemoglobin 15.5 g/dl (14.0-18.0); Imm Gran Abs Auto 0.04 X10*3/uL (0.00-0.03); Imm Gran Pct Auto 0.3 % (0.0-0.4); Lymphocytes Absolute Auto 2.3 X10*3/uL (1.2-4.9); Mean Corpuscular HGB Conc 32.9 g/dl (31.0-36.0); Mean Corpuscular Hemoglobin 28.3 pg (27.0-33.0); Mean Corpuscular Volume 86.1 fL (80.0-98.0); NRBC Abs Auto 0.000 X10*3/uL (0.0-0.012); NRBC Pct Auto 0.0 /100WBC (0.0-0.2); Platelet Count 270 X10*3/uL (160-400); Red Blood Count 5.47 X10*6/uL (4.60-5.80); White Blood Count 11.5 X10*3/uL (4.8-10.8)
[2024-12-03 14:14] LABS: Alanine Aminotransferase 207 U/L (0-40); Albumin Level 5.1 g/dL (3.5-5.0); Alkaline Phosphatase 66 U/L (39-117); Anion Gap 9 (12-20); Aspartate Amino Transferase 92 U/L (5-37); Blood Urea Nitrogen 14 mg/dL (9-16); Calcium 9.2 mg/dL (8.4-10.2); Carbon Dioxide 27 mmol/L (22-29); Chloride 105 mmol/L (96-108); Creatinine Clr Calc Pharmacy 138.9; Estimated Glomerular Filt Rate > 60; Lipase 11 U/L (8-78); Magnesium 2.0 mg/dL (1.6-2.6); Potassium 4.4 mmol/L (3.3-5.1); Sodium 137 mmol/L (135-145); Total Protein 7.7 g/dL (6.5-8.0)
[2024-12-03] MEDS: Magnesium Hydrox/Alum Hydrox 30 ML ORAL.SUSP PO (16:54)
[2024-12-03] MEDS: Sucralfate Oral Suspension 1 GM/10 ML ORAL.SUSP PO (16:54)
[2024-12-03 17:21] VITALS: BP 132/78; PULSE 65; RESP 18; TEMP 36.1; O2SAT 99
== END 2024-12-03 17:21 | disposition home or self-care (01) ==
PROVIDERS: Physician Assistant Medical; Emergency Provider Emergency Medicine
DX: R10.9 Unspecified abdominal pain (principal); R10.13 Epigastric pain; R11.10 Vomiting, unspecified; Z90.5 Acquired absence of kidney
CPT/HCPCS: 36415; 76705; 80048; 80076; 83690; 83735; 85025; 99284

== ENCOUNTER → 2024-12-03 15:34 | Outpatient (BNV) | payer MEDICAID, SELFPAY | PROVIDERS: Emergency Provider Emergency Medicine; Visit Provider Radiology Diagnostic Radiology | DX: R10.11 Right upper quadrant pain (principal) | CPT/HCPCS: 76705 ==

== ENCOUNTER 2024-12-12 09:43 | Outpatient (REF) | payer MEDICAID, SELFPAY ==
--- NOTE | 2024-12-12 09:47 | PFT_ITS ---
Flows: FEV1: 98 % of predicted at 3.86 L FVC: 126 % of predicted at 5.95 L FEV1/FVC: 65 % Bronchodilator response: Present Volumes: Total lung capacity: 121 % of predicted at 7.50 L Residual volume: 130 % of predicted at 1.73 L Slow vital capacity: 118 % of predicted at 5.77 L Expiratory reserve volume: 96 % of predicted at 1.35 L Diffusion capacity: Normal Impression: Mild obstructive ventilatory defect with positive bronchodilator response. Increased total lung capacity suggests hyperinflation. Increased residual volume suggests air trapping. MTDD
--- OUTSIDE RECORDS SUMMARY | 2024-12-12 09:52 | XMS_ITS ---
Author Organization [employer] Address [address] [facility] [address] [place] [address] Care Team Providers Care Informatics Manager Name Role Phone Christine May NP Primary Care Provider [phone] Ronnie Morales RN Unavailable [phone] CM Complex Status:Closed (Closed) Start date:08/04/2024 Enrollment date:09/02/2024 Enrollment reason:ADT Feed End date:12/10/2024 Close reason:Goals Met Overview ADT- Pt admitted to [facility] on 08/02/24. Continued Care and Services Coordination
[2024-12-12 10:25] VITALS: PULSE 64; O2SAT 98
== END 2024-12-12 09:44 | disposition home or self-care (01) ==
LOC: HO.RESP 09:43
PROVIDERS: PCP Internal Medicine; Visit Provider Nurse Practitioner Family
DX: J45.909 Unspecified asthma, uncomplicated (principal)
CPT/HCPCS: 94010; 94640; 94727; 94729

== ENCOUNTER → 2024-12-12 09:47 | Outpatient (BNV) | payer MEDICAID, SELFPAY | PROVIDERS: PCP Internal Medicine; Visit Provider Internal Medicine Pulmonary Disease | DX: J45.909 Unspecified asthma, uncomplicated (principal) | CPT/HCPCS: 94060; 94727; 94729 ==

== ENCOUNTER 2025-01-10 10:47 | Emergency (ER) | payer MEDICAID, SELFPAY ==
[2025-01-10 10:56] VITALS: BP 146/75; PULSE 63; RESP 18; TEMP 36.6; O2SAT 97; BMI 32.0
--- NOTE | 2025-01-10 11:14 | ED_ITS ---
HPI - General Adult General Chief complaint: General Medical Stated complaint: toothpain Time Seen by Provider: 01/10/25 11:13 Source: patient Mode of arrival: ambulatory Limitations: no limitations History of Present Illness ED Provider: Mckayla Borges PA-C HPI narrative: Patient is a 30 year old assigned male at with a history of asthma presenting to the emergency department today with left lower dental pain. Patient states that over the last week he has had left lower dental pain. Patient states that he has made an appointment with a dentist for next Sunday. Patient denies any other complaints at this time. Onset (ago): week(s) (1) Related Data Previous Rx's ?Medication ?Instructions ?Recorded celecoxib 200 mg capsule 200 mg PO BID 30 days #60 ca ps 02/08/23 metoclopramide HCl 10 mg tablet 10 mg PO Q6H PRN nause a and 12/03/24 (Reglan) vomiting #14 tabs pantoprazole 20 mg tablet,delayed 20 mg PO DAILY #14 t abs 12/03/24 release (Protonix) amoxicillin 875 mg-potassium 1 tab PO BID 7 days #14 t abs 01/10/25 clavulanate 125 mg tablet chlorhexidine gluconate 0.12 % 15 ml buccal BID #118 m L 01/10/25 mouthwash (Peridex) naproxen 500 mg tablet 500 mg PO BID 7 days #14 tab s 01/10/25 Allergies Allergy/AdvReac Type Severity Reaction Status Date / Time bupropion (From Wellbutrin) Allergy Unknown Verified 01/10/25 10:58 From [facility] Allergy Unknown UNKNOWN Uncoded 01/10/25 10:58 Review of Systems 2 Constitutional: Constitutional: Reports as per HPI Eyes: Eyes: Reports as per HPI ENT: Reports as per HPI Cardiovascular: Cardiovascular: Reports as per HPI Respiratory: Respiratory: Reports as per HPI Gastrointestinal: Gastrointestinal: Reports as per HPI Genitourinary: Genitourinary: Reports as per HPI Musculoskeletal: Musculoskeletal: Reports as per HPI Integumentary/Breasts: Skin/Breast: Reports as per HPI Neurologic: Reports as per HPI Psychiatric: Psychiatric: Reports as per HPI Endocrine: Endocrine: Reports as per HPI Hematologic/Lymphatic: Hematologic/Lymphatic: Reports as per HPI Allergic/Immunologic: Allergic/Immunologic: Reports as per HPI PMFSH Past Medical History Attestation statement: The following information was validated with the patient. Source: old records reviewed and nursing notes reviewed Medical History Substance abuse Social History Social History Household Members: None Housing: Apartment Do you presently have visiting nurse or other home services: No Alcohol intake: never Patient Tobacco Use Status: Current everyday Tobacco user Tobacco use type: Cigarette Cigarettes Per Day: 3 e-Cigarette/Vaping Use: Never Used Substance Use Type: Marijuana Advance Directives: No Advance Directives Information Provided: No Do you have a plan to hurt others: No Plan service: No Physical Exam ED Vital Signs: Vital Signs - 24 hr 01/10/25 10:56 01/10/25 11:37 Temperature 98 F 98 F Pulse Rate 63 63 Respiratory Rate 18 18 Blood Pressure 146/75 H 146/75 H Pulse Oximetry 97 97 Oxygen Delivery Method Room Air Room Air BMI result Body Mass Index 32.0 Const General: cooperative, no acute distress, alert and awake Nutritional Appearance: well nourished Orientation/consciousness: patient oriented x3 HENMT Head: Yes normal to inspection and Yes atraumatic Ears: hearing grossly normal bilaterally and external ears normal General nose exam: Normal external nose present, no nasal discharge noted and no epistaxis Face and sinus: Yes normal facial exam, No abrasion and No laceration Mouth: Normal oral and palatal mucosa present, no drooling and no muffled voice Teeth image: 2 1. area of tooth broken - surrounding erythema Eyes General: appearance normal, both eyes and all related structures Periorbital: periorbital findings normal Eyelids: Yes eyelids normal Conjunctivae: conjunctivae normal Pupils: Equal, round and reactive pupils present EOM: EOMs intact bilaterally Neck Neck: Yes normal visual inspection and Yes full ROM Resp Effort & Inspection: normal respiratory effort and able to speak in complete sentences Neuro General: patient oriented x3, moves all extremities and CN's II-XI intact bilaterally Cranial nerves: Yes Equal, round and reactive pupils present Cognition (Neuro): normal cognition Extrem General: Yes normal to inspection, Yes full ROM and Yes capillary refill normal Psych Appearance: grossly normal Mental Status: mental status grossly normal Affect: normal affect Attitude: cooperative Thought process: Normal thought process present Thought content: Normal thought content present Insight: Good insight present (Psych) Medical Decision Making Medical Decision Making MDM Narrative: Patient is a 30 year old assigned male at with a history of asthma presenting to the emergency department today with left lower dental pain. Patient's physical exam was as noted in the physical exam portion of this note and consistent with dental pain / developing dental infection. I explained my physical exam findings to the patient. I answered all questions asked by the patient. I stressed the importance of the patient taking his medication as directed (either prescribed or as the over the counter packaging recommends). I stressed the importance of the patient following up with his primary care provider and his dentist. I stressed the importance of the patient returning to the emergency department immediately if his symptoms were to worsen or if he were to develop any dizziness, shortness of breath, difficulty breathing, chest pain, blurry vision, loss of vision, nausea, vomiting, abdominal pain, fever, chills, back pain, or any other complaints. Patient verbalized agreement and understanding with this treatment plan and discharge. Differential Diagnosis Differential Diagnoses: The differential diagnosis associated with the presentation includes Dental pain Dental infection Admission/Observation Consideration of admission/observation: Escalation of care including admission/observation considered Patient would have been admitted to the hospital had his clinical presentation warranted hospital admission. Prescription Management I considered prescription management with: Pain Medication (patient prescribed pain medication) and Antibiotic (patient prescribed an antibiotic for developing dental infection) Discharge Plan Discharge Clinical Impression: Pain, dental, Dental infection Patient Disposition: Home, Self-Care Instructions: Dental Abscess (ED), Toothache (ED) Additional Instructions: Take your antibiotic as prescribed. Follow up with a dentist. IF you are prescribed home medications and/or you are taking over the counter medications at home - it is very important you continue to do so as prescribed / directed unless told otherwise. Follow up with your primary care provider. Return to the emergency department immediately if your symptoms worsen or if you develop any numbness, tingling, dizziness, shortness of breath, difficulty breathing, chest pain, blurry vision, loss of vision, nausea, vomiting, abdominal pain, fever, chills, back pain, or any other complaints. Call or visit any of the clinics below to establish with a dentist: [facility] [address] [place] [address] [address] [place] [address] [address] [facility] [address] [place] [address] [address] [place] [address] [address] [facility] [address] [place] [address] [address] [facility] [address] [place] [address] [address] [facility] [address] [place] [address] [address] [place] [address] [address] [facility] [address] [place] [address] [address] [place] [address] [address] [place] [address] [address] [facility] [address] [place] [address] [facility] [address] [place] [address] [facility] [address] [facility] [address] [place] [address] [facility] [address] [place] [address] [facility] [address] [place] [address] [facility] [address] [place] [address] [facility] [address] [facility], [address] [facility] [address] [place] [address] [address] [place] [address] [address] [place] [address] (One number for all locations) [facility] [address] [place] [address] [facility] [address] [place], [place] [id number] [facility] [address] [place] [address] Please see the information below about our Patient Portal. If you are not yet enrolled in the [facility] Patient Portal, you will receive an enrollment email invitation following your visit to any [facility] setting. You may also self-enroll in the Patient Portal by visiting our website: [email or web address] The following information is required to access the Patient Portal: - Your [facility] [place] Medical Record Number - Your personal home email address (must match what is in your electronic medical record, Registration staff can assist with this) - Name - Date of Capabilities of the Patient Portal: - Message some providers - View upcoming appointments - Access your health summary, medical history, and visit history - View current conditions and allergies - View procedure and lab results - View your medications, including guidelines, side effects, and precautions - Complete pre-appointment questionnaires requested by your provider - Ready summary reports of your office visits and procedures To access the Patient Portal Mobile Lena, follow these directions: - Search [facility] in the Lena Store or [employer] e[employer] Store - Download the Lena - Search for [facility] - Enter your login/password Prescriptions: New naproxen 500 mg tablet 500 mg PO BID 7 Days Qty: 14 0RF amoxicillin-pot clavulanate 875-125 mg tablet 1 tab PO BID 7 Days Qty: 14 0RF chlorhexidine gluconate [Peridex] 0.12 % mouthwash 15 ml buccal BID Qty: 118 0RF No Action pantoprazole [Protonix] 20 mg tablet,delayed release (DR/EC) 20 mg PO DAILY Qty: 14 0RF metoclopramide HCl [Reglan] 10 mg tablet 10 mg PO Q6H PRN (Reason: nausea and vomiting) Qty: 14 0RF celecoxib 200 mg Capsule 200 mg PO BID 30 Days Qty: 60 0RF Referrals: [facility] [Primary Care Provider, Medical] Interventions: ED Discharge Assessment Last Done: 01/10/25 11:37 Discharge Date/Time: 01/10/25 11:37 Print Language: Latvian
--- OUTSIDE RECORDS SUMMARY | 2025-01-10 11:25 | XMS_ITS | Clinical Summary ---
Author Organization [employer] Address [address] [facility] 7t [place] [address] Care Team Providers Care Blanker Operator Name Role Phone Christine May NP Primary Care Provider [phone] Ronnie Morales RN Unavailable [phone] Allergies Active Allergy Reactions Criticality Noted Date Comments Methylphenidate 09/13/2022 Bupropion 09/13/2022 Medications nicotine polacrilex (Nicotine Mini) 4 MG lozenge Dissolve 1 lozenge (4 mg) in the mouth every 2 (two) hours if needed for smoking cessation. 100 lozenge 3 Active acetaminophen (Tylenol) 500 MG tablet Take 2 tablets (1,000 mg) by mouth every 6 (six) hours if needed for moderate pain or fever for up to 25 doses. 50 tablet 4 Active ibuprofen 400 MG tablet Take 1 tablet (400 mg) by mouth every 6 (six) hours if needed for moderate pain or fever for up to 30 doses. 30 tablet 4 Active Additional Information Patient not taking.Reported on 10/14/2024 albuterol 108 (90 Base) MCG/ACT inhalerIndicatio ns:Mild intermittent asthma without complication Inhale 2 puffs every 4 (four) hours if needed for wheezing or shortness of breath. 18 g 3 5 Active lidocaine (Lidoderm) 5 % patchIndications :Left-sided chest wall pain APPLY 1 PATCH TOPICALLY TO SKIN, LEAVE ON FOR 12 HOURS AND OFF FOR 12 HOURS DIRECTED 30 patch 1 5 Active budesonide-formo terol (Symbicort) 80-4.5 MCG/ACT inhalerIndicatio ns:Mild intermittent asthma without complication Inhale 2 puffs in the morning and at bedtime. Rinse mouth with water after use to reduce aftertaste and incidence of candidiasis. Do not swallow. 1 each 2 5 Active nicotine (Nicoderm CQ) 7 MG/24HR patchIndications :Cigarette nicotine dependence without complication Place 1 patch on the skin 1 (one) time each day at the same time. 30 patch 2 5 Active ipratropium (Atrovent) 0.03 % nasal sprayIndications :Acute URI Administer 1 spray into each nostril every 12 (twelve) hours. 30 mL 12 5 09/26/19 26 Active Menthol (Cepacol Sore Throat) 5.4 MG lozenge Dissolve 1 tablet in the mouth every 2 (two) hours if needed (xin throat). 20 lozenge 5 Active fluticasone (Flonase) 50 MCG/ACT nasal spray Administer 1-2 sprays into each nostril Once per day for 14 days. Shake gently. Before first use, prime pump. After use, clean tip and replace cap.pt to get treatment for sinusitis needs only 14 days 16 g 5 Active amLODIPine (Norvasc) 5 MG tablet Take 1 tablet (5 mg) by mouth Once per day. 90 tablet 5 10/15/19 26 Active Blood Pressure kitIndications:H ypertension, unspecified type 1 each 2 times daily. 1 kit 5 11/20/19 26 Active Active Problems Problem Noted Date Diagnosed Date HTN (hypertension) 10/14/2024 Assessment & Plan (11/19/2024 3:46 PM EDT): -repeat BP stable in clinic today at goal of BP goal <130/80 mmHg -new blood pressure kit rx'd today. Advised home monitoring w/ 1 wk follow-up with team nurses to evaluate amlodipine response -daily medication compliance along with dietary and lifestyle modifications reviewed -he is encouraged to complete monitoring labs. Print outs provided -follow-up 3 months Assessment & Plan (10/14/2024 9:23 PM EDT): HTN-newly dxed Maybe in setting of current symptoms worsen but states at home has multiple elevated BP > 140/90 Despite not been sick and noted in multiple previous visits -Advised tobacco cessation -given no lab results in system will start amlodipine 5 mg daily -advised pt to monitor home BP and bring readings to PCP and I am requesting Blue team RN to help pt w apt w them in 2 weeks for BP check up Upper respiratory infection 10/14/2024 Assessment & Plan (10/14/2024 9:23 PM EDT): Here Flu,COVID 19 and Strep are neg Pt seems to have likely recurrent viral infection and Possible complicated w bacterial sinusitis from symptoms and clinical exam -cepacol -amoxicillin BID for 10 days -flonase x 14 days -tylenol PRN -hydration -advised pt to get labs ordered by PCP back in 06/2024 in fasting ( has order HIV test-reinforce pt to get test done ) -smoking cessation advised S/P laparoscopic cholecystectomy 09/02/2024 Overview (09/02/2024): Completed at [facility] 08/26 Assessment & Plan (11/29/2024 9:54 PM EDT): -stable w/o post surgical complications Class 1 obesity 08/22/2024 alcohol syndrome 08/22/2024 Encounter to establish care 07/11/2024 Assessment & Plan (07/13/2024 5:30 AM EDT): -patient is new to [facility] -personal medical, surgical, and medication histories reviewed along with family hx -routine health maintenance discussed -age appropriate screening ordered today; declined PCV 20 vaccine -mental health screening positive; patient declined interventions at this time -healthy social behaviors encouraged -anticipatory guidance reviewed: diet, exercise Chest pain 07/11/2024 Assessment & Plan (07/13/2024 5:32 AM EDT): -Suspect its R/T to underlying anxiety, uncontrolled asthma, possible GERD -normal varient 12-lead EKG -Encouraged to maintain account of events -ED precautions reviewed Mild intermittent asthma 03/31/2024 Assessment & Plan (11/29/2024 9:52 PM EDT): - Asthma is mild intermittent - Continue current medication regimen -follow-up as needed Assessment & Plan (07/11/2024 11:18 AM EDT): -informed patient of lack is asthma control -he is agreeable to trial maintenance therapy. Will start symbicort. Medication side effects and use reviewed -follow-up 6-8 weeks Assessment & Plan (03/31/2024 2:36 PM EST): Patient ask for refills for his albuterol inhaler, prescription send to pharmacy Mild intermittent asthma with acute exacerbation 01/15/2024 Assessment & Plan (09/25/2024 1:25 PM EDT): Quit tobacco for 1 week. Lungs sound good. Has been over using albuterol. -prescribed short burst of prednisone for breakthrough relief. 09/25/24 Heroin use disorder, moderate, in sustained dante ssion 09/13/2022 Tobacco dependence 09/13/2022 Assessment & Plan (10/14/2024 9:23 PM EDT): Offered tobacco cessation program referral but pt wants to hold for now -encouraged pt to use his nicotine patches Mixed anxiety and depressive disorder 09/13/2022 Encounters Date Type Department Care Team Description 12/10/2024 Patient Outreach [facility] MEDICINE [address] [place] [phone] Christine May NP Care Management (C3CM- f/u call) 12/08/2024 Patient Outreach [facility] MED[facility]INE [address] [place] [phone] Christine May NP 12/02/2024 Telephone [facility] [address] [place] [phone] Christine May NP January11/26/2024 Patient Outreach [facility] [address] [place] [phone] Christine May NP Care Management (C3CM- f/u call) 11/19/2024 3:15 PM EDT Office Visit [facility] [address] [place] [phone] Christine May NP Hypertension, unspecified type (Primary Dx) 11/19/2024 Travel 11/18/2024 Telephone [facility] MED[facility]INE [address] [place] [phone] Efrain Camp [place] CHARTPREP 11/14/2024 Patient Outreach [address] [address] Christine May NP Care Management (C3CM- f/u call) 10/22/2024 Patient Outreach [address] [phone] Christine May NP 10/22/2024 Patient Outreach [address] [phone] Christine May NP Care Coordination (SDOH f/u) 10/22/2024 Patient Outreach [address] [phone] Christine May NP Care Management (C3CM- f/u call) 10/14/2024 1:00 PM EDT Office Visit [facility] [address] [place] [phone] Valeri Mccollum MD Hypertension, unspecified type (Primary Dx); Sore throat; Upper respiratory tract infection, unspecified type; Tobacco dependence 10/14/[address] [phone] Christine May NP Appointment 10/14/2024 Travel from Last 3 Months Immunizations Immunization Administration Dates Next Due DTP 06/19/1995, 5,1994,03/29 DTaP, 5 pertussis antigens 12/09/1998 Hep B, Adolescent or Pediatric 1994,1993,1994 Hib (PRP-T) 06/19/1995, 5,1994,03/29 IPV 12/09/1998, 6,1994,05/02,1994 Influenza injectable quadriv alent preservative free 02/06/2023 Influenza, Split (incl. elmer fied surface antigen) 02/10/2010 MMR 01/14/1998,06/19/1995 Meningococcal MCV4P [id number]-135 11/13/2008 Tdap 06/10/2022,08/28/2014,04/17/2006 Varicella 11/13/2008,12/09/1998 Family History Medical History Relation Name Comments Diabetes Father Hypertension Father Bone cancer Mother Prostate cancer Paternal Grandfather Cancer Sister Relation Name Status Comments Father Alive Mother Paternal Grandfather Sister Social History Tobacco Use Types Packs/Day Years Used Date Smoking Tobacco: Every Day Cigarettes Passive Smoke Exposure: Current Smokeless Tobacco: Never Tobacco Cessation:Ready to Q uit: Not Asked; Counseling Given: Not Answered Depression Answer Date Recorded Patient Health Questionnaire-9 Score 0 09/02/2024 Patient Health Questionnaire-9 Score 0 09/02/2024 Last PHQ-9: Questionnaire Data Not on file 0 09/02/2024 Housing Stability Answer Date Recorded What is your housing situation today? I have nafisarafael emmanuel 05/02/[address] you li ve. Do you have problems with any of the following? None of the above 05/02/2024 Food Insecurity Answer Date Recorded Within the past 12 months, y ou worried that your food would run out before you got money to buy more: Never True 07/03/2024 Within the past 12 months,th e food you bought just didn't last and you didn't have enough money to get more: Never True 09/2024 Transportation Answer Date Recorded In the past 12 months, has l ack of transportation kept you from medical appts, meetings, work or from getting things needed for daily living? No 05/02/2024 Utilities Answer Date Recorded In the past 12 months, has t he electric, gas, oil or water company threatened to shut off services in your home? No 05/02/2024 Depression Answer Date Recorded Patient Health Questionnaire-2 Score 0 09/02/2024 Internet Access Answer Date Recorded Internet Access Q1 Yes 05/02/2024 Internet Access Q2 Not on file 05/02/2024 Sex and Gender Information Value Date Recorded Sex Assigned at Male 02/27/2022 10:15 AM EDT Legal Sex Male 10:15 AM EDT Gender Identity Male 02/27/2022 10:15 AM EDT Sexual Orientation Straight 02/27/2022 10 :15 AM EDT Last Filed Vital Signs Vital Sign Reading Time Taken Comments Blood Pressure 130/68 11/19/2024 2:58 PM EDT Pulse 74 11/19/2024 2:25 PM EDT Temperature 36.7 C (98 F) 11/19/2024 2:25 PM EDT Respiratory Rate 16 11/19/2024 2:25 PM EDT Oxygen Saturation 94% 11/19/2024 2:25 PM EDT Inhaled Oxygen Concentration - - Weight 92.4 kg (203 lb 9.6 oz) 11/19/2024 2:25 P M EDT Height 170.2 cm (5' 7 ) 11/19/2024 2:25 PM EDT Body Mass Index 31.89 11/19/2024 2:25 PM EDT Plan of Treatment Upcoming Encounters Date Type Department Care Team (Late st Contact Info) Description 02/11/2025 9:45 AM EDT Office Visit [facility] MEDICINE [address] [place], [place] [phone] Christine May NP [address] [place], [place] [phone] Health Maintenance Due Date Last Done Comments HIV Screening 1994 Lipid Panel 1994 Family Planning (PISQ) 2009 HPV Vaccines (1 - Male 3-dose series) 2009 Hepatitis C Screening 01/06/2012 Pneumococcal Vaccine: Pediatrics (0 to 5 Years) and At-Risk Patients (6 to 49) Years (1 of 2 - PCV) 2013 COVID-19 Vaccine (2 - season) 2024 06/09/2021 Influenza Vaccine (#1) 2024 02/06/2023, 2009 Alcohol/Substance Use Screening 05/23/2025 05/23/2024 Depression Screening 09/02/2025 09/02/2024, 09/03/19 25 SDOH Screening 09/05/2025 09/05/2024 Disability Screening 09/08/2025 09/08/2024 Tobacco Screening 11/19/2025 11/19/2024 DTaP/Tdap/Td Vaccines (9 - Td or Tdap) 06/10/2032 06/10/2022, 08/28/2014, 04/17/2006, Additional history exists Zoster Vaccines (1 of 2) 01/06/2044 RSV Patients and Patients Aged 60 years or older (1 - 1-dose 75+ series) 2069 Hepatitis B Vaccines Completed 1994, 1994, 1994 HIB Vaccines Completed 06/19/1995, 06/1994, 1994, Additional history exists IPV Vaccines Completed 12/09/1998, 06/01, 1994, Additional history exists Meningococcal Vaccine Aged Out 11/13/2008 No luis alberto kavya eligible based on patient's age to complete this topic Hepatitis A Vaccines Aged Out No long er eligible based on patient's age to complete this topic Meningococcal B Vaccine Aged Out No l onger eligible based on patient's age to complete this topic RSV under 20 months Aged Out No longe r eligible based on patient's age to complete this topic Rotavirus Vaccines Aged Out No longer eligible based on patient's age to complete this topic Procedures Procedure Name Priority Date/Time Associated Diagnosis Comments POCT RAPID COVID ANTIGEN Routine 10/14/2024 1:30 PM EDT Sore throat POC DYER ID NOW STREP A Routine 10/14/2024 1:30 PM EDT Sore throat POCT INFLUENZA B (ID NOW RAPID MOLECULAR) Routine 10/14/2024 1:30 PM EDT Sore throat POCT INFLUENZA A (ID NOW RAPID MOLECULAR) Routine 10/14/2024 1:30 PM EDT Sore throat from Last 3 Months Results * POCT Rapid Influenza B DYER ID NOW (10/14/2024 1:30 PM EDT) Influenza B Negative Negative, Indeterminate [facility] QC Media Lot # [id number] [facility] Lot# Expiration Date [id number] [facility] Swab 10/14/2024 1:30 PM EDT us Valeri North MD POINT OF CARE HERIBERTO T ENTER/EDIT ORDERABLES Final Result Performing Organization Address [facility]/ZIP Co de Phone Number [facility] [address] [place] [phone] * POCT Rapid Influenza A DYER ID NOW (10/14/2024 1:30 PM EDT) Influenza A Negative Negative, Indeterminate [facility] QC Media Lot # [id number] [facility] Lot# Expiration Date 82 [facility] Swab 10/14/2024 1:30 PM EDT Valeri North MD POINT OF CARE HERIBERTO T ENTER/EDIT ORDERABLES Final Result Performing Organization Address [facility] Co de Phone Number [facility] [address] [place] [phone] * POCT Rapid Strep A DYER ID NOW (10/14/2024 1:30 PM EDT) Rapid Strep A Screen Negative Negative, None Detected QC Media Lot # [id number] Lot# Expiration Date 12,526 Swab 10/14/2024 1:30 PM EDT Valeri North MD POINT OF CARE HERIBERTO T ENTER/EDIT ORDERABLES Final Result * POCT Rapid Covid-19 BinaxNOW (10/14/2024 1:30 PM EDT) Rapid COVID Ag Negative QC Media Lot # [id number] Lot# Expiration Date ,426 Swab 10/14/2024 1:30 PM EDT Valeri North MD POINT OF CARE HERIBERTO T ENTER/EDIT ORDERABLES Final Result from Last 3 Months Insurance [facility] C3 Care Teams Blanker Operator Relationship Specialty Start Date End Date Christine May NP [address] [place] [address] PCP - General Family Medicine 07/11/24 Ronnie Morales, CRISTA [address] [place] [phone] Peer SpecialistClient Solutions Director 09/02/24
[2025-01-10 11:37] VITALS: BP 146/75; PULSE 63; RESP 18; TEMP 36.6; O2SAT 97
== END 2025-01-10 11:37 | disposition home or self-care (01) ==
PROVIDERS: Emergency Provider Emergency Medicine
DX: K08.89 Other specified disorders of teeth and supporting structures (principal); K04.7 Periapical abscess without sinus
CPT/HCPCS: 99282

== ENCOUNTER 2025-04-27 15:22 | Outpatient (REF) | payer MEDICAID, SELFPAY ==
--- NOTE | ~2025-04-27 | CT_ITS ---
EXAMINATION: CT CHEST WITHOUT IV CONTRAST INDICATION: R91.8 - Other nonspecific abnormal finding of lung field COMPARISON: Correlation is made with the report from an outside study from [facility] dated 05/01/2024. TECHNIQUE: Helical CT scan of the chest was performed without intravenous contrast. Coronal and sagittal reformatted images were generated and reviewed. This CT exam was performed with one or more of the following dose reduction techniques: automated exposure control, adjustment of the mA and/or kV according to patient size, use of iterative reconstruction technique. DLP: 269 mGy-cm CHEST: THYROID: The thyroid is unremarkable. LUNGS: There is a 3 mm nodule in the right upper lobe (series 5, image 20). An additional 2 mm nodule seen in the left upper lobe (series 5, image 95). A 3 mm nodule along the right major fissure (series 5, image 120) likely represents an intrapulmonary lymph node. MEDIASTINUM: There is no mediastinal lymphadenopathy. Triangular soft tissue density in the anterior mediastinum likely represents residual thymus. MELISSA: Evaluation of the hilar regions is limited by lack of intravenous contrast material. CARDIOVASCULATURE: The heart is normal in size. There is no pericardial effusion. The thoracic aorta is normal in caliber. DEGREE OF CORONARY CALCIFICATION: none PLEURA: There is no pleural effusion. No pneumothorax. MAIN AIRWAYS: The mainstem bronchi and proximal branches are patent. AXILLA: There is no axillary lymphadenopathy. BONES AND SOFT TISSUES: Unremarkable UPPER ABDOMEN: The visualized portions of the liver, spleen, and adrenals have an unremarkable unenhanced appearance. CT/CT chest wo IV con IMPRESSION: Subcentimeter bilateral pulmonary nodules as described. Comparison with the prior outside study is recommended. Please see Fleischner Society guidelines below for follow-up recommendations. Fleischner Criteria for pulmonary nodule follow-up SOLID NODULES: Low risk patient: <6mm: no follow-up 6-8mm: 6 month follow-up CT >8mm: PET/Biopsy/ 3 month follow-up CT High risk patient: <6mm: 12 month follow-up CT 6-8mm: 6 month follow-up CT >8mm: PET/Biopsy/ 3 month follow-up CT SUB-SOLID/GROUNDGLASS NODULES: All patients: > or = 6mm: 6 month follow-up CT *Please note that in patients in the following categories, the Fleischner criteria do not apply: Immunocompromised, lung cancer screening population, age below 35, and patients with known malignancy Electronically signed by: Deuce Menchaca MD 04/28/2025 07:06 AM YANA
--- OUTSIDE RECORDS SUMMARY | 2025-04-27 17:28 | XMS_ITS | Clinical Summary ---
Author Organization [employer] Address [address] [facility] [address] [place] [address] Care Team Providers Care Inspector Printed Circuit Boards Name Role Phone Christine May NP Primary Care Provider [phone] Ronnie Morales RN Unavailable [phone] Allergies Active Allergy Reactions Criticality Noted [...] laparoscopic cholecystectomy 09/02/2024 Overview (09/02/2024): Completed at [facility] [place] [facility] 08/26 Assessment & Plan (11/29/2024 9:54 PM EDT): -stable w/o post surgical complications Class 1 obesity 08/22/2024 alcohol syndrome 08/22/2024 Encounter to establish care 07/11/2024 Assessment & Plan (07/13/2024 5:30 AM EDT): -patient is new to [facility] -personal medical, surgical, and medication [...] for breakthrough relief. 09/25/24 Heroin use disorder, moderat e, in sustained remission ([facility]) 09/13/2022 Tobacco dependence 09/13/2022 Assessment & Plan (10/14/2024 9:23 PM EDT): Offered tobacco cessation program referral but pt wants to hold for now -encouraged pt to use his nicotine patches Mixed anxiety and depressive disorder 09/13/2022 Encounters Date Type Department Care Team Description 02/10/2025 Telephone [facility] MEDICINE [address] [place] [address] Christine May NP Chartprep 02/04/2025 Patient Outreach [facility] MED & PEDS [address] [place] [address] Christine May NP Pre-visit Planning ([facility] unable to reach [facility] ) from Last 3 Months Immunizations Immunization Administration [...] is your housing situation today? I have nafisa emmanuel 05/02/[address] you [...] 11/19/2024 2:25 PM EDT Plan of Treatment Health Maintenance Due Date Last Done Comments [...] on patient's age to complete this topic Insurance Care Teams Inspector Printed Circuit Boards Relationship Specialty Start Date End Date Christine May NP [address] [place] [address] PCP - General Family Medicine 07/11/24 Ronnie Morales, CRISTA [address] [place] [address] [place] [id number] Technician AssistantInstructor Painting 09/02/24
== END 2025-04-27 15:23 | disposition home or self-care (01) ==
LOC: HO.CT 15:22
PROVIDERS: Visit Provider Nurse Practitioner Family
DX: R91.8 Other nonspecific abnormal finding of lung field (principal)
CPT/HCPCS: 71250

== ENCOUNTER → 2025-04-27 15:24 | Outpatient (BNV) | payer MEDICAID, SELFPAY | PROVIDERS: Visit Provider Radiology Diagnostic Radiology | DX: R91.8 Other nonspecific abnormal finding of lung field (principal) | CPT/HCPCS: 71250 ==